=== PATIENT | male | born 1945 | race Caucasian/White ===

== ENCOUNTER 2019-10-28 10:09 | Inpatient (IN) | payer MEDICARE, BC ==
[~2019-10-28] VITALS: Ht 177.8 cm; Wt 107.5 kg
[2019-10-28 11:42] VITALS: BP 139/80
[2019-10-28] MEDS ORDERED: BISACODYL 10 MG SUPP PR PRN (13:15)
[2019-10-28] MEDS ORDERED: MOM 30ML SUSPENSION UDC PO PRN (13:15)
--- NOTE | 2019-10-28 13:39 | HPEPDOC ---
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 SOURCE OF ADMISSION INFORMATION: [facility] records and patient CHIEF COMPLAINT:intracranial hemorrhage HISTORY OF PRESENT ILLNESS: 74M pmh KATHARINE on CPAP, Aortic valve repair on warfarin and ASA, thoracic aortic aneurysm, HLD, gout who developed right sided weakness and slurred speech and presented to [facility] on 10-24-19 from an outside hospital after having been diagnosed with a large left frontal intracranial hemorrhage. His Coumadin was held for at least 2 weeks to be re-evaluated by neurosurgery in 2 weeks and repeat CTH on 10-25-19 showed, Grossly unchanged intraparenchymal hemorrhage in the left frontal lobe measuring 4.6 x 3.1 x 4.0 cm (AP x TV x CC) with surrounding edema. There is minimal effacement of the frontal horn of the left lateral ventricle due to mass effect from the hemorrhage and edema. No new acute intracranial hemorrhage identified. Chest CT showed an incidental right upper lobe granuloma which was recommended to be followed up with repeat imaging in 3 months. Malignancy work-up was pursued due to concern of location of frontal lobe hematoma which included CT abd/pelvis which was negative. He developed LUE and jaw tremors at one point, loaded with Keppra, with EEG ultimately negative and anti-seizure meds were discontinued. He was evaluated by therapy, who found him to be well below his prior level of function with difficulty with mobility and ADL management in need of IRF level of care and deemed appropriate for discharge to ARU on 10-28-19. REVIEW OF SYSTEMS: The following is a completed review of systems and has been reviewed. Review of systems otherwise unremarkable. PAIN: Patient self reports no pain EYES: No recent vision changes EARS, NOSE, & THROAT: No throat pain, or dysphagia, or rhinorrhea CARDIOVASCULAR: Denies chest pain or palpitations PULMONARY:+ cough GASTROINTESTINAL: Denies constipation/diarrhea GENITOURINARY: +urinary incontinence MUSCULOSKELETAL: right sided weakness NEUROLOGICAL:Right sided paresis HEMATOLOGICAL: denies easy bruising SKIN:intact PSYCHIATRIC: Unremarkable All other review of systems found to be negative. PAST MEDICAL HISTORY: as per HPI PAST SURGICAL HISTORY: as per HPI ALLERGIES: Please see below. MEDICATIONS: Please see below. FAMILY HISTORY:Cardiac, DM SOCIAL HISTORY:Former smoker, no ETOH DIET:mechanical soft and thins PHYSICAL EXAMINATION: VITAL SIGNS: Please see below. GENERAL: Pleasant and cooperative. No acute distress. HEENT: PERRL. Extraocular movements intact. Clear conjunctiva CARDIOVASCULAR: Regular rate and rhythm. No murmurs, rubs, or gallops LUNGS: No wheezes. +scattered rhonchi ABDOMEN: Soft, nontender, nondistended. Positive bowel sounds. Normal active bowel sounds NEUROLOGICAL: Alert and oriented times 2. Cranial nerves II through XII grossly intact. Sensation grossly intact in all 4limbs (+) clonus right EXTREMITIES: 5\\5 strength left upper extremities. 3/5 right elbow flexors, extensors, 2/5 cloth roll winder, 5-\\5 strength right lower extremity. 5/5 strength in left lower extremity. SKIN: blanchable erythema on sacrum LABORATORY DATA: Please see below. IMAGING: Imaging documentation personally reviewed by record. FUNCTIONAL STATUS: Premorbid: Independent with all activities of daily life as well as mobility On Admission: Max-total assist for functional transfers, bed mobility, dressing, toileting. GOALS: Mod-I household distances for ambulation, functional transfers, dressing, toileting, supervision for bathing, medical optimization ASSESSMENT:74-year-old M with past medical history of HTN, aortic valve repair on AC who presents status post left frontal ICH PLAN: 1. 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 Neuro: s/p left frontal spontaneous ICH, c/u secondary stroke prevention with statin and good BP management, ASa and Couamdin on hold for at least 2 weeks until cleared by neurosurgery -hemiparesis will start SSRI for motor recovery -patient with episode of jaw and LUE tremor at [facility] with EEG 10-25-19 showing, " Continuous mild focal slowing at left fronto-central and left frontotemporal regions. No epileptiform abnormalities are identified" at which pint he was not continued on antiseizure meds -Again with similar episode today lasting less than 5 minutes with preserved consciousness, however patient seen again later with persistent milder lower jaw jerking without LUE tremor lasting >5 minutes-will discuss case with neurology to help determine if he should be started on Keppra in setting of recent ICH for what may be simple partial seizures vs myoclonus 3. Cardiac: hx of htn c/u enalapril and Lasix -HLD- c/u statin -medicine consulted to assist in overall management 4. resp: encourage incentive spirometry, monitor for infection, will start Duonebs and Guaifenesin for rhonchi on exam and cough -KATHARINE c/u CPAP, if patient unable to bring in own machine start nocturnal 02 in the meantime 5. : monitor PVRs 6. DVT ppx: Lovenox, teds, will order admission Doppler 7. GI ppx: Protonix 8. Pain: Tylenol prn 9. DIspo: TBD POST ADMISSION PHYSICIAN EVALUATION: Medical and functional status: Description of medical status, medical assessment: As above. Rehabilitation diagnosis and current and prior cold morbid medical conditions as above. Risk of complications and plans to mitigate them as above. Description of functional status current status is as above. Prior status as above. Status compared to preadmission: There are no clinically significant differences between the patient's current status and the information described on the preadmission screening document. Treatment plan anticipated: Treatment plan is as described above. Required disciplines including physical therapy, occupational therapy, others as noted above. Intensity of services: 3 hours a day, 6 days a week. Special considerations: There are no specific special or safety considerations that would likely preclude immediate implementation of an intensive rehabilitation program or subsequently influence the plan of care. ATTESTATION: Considering all the information above, it is my best judgment that this patient requires intensive rehabilitation therapy as described above and an inpatient hospital environment due to the complexity of nursing, medical, and rehabilitation needs required by the patient. Furthermore, this patient can reasonably be expected to participate in an benefit from an inpatient re habilitation stay with an interdisciplinary team approach to the delivery of rehabilitation care under the direction and supervision of rehabilitation physician. PROGNOSIS: good ESTIMATED LENGTH OF STAY:24-28 days. PROJECTED DISCHARGE DESTINATION: Home with family support and any durable medical equipment required to increase functional safety and mobility. TIME SPENT COUNSELING AND COORDINATING INITIAL CARE: Greater than 70 minutes. Vital Signs Vital Sign - Last 24 Hours 10/28/19 11:42 Temp 99.6 Pulse 67 Resp 17 B/P (MAP) 139/80 (99) Pulse Ox 93 O2 Delivery Room Air Home Medications Scheduled Allopurinol (Zyloprim) 300 Mg Tablet, 300 MG PO DAILY, (Reported) Cholecalciferol (Vitamin D3) (Vitamin D3) 1,000 Unit Tablet, 1,000 UNITS PO DAILY, (Reported) Docusate Sodium (Colace) 100 Mg Capsule, 100 MG PO DAILY, (Reported) Enalapril Maleate (Enalapril Maleate) 5 Mg Tablet, 5 MG PO DAILY, (Reported) started at [facility] Enoxaparin Sodium (Lovenox) 40 Mg/0.4 Ml Syringe, 40 MG SC DAILY, (Reported) started at [facility] 10/28/19 for 10 days Furosemide (Furosemide) 20 Mg Tablet, 20 MG PO DAILY, (Reported) Potassium Chloride (Potassium Chloride) 10 Meq Capsule.er, 10 MEQ PO DAILY, (Reported) Tamsulosin HCl (Flomax) 0.4 Mg Capsule, 0.4 MG PO DAILY, (Reported) Warfarin Sodium (Warfarin Sodium) 5 Mg Tablet, 5 MG PO 3XW, (Reported) sun,tue, fri Warfarin Sodium (Warfarin Sodium) 7.5 Mg Tablet, 7.5 MG PO 4XWK, (Reported) mon,wed,th,and sat Scheduled PRN Acetaminophen (Acetaminophen) 325 Mg Tablet, 650 MG PO Q4H PRN for PAIN, (Reported) for 10 days started 10/28/19 Allergies Coded Allergies: No Known Allergies (Verified Allergy, Unknown, 10/28/19) A-FIB/CHADSVASC A-FIB History Current/History of A-Fib/PAF?: No ANTIONETTE HONG MD Oct 28, 2019 13:39
[2019-10-28] MEDS ORDERED: WARF-21 PO (13:47)
[2019-10-28] MEDS ORDERED: WARF-23 PO (13:47)
[2019-10-28] MEDS ORDERED: FLOM0.4C39 PO (13:47)
[2019-10-28] MEDS ORDERED: ENAL5TAB PO (13:47)
[2019-10-28] MEDS ORDERED: POTA10CA32 PO (13:47)
[2019-10-28] MEDS ORDERED: ZYLO300T6 PO (13:47)
[2019-10-28] MEDS ORDERED: COLA100C5 PO (13:47)
[2019-10-28] MEDS ORDERED: ACET1TAB55 PO (13:47)
[2019-10-28] MEDS ORDERED: FURO20TA2 PO (13:47)
[2019-10-28] MEDS ORDERED: LOVE1INJ SC (13:47)
[2019-10-28] MEDS ORDERED: VITAD1000T PO (13:47)
[2019-10-28 14:00] VITALS: BP 116/70
--- NOTE | 2019-10-28 15:08 | REP ---
Bilateral lower extremity Duplex Doppler venous ultrasound: Real time compression and duplex Doppler interrogation of the bilateral lower extremity deep venous system is performed. Bilaterally, the common femoral, superficial femoral and popliteal veins are fully compressible with transducer pressure and demonstrate normal spontaneous and phasic flow, without evidence of deep venous thrombosis. Impression: No evidence of deep venous thrombosis of the bilateral lower extremity femoral popliteal venous system. Right Palma's cyst measures 7.2 x 1.8 x 4.8 cm. Electronically Signed by Sung Covington MD 10/28/2019 02:58 P
--- NOTE | 2019-10-28 15:53 | HPEPDOC ---
General Date of Admission Oct 28, 2019 at 11:00 Date of Service: Oct 28, 2019 Chief Complaint The patient is a 74-year-old male admitted with a reason for visit of Left Frontal Intraparenchymal Hemorrhage. Source: Patient, Old records Exam Limitations: No limitations Associated Symptoms: Denies Symptoms History of Present Illness Mr. Acevedo is a 74-year-old male who is transferred to the ARU for rehabilitation. The patient reported that last week he had slipped and fallen outside, he noticed that he had right sided arm and leg weakness for several days, that would not resolve. He also noticed some slurred speech. He denied loss of consciousness. Patient went to the ED at [facility] after 3 days of persistent symptoms. He was later transferred to [facility] after he was imaged and found to have a large left frontal ICH. Per the medical record, CT of the head completed on October 23 showed a "stable left frontal lobe intra-parenchymal hemorrhage. There was no significant mass effect or midline shift." Non-contrast MR of the brain October 24 revealed a "left posterior frontal lobe hematoma with surrounding vasogenic edema and mild mass effect on the corpus callosum. No evidence of midline shift." His follow-up non-con MR of the brain on October 25 revealed "high left frontal hematoma at the vertex, likely a hypertensive hemorrhage with rebleed." Patient was also on chronic Coumadin therapy. He was found to be supratherapeutic at 3.38 and given vitamin K and 1 unit fresh frozen plasma. N eurology was consulted at [facility] recommended no surgical intervention, Coumadin discontinued. Patient was evaluated for rehabilitation and was transferred today. Seen sitting up in bed, he denies any headaches, double vision or blurred vision, dizziness, disorientation, chest pain or palpitations, shortness of breath or cough, reduced appetite, abnormal urinary or bowel movements. He continues to suffer from weakness/flaccidity in the right upper and right lower extremities. Home Medications Scheduled Allopurinol (Zyloprim) 300 Mg Tablet, 300 MG PO DAILY, (Reported) Cholecalciferol (Vitamin D3) (Vitamin D3) 1,000 Unit Tablet, 1,000 UNITS PO DAILY, (Reported) Docusate Sodium (Colace) 100 Mg Capsule, 100 MG PO DAILY, (Reported) Enalapril Maleate (Enalapril Maleate) 5 Mg Tablet, 5 MG PO DAILY, (Reported) started at [facility] Enoxaparin Sodium (Lovenox) 40 Mg/0.4 Ml Syringe, 40 MG SC DAILY, (Reported) started at [facility] 10/28/19 for 10 days Furosemide (Furosemide) 20 Mg Tablet, 20 MG PO DAILY, (Reported) Potassium Chloride (Potassium Chloride) 10 Meq Capsule.er, 10 MEQ PO DAILY, (Reported) Tamsulosin HCl (Flomax) 0.4 Mg Capsule, 0.4 MG PO DAILY, (Reported) Warfarin Sodium (Warfarin Sodium) 5 Mg Tablet, 5 MG PO 3XW, (Reported) sun,fri, fri Warfarin Sodium (Warfarin Sodium) 7.5 Mg Tablet, 7.5 MG PO 4XWK, (Reported) mon,wed,th,and sat Scheduled PRN Acetaminophen (Acetaminophen) 325 Mg Tablet, 650 MG PO Q4H PRN for PAIN, (Reported) for 10 days started 10/28/19 Allergies Coded Allergies: No Known Allergies (Verified Allergy, Unknown, 10/28/19) Past Medical History Medical History Hypertension, hyperlipidemia, obstructive sleep apnea (on CPAP), aortic valve repair 2004 with chronic Coumadin and ASA, thoracic aortic aneurysm repair 2017, gout, BPH. Surgical History Thoracic aortic aneurysm repair. Aortic valve replacement Family History Significant Family History: COPD (brothers), Diabetes (brother), Heart disease (fatherMI, or otherheart failure) Social History * Smoker: former Smoker (quit 30 years ago) Alcohol: Denies (quit 20 years ago) Drugs: denies A-FIB/CHADSVASC A-FIB History Current/History of A-Fib/PAF?: No Current PO Anticoag Therapy: No Age/Risk Factor Scoring CHADSVASC: CHADSVASC Response (Comments) Value Age Risk Factor Age 65-74 years old 1 Gender Risk Factor Male 0 Hx of CHF No 0 Hx of HTN Yes 1 Hx of Stroke/TIA/or VTE Yes 2 Hx of Diabetes No 0 Hx of Vascular Disease Yes 1 Total 5 Treatment Treatment ordered: Holding Warfarin Other anticoagulant ordered: Lovenox Review of Systems Constitutional: Denies: Chills, Fever, Night Sweats Eyes: Denies: Pain, Vision change ENT: Reports: Dysphagia; Denies: Head Aches, Ear Pain Skin: Denies: Rash, Lesions, Breakdown Pulmonary: Denies: Dyspnea, Cough Cardiovascular: Denies: Chest Pain, Palpitations, Orthopnea, Paroxysmal Noc. Dyspnea, Lt Headedness Gastrointestinal: Denies: Nausea, Vomiting, Abdominal Pain, Diarrhea Genitourinary: Denies: Dysuria, Frequency, Incontinence, Retention Hematologic: Denies: Bruising, Bleeding Excessively Musculoskeletal: Denies: Neck Pain, Back Pain, Joint Pain, Muscle Pain, Spasms Neurological: Reports: Weakness, Numbness, Change in speech; Denies: Confusion Psych: Reports: Mood Normal Physical Examination General Exam: Positive: Alert, Cooperative, No Acute Distress Eye Exam: Positive: PERRLA, Conjunctiva & lids normal, EOMI; Negative: Sclera icteric ENT Exam: Positive: Atraumatic, Mucous membr. moist/pink, Pharynx Normal, Other ENT (intermittent jaw tremor) Neck Exam: Positive: Supple; Negative: thyromegaly, Lymphadenopathy Chest Exam: Positive: Clear to auscultation, Normal air movement Heart Exam: Positive: Rate Normal, Regular Rhythm, Normal S1, Normal S2, Murmurs (mechanical valve murmur heard throughtout the precordium ); Negative: Gallops, Rubs Telemetry: Positive: No significant arrhythmia Abdomen Exam: Positive: Normal bowel sounds, Soft; Negative: Tenderness, Hepatospenomegaly Extremity Exam: Positive: Swelling; Negative: Clubbing, Cyanosis, Edema, Normal pulses, Tenderness Skin Exam: Positive: Nl turgor and temperature; Negative: Breakdown, Lesion Neuro Exam: Positive: Strength at 5/5 X4 ext (right sided flaccidity, 4/5 strength LUE and LLE), Cranial Nerves 3-12 NL (grossly intact); Negative: Normal Gait (right sided hemiparesis), Normal Speech Psych Exam: Positive: Mood NL, Oriented x 3 Vital Signs Vital Signs Date Time Temp Pulse Resp B/P (MAP) Pulse Ox O2 Delivery O2 Flow Rate FiO2 10/28/19 11:42 99.6 67 17 139/80 (99) 93 Room Air Assessment/Plan Mr. Acevedo is a 74-year-old male who is transferred to the ARU for rehabilitation. The patient reported that last week he had slipped and fallen outside, he noticed that he had right sided arm and leg weakness for several days, that would not resolve. He also noticed some slurred speech. He denied loss of consciousness. Patient [facility] the ED at [facility] after 3 days of persistent symptoms. He was later transferred to [facility] after he was imaged and found to have a large left frontal ICH. Per the medical record, CT of the head completed on October 23 showed a "stable left frontal lobe intra-parenchymal hemorrhage. There was no significant mass effect or midline shift." Non-contrast MR of the brain October 24 revealed a "left posterior frontal lobe hematoma with surrounding vasogenic edema and mild mass effect on the corpus callosum. No evidence of midline shift." His follow-up non-con MR of the brain on October 25 revealed "high left frontal hematoma at the vertex, likely a hypertensive hemorrhage with rebleed." Patient was also on chronic Coumadin therapy. He was found to be supratherapeutic at 3.38 and given vitamin K and 1 unit fresh frozen plasma. Neurology was consulted at [facility] recommended no surgical intervention, Coumadin discontinued. Patient was evaluated for rehabilitation and was transferred today. Patient has a past medical history which includes: hypertension, hyperlipidemia, obstructive sleep apnea (on CPAP), aortic valve repair 2004 with chronic Coumadin and ASA, thoracic aortic aneurysm repair 2017, gout, BPH. #1. Intracranial hemorrhage, with residual right-sided deficits. Coumadin and aspirin remain on hold The plan is for the patient to follow up with neuro surgery in 2 weeks. He is to have a repeat CT of the head prior to this appointment. He is also to follow-up with his PCP within one week of his discharge from rehabilitation. 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 Hypertension. Will require strict blood pressure control secondary to his MRI on 10/25, which showed rebleeding , possibly due to hypertensive hemorrhage. Continue enalapril, Lasix #3. Hyperlipidemia. Continue statin. #4. Obstructive sleep apnea. Nightly use of home CPAP machine. #5. Gout. Continue allopurinol. #6. BPH. Continue tamsulosin #7. Intermittent jaw tremor. Evaluated via EEG at [facility], findings were noncontributory Plan / VTE VTE Prophylaxis Ordered?: Yes (Lovenox. ) JAYLA GONZALEZ PA-C Oct 28, 2019 15:53
[2019-10-28 16:20] VITALS: BP 118/73
[2019-10-28] MEDS: IPRATROPIUM 0.5MG/ALBUTEROL 2.5MG INH SOL UD 3ML (DUONEB)(J7620) NEB SCH ×2 (16:43→19:53)
[2019-10-28] MEDS: ATORVASTATIN 20 MG TAB PO SCH (17:12)
[2019-10-28] MEDS: FLUoxetine 20 MG CAP PO SCH (17:12)
[2019-10-28] MEDS: PANTOPRAZOLE 40MG TAB (PROTONIX) PO SCH (17:12)
[2019-10-28] MEDS: guaiFENesin 200 MG TAB PO SCH ×2 (17:12→20:38)
[2019-10-28] MEDS: REMEDY PHYTOPLEX Z-GUARD PASTE 113GM TUBE (FROM STOREROOM PRODUCT) TOP SCH ×2 (17:12→20:38)
[2019-10-28 20:00] VITALS: BP 129/73
[2019-10-28] MEDS: DOCUSATE SODIUM 100 MG CAP PO SCH (20:37)
[2019-10-28] MEDS: SENNA 8.6 MG TAB (SENOKOT) PO SCH (20:37)
[2019-10-28] MEDS: traZODone 25MG PER 1/2 TABLET PO PRN (20:52)
[2019-10-29 06:00] VITALS: BP 148/88
[2019-10-29 06:51] LABS: BASO % 0.4 % (0.0-1.0); EOS # 0.2 10^3/uL (0.0-0.5); EOS % 4.1 % (0.0-3.0); HEMATOCRIT 39.8 % (42.0-52.0); HEMOGLOBIN 13.7 g/dl (13.5-17.5); LYMPH # 0.9 10^3/uL (1.5-5.0); LYMPH % 17.5 % (24.0-44.0); MEAN CORPUSCULAR HEMOGLOBIN 32.1 pg (27.0-33.0); MEAN CORPUSCULAR HGB CONC 34.4 g/dl (32.0-36.5); MEAN CORPUSCULAR VOLUME 93.2 fl (80.0-96.0); MONO # 0.4 10^3/uL (0.0-0.8); MONO % 6.8 % (0.0-5.0); NEUTROPHILS # 3.7 10^3/uL (1.5-8.5); PLATELET COUNT, AUTOMATED 141 10^3/uL (150-450); RED BLOOD COUNT 4.27 10^6/uL (4.30-6.10); WHITE BLOOD COUNT 5.2 10^3/uL (4.0-10.0)
[2019-10-29] MEDS: IPRATROPIUM 0.5MG/ALBUTEROL 2.5MG INH SOL UD 3ML (DUONEB)(J7620) NEB SCH ×4 (07:01→19:58)
[2019-10-29 07:16] LABS: ALBUMIN 3.1 GM/DL (3.2-5.2); ALT/SGPT 20 U/L (12-78); BILIRUBIN,TOTAL 0.7 MG/DL (0.2-1.0); BLOOD UREA NITROGEN 14 MG/DL (7-18); CALCIUM LEVEL 8.4 MG/DL (8.8-10.2); CARBON DIOXIDE LEVEL 25 MEQ/L (21-32); CHLORIDE LEVEL 110 MEQ/L (98-107); CREATININE FOR GFR 0.85 MG/DL (0.70-1.30); GLOMERULAR FILTRATION RATE > 60.0 (>42); GLUCOSE, FASTING 93 MG/DL (70-100); POTASSIUM SERUM 3.6 MEQ/L (3.5-5.1); SODIUM LEVEL 141 MEQ/L (136-145)
[2019-10-29] MEDS: DOCUSATE SODIUM 100 MG CAP PO SCH ×2 (09:00→19:50)
[2019-10-29] MEDS: TAMSULOSIN 0.4 MG CAP PO SCH (09:48)
[2019-10-29] MEDS: POTASSIUM CHLORIDE 10 MEQ SR TABLET PO SCH (09:48)
[2019-10-29] MEDS: VITAMIN D 1,000 INTERNATIONAL UNITS TABLET PO SCH (09:48)
[2019-10-29] MEDS: ATORVASTATIN 20 MG TAB PO SCH (09:48)
[2019-10-29] MEDS: PANTOPRAZOLE 40MG TAB (PROTONIX) PO SCH (09:48)
[2019-10-29] MEDS: ENALAPRIL MALEATE 5 MG TAB PO SCH (09:48)
[2019-10-29] MEDS: allopurinoL 300 MG TAB PO SCH (09:49)
[2019-10-29] MEDS: FUROSEMIDE 20 MG TAB PO SCH (09:49)
[2019-10-29] MEDS: FLUoxetine 20 MG CAP PO SCH (09:49)
[2019-10-29] MEDS: ENOXAPARIN 40 MG/0.4 ML SYRINGE (J1650) SC SCH (09:49)
[2019-10-29] MEDS: guaiFENesin 200 MG TAB PO SCH ×3 (09:49→21:52)
[2019-10-29] MEDS: REMEDY PHYTOPLEX Z-GUARD PASTE 113GM TUBE (FROM STOREROOM PRODUCT) TOP SCH ×3 (09:51→19:50)
[2019-10-29 14:00] VITALS: BP 111/77
--- NOTE | 2019-10-29 15:26 | REPVR ---
PROCEDURE INFORMATION: Exam: CT Head Without Contrast Exam date and time: 10/29/2019 3:19 PM Age: 74 years old Clinical indication: Other: Jaw and left arm shaking; Additional info: Jaw and left arm shaking, left frontal ich TECHNIQUE: Imaging protocol: Computed tomography of the head without contrast. Radiation optimization: All CT scans at this facility use at least one of these dose optimization techniques: automated exposure control; mA and/or kV adjustment per patient size (includes targeted exams where dose is matched to clinical indication); or iterative reconstruction. Other technique: STROKE PROTOCOL was implemented. COMPARISON: No relevant prior studies available. FINDINGS: Brain: Normal. No hemorrhage. Unremarkable white matter. No mass effect. Ventricles: Normal. No ventriculomegaly. Bones/joints: There is depression of the left ventricular roof and posterior displacement of the anterior frontal horn segment. There is no midline displacement. Sinuses: Visualized sinuses are unremarkable. No fluid levels. Mastoid air cells: Visualized mastoid air cells are well aerated. Soft tissues: Unremarkable. Other findings: Left frontal pole intracerebral hematoma measures 3 cm broad by 4 cm AP by 4.2 cm craniocaudal for estimated volume 24 mL. There is extensive surrounding vasogenic edema which could indicate a pre-existing mass. IMPRESSION: 1. Left frontal pole intracerebral hematoma measures 3 cm broad by 4 cm AP by 4.2 cm craniocaudal for estimated volume 24 mL. There is extensive surrounding vasogenic edema which could indicate a pre-existing mass. 2. There is depression of the left ventricular roof and posterior displacement of the anterior frontal horn segment. There is no midline displacement. ASSESSMENT: ASPECTS (Vickie Stroke Program Early CT Score) is 10. Electronically signed by: Yao Gupta On 10/29/2019 15:26:45 PM
[2019-10-29] MEDS: SENNA 8.6 MG TAB (SENOKOT) PO SCH (19:50)
[2019-10-29 20:00] VITALS: BP 127/76
--- NOTE | 2019-10-29 20:43 | CR ---
DATE OF CONSULTATION: 10/29/2019 REFERRING PHYSICIAN: Dr. Tita Baig. REASON FOR CONSULTATION: Jaw and left hand shaking. HISTORY OF PRESENT ILLNESS: Gabriel Macedo is a 74-year-old man with a history of sleep apnea, aortic valve replacement who has been on Coumadin and aspirin since 2004, thoracic aortic aneurysm, who was at his baseline state of health until October 24, 2019 when he slipped, fell and hit his head and presented to hospital in [place] with large left frontal cerebral hemorrhage. His INR was 3.3 at that time. He was transferred to [facility] where he was admitted. CT scan of his head showed 4.6 x 3.1 x 4 cm cerebral hemorrhage with surrounding edema. CT scan of chest showed incidental upper lobe of lung granuloma. CT scan of abdomen and pelvis were unremarkable. The patient states that he is not allowed to have MRI scan of brain due to his aortic valve replacement. He was noted to have jaw and left arm shaking. He was given Keppra, but his EEG only showed left frontal and temporal slowing and Keppra was stopped. The patient denies any headaches, neck or back pain. He continues to have right hemiparesis with right arm weakness much more than right leg. He does appear to have slight speech deficit and cognitive deficits. Dr. Moy saw episodes of jaw and left hand shaking today, which lasted for 2-5 minutes. I was consulted due to concern for seizure. PAST MEDICAL HISTORY: Aortic valve replacement, and it appears to me by the patient's discussion that he may have a mechanical heart valve and cannot have MRI scan of brain. Thoracic aortic aneurysm, dyslipidemia, gout, sleep apnea. SOCIAL HISTORY: He lives with his . He is a former smoker. He denies alcohol or illicit drugs. FAMILY HISTORY: Significant for diabetes and heart disease. CURRENT MEDICATIONS: - enalapril 5 mg by mouth daily - Lovenox 40 mg subcutaneous daily - Lasix - potassium chloride 10 mEq by mouth daily - Flomax 0.4 mg by mouth daily - Coumadin 5 mg alternating with 7.5 mg on a daily basis, which is on hold. - allopurinol 300 mg by mouth daily ALLERGIES: None. REVIEW OF SYSTEMS All systems were reviewed and found to be noncontributory except as mentioned in history of present illness. PHYSICAL EXAMINATION: Temperature 98.9, pulse 62, respiratory rate 18, blood pressure 111/77, 93% saturation on room air. Heart: Regular rate and rhythm. Lungs: Clear to auscultation. Abdomen: Soft, nontender, nondistended. No pedal edema. No musculoskeletal abnormalities. No rash. No signs of meningeal irritation. The patient is awake, alert, oriented to month, year. He thought that he was still in [place]. He did not know the name of the president. He did not know the day of week and exact date. He appears to have some difficulty with his speech and memory. Extraocular muscles are intact. He has right-sided upper motor neuron-type facial weakness. Tongue and uvula are midline. Forehead and eye strength is normal bilaterally. Right arm strength is 1/5 and right leg strength is 3/5 throughout. Right plantar is upgoing. Deep tendon reflexes are 1+ throughout. Gait could not be tested. Cerebellar testing could not performed on right side. Sensation is normal throughout. Intermittent jaw tremor and left hand tremor during action and postural changes was noted. DIAGNOSTIC STUDIES: CT scan of his head today showed stable left frontal cerebral hemorrhage with vasogenic edema. Size of hemorrhage is slightly lesser compared to his scan at [facility]. ASSESSMENT: 1. 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 His right arm is completely plegic and that explains absence of tremor in right arm. 2. Partial seizures are less likely as left frontal hemorrhage would not explain left arm shaking. PLAN: 1. EEG. Repeat CT scan of head next week. My index of suspicion for any underlying malignancy is extremely low. He likely had traumatic cerebral hemorrhage, and he was of Coumadin with therapeutic INR at that time. 2. No need for antiepileptic medications. Primidone will lower effectiveness of Coumadin if primidone is used for essential tremor in future. It should likely be avoided. Propranolol can be considered if needed in future for his mild tremor. 3. The patient will followup with neurosurgery for his cerebral hemorrhage. He already had unremarkable workup for malignancy at [facility]. [facility]
[2019-10-30] MEDS: traZODone 25MG PER 1/2 TABLET PO PRN (00:04)
[2019-10-30 06:00] VITALS: BP 131/85
[2019-10-30] MEDS: IPRATROPIUM 0.5MG/ALBUTEROL 2.5MG INH SOL UD 3ML (DUONEB)(J7620) NEB SCH ×4 (07:04→19:24)
[2019-10-30] MEDS: PANTOPRAZOLE 40MG TAB (PROTONIX) PO SCH (08:15)
[2019-10-30] MEDS: ATORVASTATIN 20 MG TAB PO SCH (08:16)
[2019-10-30] MEDS: allopurinoL 300 MG TAB PO SCH (08:16)
[2019-10-30] MEDS: POTASSIUM CHLORIDE 10 MEQ SR TABLET PO SCH (08:16)
[2019-10-30] MEDS: DOCUSATE SODIUM 100 MG CAP PO SCH ×2 (08:17→21:53)
[2019-10-30] MEDS: FLUoxetine 20 MG CAP PO SCH (08:17)
[2019-10-30] MEDS: VITAMIN D 1,000 INTERNATIONAL UNITS TABLET PO SCH (08:17)
[2019-10-30] MEDS: ENOXAPARIN 40 MG/0.4 ML SYRINGE (J1650) SC SCH (08:17)
[2019-10-30] MEDS: guaiFENesin 200 MG TAB PO SCH ×3 (08:17→21:53)
[2019-10-30] MEDS: TAMSULOSIN 0.4 MG CAP PO SCH (08:17)
[2019-10-30] MEDS: ENALAPRIL MALEATE 5 MG TAB PO SCH (08:17)
[2019-10-30] MEDS: FUROSEMIDE 20 MG TAB PO SCH (08:17)
[2019-10-30] MEDS: REMEDY PHYTOPLEX Z-GUARD PASTE 113GM TUBE (FROM STOREROOM PRODUCT) TOP SCH ×3 (08:18→21:53)
[2019-10-30 14:00] VITALS: BP 112/74
[2019-10-30 20:30] VITALS: BP 131/75
[2019-10-30] MEDS: SENNA 8.6 MG TAB (SENOKOT) PO SCH (21:53)
[2019-10-31 05:46] VITALS: BP 150/82
[2019-10-31] MEDS: IPRATROPIUM 0.5MG/ALBUTEROL 2.5MG INH SOL UD 3ML (DUONEB)(J7620) NEB SCH ×4 (07:12→19:42)
[2019-10-31 07:18] LABS: HEMATOCRIT 40.5 % (42.0-52.0); HEMOGLOBIN 13.6 g/dl (13.5-17.5); MEAN CORPUSCULAR HEMOGLOBIN 31.9 pg (27.0-33.0); MEAN CORPUSCULAR HGB CONC 33.6 g/dl (32.0-36.5); MEAN CORPUSCULAR VOLUME 95.1 fl (80.0-96.0); PLATELET COUNT, AUTOMATED 155 10^3/uL (150-450); RED BLOOD COUNT 4.26 10^6/uL (4.30-6.10); WHITE BLOOD COUNT 5.3 10^3/uL (4.0-10.0)
[2019-10-31] MEDS: allopurinoL 300 MG TAB PO SCH (07:48)
[2019-10-31] MEDS: ENOXAPARIN 40 MG/0.4 ML SYRINGE (J1650) SC SCH (07:48)
[2019-10-31] MEDS: ENALAPRIL MALEATE 5 MG TAB PO SCH (07:49)
[2019-10-31] MEDS: VITAMIN D 1,000 INTERNATIONAL UNITS TABLET PO SCH (07:49)
[2019-10-31] MEDS: TAMSULOSIN 0.4 MG CAP PO SCH (07:49)
[2019-10-31] MEDS: FLUoxetine 20 MG CAP PO SCH (07:49)
[2019-10-31] MEDS: POTASSIUM CHLORIDE 10 MEQ SR TABLET PO SCH (07:49)
[2019-10-31] MEDS: ATORVASTATIN 20 MG TAB PO SCH (07:49)
[2019-10-31] MEDS: guaiFENesin 200 MG TAB PO SCH ×3 (07:49→20:55)
[2019-10-31] MEDS: FUROSEMIDE 20 MG TAB PO SCH (07:50)
[2019-10-31] MEDS: PANTOPRAZOLE 40MG TAB (PROTONIX) PO SCH (07:50)
[2019-10-31] MEDS: DOCUSATE SODIUM 100 MG CAP PO SCH ×2 (07:50→20:55)
[2019-10-31] MEDS: REMEDY PHYTOPLEX Z-GUARD PASTE 113GM TUBE (FROM STOREROOM PRODUCT) TOP SCH ×3 (07:51→20:55)
[2019-10-31 13:58] VITALS: BP 122/67
[2019-10-31 20:00] VITALS: BP 130/69
[2019-10-31] MEDS: SENNA 8.6 MG TAB (SENOKOT) PO SCH (20:55)
[2019-11-01 05:29] VITALS: BP 126/67
[2019-11-01] MEDS: IPRATROPIUM 0.5MG/ALBUTEROL 2.5MG INH SOL UD 3ML (DUONEB)(J7620) NEB SCH ×3 (07:15→19:25)
[2019-11-01] MEDS: DOCUSATE SODIUM 100 MG CAP PO SCH ×2 (09:00→20:43)
[2019-11-01] MEDS: VITAMIN D 1,000 INTERNATIONAL UNITS TABLET PO SCH (09:01)
[2019-11-01] MEDS: ATORVASTATIN 20 MG TAB PO SCH (09:01)
[2019-11-01] MEDS: ENOXAPARIN 40 MG/0.4 ML SYRINGE (J1650) SC SCH (09:01)
[2019-11-01] MEDS: guaiFENesin 200 MG TAB PO SCH ×3 (09:02→20:43)
[2019-11-01] MEDS: PANTOPRAZOLE 40MG TAB (PROTONIX) PO SCH (09:02)
[2019-11-01] MEDS: allopurinoL 300 MG TAB PO SCH (09:02)
[2019-11-01] MEDS: POTASSIUM CHLORIDE 10 MEQ SR TABLET PO SCH (09:02)
[2019-11-01] MEDS: TAMSULOSIN 0.4 MG CAP PO SCH (09:02)
[2019-11-01] MEDS: FLUoxetine 20 MG CAP PO SCH (09:02)
[2019-11-01] MEDS: ENALAPRIL MALEATE 5 MG TAB PO SCH (09:03)
[2019-11-01] MEDS: FUROSEMIDE 20 MG TAB PO SCH (09:03)
[2019-11-01] MEDS: REMEDY PHYTOPLEX Z-GUARD PASTE 113GM TUBE (FROM STOREROOM PRODUCT) TOP SCH ×3 (09:04→20:44)
--- NOTE | 2019-11-01 10:12 | IPNPDOC ---
Text Note Date of Service The patient was seen on 11/01/19. NOTE History of Present Illness Mr. Acevedo is a 74-year-old male who is transferred to the ARU for rehabilitation. The patient reported that last week he had slipped and fallen outside, he noticed that he had right sided arm and leg weakness for several days, that would not resolve. He also noticed some slurred speech. He denied loss of consciousness. Patient went to the ED at [facility] after 3 days of persistent symptoms. He was later transferred to [facility] after he was imaged and found to have a large left frontal ICH. Patient is seen sitting up in his recliner this morning. He reported that he feels well, therapy has been helpful. He has denied any complaints at this time. Review of Systems Constitutional: Denies: Chills, Fever, Night Sweats Eyes: Denies: Pain, Vision change ENT: Reports: Dysphagia; Denies: Head Aches Pulmonary: Denies: Dyspnea, Cough Cardiovascular: Denies: Chest Pain, Palpitations, Orthopnea, Paroxysmal Noc. Dyspnea, Lt Headedness Gastrointestinal: Denies: Nausea, Vomiting, Abdominal Pain, Diarrhea Genitourinary: Denies: Dysuria, Frequency, Incontinence, Retention Hematologic: Denies: Bruising, Bleeding Excessively Musculoskeletal: Denies: Neck Pain, Back Pain, Joint Pain, Muscle Pain, Spasms Neurological: Reports: Weakness, Numbness, Change in speech; Denies: Confusion Psych: Reports: Mood Normal Physical Examination General Exam: Positive: Alert, Cooperative, No Acute Distress Eye Exam: Positive: PERRLA, Conjunctiva & lids normal, EOMI; Negative: Sclera icteric ENT Exam: Positive: Atraumatic, Mucous membr. moist/pink, Pharynx Normal, Other ENT (intermittent jaw tremor) Neck Exam: Positive: Supple; Negative: thyromegaly, Lymphadenopathy Chest Exam: Positive: Clear to auscultation, Normal air movement Heart Exam: Positive: Rate Normal, Regular Rhythm, Normal S1, Normal S2, Murmurs (mechanical valve murmur heard throughout the precordium ); Negative: Gallops, Rubs Telemetry: Positive: No significant arrhythmia Abdomen Exam: Positive: Normal bowel sounds, Soft; Negative: Tenderness, Hepatospenomegaly Extremity Exam: Positive: Swelling; Negative: Clubbing, Cyanosis, Edema, Normal pulses, Tenderness Skin Exam: Positive: Nl turgor and temperature; Negative: Breakdown, Lesion Neuro Exam: Positive: Strength at 5/5 X4 ext (right sided flaccidity, 4/5 strength LUE and LLE); Negative: Normal Gait (right sided hemiparesis), Normal Speech Psych Exam: Positive: Mood NL, Oriented x 3 Assessment/Plan Mr. Acevedo is a 74-year-old male who is transferred to the ARU for rehabil itation. The patient reported that last week he had slipped and fallen outside, he noticed that he had right sided arm and leg weakness for several days, that would not resolve. He also noticed some slurred speech. He denied loss of consciousness. Patient went to the ED at [facility] after 3 days of persistent symptoms. He was later transferred to [facility] after he was imaged and found to have a large left frontal ICH. Per the medical record, CT of the head completed on October 23 showed a "stable left frontal lobe intra-parenchymal hemorrhage. There was no significant mass effect or midline shift." Non-contrast MR of the brain October 24 revealed a "left posterior frontal lobe hematoma with surrounding vasogenic edema and mild mass effect on the corpus callosum. No evidence of midline shift." His follow-up non-con MR of the brain on October 25 revealed "high left frontal hematoma at the vertex, likely a hypertensive hemorrhage with rebleed." Patient was also on chronic Coumadin therapy. He was found to be supratherape utic at 3.38 and given vitamin K and 1 unit fresh frozen plasma. Neurology was consulted at [facility] recommended no surgical intervention, Coumadin discontinued. Patient was evaluated for rehabilitation and was transferred today. Patient has a past medical history which includes: hypertension, hyperlipidemia, obstructive sleep apnea (on CPAP), aortic valve repair 2004 with chronic Coumadin and ASA, thoracic aortic aneurysm repair 2017, gout, BPH. #1. Intracranial hemorrhage, with residual right-sided deficits. Coumadin and aspirin remain on hold The plan is for the patient to follow up with neuro surgery in 2 weeks. He is to have a repeat CT of the head prior to this appointment. He is also to follow-up with his PCP within one week of his discharge from rehabilitation. 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 Hypertension. Will require strict blood pressure control secondary to his MRI on 10/25, which showed rebleeding , possibly due to hypertensive hemorrhage. Continue enalapril, Lasix Blood pressures within normal limits #3. Hyperlipidemia. Continue statin. #4. Obstructive sleep apnea. Nightly use of home CPAP machine. #5. Gout. Continue allopurinol. #6. BPH. Continue tamsulosin #7. Intermittent jaw tremor. Evaluated via EEG at [facility], findings were noncontributory (ie. no evidence for seizures) Neurology consulted per Dr. Moy. Suspected benign essential tremor affecting the jaw and left upper extremity per Dr. Ortega who also stated that I frontal hemorrhage is unlikely to be responsible for partial seizures. He has a very low suspicion for underlying malignancy, advises to avoid primidone (consider propanolol if needed). Continue with neurosurgery follow-up as previously planned. Plan / VTE VTE Prophylaxis Ordered?: Yes (Lovenox. ) VS,Fishbone, I+O VS, Fishbone, I+O Vital Signs Date Time Temp Pulse Resp B/P (MAP) Pulse Ox O2 Delivery O2 Flow Rate FiO2 11/01/19 09:03 126/67 11/01/19 05:29 98.1 54 18 95 Room Air I&O- Last 24 Hours up to 6 AM 11/01/19 06:00 Intake Total 1370 ml Output Total 2550 ml Balance -1180 ml JAYLA GONZALEZ PA-C Nov 01, 2019 10:12
[2019-11-01 14:58] VITALS: BP 125/63
[2019-11-01] MEDS: traZODone 25MG PER 1/2 TABLET PO PRN (20:43)
[2019-11-01] MEDS: SENNA 8.6 MG TAB (SENOKOT) PO SCH (20:44)
[2019-11-01 22:00] VITALS: BP 131/86
[2019-11-02 06:00] VITALS: BP 158/88
[2019-11-02] MEDS: DOCUSATE SODIUM 100 MG CAP PO SCH ×2 (09:00→20:59)
[2019-11-02] MEDS: REMEDY PHYTOPLEX Z-GUARD PASTE 113GM TUBE (FROM STOREROOM PRODUCT) TOP SCH ×3 (09:00→20:59)
[2019-11-02] MEDS: IPRATROPIUM 0.5MG/ALBUTEROL 2.5MG INH SOL UD 3ML (DUONEB)(J7620) NEB SCH ×4 (09:07→20:00)
[2019-11-02] MEDS: ENOXAPARIN 40 MG/0.4 ML SYRINGE (J1650) SC SCH (09:13)
[2019-11-02] MEDS: VITAMIN D 1,000 INTERNATIONAL UNITS TABLET PO SCH (09:14)
[2019-11-02] MEDS: TAMSULOSIN 0.4 MG CAP PO SCH (09:14)
[2019-11-02] MEDS: POTASSIUM CHLORIDE 10 MEQ SR TABLET PO SCH (09:14)
[2019-11-02] MEDS: allopurinoL 300 MG TAB PO SCH (09:14)
[2019-11-02] MEDS: ENALAPRIL MALEATE 5 MG TAB PO SCH (09:14)
[2019-11-02] MEDS: FLUoxetine 20 MG CAP PO SCH (09:14)
[2019-11-02] MEDS: ATORVASTATIN 20 MG TAB PO SCH (09:14)
[2019-11-02] MEDS: FUROSEMIDE 20 MG TAB PO SCH (09:14)
[2019-11-02] MEDS: guaiFENesin 200 MG TAB PO SCH ×3 (09:15→21:50)
[2019-11-02] MEDS: PANTOPRAZOLE 40MG TAB (PROTONIX) PO SCH (09:22)
[2019-11-02 12:12] VITALS: BP 158/88
[2019-11-02 14:00] VITALS: BP 105/75
--- NOTE | 2019-11-02 18:35 | IPNPDOC ---
PM&R Progress Note DATE OF SERVICE: Nov 02, 2019 Manager Air Progress Note Subjective: Patient reporting he feels well, denies having pain, states his cough is a little better. REVIEW OF SYSTEMS: The following is a completed review of systems and has been reviewed. Review of systems otherwise unremarkable. PAIN: Patient self reports no pain EYES: No recent vision changes EARS, NOSE, & THROAT: No throat pain, or dysphagia, or rhinorrhea CARDIOVASCULAR: Denies chest pain or palpitations PULMONARY:+ cough GASTROINTESTINAL: Denies constipation/diarrhea GENITOURINARY: +urinary incontinence (slightly improving) MUSCULOSKELETAL: right sided weakness NEUROLOGICAL:Right sided paresis HEMATOLOGICAL: denies easy bruising SKIN:intact PSYCHIATRIC: Unremarkable All other review of systems found to be negative. PHYSICAL EXAMINATION: VITAL SIGNS: Please see below. GENERAL: Pleasant and cooperative. No acute distress. HEENT: PERRL. Extraocular movements intact. Clear conjunctiva CARDIOVASCULAR: Regular rate and rhythm. No murmurs, rubs, or gallops LUNGS: No wheezes. +scattered rhonchi ABDOMEN: Soft, nontender, nondistended. Positive bowel sounds. Normal active bowel sounds NEUROLOGICAL: Alert and oriented times 2. Cranial nerves II through XII grossly intact. Sensation grossly intact in all 4limbs (+) clonus right EXTREMITIES: 5\\5 strength left upper extremities. 3/5 right elbow flexors, extensors, 2/5 paper sealer, 5-\\5 strength right lower extremity. 5/5 strength in left lower extremity. SKIN: blanchable erythema on sacrum ASSESSMENT:74-year-old M with past medical history of HTN, aortic valve repair on AC who presents status post left frontal ICH PLAN: 1. 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 Neuro: s/p left frontal spontaneous ICH, c/u secondary stroke prevention with statin and good BP management, ASA and Coumadin on hold for at least 2 weeks until cleared by neurosurgery -hemiparesis will start SSRI for motor recovery -patient with episode of jaw and LUE tremor at [facility] with EEG 20 showing, " Continuous mild focal slowing at left fronto-central and left frontotemporal regions. No epileptiform abnormalities are identified" at which pint he was not continued on antiseizure meds -neuro recs appreciated, patient most likely exhibiting essential tremor, confirmed with today he used to have a bilateral hand tremor prior to the paresis 3. Cardiac: hx of htn c/u enalapril and Lasix -HLD- c/u statin -s/p Aortic valve repair, Coumadin and ASA on hold -medicine consulted to assist in overall management 4. resp: encourage incentive spirometry, monitor for infection, c/u Duonebs and Guaifenesin for cough which is improving- no fevers/leukocytosis -KATHARINE c/u CPAP -will order resp panel given persistent cough 5. : monitor PVRs- patient with incontinence and confusion will order UA/Ucx 6. DVT ppx: Lovenox, teds, admission Dopplers negative 7. GI ppx: Protonix 8. Pain: Tylenol prn 9. DIspo: TBD Allergies Coded Allergies: No Known Allergies (Verified Allergy, Unknown, 10/28/19) Vital Signs Vital Signs Date Time Temp Pulse Resp B/P (MAP) Pulse Ox O2 Delivery O2 Flow Rate FiO2 11/02/19 14:00 97.9 87 17 105/75 (85) 95 Room Air Laboratory Data Labs 24H Laboratory Tests 2 11/01/19 19:31: Bedside Glucose (Misc Panel) 104 Current Medications Current Medications Current Medications Medications (Trade) Dose Ordered Sig/Eugenio Route PRN Reason Start Time Stop Time Status Last Admin Dose Admin Acetaminophen (Tylenol Tab) 650 mg Q4HP PRN PO fever/MILD PAIN (PS 1-4) 10/28/19 13:15 Albuterol/ Ipratropium (Duoneb (Ipr 0.5mg/Alb 2.5mg)) 3 ml RQID NEB 10/28/19 16:00 10/31/19 19:42 Allopurinol (Zyloprim) 300 mg DAILY PO 10/29/19 09:00 11/02/19 09:14 Atorvastatin Calcium (Lipitor) 80 mg DAILY PO 10/28/19 09:00 11/02/19 09:14 Bisacodyl (Dulcolax Suppository) 10 mg DAILYPRN PRN NE CONSTIPATION 10/28/19 13:15 Docusate Sodium (Colace) 100 mg BID PO 10/28/19 21:00 10/31/19 20:55 Enalapril Maleate (Vasotec) 5 mg DAILY PO 10/29/19 09:00 11/02/19 09:14 Enoxaparin Sodium (Lovenox) 40 mg DAILY SC 10/29/19 09:00 11/02/19 09:13 Fluoxetine HCl (PROzac) 20 mg DAILY PO 10/28/19 09:00 11/02/19 09:14 Furosemide (Lasix) 20 mg DAILY PO 10/29/19 09:00 11/02/19 09:14 Guaifenesin (Robitussin Tab) 400 mg TID PO 10/28/19 16:00 11/02/19 17:54 Home Med (Med Rec Complete!) ASDIRECTED XX 10/28/19 14:15 10/28/19 14:28 DC Magnesium Hydroxide (Milk Of Magnesia) 30 ml DAILYPRN PRN PO CONSTIPATION 10/28/19 13:15 Pantoprazole Sodium (Protonix) 40 mg DAILY PO 10/28/19 09:00 11/02/19 09:22 Potassium Chloride (Micro-K Extencaps) 10 meq DAILY PO 10/29/19 09:00 11/02/19 09:14 Senna (Senokot) 1 tab QHS PO 10/28/19 21:00 10/31/19 20:55 Tamsulosin HCl (Flomax) 0.4 mg DAILY PO 10/29/19 09:00 11/02/19 09:14 Trazodone HCl (Desyrel) 25 mg QHSP PRN PO INSOMNIA 10/28/19 18:00 11/01/19 20:43 Vitamin D (Vitamin D) 1,000 units DAILY PO 10/29/19 09:00 11/02/19 09:14 ANTIONETTE HONG MD Nov 02, 2019 18:35
[2019-11-02 20:00] VITALS: BP 116/67
[2019-11-02] MEDS: SENNA 8.6 MG TAB (SENOKOT) PO SCH (20:59)
[2019-11-02] MEDS: traZODone 25MG PER 1/2 TABLET PO PRN (21:50)
--- NOTE | 2019-11-02 22:36 | EEG ---
DATE OF PROCEDURE: 11/01/2019 REFERRING PHYSICIAN: Dr. Tita Baig DIAGNOSIS: Left arm and jaw shaking. EEG NUMBER: [id number] HISTORY: The patient is a 74-year-old man who was admitted at rehab unit after left frontal cerebral hemorrhage. This EEG was done to rule out epileptic potential. TECHNICAL DESCRIPTION: This digital EEG was recorded by 21 scalp, ear and two EKG electrodes and was reviewed in bipolar and referential montages following reformatting in 10-20 international electrode placement system. INTERPRETATION The patient was noted to be in awake and drowsy states during this EEG. Resting awake background rhythm consisted of posterior dominant rhythm with anterior/posterior gradient comprising of 9 Hz alpha activity measuring 15-40 microvolts in amplitude, which was symmetric and reactive to eye opening. Attenuation of posterior dominant rhythm was seen during transition into drowsiness. Stage 1 and 2 sleep were reviewed and were symmetric bilaterally. Left frontal and temporal intermittent theta and delta slowing was noted. Sharply controlled theta activity was noted in left frontal and temporal head region. No relevant clinical activity was noted. EKG revealed normal sinus rhythm. Photic stimulation remained unremarkable. Hyperventilation could not be performed. CONCLUSION: This EEG in awake, drowsy states, stage 1 and 2 sleep is abnormal due to presence of left frontal and temporal sharply contoured theta waves and intermittent theta-delta slowing consistent with focal cortical structural or functional abnormality. No clear epileptiform abnormalities were seen. Clinical correlation is recommended.
[2019-11-03 06:00] VITALS: BP 126/79
[2019-11-03 07:09] LABS: HEMATOCRIT 38.4 % (42.0-52.0); HEMOGLOBIN 12.7 g/dl (13.5-17.5); MEAN CORPUSCULAR HEMOGLOBIN 31.8 pg (27.0-33.0); MEAN CORPUSCULAR HGB CONC 33.1 g/dl (32.0-36.5); PLATELET COUNT, AUTOMATED 148 10^3/uL (150-450); WHITE BLOOD COUNT 8.6 10^3/uL (4.0-10.0)
[2019-11-03 07:36] LABS: BLOOD UREA NITROGEN 24 MG/DL (7-18); CALCIUM LEVEL 8.6 MG/DL (8.8-10.2); CARBON DIOXIDE LEVEL 28 MEQ/L (21-32); CHLORIDE LEVEL 106 MEQ/L (98-107); CREATININE FOR GFR 1.14 MG/DL (0.70-1.30); GLOMERULAR FILTRATION RATE > 60.0 (>42); GLUCOSE, FASTING 106 MG/DL (70-100); POTASSIUM SERUM 3.8 MEQ/L (3.5-5.1); SODIUM LEVEL 139 MEQ/L (136-145)
[2019-11-03] MEDS: IPRATROPIUM 0.5MG/ALBUTEROL 2.5MG INH SOL UD 3ML (DUONEB)(J7620) NEB SCH ×4 (07:44→19:39)
[2019-11-03] MEDS: DOCUSATE SODIUM 100 MG CAP PO SCH ×2 (09:00→20:49)
[2019-11-03] MEDS: REMEDY PHYTOPLEX Z-GUARD PASTE 113GM TUBE (FROM STOREROOM PRODUCT) TOP SCH ×3 (09:00→20:50)
[2019-11-03] MEDS: TAMSULOSIN 0.4 MG CAP PO SCH (09:16)
[2019-11-03] MEDS: ENALAPRIL MALEATE 5 MG TAB PO SCH (09:16)
[2019-11-03] MEDS: FLUoxetine 20 MG CAP PO SCH (09:16)
[2019-11-03] MEDS: allopurinoL 300 MG TAB PO SCH (09:16)
[2019-11-03] MEDS: FUROSEMIDE 20 MG TAB PO SCH (09:17)
[2019-11-03] MEDS: PANTOPRAZOLE 40MG TAB (PROTONIX) PO SCH (09:17)
[2019-11-03] MEDS: ATORVASTATIN 20 MG TAB PO SCH (09:17)
[2019-11-03] MEDS: VITAMIN D 1,000 INTERNATIONAL UNITS TABLET PO SCH (09:17)
[2019-11-03] MEDS: POTASSIUM CHLORIDE 10 MEQ SR TABLET PO SCH (09:17)
[2019-11-03] MEDS: guaiFENesin 200 MG TAB PO SCH ×4 (09:17→20:48)
[2019-11-03] MEDS: ENOXAPARIN 40 MG/0.4 ML SYRINGE (J1650) SC SCH (09:18)
[2019-11-03] MEDS: LACTOBACILLUS ACIDOPHILUS CAP (BACID) PO SCH ×3 (12:18→20:48)
[2019-11-03] MEDS: LevoFLOXacin 750 MG TABLET PO SCH (12:19)
[2019-11-03 14:00] VITALS: BP 109/70
--- NOTE | 2019-11-03 16:49 | IPNPDOC ---
PM&R Progress Note DATE OF SERVICE: Nov 03, 2019 Lab Aide Progress Note Subjective: Patient seen in therapy working on his right hand which is swollen. He was encouraged to prop it up at night. REVIEW OF SYSTEMS: The following is a completed review of systems and has been reviewed. Review of systems otherwise unremarkable. PAIN: Patient self reports no pain EYES: No recent vision changes EARS, NOSE, & THROAT: No throat pain, or dysphagia, or rhinorrhea CARDIOVASCULAR: Denies chest pain or palpitations PULMONARY:+ cough GASTROINTESTINAL: Denies constipation/diarrhea GENITOURINARY: +urinary incontinence (slightly improving) MUSCULOSKELETAL: right sided weakness NEUROLOGICAL:Right sided paresis HEMATOLOGICAL: denies easy bruising SKIN:intact PSYCHIATRIC: Unremarkable All other review of systems found to be negative. PHYSICAL EXAMINATION: VITAL SIGNS: Please see below. GENERAL: Pleasant and cooperative. No acute distress. HEENT: PERRL. Extraocular movements intact. Clear conjunctiva CARDIOVASCULAR: Regular rate and rhythm. No murmurs, rubs, or gallops LUNGS: No wheezes. +scattered rhonchi ABDOMEN: Soft, nontender, nondistended. Positive bowel sounds. Normal active bowel sounds NEUROLOGICAL: Alert and oriented times 2. Cranial nerves II through XII grossly intact. Sensation grossly intact in all 4limbs (+) clonus right EXTREMITIES: 5\\5 strength left upper extremities. 3/5 right elbow flexors, extensors, 2/5 transmission inspector, 5-\\5 strength right lower extremity. 5/5 strength in left lower extremity. RUE edema SKIN: blanchable erythema on sacrum ASSESSMENT:74-year-old M with past medical history of HTN, aortic valve repair on AC who presents status post left frontal ICH PLAN: 1. 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 Neuro: s/p left frontal spontaneous ICH, c/u secondary stroke prevention with statin and good BP management, ASA and Coumadin on hold for at least 2 weeks until cleared by neurosurgery -hemiparesis will start SSRI for motor recovery -patient with episode of jaw and LUE tremor at [facility] with EEG 20 showing, " Continuous mild focal slowing at left fronto-central and left frontotemporal regions. No epileptiform abnormalities are identified" at which pint he was not continued on antiseizure meds -neuro recs appreciated, patient most likely exhibiting essential tremor, confirmed with today he used to have a bilateral hand tremor prior to the paresis 3. Cardiac: hx of htn c/u enalapril and Lasix -HLD- c/u statin -s/p Aortic valve repair, Coumadin and ASA on hold -medicine consulted to assist in overall management 4. resp: encourage incentive spirometry, monitor for infection, c/u Duonebs and Guaifenesin for cough which is improving- no fevers/leukocytosis -KATHARINE c/u CPAP -will order resp panel negative 5. : monitor PVRs- patient with incontinence and confusion- UA +LE will start Levaquin and Bacid while awaiting Ucx 6. DVT ppx: Lovenox, teds, admission Dopplers negative 7. GI ppx: Protonix 8. Pain: Tylenol prn 9. DIspo: TBD Allergies Coded Allergies: No Known Allergies (Verified Allergy, Unknown, 10/28/19) Vital Signs Vital Signs Date Time Temp Pulse Resp B/P (MAP) Pulse Ox O2 Delivery O2 Flow Rate FiO2 11/03/19 14:00 98.0 84 18 109/70 (83) 100 Room Air Laboratory Data CBC/BMP Laboratory Tests 11/03/19 06:40 Labs 24H Laboratory Tests 2 11/03/19 06:40: Nucleated Red Blood Cells % (auto) 0.0, Anion Gap 5L, Glomerular Filtration Rate > 60.0, Calcium Level 8.6L Microbiology Microbiology 11/03/19 Respiratory Virus Panel (PCR) (ANNE-MARIE) - Final, Complete 11/02/19 Urine Culture, Received Pending Current Medications Current Medications Current Medications Medications (Trade) Dose Ordered Sig/Eugenio Route PRN Reason Start Time Stop Time Status Last Admin Dose Admin Acetaminophen (Tylenol Tab) 650 mg Q4HP PRN PO fever/MILD PAIN (PS 1-4) 10/28/19 13:15 Albuterol/ Ipratropium (Duoneb (Ipr 0.5mg/Alb 2.5mg)) 3 ml RQID NEB 10/28/19 16:00 11/03/19 15:54 Allopurinol (Zyloprim) 300 mg DAILY PO 10/29/19 09:00 11/03/19 09:16 Atorvastatin Calcium (Lipitor) 80 mg DAILY PO 10/28/19 09:00 11/03/19 09:17 Bisacodyl (Dulcolax Suppository) 10 mg DAILYPRN PRN [place] CONSTIPATION 10/28/19 13:15 Docusate Sodium (Colace) 100 mg BID PO 10/28/19 21:00 10/31/19 20:55 Enalapril Maleate (Vasotec) 5 mg DAILY PO 10/29/19 09:00 11/03/19 09:16 Enoxaparin Sodium (Lovenox) 40 mg DAILY SC 10/29/19 09:00 11/03/19 09:18 Fluoxetine HCl (PROzac) 20 mg DAILY PO 10/28/19 09:00 11/03/19 09:16 Furosemide (Lasix) 20 mg DAILY PO 10/29/19 09:00 11/03/19 09:17 Guaifenesin (Robitussin Tab) 400 mg TID PO 10/28/19 16:00 11/03/19 16:15 Home Med (Med Rec Complete!) ASDIRECTED XX 10/28/19 14:15 10/28/19 14:28 DC Lactobacillus Acidophilus (Bacid) 1 ea [facility]HS PO 11/03/19 12:30 11/03/19 12:18 Levofloxacin (Levaquin) 750 mg DAILY@06 PO 11/03/19 06:00 11/09/19 06:01 11/03/19 12:19 Magnesium Hydroxide (Milk Of Magnesia) 30 ml DAILYPRN PRN PO CONSTIPATION 10/28/19 13:15 Pantoprazole Sodium (Protonix) 40 mg DAILY PO 10/28/19 09:00 11/03/19 09:17 Potassium Chloride (Micro-K Extencaps) 10 meq DAILY PO 10/29/19 09:00 11/03/19 09:17 Senna (Senokot) 1 tab QHS PO 10/28/19 21:00 10/31/19 20:55 Tamsulosin HCl (Flomax) 0.4 mg DAILY PO 10/29/19 09:00 11/03/19 09:16 Trazodone HCl (Desyrel) 25 mg QHSP PRN PO INSOMNIA 10/28/19 18:00 11/02/19 21:50 Vitamin D (Vitamin D) 1,000 units DAILY PO 10/29/19 09:00 11/03/19 09:17 ANTIONETTE HONG MD Nov 03, 2019 16:49
[2019-11-03 20:20] VITALS: BP 137/77
[2019-11-03] MEDS: SENNA 8.6 MG TAB (SENOKOT) PO SCH (20:49)
[2019-11-04 06:00] VITALS: BP 135/81
[2019-11-04] MEDS: LevoFLOXacin 750 MG TABLET PO SCH (06:02)
[2019-11-04] MEDS: IPRATROPIUM 0.5MG/ALBUTEROL 2.5MG INH SOL UD 3ML (DUONEB)(J7620) NEB SCH ×4 (07:38→19:26)
[2019-11-04] MEDS: DOCUSATE SODIUM 100 MG CAP PO SCH ×2 (09:00→21:54)
[2019-11-04] MEDS: REMEDY PHYTOPLEX Z-GUARD PASTE 113GM TUBE (FROM STOREROOM PRODUCT) TOP SCH ×3 (09:00→21:56)
[2019-11-04] MEDS: PANTOPRAZOLE 40MG TAB (PROTONIX) PO SCH (09:40)
[2019-11-04] MEDS: guaiFENesin 200 MG TAB PO SCH ×3 (09:40→21:54)
[2019-11-04] MEDS: TAMSULOSIN 0.4 MG CAP PO SCH (09:40)
[2019-11-04] MEDS: allopurinoL 300 MG TAB PO SCH (09:40)
[2019-11-04] MEDS: LACTOBACILLUS ACIDOPHILUS CAP (BACID) PO SCH ×4 (09:40→21:54)
[2019-11-04] MEDS: ATORVASTATIN 20 MG TAB PO SCH (09:41)
[2019-11-04] MEDS: FLUoxetine 20 MG CAP PO SCH (09:41)
[2019-11-04] MEDS: FUROSEMIDE 20 MG TAB PO SCH (09:41)
[2019-11-04] MEDS: VITAMIN D 1,000 INTERNATIONAL UNITS TABLET PO SCH (09:41)
[2019-11-04] MEDS: POTASSIUM CHLORIDE 10 MEQ SR TABLET PO SCH (09:42)
[2019-11-04] MEDS: ENOXAPARIN 40 MG/0.4 ML SYRINGE (J1650) SC SCH (09:42)
[2019-11-04] MEDS: ENALAPRIL MALEATE 5 MG TAB PO SCH (09:42)
[2019-11-04 14:00] VITALS: BP 130/65
--- NOTE | 2019-11-04 15:17 | IPNPDOC ---
PM&R Progress Note DATE OF SERVICE: Nov 04, 2019 Digital Media Specialist Progress Note Subjective: Patient seen in his room stating he feels well, reports he has better control over his bladder since starting the antibiotic. REVIEW OF SYSTEMS: The following is a completed review of systems and has been reviewed. Review of systems otherwise unremarkable. PAIN: Patient self reports no pain EYES: No recent vision changes EARS, NOSE, & THROAT: No throat pain, or dysphagia, or rhinorrhea CARDIOVASCULAR: Denies chest pain or palpitations PULMONARY:+ cough GASTROINTESTINAL: Denies constipation/diarrhea GENITOURINARY: +urinary incontinence (improving) MUSCULOSKELETAL: right sided weakness NEUROLOGICAL:Right sided paresis HEMATOLOGICAL: denies easy bruising SKIN:intact PSYCHIATRIC: Unremarkable All other review of systems found to be negative. PHYSICAL EXAMINATION: VITAL SIGNS: Please see below. GENERAL: Pleasant and cooperative. No acute distress. HEENT: PERRL. Extraocular movements intact. Clear conjunctiva CARDIOVASCULAR: Regular rate and rhythm. No murmurs, rubs, or gallops LUNGS: No wheezes. +scattered rhonchi ABDOMEN: Soft, nontender, nondistended. Positive bowel sounds. Normal active bowel sounds NEUROLOGICAL: Alert and oriented times 2. Cranial nerves II through XII grossly intact. Sensation grossly intact in all 4limbs (+) clonus right EXTREMITIES: 5\\5 strength left upper extremities. 3/5 right elbow flexors, extensors, 2/5 probation worker, 5-\\5 strength right lower extremity. 5/5 strength in left lower extremity. RUE edema (improving) SKIN: blanchable erythema on sacrum ASSESSMENT:74-year-old M with past medical history of HTN, aortic valve repair on AC who presents status post left frontal ICH PLAN: 1. 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 Neuro: s/p left frontal spontaneous ICH, c/u secondary stroke prevention with statin and good BP management, ASA and Coumadin on hold for at least 2 weeks until cleared by neurosurgery -c/u SSRI for motor recovery -patient with episode of jaw and LUE tremor at [facility] with EEG 10-25-19 showing, " Continuous mild focal slowing at left fronto-central and left frontotemporal regions. No epileptiform abnormalities are identified" at which pint he was not continued on antiseizure meds -neuro recs appreciated, patient most likely exhibiting essential tremor, confirmed with he used to have a bilateral hand tremor prior to the paresis-will start low dose propranolol 3. Cardiac: hx of htn c/u enalapril and Lasix -HLD- c/u statin -s/p Aortic valve repair, Coumadin and ASA on hold -medicine consulted to assist in overall management 4. resp: encourage incentive spirometry, monitor for infection, c/u Duonebs and Guaifenesin for cough which is improving- no fevers/leukocytosis -KATHARINE c/u CPAP -will order resp panel negative 5. : monitor PVRs- patient with incontinence and confusion (improving)- Ucx for e coli c/u Levaquin and Bacid 6. DVT ppx: Lovenox, teds, admission Dopplers negative 7. GI ppx: Protonix 8. Pain: Tylenol prn 9. DIspo: TBD Allergies Coded Allergies: No Known Allergies (Verified Allergy, Unknown, 10/28/19) Vital Signs Vital Signs Date Time Temp Pulse Resp B/P (MAP) Pulse Ox O2 Delivery O2 Flow Rate FiO2 11/04/19 14:00 98.0 77 18 130/65 (86) 93 Room Air Microbiology Microbiology 11/03/19 Respiratory Virus Panel (PCR) (ANNE-MARIE) - Final, Complete 11/02/19 Urine Culture - Final, Complete Escherichia Coli Current Medications Current Medications Current Medications Medications (Trade) Dose Ordered Sig/Eugenio Route PRN Reason Start Time Stop Time Status Last Admin Dose Admin Acetaminophen (Tylenol Tab) 650 mg Q4HP PRN PO fever/MILD PAIN (PS 1-4) 10/28/19 13:15 Albuterol/ Ipratropium (Duoneb (Ipr 0.5mg/Alb 2.5mg)) 3 ml RQID NEB 10/28/19 16:00 11/04/19 11:11 Allopurinol (Zyloprim) 300 mg DAILY PO 10/29/19 09:00 11/04/19 09:40 Atorvastatin Calcium (Lipitor) 80 mg DAILY PO 10/28/19 09:00 11/04/19 09:41 Bisacodyl (Dulcolax Suppository) 10 mg DAILYPRN PRN [place] CONSTIPATION 10/28/19 13:15 Docusate Sodium (Colace) 100 mg BID PO 10/28/19 21:00 10/31/19 20:55 Enalapril Maleate (Vasotec) 5 mg DAILY PO 10/29/19 09:00 11/04/19 09:42 Enoxaparin Sodium (Lovenox) 40 mg DAILY SC 10/29/19 09:00 11/04/19 09:42 Fluoxetine HCl (PROzac) 20 mg DAILY PO 10/28/19 09:00 11/04/19 09:41 Furosemide (Lasix) 20 mg DAILY PO 10/29/19 09:00 11/04/19 09:41 Guaifenesin (Robitussin Tab) 400 mg TID PO 10/28/19 16:00 11/04/19 09:40 Home Med (Med Rec Complete!) ASDIRECTED XX 10/28/19 14:15 10/28/19 14:28 DC Lactobacillus Acidophilus (Bacid) 1 ea WMHS PO 11/03/19 12:30 11/04/19 12:34 Levofloxacin (Levaquin) 750 mg DAILY@06 PO 11/03/19 06:00 11/09/19 06:01 11/04/19 06:02 Magnesium Hydroxide (Milk Of Magnesia) 30 ml DAILYPRN PRN PO CONSTIPATION 10/28/19 13:15 Pantoprazole Sodium (Protonix) 40 mg DAILY PO 10/28/19 09:00 11/04/19 09:40 Potassium Chloride (Micro-K Extencaps) 10 meq DAILY PO 10/29/19 09:00 11/04/19 09:42 Senna (Senokot) 1 tab QHS PO 10/28/19 21:00 10/31/19 20:55 Tamsulosin HCl (Flomax) 0.4 mg DAILY PO 10/29/19 09:00 11/04/19 09:40 Trazodone HCl (Desyrel) 25 mg QHSP PRN PO INSOMNIA 10/28/19 18:00 11/02/19 21:50 Vitamin D (Vitamin D) 1,000 units DAILY PO 10/29/19 09:00 11/04/19 09:41 ANTIONETTE HONG MD Nov 04, 2019 15:17
[2019-11-04 21:00] VITALS: BP 137/74
[2019-11-04] MEDS: SENNA 8.6 MG TAB (SENOKOT) PO SCH (21:54)
[2019-11-04] MEDS: PROPRANOLOL 10 MG TAB PO SCH (21:55)
[2019-11-04] MEDS: ACETAMINOPHEN TAB 650MG DOSE (2X325MG) PO PRN (21:56)
[2019-11-05 05:53] VITALS: BP 128/80
[2019-11-05] MEDS: LevoFLOXacin 750 MG TABLET PO SCH (06:04)
[2019-11-05] MEDS: IPRATROPIUM 0.5MG/ALBUTEROL 2.5MG INH SOL UD 3ML (DUONEB)(J7620) NEB SCH ×4 (08:00→19:56)
[2019-11-05] MEDS: DOCUSATE SODIUM 100 MG CAP PO SCH (09:00)
[2019-11-05] MEDS: allopurinoL 300 MG TAB PO SCH (09:26)
[2019-11-05] MEDS: guaiFENesin 200 MG TAB PO SCH ×3 (09:28→20:53)
[2019-11-05] MEDS: FLUoxetine 20 MG CAP PO SCH (09:28)
[2019-11-05] MEDS: ATORVASTATIN 20 MG TAB PO SCH (09:29)
[2019-11-05] MEDS: PROPRANOLOL 10 MG TAB PO SCH ×3 (09:29→20:53)
[2019-11-05] MEDS: PANTOPRAZOLE 40MG TAB (PROTONIX) PO SCH (09:29)
[2019-11-05] MEDS: FUROSEMIDE 20 MG TAB PO SCH (09:29)
[2019-11-05] MEDS: POTASSIUM CHLORIDE 10 MEQ SR TABLET PO SCH (09:29)
[2019-11-05] MEDS: LACTOBACILLUS ACIDOPHILUS CAP (BACID) PO SCH ×4 (09:29→20:53)
[2019-11-05] MEDS: VITAMIN D 1,000 INTERNATIONAL UNITS TABLET PO SCH (09:29)
[2019-11-05] MEDS: TAMSULOSIN 0.4 MG CAP PO SCH (09:30)
[2019-11-05] MEDS: ENALAPRIL MALEATE 5 MG TAB PO SCH (09:30)
[2019-11-05] MEDS: ENOXAPARIN 40 MG/0.4 ML SYRINGE (J1650) SC SCH (09:30)
[2019-11-05] MEDS: REMEDY PHYTOPLEX Z-GUARD PASTE 113GM TUBE (FROM STOREROOM PRODUCT) TOP SCH ×3 (09:31→20:54)
--- NOTE | 2019-11-05 11:11 | IPNPDOC ---
PM&R Progress Note DATE OF SERVICE: Nov 05, 2019 Infection Prevention Coordinator Progress Note Subjective: Patient seen in his room wondering when he can go home. He states he is starting to be able to use his right hand. REVIEW OF SYSTEMS: The following is a completed review of systems and has been reviewed. Review of systems otherwise unremarkable. PAIN: Patient self reports no pain EYES: No recent vision changes EARS, NOSE, & THROAT: No throat pain, or dysphagia, or rhinorrhea CARDIOVASCULAR: Denies chest pain or palpitations PULMONARY:+ cough GASTROINTESTINAL: Denies constipation/diarrhea GENITOURINARY: +urinary incontinence (improving) MUSCULOSKELETAL: right sided weakness NEUROLOGICAL:Right sided paresis HEMATOLOGICAL: denies easy bruising SKIN:intact PSYCHIATRIC: Unremarkable All other review of systems found to be negative. PHYSICAL EXAMINATION: VITAL SIGNS: Please see below. GENERAL: Pleasant and cooperative. No acute distress. HEENT: PERRL. Extraocular movements intact. Clear conjunctiva CARDIOVASCULAR: Regular rate and rhythm. No murmurs, rubs, or gallops LUNGS: No wheezes. +scattered rhonchi ABDOMEN: Soft, nontender, nondistended. Positive bowel sounds. Normal active bowel sounds NEUROLOGICAL: Alert and oriented times 2. Cranial nerves II through XII grossly intact. Sensation grossly intact in all 4limbs (+) clonus right EXTREMITIES: 5\\5 strength left upper extremities. 3/5 right elbow flexors, extensors, 2/5 anesthesiologists' assistant, 5-\\5 strength right lower extremity. 5/5 strength in left lower extremity. RUE edema (improving) SKIN: blanchable erythema on sacrum ASSESSMENT:74-year-old M with past medical history of HTN, aortic valve repair on AC who presents status post left frontal ICH PLAN: 1. 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 Neuro: s/p left frontal spontaneous ICH, c/u secondary stroke prevention with statin and good BP management, ASA and Coumadin on hold for at least 2 weeks until cleared by neurosurgery -c/u SSRI for motor recovery -patient with episode of jaw and LUE tremor at [facility] with EEG 20 showing, " Continuous mild focal slowing at left fronto-central and left frontotemporal regions. No epileptiform abnormalities are identified" at which pint he was not continued on antiseizure meds -neuro recs appreciated, patient most likely exhibiting essential tremor, confirmed with he used to have a bilateral hand tremor prior to the paresis-will start low dose propranolol 3. Cardiac: hx of htn c/u enalapril and Lasix -HLD- c/u statin -s/p Aortic valve repair, Coumadin and ASA on hold -medicine consulted to assist in overall management 4. resp: encourage incentive spirometry, monitor for infection, c/u Duonebs and Guaifenesin for cough which is improving- no fevers/leukocytosis -KATHARINE c/u CPAP -will order resp panel negative 5. : monitor PVRs- patient with incontinence and confusion (improving)- Ucx for e coli c/u Levaquin and Bacid 6. DVT ppx: Lovenox, teds, admission Dopplers negative 7. GI ppx: Protonix 8. Pain: Tylenol prn 9. DIspo: TBD Allergies Coded Allergies: No Known Allergies (Verified Allergy, Unknown, 10/28/19) Vital Signs Vital Signs Date Time Temp Pulse Resp B/P (MAP) Pulse Ox O2 Delivery O2 Flow Rate FiO2 11/05/19 09:30 128/80 11/05/19 09:29 64 11/05/19 05:53 97.4 16 96 NIPPV (BIPAP/CPAP) Microbiology Microbiology 11/03/19 Respiratory Virus Panel (PCR) (ANNE-MARIE) - Final, Complete 11/02/19 Urine Culture - Final, Complete Escherichia Coli Current Medications Current Medications Current Medications Medications (Trade) Dose Ordered Sig/Eugenio Route PRN Reason Start Time Stop Time Status Last Admin Dose Admin Acetaminophen (Tylenol Tab) 650 mg Q4HP PRN PO fever/MILD PAIN (PS 1-4) 10/28/19 13:15 11/04/19 21:56 Albuterol/ Ipratropium (Duoneb (Ipr 0.5mg/Alb 2.5mg)) 3 ml RQID NEB 10/28/19 16:00 11/04/19 19:26 Allopurinol (Zyloprim) 300 mg DAILY PO 10/29/19 09:00 11/05/19 09:26 Atorvastatin Calcium (Lipitor) 80 mg DAILY PO 10/28/19 09:00 3/13/20 09:29 Bisacodyl (Dulcolax Suppository) 10 mg DAILYPRN PRN NE CONSTIPATION 10/28/19 13:15 Docusate Sodium (Colace) 100 mg BID PO 10/28/19 21:00 11/04/19 21:54 Enalapril Maleate (Vasotec) 5 mg DAILY PO 10/29/19 09:00 11/05/19 09:30 Enoxaparin Sodium (Lovenox) 40 mg DAILY SC 10/29/19 09:00 11/05/19 09:30 Fluoxetine HCl (PROzac) 20 mg DAILY PO 10/28/19 09:00 11/05/19 09:28 Furosemide (Lasix) 20 mg DAILY PO 10/29/19 09:00 11/05/19 09:29 Guaifenesin (Robitussin Tab) 400 mg TID PO 10/28/19 16:00 11/05/19 09:28 Home Med (Med Rec Complete!) ASDIRECTED XX 10/28/19 14:15 10/28/19 14:28 DC Lactobacillus Acidophilus (Bacid) 1 ea WMHS PO 11/03/19 12:30 11/05/19 09:29 Levofloxacin (Levaquin) 750 mg DAILY@06 PO 11/03/19 06:00 11/09/19 06:01 11/05/19 06:04 Magnesium Hydroxide (Milk Of Magnesia) 30 ml DAILYPRN PRN PO CONSTIPATION 10/28/19 13:15 Pantoprazole Sodium (Protonix) 40 mg DAILY PO 10/28/19 09:00 11/05/19 09:29 Potassium Chloride (Micro-K Extencaps) 10 meq DAILY PO 10/29/19 09:00 11/05/19 09:29 Propranolol HCl (Inderal) 10 mg TID PO 11/04/19 21:00 11/05/19 09:29 Senna (Senokot) 1 tab QHS PO 10/28/19 21:00 11/04/19 21:54 Tamsulosin HCl (Flomax) 0.4 mg DAILY PO 10/29/19 09:00 11/05/19 09:30 Trazodone HCl (Desyrel) 25 mg QHSP PRN PO INSOMNIA 10/28/19 18:00 11/02/19 21:50 Vitamin D (Vitamin D) 1,000 units DAILY PO 10/29/19 09:00 11/05/19 09:29 ANTIONETTE HONG MD Nov 05, 2019 11:11
[2019-11-05 14:00] VITALS: BP 123/75
--- NOTE | 2019-11-05 15:57 | REP ---
Chest x-ray: Two views. History: Rule out infiltrate. No comparison study. Findings: The patient is status post aortic valve replacement. Median sternotomy wires are seen. The heart is not enlarged. The thoracic aorta is tortuous and calcific. No infiltrate is seen in the lung navarro. Pleural angles are sharp. Pulmonary vasculature is not increased. No other bony abnormality. Impression: Status post median sternotomy and aortic valve replacement. No infiltrate seen. Electronically Signed by Danilo Stock MD 11/05/2019 03:46 P
[2019-11-05 20:44] VITALS: BP 119/59
[2019-11-05] MEDS: ACETAMINOPHEN TAB 650MG DOSE (2X325MG) PO PRN (20:53)
[2019-11-05] MEDS ORDERED: DOCUSATE SODIUM 100 MG CAP PO PRN (21:00)
[2019-11-05] MEDS ORDERED: SENNA 8.6 MG TAB (SENOKOT) PO PRN (21:00)
[2019-11-06 05:20] VITALS: BP 140/96
[2019-11-06] MEDS: LevoFLOXacin 750 MG TABLET PO SCH (06:05)
[2019-11-06 07:34] LABS: HEMATOCRIT 40.2 % (42.0-52.0); HEMOGLOBIN 13.7 g/dl (13.5-17.5); MEAN CORPUSCULAR HEMOGLOBIN 32.4 pg (27.0-33.0); MEAN CORPUSCULAR HGB CONC 34.1 g/dl (32.0-36.5); PLATELET COUNT, AUTOMATED 184 10^3/uL (150-450); RED BLOOD COUNT 4.23 10^6/uL (4.30-6.10)
[2019-11-06 08:05] LABS: BLOOD UREA NITROGEN 19 MG/DL (7-18); CARBON DIOXIDE LEVEL 29 MEQ/L (21-32); CHLORIDE LEVEL 106 MEQ/L (98-107); CREATININE FOR GFR 1.01 MG/DL (0.70-1.30); GLOMERULAR FILTRATION RATE > 60.0 (>42); GLUCOSE, FASTING 100 MG/DL (70-100); POTASSIUM SERUM 3.9 MEQ/L (3.5-5.1); SODIUM LEVEL 138 MEQ/L (136-145)
[2019-11-06] MEDS: IPRATROPIUM 0.5MG/ALBUTEROL 2.5MG INH SOL UD 3ML (DUONEB)(J7620) NEB SCH ×4 (08:09→19:27)
[2019-11-06] MEDS: VITAMIN D 1,000 INTERNATIONAL UNITS TABLET PO SCH (08:33)
[2019-11-06] MEDS: ENALAPRIL MALEATE 5 MG TAB PO SCH (08:33)
[2019-11-06] MEDS: POTASSIUM CHLORIDE 10 MEQ SR TABLET PO SCH (08:33)
[2019-11-06] MEDS: ENOXAPARIN 40 MG/0.4 ML SYRINGE (J1650) SC SCH (08:34)
[2019-11-06] MEDS: FLUoxetine 20 MG CAP PO SCH (08:34)
[2019-11-06] MEDS: LACTOBACILLUS ACIDOPHILUS CAP (BACID) PO SCH ×4 (08:34→20:28)
[2019-11-06] MEDS: ATORVASTATIN 20 MG TAB PO SCH (08:34)
[2019-11-06] MEDS: allopurinoL 300 MG TAB PO SCH (08:34)
[2019-11-06] MEDS: TAMSULOSIN 0.4 MG CAP PO SCH (08:34)
[2019-11-06] MEDS: PANTOPRAZOLE 40MG TAB (PROTONIX) PO SCH (08:35)
[2019-11-06] MEDS: FUROSEMIDE 20 MG TAB PO SCH (08:35)
[2019-11-06] MEDS: guaiFENesin 200 MG TAB PO SCH ×3 (08:35→20:28)
[2019-11-06] MEDS: PROPRANOLOL 10 MG TAB PO SCH ×3 (08:35→20:29)
[2019-11-06] MEDS: REMEDY PHYTOPLEX Z-GUARD PASTE 113GM TUBE (FROM STOREROOM PRODUCT) TOP SCH ×3 (08:35→20:30)
--- NOTE | 2019-11-06 10:06 | IPNPDOC ---
Text Note Date of Service The patient was seen on 11/06/19. NOTE Subjective: Patient is a 74-year-old male with PMHx HTN, DLP, KATHARINE on CPAP, AVR (2014) on Coumadin, Thoracic AAA (s/p Repair 2017), Gout and BPH who presented to [facility]U as a transfer from [facility] for L frontal intraparenchymal hemorrhage stroke on 10/28/2019. Patient had reported that that he had fallen and soon experienced right arm / leg weakness, associated with slurred speech for several days. He denied LOC. Patient went to the ED after 3 days of persistent symptoms and was transferred to [facility]. CT head on 10/24/2019: stable left frontal lobe intra-parenchymal hemorrhage. There was no significant mass effect or midline shift. MRI Brain on 10/25/2019: left posterior frontal lobe hematoma with surrounding vasogenic edema and mild mass effect on the corpus callosum. No evidence of midline shift. MRI Brain on 10/26/2019: high left frontal hematoma at the vertex, likely a hypertensive hemorrhage with rebleed. Patient was seen and examined at the bedside. Patient denies any nausea, vomiting, chest pain, shortness of breath, palpitations, abdominal pain, diarrhea, or urinary discomfort. Objective: Vitals (See below) General: Lying in bed, no acute distress, comfortable, AAOx3 HEENT: NC, AT CVS: RRR, +S1S2 Lungs: Fair air entry b/l, -w/r/r Abdomen: Soft, ND, NT Extremities: - Edema, - Calf tenderness Assessment and plan: Intracranial hemorrhage, with residual right-sided deficits. - Coumadin and ASA remain on hold - Will have follow up with Neurology within 2 weeks - The plan is for the patient to follow up with neuro surgery in 2 weeks; he is to have a repeat CT of the head prior to this appointment. - Neurology on consultation - PT / OT as per ARU HTN - BP well controlled - Will require strict blood pressure control given possibility of hypertensive hemorrhage - c/w Enalapril and Furosemide DLP - c/w Statin KATHARINE - May continue with CPAP use while inpatient Gout - c/w Allopurinol BPH - c/w tamsulosin Intermittent jaw tremor. Evaluated via EEG at [facility], findings were noncontributory (ie. no evidence for seizures) - Neurology on consultation - Neurology on consult; suspected benign essential tremor affecting the jaw and left upper extremity, advises to avoid primidone (consider propanolol if needed) - c/w Neurosurgery follow-up as previously planned DVT prophylaxis - c/w TEDs/Sequentials VS,Fishbone, I+O VS, Fishbone, I+O Laboratory Tests 11/06/19 07:03 Vital Signs Date Time Temp Pulse Resp B/P (MAP) Pulse Ox O2 Delivery O2 Flow Rate FiO2 11/06/19 08:35 66 140/96 11/06/19 05:20 97.7 16 96 Room Air I&O- Last 24 Hours up to 6 AM 11/06/19 06:00 Intake Total 1440 ml Output Total 775 ml Balance 665 ml CHINMAY ARCHIBALD MD Nov 06, 2019 10:06
[2019-11-06 14:00] VITALS: BP 114/68
[2019-11-06 16:34] VITALS: BP 109/65
[2019-11-06 20:00] VITALS: BP 108/66
[2019-11-06] MEDS: traZODone 25MG PER 1/2 TABLET PO PRN (23:46)
[2019-11-07 06:00] VITALS: BP 111/78
[2019-11-07] MEDS: LevoFLOXacin 750 MG TABLET PO SCH (06:12)
[2019-11-07] MEDS: IPRATROPIUM 0.5MG/ALBUTEROL 2.5MG INH SOL UD 3ML (DUONEB)(J7620) NEB SCH ×4 (08:00→19:40)
[2019-11-07] MEDS: POTASSIUM CHLORIDE 10 MEQ SR TABLET PO SCH (09:00)
[2019-11-07] MEDS: VITAMIN D 1,000 INTERNATIONAL UNITS TABLET PO SCH (09:00)
[2019-11-07] MEDS: PROPRANOLOL 10 MG TAB PO SCH ×4 (09:00→21:48)
[2019-11-07] MEDS: guaiFENesin 200 MG TAB PO SCH ×3 (09:00→21:31)
[2019-11-07] MEDS: ENOXAPARIN 40 MG/0.4 ML SYRINGE (J1650) SC SCH (09:00)
[2019-11-07] MEDS: FLUoxetine 20 MG CAP PO SCH (09:00)
[2019-11-07] MEDS: FUROSEMIDE 20 MG TAB PO SCH (09:00)
[2019-11-07] MEDS: ENALAPRIL MALEATE 5 MG TAB PO SCH (09:01)
[2019-11-07] MEDS: TAMSULOSIN 0.4 MG CAP PO SCH (09:01)
[2019-11-07] MEDS: PANTOPRAZOLE 40MG TAB (PROTONIX) PO SCH (09:01)
[2019-11-07] MEDS: allopurinoL 300 MG TAB PO SCH (09:01)
[2019-11-07] MEDS: ATORVASTATIN 20 MG TAB PO SCH (09:01)
[2019-11-07] MEDS: LACTOBACILLUS ACIDOPHILUS CAP (BACID) PO SCH ×4 (09:01→21:32)
[2019-11-07] MEDS: REMEDY PHYTOPLEX Z-GUARD PASTE 113GM TUBE (FROM STOREROOM PRODUCT) TOP SCH ×3 (09:02→21:36)
[2019-11-07 14:00] VITALS: BP 127/64
--- NOTE | 2019-11-07 15:27 | REP ---
REASON: Followup known large left frontal lobe intraparenchymal hemorrhage, which measured 3 x 4 x 4.2 cm on the prior exam of 10/29/2019, which was reviewed. Today's examination again shows extensive vasogenic edema surrounding the intraparenchymal hemorrhage, which has decreased in size and density compared to the prior exam. There is compression upon the ipsilateral frontal pole of the lateral ventricle due to the edema. This is essentially unchanged, possibly slightly increased, as the amount of surrounding edema may have slightly increased. There are no additional areas of intraparenchymal or extraparenchymal hemorrhage. Otherwise no change from the prior exam. IMPRESSION: No significant change from the prior exam with findings as described above. Electronically Signed by Florian Osorio DO 11/07/2019 03:31 P
[2019-11-07 20:00] VITALS: BP 112/66
[2019-11-07] MEDS: ACETAMINOPHEN TAB 650MG DOSE (2X325MG) PO PRN (21:31)
[2019-11-08 04:50] VITALS: BP 140/92
[2019-11-08] MEDS: IPRATROPIUM 0.5MG/ALBUTEROL 2.5MG INH SOL UD 3ML (DUONEB)(J7620) NEB SCH ×4 (07:48→19:37)
[2019-11-08] MEDS: LACTOBACILLUS ACIDOPHILUS CAP (BACID) PO SCH ×4 (08:00→20:15)
[2019-11-08] MEDS: VITAMIN D 1,000 INTERNATIONAL UNITS TABLET PO SCH (08:46)
[2019-11-08] MEDS: ATORVASTATIN 20 MG TAB PO SCH (08:47)
[2019-11-08] MEDS: FUROSEMIDE 20 MG TAB PO SCH (08:47)
[2019-11-08] MEDS: PANTOPRAZOLE 40MG TAB (PROTONIX) PO SCH (08:47)
[2019-11-08] MEDS: guaiFENesin 200 MG TAB PO SCH ×3 (08:47→20:15)
[2019-11-08] MEDS: ENALAPRIL MALEATE 5 MG TAB PO SCH (08:48)
[2019-11-08] MEDS: FLUoxetine 20 MG CAP PO SCH (08:48)
[2019-11-08] MEDS: allopurinoL 300 MG TAB PO SCH (08:48)
[2019-11-08] MEDS: TAMSULOSIN 0.4 MG CAP PO SCH (08:48)
[2019-11-08] MEDS: ENOXAPARIN 40 MG/0.4 ML SYRINGE (J1650) SC SCH (08:48)
[2019-11-08] MEDS: REMEDY PHYTOPLEX Z-GUARD PASTE 113GM TUBE (FROM STOREROOM PRODUCT) TOP SCH ×3 (08:49→20:15)
[2019-11-08] MEDS: POTASSIUM CHLORIDE 10 MEQ SR TABLET PO SCH (08:51)
[2019-11-08] MEDS: PROPRANOLOL 10 MG TAB PO SCH ×3 (08:55→20:14)
[2019-11-08 14:00] VITALS: BP 126/73
[2019-11-08 20:00] VITALS: BP 122/65
[2019-11-09 06:00] VITALS: BP 133/85
[2019-11-09 06:46] LABS: HEMATOCRIT 40.9 % (42.0-52.0); HEMOGLOBIN 13.8 g/dl (13.5-17.5); MEAN CORPUSCULAR HEMOGLOBIN 31.6 pg (27.0-33.0); MEAN CORPUSCULAR HGB CONC 33.7 g/dl (32.0-36.5); MEAN CORPUSCULAR VOLUME 93.6 fl (80.0-96.0); PLATELET COUNT, AUTOMATED 190 10^3/uL (150-450); RED BLOOD COUNT 4.37 10^6/uL (4.30-6.10); WHITE BLOOD COUNT 6.1 10^3/uL (4.0-10.0)
[2019-11-09 07:05] LABS: BLOOD UREA NITROGEN 15 MG/DL (7-18); CALCIUM LEVEL 8.9 MG/DL (8.8-10.2); CARBON DIOXIDE LEVEL 30 MEQ/L (21-32); CHLORIDE LEVEL 104 MEQ/L (98-107); CREATININE FOR GFR 1.05 MG/DL (0.70-1.30); GLOMERULAR FILTRATION RATE > 60.0 (>42); GLUCOSE, FASTING 102 MG/DL (70-100); SODIUM LEVEL 138 MEQ/L (136-145)
[2019-11-09] MEDS: IPRATROPIUM 0.5MG/ALBUTEROL 2.5MG INH SOL UD 3ML (DUONEB)(J7620) NEB SCH ×4 (07:13→20:00)
[2019-11-09] MEDS: PANTOPRAZOLE 40MG TAB (PROTONIX) PO SCH (08:43)
[2019-11-09] MEDS: VITAMIN D 1,000 INTERNATIONAL UNITS TABLET PO SCH (08:43)
[2019-11-09] MEDS: ATORVASTATIN 20 MG TAB PO SCH (08:43)
[2019-11-09] MEDS: TAMSULOSIN 0.4 MG CAP PO SCH (08:43)
[2019-11-09] MEDS: FUROSEMIDE 20 MG TAB PO SCH (08:43)
[2019-11-09] MEDS: allopurinoL 300 MG TAB PO SCH (08:43)
[2019-11-09] MEDS: FLUoxetine 20 MG CAP PO SCH (08:43)
[2019-11-09] MEDS: LACTOBACILLUS ACIDOPHILUS CAP (BACID) PO SCH ×4 (08:44→19:59)
[2019-11-09] MEDS: POTASSIUM CHLORIDE 10 MEQ SR TABLET PO SCH (08:44)
[2019-11-09] MEDS: ENALAPRIL MALEATE 5 MG TAB PO SCH (08:44)
[2019-11-09] MEDS: guaiFENesin 200 MG TAB PO SCH ×3 (08:44→19:59)
[2019-11-09] MEDS: PROPRANOLOL 10 MG TAB PO SCH ×3 (08:44→22:03)
[2019-11-09] MEDS: ENOXAPARIN 40 MG/0.4 ML SYRINGE (J1650) SC SCH (08:45)
[2019-11-09] MEDS: REMEDY PHYTOPLEX Z-GUARD PASTE 113GM TUBE (FROM STOREROOM PRODUCT) TOP SCH ×3 (08:45→20:00)
[2019-11-09 14:00] VITALS: BP 118/71
--- NOTE | 2019-11-09 14:52 | IPNPDOC ---
PM&R Progress Note DATE OF SERVICE: Nov 08, 2019 Babcock Tester Progress Note Subjective: Patient seen in his room stating he can bring his right hand to his mouth and believes he is getting stronger. REVIEW OF SYSTEMS: The following is a completed review of systems and has been reviewed. Review of systems otherwise unremarkable. PAIN: Patient self reports no pain EYES: No recent vision changes EARS, NOSE, & THROAT: No throat pain, or dysphagia, or rhinorrhea CARDIOVASCULAR: Denies chest pain or palpitations PULMONARY:+ cough GASTROINTESTINAL: Denies constipation/diarrhea GENITOURINARY: +urinary incontinence (improving) MUSCULOSKELETAL: right sided weakness NEUROLOGICAL:Right sided paresis HEMATOLOGICAL: denies easy bruising SKIN:intact PSYCHIATRIC: Unremarkable All other review of systems found to be negative. PHYSICAL EXAMINATION: VITAL SIGNS: Please see below. GENERAL: Pleasant and cooperative. No acute distress. HEENT: PERRL. Extraocular movements intact. Clear conjunctiva CARDIOVASCULAR: Regular rate and rhythm. No murmurs, rubs, or gallops LUNGS: No wheezes. +scattered rhonchi ABDOMEN: Soft, nontender, nondistended. Positive bowel sounds. Normal active bowel sounds NEUROLOGICAL: Alert and oriented times 2. Cranial nerves II through XII grossly intact. Sensation grossly intact in all 4limbs (+) clonus right EXTREMITIES: 5\\5 strength left upper extremities. 3/5 right elbow flexors, extensors, 3/5 fire sprinkler designer, 5-\\5 strength right lower extremity. 5/5 strength in left lower extremity. RUE edema (improving) SKIN: blanchable erythema on sacrum ASSESSMENT:74-year-old M with past medical history of HTN, aortic valve repair on AC who presents status post left frontal ICH PLAN: 1. 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 Neuro: s/p left frontal spontaneous ICH, c/u secondary stroke prevention with statin and good BP management, ASA and Coumadin on hold for at least 2 weeks until cleared by neurosurgery- repeat CT ordered 11-07-19, sent imaging and spoke with Dr. Sotelo PA who recommends holding off on blood thinners for another 2-3 weeks -c/u SSRI for motor recovery -patient with episode of jaw and LUE tremor at [facility] with EEG 10-25-19 showing, " Continuous mild focal slowing at left fronto-central and left frontotemporal regions. No epileptiform abnormalities are identified" at which pint he was not continued on antiseizure meds -neuro recs appreciated, patient most likely exhibiting essential tremor, confirmed with he used to have a bilateral hand tremor prior to the paresis-will start low dose propranolol 3. Cardiac: hx of htn c/u enalapril and Lasix -HLD- c/u statin -s/p Aortic valve repair, Coumadin and ASA on hold -medicine consulted to assist in overall management 4. resp: encourage incentive spirometry, monitor for infection, c/u Duonebs and Guaifenesin for cough which is improving- no fevers/leukocytosis -KATHARINE c/u CPAP -will order resp panel negative 5. : monitor PVRs- patient with incontinence and confusion (improving)- Ucx positive for e coli UTI c/u Levaquin and Bacid 6. DVT ppx: Lovenox, teds, admission Dopplers negative 7. GI ppx: Protonix 8. Pain: Tylenol prn 9. DIspo: TBD Allergies Coded Allergies: No Known Allergies (Verified Allergy, Unknown, 10/28/19) Vital Signs Vital Signs Date Time Temp Pulse Resp B/P (MAP) Pulse Ox O2 Delivery O2 Flow Rate FiO2 11/09/19 08:44 61 141/83 11/09/19 06:00 97.7 18 97 Room Air Laboratory Data CBC/BMP Laboratory Tests 11/09/19 06:33 Labs 24H Laboratory Tests 2 11/09/19 06:33: Nucleated Red Blood Cells % (auto) 0.0, Anion Gap 4L, Glomerular Filtration Rate > 60.0, Calcium Level 8.9 Microbiology Microbiology 11/03/19 Respiratory Virus Panel (PCR) (ANNE-MARIE) - Final, Complete 11/02/19 Urine Culture - Final, Complete Escherichia Coli Current Medications Current Medications Current Medications Medications (Trade) Dose Ordered Sig/Eugenio Route PRN Reason Start Time Stop Time Status Last Admin Dose Admin Acetaminophen (Tylenol Tab) 650 mg Q4HP PRN PO fever/MILD PAIN (PS 1-4) 10/28/19 13:15 11/07/19 21:31 Albuterol/ Ipratropium (Duoneb (Ipr 0.5mg/Alb 2.5mg)) 3 ml RQID NEB 10/28/19 16:00 11/08/19 11:22 Allopurinol (Zyloprim) 300 mg DAILY PO 10/29/19 09:00 11/09/19 08:43 Atorvastatin Calcium (Lipitor) 80 mg DAILY PO 10/28/19 09:00 11/09/19 08:43 Bisacodyl (Dulcolax Suppository) 10 mg DAILYPRN PRN [place] CONSTIPATION 10/28/19 13:15 Docusate Sodium (Colace) 100 mg BID PO 10/28/19 21:00 11/05/19 15:07 DC 11/04/19 21:54 Docusate Sodium (Colace) 100 mg BID PRN PO constipation 11/05/19 21:00 Enalapril Maleate (Vasotec) 5 mg DAILY PO 10/29/19 09:00 11/09/19 08:44 Enoxaparin Sodium (Lovenox) 40 mg DAILY SC 10/29/19 09:00 11/09/19 08:45 Fluoxetine HCl (PROzac) 20 mg DAILY PO 10/28/19 09:00 11/09/19 08:43 Furosemide (Lasix) 20 mg DAILY PO 10/29/19 09:00 11/09/19 08:43 Guaifenesin (Robitussin Tab) 400 mg TID PO 10/28/19 16:00 11/09/19 08:44 Home Med (Med Rec Complete!) ASDIRECTED XX 10/28/19 14:15 10/28/19 14:28 DC Lactobacillus Acidophilus (Bacid) 1 ea WMHS PO 11/03/19 12:30 11/09/19 12:30 Levofloxacin (Levaquin) 750 mg DAILY@06 PO 11/03/19 06:00 11/08/19 05:59 DC 11/07/19 06:12 Magnesium Hydroxide (Milk Of Magnesia) 30 ml DAILYPRN PRN PO CONSTIPATION 10/28/19 13:15 Miscellaneous (Unresolved Clarification Entry) SEE LABEL COMMENTS DAILY XX 11/09/19 09:00 Pantoprazole Sodium (Protonix) 40 mg DAILY PO 10/28/19 09:00 11/09/19 08:43 Potassium Chloride (Micro-K Extencaps) 10 meq DAILY PO 10/29/19 09:00 11/09/19 08:44 Propranolol HCl (Inderal) 10 mg TID PO 11/04/19 21:00 11/09/19 08:44 Senna (Senokot) 1 tab QHS PO 10/28/19 21:00 11/05/19 11:10 DC 11/04/19 21:54 Senna (Senokot) 1 tab QHS PRN PO constipation 11/05/19 21:00 Tamsulosin HCl (Flomax) 0.4 mg DAILY PO 10/29/19 09:00 11/09/19 08:43 Trazodone HCl (Desyrel) 25 mg QHSP PRN PO INSOMNIA 10/28/19 18:00 11/06/19 23:46 Vitamin D (Vitamin D) 1,000 units DAILY PO 10/29/19 09:00 11/09/19 08:43 ANTIONETTE HONG MD Nov 09, 2019 14:52
--- NOTE | 2019-11-09 14:53 | IPNPDOC ---
PM&R Progress Note DATE OF SERVICE: Nov 09, 2019 Php Magento Developer Progress Note Subjective: Patient seen the gym working on strengthening his right side, stating he wants to go home as soon as he can, but will stay if his needs him to in order to get stronger. REVIEW OF SYSTEMS: The following is a completed review of systems and has been reviewed. Review of systems otherwise unremarkable. PAIN: Patient self reports no pain EYES: No recent vision changes EARS, NOSE, & THROAT: No throat pain, or dysphagia, or rhinorrhea CARDIOVASCULAR: Denies chest pain or palpitations PULMONARY:+ cough GASTROINTESTINAL: Denies constipation/diarrhea GENITOURINARY: +urinary incontinence (improving) MUSCULOSKELETAL: right sided weakness NEUROLOGICAL:Right sided paresis HEMATOLOGICAL: denies easy bruising SKIN:intact PSYCHIATRIC: Unremarkable All other review of systems found to be negative. PHYSICAL EXAMINATION: VITAL SIGNS: Please see below. GENERAL: Pleasant and cooperative. No acute distress. HEENT: PERRL. Extraocular movements intact. Clear conjunctiva CARDIOVASCULAR: Regular rate and rhythm. No murmurs, rubs, or gallops LUNGS: No wheezes. +scattered rhonchi ABDOMEN: Soft, nontender, nondistended. Positive bowel sounds. Normal active bowel sounds NEUROLOGICAL: Alert and oriented times 2. Cranial nerves II through XII grossly intact. Sensation grossly intact in all 4limbs (+) clonus right EXTREMITIES: 5\\5 strength left upper extremities. 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 5/5 strength in left lower extremity. RUE edema (improving) SKIN: blanchable erythema on sacrum ASSESSMENT:74-year-old M with past medical history of HTN, aortic valve repair on AC who presents status post left frontal ICH PLAN: 1. 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 Neuro: s/p left frontal spontaneous ICH, c/u secondary stroke prevention with statin and good BP management, ASA and Coumadin on hold for at least 2 weeks until cleared by neurosurgery- repeat CT ordered 11-07-19, sent imaging and spoke with Dr. Sotelo PA who recommends holding off on blood thinners for another 2-3 weeks -c/u SSRI for motor recovery -patient with episode of jaw and LUE tremor at [facility] with EEG 10-25-19 showing, " Continuous mild focal slowing at left fronto-central and left frontotemporal regions. No epileptiform abnormalities are identified" at which pint he was not continued on antiseizure meds -neuro recs appreciated, patient most likely exhibiting essential tremor, confirmed with he used to have a bilateral hand tremor prior to the paresis-will start low dose propranolol 3. Cardiac: hx of htn c/u enalapril and Lasix -HLD- c/u statin -s/p Aortic valve repair, Coumadin and ASA on hold -medicine consulted to assist in overall management 4. resp: encourage incentive spirometry, monitor for infection, c/u Duonebs and Guaifenesin for cough which is improving- no fevers/leukocytosis -KATHARINE c/u CPAP -will order resp panel negative 5. : monitor PVRs- patient with incontinence and confusion (improving)- Ucx positive for e coli UTI c/u Levaquin and Bacid 6. DVT ppx: Lovenox, teds, admission Dopplers negative 7. GI ppx: Protonix 8. Pain: Tylenol prn 9. DIspo: TBD Allergies Coded Allergies: No Known Allergies (Verified Allergy, Unknown, 10/28/19) Vital Signs Vital Signs Date Time Temp Pulse Resp B/P (MAP) Pulse Ox O2 Delivery O2 Flow Rate FiO2 11/09/19 08:44 61 141/83 11/09/19 06:00 97.7 18 97 Room Air Laboratory Data CBC/BMP Laboratory Tests 11/09/19 06:33 Labs 24H Laboratory Tests 2 11/09/19 06:33: Nucleated Red Blood Cells % (auto) 0.0, Anion Gap 4L, Glomerular Filtration Rate > 60.0, Calcium Level 8.9 Microbiology Microbiology 11/03/19 Respiratory Virus Panel (PCR) (ANNE-MARIE) - Final, Complete 11/02/19 Urine Culture - Final, Complete Escherichia Coli Current Medications Current Medications Current Medications Medications (Trade) Dose Ordered Sig/Eugenio Route PRN Reason Start Time Stop Time Status Last Admin Dose Admin Acetaminophen (Tylenol Tab) 650 mg Q4HP PRN PO fever/MILD PAIN (PS 1-4) 10/28/19 13:15 11/07/19 21:31 Albuterol/ Ipratropium (Duoneb (Ipr 0.5mg/Alb 2.5mg)) 3 ml RQID NEB 10/28/19 16:00 11/08/19 11:22 Allopurinol (Zyloprim) 300 mg DAILY PO 10/29/19 09:00 11/09/19 08:43 Atorvastatin Calcium (Lipitor) 80 mg DAILY PO 10/28/19 09:00 11/09/19 08:43 Bisacodyl (Dulcolax Suppository) 10 mg DAILYPRN PRN [place] CONSTIPATION 10/28/19 13:15 Docusate Sodium (Colace) 100 mg BID PO 10/28/19 21:00 11/05/19 15:07 DC 11/04/19 21:54 Docusate Sodium (Colace) 100 mg BID PRN PO constipation 11/05/19 21:00 Enalapril Maleate (Vasotec) 5 mg DAILY PO 10/29/19 09:00 11/09/19 08:44 Enoxaparin Sodium (Lovenox) 40 mg DAILY SC 10/29/19 09:00 11/09/19 08:45 Fluoxetine HCl (PROzac) 20 mg DAILY PO 10/28/19 09:00 11/09/19 08:43 Furosemide (Lasix) 20 mg DAILY PO 10/29/19 09:00 11/09/19 08:43 Guaifenesin (Robitussin Tab) 400 mg TID PO 10/28/19 16:00 11/09/19 08:44 Home Med (Med Rec Complete!) ASDIRECTED XX 10/28/19 14:15 10/28/19 14:28 DC Lactobacillus Acidophilus (Bacid) 1 ea WMHS PO 11/03/19 12:30 11/09/19 12:30 Levofloxacin (Levaquin) 750 mg DAILY@06 PO 11/03/19 06:00 11/08/19 05:59 DC 11/07/19 06:12 Magnesium Hydroxide (Milk Of Magnesia) 30 ml DAILYPRN PRN PO CONSTIPATION 10/28/19 13:15 Miscellaneous (Unresolved Clarification Entry) SEE LABEL COMMENTS DAILY XX 11/09/19 09:00 Pantoprazole Sodium (Protonix) 40 mg DAILY PO 10/28/19 09:00 11/09/19 08:43 Potassium Chloride (Micro-K Extencaps) 10 meq DAILY PO 10/29/19 09:00 11/09/19 08:44 Propranolol HCl (Inderal) 10 mg TID PO 11/04/19 21:00 11/09/19 08:44 Senna (Senokot) 1 tab QHS PO 10/28/19 21:00 11/05/19 11:10 DC 11/04/19 21:54 Senna (Senokot) 1 tab QHS PRN PO constipation 11/05/19 21:00 Tamsulosin HCl (Flomax) 0.4 mg DAILY PO 10/29/19 09:00 11/09/19 08:43 Trazodone HCl (Desyrel) 25 mg QHSP PRN PO INSOMNIA 10/28/19 18:00 11/06/19 23:46 Vitamin D (Vitamin D) 1,000 units DAILY PO 10/29/19 09:00 11/09/19 08:43 ANTIONETTE HONG MD Nov 09, 2019 14:53
[2019-11-09 20:00] VITALS: BP 114/65
[2019-11-10] MEDS: traZODone 25MG PER 1/2 TABLET PO PRN (00:23)
[2019-11-10 06:00] VITALS: BP 132/82
[2019-11-10] MEDS: PROPRANOLOL 10 MG TAB PO SCH ×3 (08:14→21:00)
[2019-11-10] MEDS: IPRATROPIUM 0.5MG/ALBUTEROL 2.5MG INH SOL UD 3ML (DUONEB)(J7620) NEB SCH ×4 (08:18→19:30)
[2019-11-10] MEDS: ATORVASTATIN 20 MG TAB PO SCH (10:20)
[2019-11-10] MEDS: ENOXAPARIN 40 MG/0.4 ML SYRINGE (J1650) SC SCH (10:20)
[2019-11-10] MEDS: guaiFENesin 200 MG TAB PO SCH ×3 (10:21→20:31)
[2019-11-10] MEDS: POTASSIUM CHLORIDE 10 MEQ SR TABLET PO SCH (10:21)
[2019-11-10] MEDS: allopurinoL 300 MG TAB PO SCH (10:21)
[2019-11-10] MEDS: VITAMIN D 1,000 INTERNATIONAL UNITS TABLET PO SCH (10:21)
[2019-11-10] MEDS: PANTOPRAZOLE 40MG TAB (PROTONIX) PO SCH (10:21)
[2019-11-10] MEDS: LACTOBACILLUS ACIDOPHILUS CAP (BACID) PO SCH ×4 (10:21→20:31)
[2019-11-10] MEDS: FUROSEMIDE 20 MG TAB PO SCH (10:22)
[2019-11-10] MEDS: TAMSULOSIN 0.4 MG CAP PO SCH (10:22)
[2019-11-10] MEDS: FLUoxetine 20 MG CAP PO SCH (10:23)
[2019-11-10] MEDS: REMEDY PHYTOPLEX Z-GUARD PASTE 113GM TUBE (FROM STOREROOM PRODUCT) TOP SCH ×3 (10:24→21:00)
[2019-11-10] MEDS: ENALAPRIL MALEATE 5 MG TAB PO SCH (12:48)
[2019-11-10 14:00] VITALS: BP 118/68
--- NOTE | 2019-11-10 16:05 | IPNPDOC ---
PM&R Progress Note DATE OF SERVICE: Nov 10, 2019 Tripe Washer Progress Note Subjective: Patient seen in his room stating he wants to go home next Friday and thinks his will be comfortable helping him. REVIEW OF SYSTEMS: The following is a completed review of systems and has been reviewed. Review of systems otherwise unremarkable. PAIN: Patient self reports no pain EYES: No recent vision changes EARS, NOSE, & THROAT: No throat pain, or dysphagia, or rhinorrhea CARDIOVASCULAR: Denies chest pain or palpitations PULMONARY:+ cough GASTROINTESTINAL: Denies constipation/diarrhea GENITOURINARY: +urinary incontinence (improving) MUSCULOSKELETAL: right sided weakness NEUROLOGICAL:Right sided paresis HEMATOLOGICAL: denies easy bruising SKIN:intact PSYCHIATRIC: Unremarkable All other review of systems found to be negative. PHYSICAL EXAMINATION: VITAL SIGNS: Please see below. GENERAL: Pleasant and cooperative. No acute distress. HEENT: PERRL. Extraocular movements intact. Clear conjunctiva CARDIOVASCULAR: Regular rate and rhythm. No murmurs, rubs, or gallops LUNGS: No wheezes. +scattered rhonchi ABDOMEN: Soft, nontender, nondistended. Positive bowel sounds. Normal active bowel sounds NEUROLOGICAL: Alert and oriented times 2. Cranial nerves II through XII grossly intact. Sensation grossly intact in all 4limbs (+) clonus right EXTREMITIES: 5\\5 strength left upper extremities. 3+/5 right elbow flexors, extensors, 3+/5 loom operator apprentice, 5-\\5 strength right lower extremity. 5/5 strength in left lower extremity. RUE edema (improving) SKIN: blanchable erythema on sacrum ASSESSMENT:74-year-old M with past medical history of HTN, aortic valve repair on AC who presents status post left frontal ICH PLAN: 1. Rehab- PT/OT advance gait and ADL training, assess need for AFO, strengthen/stretch/maintain ROM bilar UE and LE- ambulating with RW ADMINISTRATIVE REPRESENTATIVE- evaluated for dysphagia and cognition 2. Neuro: s/p left frontal spontaneous ICH, c/u secondary stroke prevention with statin and good BP management, ASA and Coumadin on hold for at least 2 weeks until cleared by neurosurgery- repeat CT ordered 11-07-19, sent imaging and spoke with Dr. Sotelo PA who recommends holding off on blood thinners for another 2-3 weeks -c/u SSRI for motor recovery -patient with episode of jaw and LUE tremor at [facility] with EEG 10-25-19 showing, " Continuous mild focal slowing at left fronto-central and left frontotemporal regions. No epileptiform abnormalities are identified" at which pint he was not continued on antiseizure meds -neuro recs appreciated, patient most likely exhibiting essential tremor, c onfirmed with he used to have a bilateral hand tremor prior to the paresis- will start low dose propranolol 3. Cardiac: hx of htn c/u enalapril and Lasix -HLD- c/u statin -s/p Aortic valve repair, Coumadin and ASA on hold -medicine consulted to assist in overall management 4. resp: encourage incentive spirometry, monitor for infection, c/u Duonebs and Guaifenesin for cough which is improving- no fevers/leukocytosis -KATHARINE c/u CPAP - resp panel negative 5. : monitor PVRs- patient with incontinence and confusion (improving)- Ucx positive for e coli UTI s/p course of Levaquin, c/u Bacid 6. DVT ppx: Lovenox, teds, admission Dopplers negative 7. GI ppx: Protonix 8. Pain: Tylenol prn 9. DIspo: TBD Allergies Coded Allergies: No Known Allergies (Verified Allergy, Unknown, 10/28/19) Vital Signs Vital Signs Date Time Temp Pulse Resp B/P (MAP) Pulse Ox O2 Delivery O2 Flow Rate FiO2 11/10/19 15:41 70 114/67 11/10/19 14:00 97.4 17 97 Room Air Microbiology Microbiology 11/03/19 Respiratory Virus Panel (PCR) (ANNE-MARIE) - Final, Complete 11/02/19 Urine Culture - Final, Complete Escherichia Coli Current Medications Current Medications Current Medications Medications (Trade) Dose Ordered Sig/Eugenio Route PRN Reason Start Time Stop Time Status Last Admin Dose Admin Acetaminophen (Tylenol Tab) 650 mg Q4HP PRN PO fever/MILD PAIN (PS 1-4) 10/28/19 13:15 11/07/19 21:31 Albuterol/ Ipratropium (Duoneb (Ipr 0.5mg/Alb 2.5mg)) 3 ml RQID NEB 10/28/19 16:00 11/10/19 12:00 Allopurinol (Zyloprim) 300 mg DAILY PO 10/29/19 09:00 11/10/19 10:21 Atorvastatin Calcium (Lipitor) 80 mg DAILY PO 10/28/19 09:00 11/10/19 10:20 Bisacodyl (Dulcolax Suppository) 10 mg DAILYPRN PRN [place] CONSTIPATION 10/28/19 13:15 Docusate Sodium (Colace) 100 mg BID PO 10/28/19 21:00 11/05/19 15:07 DC 11/04/19 21:54 Docusate Sodium (Colace) 100 mg BID PRN PO constipation 11/05/19 21:00 Enalapril Maleate (Vasotec) 5 mg DAILY PO 10/29/19 09:00 11/10/19 12:48 Enoxaparin Sodium (Lovenox) 40 mg DAILY SC 10/29/19 09:00 11/10/19 10:20 Fluoxetine HCl (PROzac) 20 mg DAILY PO 10/28/19 09:00 11/10/19 10:23 Furosemide (Lasix) 20 mg DAILY PO 10/29/19 09:00 11/10/19 10:22 Guaifenesin (Robitussin Tab) 400 mg TID PO 10/28/19 16:00 11/10/19 15:40 Home Med (Med Rec Complete!) ASDIRECTED XX 10/28/19 14:15 10/28/19 14:28 DC Lactobacillus Acidophilus (Bacid) 1 ea WMHS PO 11/03/19 12:30 11/10/19 12:47 Levofloxacin (Levaquin) 750 mg DAILY@06 PO 11/03/19 06:00 11/08/19 05:59 DC 11/07/19 06:12 Magnesium Hydroxide (Milk Of Magnesia) 30 ml DAILYPRN PRN PO CONSTIPATION 10/28/19 13:15 Miscellaneous (Unresolved Clarification Entry) SEE LABEL COMMENTS DAILY XX 11/09/19 09:00 Pantoprazole Sodium (Protonix) 40 mg DAILY PO 10/28/19 09:00 11/10/19 10:21 Potassium Chloride (Micro-K Extencaps) 10 meq DAILY PO 10/29/19 09:00 11/10/19 10:21 Propranolol HCl (Inderal) 10 mg TID PO 11/04/19 21:00 11/10/19 15:41 Senna (Senokot) 1 tab QHS PO 10/28/19 21:00 11/05/19 11:10 DC 11/04/19 21:54 Senna (Senokot) 1 tab QHS PRN PO constipation 11/05/19 21:00 Tamsulosin HCl (Flomax) 0.4 mg DAILY PO 10/29/19 09:00 11/10/19 10:22 Trazodone HCl (Desyrel) 25 mg QHSP PRN PO INSOMNIA 10/28/19 18:00 11/10/19 00:23 Vitamin D (Vitamin D) 1,000 units DAILY PO 10/29/19 09:00 11/10/19 10:21 ANTIONETTE HONG MD Nov 10, 2019 16:05
[2019-11-10 20:00] VITALS: BP 119/74
[2019-11-11 05:56] VITALS: BP 128/79
[2019-11-11 06:54] LABS: BASO % 0.5 % (0.0-1.0); EOS # 0.2 10^3/uL (0.0-0.5); EOS % 3.4 % (0.0-3.0); HEMATOCRIT 40.4 % (42.0-52.0); HEMOGLOBIN 13.8 g/dl (13.5-17.5); LYMPH # 1.3 10^3/uL (1.5-5.0); LYMPH % 21.3 % (24.0-44.0); MEAN CORPUSCULAR HEMOGLOBIN 32.4 pg (27.0-33.0); MEAN CORPUSCULAR HGB CONC 34.2 g/dl (32.0-36.5); MEAN CORPUSCULAR VOLUME 94.8 fl (80.0-96.0); MONO # 0.5 10^3/uL (0.0-0.8); MONO % 8.6 % (0.0-5.0); NEUTROPHILS # 3.9 10^3/uL (1.5-8.5); NEUTROPHILS % 65.5 % (36.0-66.0); PLATELET COUNT, AUTOMATED 180 10^3/uL (150-450); RED BLOOD COUNT 4.26 10^6/uL (4.30-6.10); WHITE BLOOD COUNT 5.9 10^3/uL (4.0-10.0)
[2019-11-11 07:21] LABS: BLOOD UREA NITROGEN 19 MG/DL (7-18); CALCIUM LEVEL 8.9 MG/DL (8.8-10.2); CARBON DIOXIDE LEVEL 31 MEQ/L (21-32); CHLORIDE LEVEL 104 MEQ/L (98-107); CREATININE FOR GFR 1.12 MG/DL (0.70-1.30); GLOMERULAR FILTRATION RATE > 60.0 (>42); GLUCOSE, FASTING 103 MG/DL (70-100); POTASSIUM SERUM 4.3 MEQ/L (3.5-5.1); SODIUM LEVEL 138 MEQ/L (136-145)
[2019-11-11] MEDS: IPRATROPIUM 0.5MG/ALBUTEROL 2.5MG INH SOL UD 3ML (DUONEB)(J7620) NEB SCH ×4 (07:28→19:20)
[2019-11-11] MEDS: REMEDY PHYTOPLEX Z-GUARD PASTE 113GM TUBE (FROM STOREROOM PRODUCT) TOP SCH ×3 (09:00→21:00)
[2019-11-11] MEDS: PROPRANOLOL 10 MG TAB PO SCH ×3 (09:00→21:41)
[2019-11-11] MEDS: guaiFENesin 200 MG TAB PO SCH ×3 (09:13→21:41)
[2019-11-11] MEDS: POTASSIUM CHLORIDE 10 MEQ SR TABLET PO SCH (09:13)
[2019-11-11] MEDS: TAMSULOSIN 0.4 MG CAP PO SCH (09:13)
[2019-11-11] MEDS: FLUoxetine 20 MG CAP PO SCH (09:13)
[2019-11-11] MEDS: VITAMIN D 1,000 INTERNATIONAL UNITS TABLET PO SCH (09:13)
[2019-11-11] MEDS: ATORVASTATIN 20 MG TAB PO SCH (09:13)
[2019-11-11] MEDS: allopurinoL 300 MG TAB PO SCH (09:14)
[2019-11-11] MEDS: PANTOPRAZOLE 40MG TAB (PROTONIX) PO SCH (09:14)
[2019-11-11] MEDS: FUROSEMIDE 20 MG TAB PO SCH (09:15)
[2019-11-11] MEDS: ENOXAPARIN 40 MG/0.4 ML SYRINGE (J1650) SC SCH (09:15)
[2019-11-11] MEDS: LACTOBACILLUS ACIDOPHILUS CAP (BACID) PO SCH ×4 (09:15→21:41)
[2019-11-11] MEDS: ENALAPRIL MALEATE 5 MG TAB PO SCH (09:16)
[2019-11-11 14:00] VITALS: BP 119/75
[2019-11-11 21:42] VITALS: BP 124/73
[2019-11-12] MEDS: traZODone 25MG PER 1/2 TABLET PO PRN (00:11)
[2019-11-12 06:33] VITALS: BP 122/75
[2019-11-12] MEDS: IPRATROPIUM 0.5MG/ALBUTEROL 2.5MG INH SOL UD 3ML (DUONEB)(J7620) NEB SCH ×4 (07:41→20:00)
[2019-11-12] MEDS: ENALAPRIL MALEATE 5 MG TAB PO SCH (09:00)
[2019-11-12] MEDS: PROPRANOLOL 10 MG TAB PO SCH ×3 (09:00→20:44)
[2019-11-12] MEDS: TAMSULOSIN 0.4 MG CAP PO SCH (09:18)
[2019-11-12] MEDS: PANTOPRAZOLE 40MG TAB (PROTONIX) PO SCH (09:18)
[2019-11-12] MEDS: VITAMIN D 1,000 INTERNATIONAL UNITS TABLET PO SCH (09:18)
[2019-11-12] MEDS: LACTOBACILLUS ACIDOPHILUS CAP (BACID) PO SCH ×4 (09:18→20:44)
[2019-11-12] MEDS: ENOXAPARIN 40 MG/0.4 ML SYRINGE (J1650) SC SCH (09:18)
[2019-11-12] MEDS: FLUoxetine 20 MG CAP PO SCH (09:18)
[2019-11-12] MEDS: allopurinoL 300 MG TAB PO SCH (09:19)
[2019-11-12] MEDS: POTASSIUM CHLORIDE 10 MEQ SR TABLET PO SCH (09:19)
[2019-11-12] MEDS: ATORVASTATIN 20 MG TAB PO SCH (09:19)
[2019-11-12] MEDS: REMEDY PHYTOPLEX Z-GUARD PASTE 113GM TUBE (FROM STOREROOM PRODUCT) TOP SCH ×3 (09:20→20:45)
[2019-11-12] MEDS: guaiFENesin 200 MG TAB PO SCH ×3 (09:20→20:44)
[2019-11-12] MEDS: FUROSEMIDE 20 MG TAB PO SCH (09:20)
--- NOTE | 2019-11-12 13:51 | IPNPDOC ---
Text Note Date of Service The patient was seen on 11/12/19. NOTE HPI: Patient is seen sitting up in his recliner eating lunch. He has made very good progress during therapy and can now raise his right hand independently and make a pretty good fist. No evidence of intermittent jaw or hand tremor when seen today. He feels great and is ready for d/c next Friday. Physical Examination General Exam: Positive: Alert, Cooperative, No Acute Distress Eye Exam: Positive: PERRLA, Conjunctiva & lids normal, EOMI; Negative: Sclera icteric ENT Exam: Positive: Atraumatic, Mucous membr. moist/pink, Pharynx Normal, no evidence of jaw/hand tremor Neck Exam: Positive: Supple; Negative: thyromegaly, Lymphadenopathy Chest Exam: Positive: Clear to auscultation, Normal air movement Heart Exam: Positive: Rate Normal, Regular Rhythm, Normal S1, Normal S2, Murmurs (mechanical valve murmur heard throughout the precordium ); Negative: Gallops, Rubs Telemetry: Positive: No significant arrhythmia Abdomen Exam: Positive: Normal bowel sounds, Soft; Negative: Tenderness, Hepatospenomegaly Extremity Exam: Positive: Swelling; Negative: Clubbing, Cyanosis, Edema, Normal pulses, Tenderness Skin Exam: Positive: Nl turgor and temperature; Negative: Breakdown, Lesion Neuro Exam: Positive: Strength at 5/5 X4 ext (right sided flaccidity, 4/5 strength LUE and LLE); Negative: Normal Gait (right sided hemiparesis), Normal Speech Psych Exam: Positive: Mood NL, Oriented x 3 Assessment/Plan Mr. Acevedo is a 74-year-old male who is transferred to the ARU for rehabilitation. The patient reported that last week he had slipped and fallen outside, he noticed that he had right sided arm and leg weakness for several days, that would not resolve. He also noticed some slurred speech. He denied loss of consciousness. Patient went to the ED at [facility] after 3 days of persistent symptoms. He was later transferred to [facility] after he was imaged and found to have a large left frontal ICH. Per the medical record, CT of the head completed on October 23 showed a "stable left frontal lobe intra-parenchymal hemorrhage. There was no significant mass effect or midline shift." Non-contrast MR of the brain October 24 revealed a "left posterior frontal lobe hematoma with surrounding vasogenic edema and mild mass effect on the corpus callosum. No evidence of midline shift." His follow-up non-con MR of the brain on October 25 revealed "high left frontal hematoma at the vertex, likely a hypertensive hemorrhage with rebleed." Patient was also on chronic Coumadin therapy. He was found to be supratherapeutic at 3.38 and given vitamin K and 1 unit fresh frozen plasma. Neurology was consulted at [facility] recommended no surgical intervention, Coumadin discontinued. Patient was evaluated for rehabilitation and was transferred today. Patient has a past medical history which includes: hypertension, hyperlipidemia, obstructive sleep apnea (on CPAP), aortic valve repair 2004 with chronic Coumadin and ASA, thoracic aortic aneurysm repair 2017, gout, BPH. #1. Intracranial hemorrhage, with residual right-sided deficits. Coumadin and aspirin remain on hold The plan is for the patient to follow up with neuro surgery in 2 weeks. He is to have a repeat CT of the head prior to this appointment. He is also to follow-up with his PCP within one week of his discharge from rehabilitation. Rehabilitation per the record searcher #2. Hypertension. Will require strict blood pressure control secondary to his MRI on 10/25, which showed rebleeding , possibly due to hypertensive hemorrhage. Continue enalapril, Lasix Blood pressures within normal limits #3. Hyperlipidemia. Continue statin. #4. Obstructive sleep apnea. Nightly use of home CPAP machine. #5. Gout. Continue allopurinol. #6. BPH. Continue tamsulosin #7. Intermittent jaw tremor. Evaluated via EEG at [facility], findings were noncontributory (ie. no evidence for seizures) - Repeat non-con head CT (10/28) revealed an unchanged ICH with surrounding vasogenic edema. Neurology consulted per Dr. Moy. Suspected benign essential tremor affecting the jaw and left upper extremity per Dr. Ortega who also stated that I frontal hemorrhage is unlikely to be responsible for partial seizures. He has a very low suspicion for underlying malignancy, advises to avoid primidone (consider propanolol if needed). Continue with neurosurgery follow-up as previously planned. Plan / VTE VTE Prophylaxis Ordered?: Yes (Lovenox. ) VS,Fishbone, I+O VS, Fishbone, I+O Vital Signs Date Time Temp Pulse Resp B/P (MAP) Pulse Ox O2 Delivery O2 Flow Rate FiO2 11/12/19 09:00 50 122/75 11/12/19 06:33 96.9 16 95 Room Air I&O- Last 24 Hours up to 6 AM 11/12/19 06:00 Intake Total 1200 ml Balance 1200 ml JAYLA GONZALEZ PA-C Nov 12, 2019 13:51
[2019-11-12 14:00] VITALS: BP 136/90
[2019-11-12 20:42] VITALS: BP 122/74
[2019-11-13] MEDS: traZODone 25MG PER 1/2 TABLET PO PRN (00:58)
[2019-11-13 05:09] VITALS: BP 147/81
[2019-11-13] MEDS: IPRATROPIUM 0.5MG/ALBUTEROL 2.5MG INH SOL UD 3ML (DUONEB)(J7620) NEB SCH ×4 (08:00→19:41)
[2019-11-13] MEDS: REMEDY PHYTOPLEX Z-GUARD PASTE 113GM TUBE (FROM STOREROOM PRODUCT) TOP SCH ×3 (09:00→20:52)
[2019-11-13] MEDS: TAMSULOSIN 0.4 MG CAP PO SCH (09:57)
[2019-11-13] MEDS: VITAMIN D 1,000 INTERNATIONAL UNITS TABLET PO SCH (09:58)
[2019-11-13] MEDS: POTASSIUM CHLORIDE 10 MEQ SR TABLET PO SCH (09:58)
[2019-11-13] MEDS: ATORVASTATIN 20 MG TAB PO SCH (09:58)
[2019-11-13] MEDS: allopurinoL 300 MG TAB PO SCH (09:58)
[2019-11-13] MEDS: ENALAPRIL MALEATE 5 MG TAB PO SCH (09:58)
[2019-11-13] MEDS: guaiFENesin 200 MG TAB PO SCH ×3 (09:58→20:51)
[2019-11-13] MEDS: FUROSEMIDE 20 MG TAB PO SCH (09:58)
[2019-11-13] MEDS: FLUoxetine 20 MG CAP PO SCH (09:58)
[2019-11-13] MEDS: PANTOPRAZOLE 40MG TAB (PROTONIX) PO SCH (09:58)
[2019-11-13] MEDS: ENOXAPARIN 40 MG/0.4 ML SYRINGE (J1650) SC SCH (09:59)
[2019-11-13] MEDS: PROPRANOLOL 10 MG TAB PO SCH ×3 (09:59→20:51)
[2019-11-13] MEDS: LACTOBACILLUS ACIDOPHILUS CAP (BACID) PO SCH ×4 (09:59→20:51)
[2019-11-13 14:00] VITALS: BP 114/63
[2019-11-13 20:49] VITALS: BP 112/68
[2019-11-14 06:45] VITALS: BP 137/79
[2019-11-14] MEDS: IPRATROPIUM 0.5MG/ALBUTEROL 2.5MG INH SOL UD 3ML (DUONEB)(J7620) NEB SCH ×4 (07:31→19:47)
[2019-11-14] MEDS: guaiFENesin 200 MG TAB PO SCH ×3 (08:39→20:13)
[2019-11-14] MEDS: ATORVASTATIN 20 MG TAB PO SCH (08:39)
[2019-11-14] MEDS: ENOXAPARIN 40 MG/0.4 ML SYRINGE (J1650) SC SCH (08:39)
[2019-11-14] MEDS: VITAMIN D 1,000 INTERNATIONAL UNITS TABLET PO SCH (08:39)
[2019-11-14] MEDS: PANTOPRAZOLE 40MG TAB (PROTONIX) PO SCH (08:40)
[2019-11-14] MEDS: LACTOBACILLUS ACIDOPHILUS CAP (BACID) PO SCH ×4 (08:40→20:13)
[2019-11-14] MEDS: FUROSEMIDE 20 MG TAB PO SCH (08:40)
[2019-11-14] MEDS: TAMSULOSIN 0.4 MG CAP PO SCH (08:40)
[2019-11-14] MEDS: allopurinoL 300 MG TAB PO SCH (08:40)
[2019-11-14] MEDS: PROPRANOLOL 10 MG TAB PO SCH ×3 (08:40→20:13)
[2019-11-14] MEDS: ENALAPRIL MALEATE 5 MG TAB PO SCH (08:40)
[2019-11-14] MEDS: POTASSIUM CHLORIDE 10 MEQ SR TABLET PO SCH (08:41)
[2019-11-14] MEDS: REMEDY PHYTOPLEX Z-GUARD PASTE 113GM TUBE (FROM STOREROOM PRODUCT) TOP SCH ×3 (08:41→20:14)
[2019-11-14] MEDS: FLUoxetine 20 MG CAP PO SCH (08:41)
[2019-11-14 14:00] VITALS: BP 112/72
[2019-11-14 20:00] VITALS: BP 123/70
[2019-11-15 06:25] VITALS: BP 139/88
[2019-11-15] MEDS: PROPRANOLOL 10 MG TAB PO SCH ×3 (07:18→20:04)
[2019-11-15] MEDS: IPRATROPIUM 0.5MG/ALBUTEROL 2.5MG INH SOL UD 3ML (DUONEB)(J7620) NEB SCH ×4 (07:27→20:00)
[2019-11-15] MEDS: VITAMIN D 1,000 INTERNATIONAL UNITS TABLET PO SCH (07:36)
[2019-11-15] MEDS: PANTOPRAZOLE 40MG TAB (PROTONIX) PO SCH (07:36)
[2019-11-15] MEDS: TAMSULOSIN 0.4 MG CAP PO SCH (07:36)
[2019-11-15] MEDS: ATORVASTATIN 20 MG TAB PO SCH (07:36)
[2019-11-15] MEDS: FUROSEMIDE 20 MG TAB PO SCH (07:36)
[2019-11-15] MEDS: guaiFENesin 200 MG TAB PO SCH ×3 (07:36→20:04)
[2019-11-15] MEDS: ENALAPRIL MALEATE 5 MG TAB PO SCH (07:36)
[2019-11-15] MEDS: LACTOBACILLUS ACIDOPHILUS CAP (BACID) PO SCH ×4 (07:36→20:05)
[2019-11-15] MEDS: ENOXAPARIN 40 MG/0.4 ML SYRINGE (J1650) SC SCH (07:37)
[2019-11-15] MEDS: REMEDY PHYTOPLEX Z-GUARD PASTE 113GM TUBE (FROM STOREROOM PRODUCT) TOP SCH ×3 (07:37→20:05)
[2019-11-15] MEDS: POTASSIUM CHLORIDE 10 MEQ SR TABLET PO SCH (07:37)
[2019-11-15] MEDS: FLUoxetine 20 MG CAP PO SCH (07:38)
[2019-11-15] MEDS: allopurinoL 300 MG TAB PO SCH (07:38)
--- NOTE | 2019-11-15 10:41 | IPNPDOC ---
PM&R Progress Note DATE OF SERVICE: Nov 12, 2019 Material Control Supervisor Progress Note Subjective: Patient seen walking in therapy with a rolling walker working on gripping his right hand. He states he feels well and has no complaints. He would like to go home as soon as he can. REVIEW OF SYSTEMS: The following is a completed review of systems and has been reviewed. Review of systems otherwise unremarkable. PAIN: Patient self reports no pain EYES: No recent vision changes EARS, NOSE, & THROAT: No throat pain, or dysphagia, or rhinorrhea CARDIOVASCULAR: Denies chest pain or palpitations PULMONARY:+ cough GASTROINTESTINAL: Denies constipation/diarrhea GENITOURINARY: +urinary incontinence (improving) MUSCULOSKELETAL: right sided weakness NEUROLOGICAL:Right sided paresis HEMATOLOGICAL: denies easy bruising SKIN:intact PSYCHIATRIC: Unremarkable All other review of systems found to be negative. PHYSICAL EXAMINATION: VITAL SIGNS: Please see below. GENERAL: Pleasant and cooperative. No acute distress. HEENT: PERRL. Extraocular movements intact. Clear conjunctiva CARDIOVASCULAR: Regular rate and rhythm. No murmurs, rubs, or gallops LUNGS: No wheezes. +scattered rhonchi ABDOMEN: Soft, nontender, nondistended. Positive bowel sounds. Normal active bowel sounds NEUROLOGICAL: Alert and oriented times 2. Cranial nerves II through XII grossly intact. Sensation grossly intact in all 4limbs (+) clonus right EXTREMITIES: 5\\5 strength left upper extremities. 3+/5 right elbow flexors, extensors, 3+/5 manufacturing production manager, 5-\\5 strength right lower extremity. 5/5 strength in left lower extremity. RUE edema (improving) SKIN: blanchable erythema on sacrum ASSESSMENT:74-year-old M with past medical history of HTN, aortic valve repair on AC who presents status post left frontal ICH PLAN: 1. Rehab- PT/OT advance gait and ADL training, assess need for AFO, s trengthen/stretch/maintain ROM bilat UE and LE- ambulating with RW MARINE ENGINEER- evaluated for dysphagia and cognition 2. Neuro: s/p left frontal spontaneous ICH, c/u secondary stroke prevention with statin and good BP management, ASA and Coumadin on hold for at least 2 weeks until cleared by neurosurgery- repeat CT ordered 11-07-19, sent imaging and spoke with Dr. Sotelo PA who recommends holding off on blood thinners for another 2-3 weeks -c/u SSRI for motor recovery -patient with episode of jaw and LUE tremor at [facility] with EEG 10-25-19 showing, " Continuous mild focal slowing at left fronto-central and left frontotemporal regions. No epileptiform abnormalities are identified" at which pint he was not continued on antiseizure meds -neuro recs appreciated, patient most likely exhibiting essential tremor, confirmed with he used to have a bilateral hand tremor prior to the paresis-c/u low dose propranolol 3. Cardiac: hx of htn c/u enalapril and Lasix -HLD- c/u statin -s/p Aortic valve repair, Coumadin and ASA on hold -medicine consulted to assist in overall management 4. resp: encourage incentive spirometry, monitor for infection, c/u Duonebs and Guaifenesin for cough which is improving- no fevers/leukocytosis -KATHARINE c/u CPAP - resp panel negative 5. : monitor PVRs- voiding well- Ucx positive for e coli UTI s/p course of Levaquin, c/u Bacid 6. DVT ppx: Lovenox, teds, admission Dopplers negative 7. GI ppx: Protonix 8. Pain: Tylenol prn 9. DIspo: TBD Allergies Coded Allergies: No Known Allergies (Verified Allergy, Unknown, 10/28/19) Vital Signs Vital Signs Date Time Temp Pulse Resp B/P (MAP) Pulse Ox O2 Delivery O2 Flow Rate FiO2 11/15/19 07:36 139/88 11/15/19 07:18 55 11/15/19 06:25 96.9 18 97 Room Air Current Medications Current Medications Current Medications Medications (Trade) Dose Ordered Sig/Eugenio Route PRN Reason Start Time Stop Time Status Last Admin Dose Admin Acetaminophen (Tylenol Tab) 650 mg Q4HP PRN PO fever/MILD PAIN (PS 1-4) 10/28/19 13:15 11/07/19 21:31 Albuterol/ Ipratropium (Duoneb (Ipr 0.5mg/Alb 2.5mg)) 3 ml RQID NEB 10/28/19 16:00 11/13/19 11:38 Allopurinol (Zyloprim) 300 mg DAILY PO 10/29/19 09:00 11/15/19 07:38 Atorvastatin Calcium (Lipitor) 80 mg DAILY PO 10/28/19 09:00 11/15/19 07:36 Bisacodyl (Dulcolax Suppository) 10 mg DAILYPRN PRN [place] CONSTIPATION 10/28/19 13:15 Docusate Sodium (Colace) 100 mg BID PO 10/28/19 21:00 11/05/19 15:07 DC 11/04/19 21:54 Docusate Sodium (Colace) 100 mg BID PRN PO constipation 11/05/19 21:00 Enalapril Maleate (Vasotec) 5 mg DAILY PO 10/29/19 09:00 11/15/19 07:36 Enoxaparin Sodium (Lovenox) 40 mg DAILY SC 10/29/19 09:00 11/15/19 07:37 Fluoxetine HCl (PROzac) 20 mg DAILY PO 10/28/19 09:00 11/15/19 07:38 Furosemide (Lasix) 20 mg DAILY PO 10/29/19 09:00 11/15/19 07:36 Guaifenesin (Robitussin Tab) 400 mg TID PO 10/28/19 16:00 11/15/19 07:36 Home Med (Med Rec Complete!) ASDIRECTED XX 10/28/19 14:15 10/28/19 14:28 DC Lactobacillus Acidophilus (Bacid) 1 ea WMHS PO 11/03/19 12:30 11/15/19 07:36 Levofloxacin (Levaquin) 750 mg DAILY@06 PO 11/03/19 06:00 11/08/19 05:59 DC 11/07/19 06:12 Magnesium Hydroxide (Milk Of Magnesia) 30 ml DAILYPRN PRN PO CONSTIPATION 10/28/19 13:15 Miscellaneous (Unresolved Clarification Entry) SEE LABEL COMMENTS DAILY XX 11/09/19 09:00 11/13/19 14:51 DC Pantoprazole Sodium (Protonix) 40 mg DAILY PO 10/28/19 09:00 11/15/19 07:36 Potassium Chloride (Micro-K Extencaps) 10 meq DAILY PO 10/29/19 09:00 11/15/19 07:37 Propranolol HCl (Inderal) 10 mg TID PO 11/04/19 21:00 11/14/19 17:40 Senna (Senokot) 1 tab QHS PO 10/28/19 21:00 11/05/19 11:10 DC 11/04/19 21:54 Senna (Senokot) 1 tab QHS PRN PO constipation 11/05/19 21:00 Tamsulosin HCl (Flomax) 0.4 mg DAILY PO 10/29/19 09:00 11/15/19 07:36 Trazodone HCl (Desyrel) 25 mg QHSP PRN PO INSOMNIA 10/28/19 18:00 11/13/19 00:58 Vitamin D (Vitamin D) 1,000 units DAILY PO 10/29/19 09:00 11/15/19 07:36 ANTIONETTE HONG MD Nov 15, 2019 10:40
--- NOTE | 2019-11-15 10:56 | IPNPDOC ---
PM&R Progress Note DATE OF SERVICE: Nov 15, 2019 Ethnic Studies Professor Progress Note Subjective: Patient seen in his room reporting stating he feels stronger, has no complaints and wants to be home by Friday. REVIEW OF SYSTEMS: The following is a completed review of systems and has been reviewed. Review of systems otherwise unremarkable. PAIN: Patient self reports no pain EYES: No recent vision changes EARS, NOSE, & THROAT: No throat pain, or dysphagia, or rhinorrhea CARDIOVASCULAR: Denies chest pain or palpitations PULMONARY:+ cough GASTROINTESTINAL: Denies constipation/diarrhea GENITOURINARY: +urinary incontinence (improving) MUSCULOSKELETAL: right sided weakness NEUROLOGICAL:Right sided paresis HEMATOLOGICAL: denies easy bruising SKIN:intact PSYCHIATRIC: Unremarkable All other review of systems found to be negative. PHYSICAL EXAMINATION: VITAL SIGNS: Please see below. GENERAL: Pleasant and cooperative. No acute distress. HEENT: PERRL. Extraocular movements intact. Clear conjunctiva CARDIOVASCULAR: Regular rate and rhythm. No murmurs, rubs, or gallops LUNGS: No wheezes. +scattered rhonchi ABDOMEN: Soft, nontender, nondistended. Positive bowel sounds. Normal active bowel sounds NEUROLOGICAL: Alert and oriented times 2. Cranial nerves II through XII grossly intact. Sensation grossly intact in all 4limbs (+) clonus right EXTREMITIES: 5\\5 strength left upper extremities. 3+/5 right elbow flexors, extensors, 3+/5 migratory worker, 5-\\5 strength right lower extremity. 5/5 strength in left lower extremity. RUE edema (improving) SKIN: blanchable erythema on sacrum ASSESSMENT:74-year-old M with past medical history of HTN, aortic valve repair on AC who presents status post left frontal ICH PLAN: 1. Rehab- PT/OT advance gait and ADL training, assess need for AFO, strengthen/stretch/maintain ROM bilat UE and LE- ambulating with RW UPSCALE SECURITY OFFICER- evaluated for dysphagia and cognition 2. Neuro: s/p left frontal spontaneous ICH, c/u secondary stroke prevention with statin and good BP management, ASA and Coumadin on hold for at least 2 weeks until cleared by neurosurgery- repeat CT ordered 11-07-19, sent imaging and spoke with Dr. Sotelo PA who recommends holding off on blood thinners for another 2-3 weeks -repeat CTH scheduled by [facility] 11-26-19 and f/u appointment with neurosurgeon scheduled 12-08-19 -c/u SSRI for motor recovery -patient with episode of jaw and LUE tremor at [facility] with EEG 10-25-19 showing, " Continuous mild focal slowing at left fronto-central and left frontotemporal regions. No epileptiform abnormalities are identified" at which pint he was not continued on antiseizure meds -neuro recs appreciated, patient most likely exhibiting essential tremor, confirmed with he used to have a bilateral hand tremor prior to the paresis-c/u low dose propranolol 3. Cardiac: hx of htn c/u enalapril and Lasix -HLD- c/u statin -s/p Aortic valve repair, Coumadin and ASA on hold -medicine consulted to assist in overall management 4. resp: encourage incentive spirometry, monitor for infection, c/u Duonebs and Guaifenesin for cough which is improving- no fevers/leukocytosis -KATHARINE c/u CPAP - resp panel negative 5. : monitor PVRs- voiding well- Ucx positive for e coli UTI s/p course of Levaquin, c/u Bacid 6. DVT ppx: Lovenox, teds, admission Dopplers negative 7. GI ppx: Protonix 8. Pain: Tylenol prn 9. DIspo: goal 11-16 or 11-18-19 to home pending getting trained Allergies Coded Allergies: No Known Allergies (Verified Allergy, Unknown, 10/28/19) Vital Signs Vital Signs Date Time Temp Pulse Resp B/P (MAP) Pulse Ox O2 Delivery O2 Flow Rate FiO2 11/15/19 07:36 139/88 11/15/19 07:18 55 11/15/19 06:25 96.9 18 97 Room Air Current Medications Current Medications Current Medications Medications (Trade) Dose Ordered Sig/Eugenio Route PRN Reason Start Time Stop Time Status Last Admin Dose Admin Acetaminophen (Tylenol Tab) 650 mg Q4HP PRN PO fever/MILD PAIN (PS 1-4) 10/28/19 13:15 11/07/19 21:31 Albuterol/ Ipratropium (Duoneb (Ipr 0.5mg/Alb 2.5mg)) 3 ml RQID NEB 10/28/19 16:00 11/13/19 11:38 Allopurinol (Zyloprim) 300 mg DAILY PO 10/29/19 09:00 11/15/19 07:38 Atorvastatin Calcium (Lipitor) 80 mg DAILY PO 10/28/19 09:00 11/15/19 07:36 Bisacodyl (Dulcolax Suppository) 10 mg DAILYPRN PRN [place] CONSTIPATION 10/28/19 13:15 Docusate Sodium (Colace) 100 mg BID PO 10/28/19 21:00 11/05/19 15:07 DC 11/04/19 21:54 Docusate Sodium (Colace) 100 mg BID PRN PO constipation 11/05/19 21:00 Enalapril Maleate (Vasotec) 5 mg DAILY PO 10/29/19 09:00 11/15/19 07:36 Enoxaparin Sodium (Lovenox) 40 mg DAILY SC 10/29/19 09:00 11/15/19 07:37 Fluoxetine HCl (PROzac) 20 mg DAILY PO 10/28/19 09:00 11/15/19 07:38 Furosemide (Lasix) 20 mg DAILY PO 10/29/19 09:00 11/15/19 07:36 Guaifenesin (Robitussin Tab) 400 mg TID PO 10/28/19 16:00 11/15/19 07:36 Home Med (Med Rec Complete!) ASDIRECTED XX 10/28/19 14:15 10/28/19 14:28 DC Lactobacillus Acidophilus (Bacid) 1 ea WMHS PO 11/03/19 12:30 11/15/19 07:36 Levofloxacin (Levaquin) 750 mg DAILY@06 PO 11/03/19 06:00 11/08/19 05:59 DC 11/07/19 06:12 Magnesium Hydroxide (Milk Of Magnesia) 30 ml DAILYPRN PRN PO CONSTIPATION 10/28/19 13:15 Miscellaneous (Unresolved Clarification Entry) SEE LABEL COMMENTS DAILY XX 11/09/19 09:00 11/13/19 14:51 DC Pantoprazole Sodium (Protonix) 40 mg DAILY PO 10/28/19 09:00 11/15/19 07:36 Potassium Chloride (Micro-K Extencaps) 10 meq DAILY PO 10/29/19 09:00 11/15/19 07:37 Propranolol HCl (Inderal) 10 mg TID PO 11/04/19 21:00 11/14/19 17:40 Senna (Senokot) 1 tab QHS PO 10/28/19 21:00 11/05/19 11:10 DC 11/04/19 21:54 Senna (Senokot) 1 tab QHS PRN PO constipation 11/05/19 21:00 Tamsulosin HCl (Flomax) 0.4 mg DAILY PO 10/29/19 09:00 11/15/19 07:36 Trazodone HCl (Desyrel) 25 mg QHSP PRN PO INSOMNIA 10/28/19 18:00 11/13/19 00:58 Vitamin D (Vitamin D) 1,000 units DAILY PO 10/29/19 09:00 11/15/19 07:36 ANTIONETTE HONG MD Nov 15, 2019 10:56
[2019-11-15 14:00] VITALS: BP 114/69
[2019-11-15 14:41] LABS: BASO % 0.3 % (0.0-1.0); EOS # 0.1 10^3/uL (0.0-0.5); EOS % 1.4 % (0.0-3.0); HEMATOCRIT 42.3 % (42.0-52.0); HEMOGLOBIN 14.5 g/dl (13.5-17.5); LYMPH # 1.4 10^3/uL (1.5-5.0); LYMPH % 16.8 % (24.0-44.0); MEAN CORPUSCULAR HEMOGLOBIN 31.9 pg (27.0-33.0); MEAN CORPUSCULAR HGB CONC 34.3 g/dl (32.0-36.5); MEAN CORPUSCULAR VOLUME 93.2 fl (80.0-96.0); MONO # 0.5 10^3/uL (0.0-0.8); MONO % 5.7 % (0.0-5.0); NEUTROPHILS # 6.5 10^3/uL (1.5-8.5); NEUTROPHILS % 75.5 % (36.0-66.0); PLATELET COUNT, AUTOMATED 177 10^3/uL (150-450); RED BLOOD COUNT 4.54 10^6/uL (4.30-6.10); WHITE BLOOD COUNT 8.6 10^3/uL (4.0-10.0)
[2019-11-15 15:03] LABS: BLOOD UREA NITROGEN 19 MG/DL (7-18); CALCIUM LEVEL 8.9 MG/DL (8.8-10.2); CARBON DIOXIDE LEVEL 30 MEQ/L (21-32); CHLORIDE LEVEL 106 MEQ/L (98-107); CREATININE FOR GFR 1.06 MG/DL (0.70-1.30); GLOMERULAR FILTRATION RATE > 60.0 (>42); GLUCOSE, FASTING 110 MG/DL (70-100); POTASSIUM SERUM 4.3 MEQ/L (3.5-5.1); SODIUM LEVEL 140 MEQ/L (136-145)
[2019-11-15 20:00] VITALS: BP 127/73
[2019-11-16 06:00] VITALS: BP 136/80
[2019-11-16] MEDS: IPRATROPIUM 0.5MG/ALBUTEROL 2.5MG INH SOL UD 3ML (DUONEB)(J7620) NEB SCH ×4 (08:00→20:00)
[2019-11-16] MEDS: REMEDY PHYTOPLEX Z-GUARD PASTE 113GM TUBE (FROM STOREROOM PRODUCT) TOP SCH ×4 (09:00→20:02)
[2019-11-16] MEDS: ENOXAPARIN 40 MG/0.4 ML SYRINGE (J1650) SC SCH (09:10)
[2019-11-16] MEDS: TAMSULOSIN 0.4 MG CAP PO SCH (09:11)
[2019-11-16] MEDS: FLUoxetine 20 MG CAP PO SCH (09:11)
[2019-11-16] MEDS: guaiFENesin 200 MG TAB PO SCH ×3 (09:11→20:02)
[2019-11-16] MEDS: LACTOBACILLUS ACIDOPHILUS CAP (BACID) PO SCH ×4 (09:11→20:02)
[2019-11-16] MEDS: PROPRANOLOL 10 MG TAB PO SCH ×3 (09:11→20:02)
[2019-11-16] MEDS: VITAMIN D 1,000 INTERNATIONAL UNITS TABLET PO SCH (09:12)
[2019-11-16] MEDS: FUROSEMIDE 20 MG TAB PO SCH (09:12)
[2019-11-16] MEDS: POTASSIUM CHLORIDE 10 MEQ SR TABLET PO SCH (09:12)
[2019-11-16] MEDS: PANTOPRAZOLE 40MG TAB (PROTONIX) PO SCH (09:12)
[2019-11-16] MEDS: allopurinoL 300 MG TAB PO SCH (09:12)
[2019-11-16] MEDS: ENALAPRIL MALEATE 5 MG TAB PO SCH (09:13)
[2019-11-16] MEDS: ATORVASTATIN 20 MG TAB PO SCH (09:13)
[2019-11-16] MEDS ORDERED: FLUO20CA22 PO (12:11)
[2019-11-16] MEDS ORDERED: COLA100C5 PO (12:11)
[2019-11-16] MEDS ORDERED: PROP10TA56 PO (12:11)
[2019-11-16] MEDS ORDERED: ATOR80TA59 PO (12:11)
[2019-11-16] MEDS ORDERED: VITAD1000T PO (12:11)
[2019-11-16] MEDS ORDERED: POTA10CA32 PO (12:11)
[2019-11-16] MEDS ORDERED: ENAL5TAB PO (12:11)
[2019-11-16] MEDS ORDERED: FLOM0.4C39 PO (12:11)
[2019-11-16] MEDS ORDERED: ZYLO300T6 PO (12:11)
[2019-11-16] MEDS ORDERED: FURO20TA2 PO (12:11)
--- NOTE | 2019-11-16 12:13 | IPNPDOC ---
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 REVIEW OF SYSTEMS: The following is a completed review of systems and has been reviewed. Review of systems otherwise unremarkable. PAIN: Patient self reports no pain EYES: No recent vision changes EARS, NOSE, & THROAT: No throat pain, or dysphagia, or rhinorrhea CARDIOVASCULAR: Denies chest pain or palpitations PULMONARY:+ cough GASTROINTESTINAL: Denies constipation/diarrhea GENITOURINARY: +urinary incontinence (improving) MUSCULOSKELETAL: right sided weakness NEUROLOGICAL:Right sided paresis HEMATOLOGICAL: denies easy bruising SKIN:intact PSYCHIATRIC: Unremarkable All other review of systems found to be negative. PHYSICAL EXAMINATION: VITAL SIGNS: Please see below. GENERAL: Pleasant and cooperative. No acute distress. HEENT: PERRL. Extraocular movements intact. Clear conjunctiva CARDIOVASCULAR: Regular rate and rhythm. No murmurs, rubs, or gallops LUNGS: No wheezes. +scattered rhonchi ABDOMEN: Soft, nontender, nondistended. Positive bowel sounds. Normal active bowel sounds NEUROLOGICAL: Alert and oriented times 2. Cranial nerves II through XII grossly intact. Sensation grossly intact in all 4limbs (+) clonus right EXTREMITIES: 5\\5 strength left upper extremities. 3+/5 right elbow flexors, extensors, 3+/5 rib puller, 5-\\5 strength right lower extremity. 5/5 strength in left lower extremity. RUE edema (improving) SKIN: blanchable erythema on sacrum ASSESSMENT:74-year-old M with past medical history of HTN, aortic valve repair on AC who presents status post left frontal ICH PLAN: 1. Rehab- PT/OT advance gait and ADL training, assess need for AFO, strengthen/stretch/maintain ROM bilat UE and LE- ambulating with RW TRANSPORTATION AIDE- evaluated for dysphagia and cognition 2. Neuro: s/p left frontal spontaneous ICH, c/u secondary stroke prevention with statin and good BP management, ASA and Coumadin on hold for at least 2 weeks until cleared by neurosurgery- repeat CT ordered 11-07-19, sent imaging and spoke with Dr. Sotelo PA who recommends holding off on blood thinners for another 2-3 weeks -repeat CTH scheduled by [facility] 11-26-19 and f/u appointment with neurosurgeon scheduled 12-08-19 -c/u SSRI for motor recovery -patient with episode of jaw and LUE tremor at [facility] with EEG 10-25-19 showing, " Continuous mild focal slowing at left fronto-central and left frontotemporal regions. No epileptiform abnormalities are identified" at which pint he was not continued on antiseizure meds -neuro recs appreciated, patient most likely exhibiting essential tremor, confirmed with he used to have a bilateral hand tremor prior to the paresis-c/u low dose propranolol 3. Cardiac: hx of htn c/u enalapril and Lasix -HLD- c/u statin -s/p Aortic valve repair, Coumadin and ASA on hold -medicine consulted to assist in overall management 4. resp: encourage incentive spirometry, monitor for infection, c/u Duonebs and Guaifenesin for cough which is improving- no fevers/leukocytosis -KATHARINE c/u CPAP - resp panel negative 5. : monitor PVRs- voiding well- Ucx positive for e coli UTI s/p course of Levaquin, c/u Bacid 6. DVT ppx: Lovenox, teds, admission Dopplers negative 7. GI ppx: Protonix 8. Pain: Tylenol prn 9. DIspo: goal 11-17-19 to home, progressing towards goals Allergies Coded Allergies: No Known Allergies (Verified Allergy, Unknown, 10/28/19) Vital Signs Vital Signs Date Time Temp Pulse Resp B/P (MAP) Pulse Ox O2 Delivery O2 Flow Rate FiO2 11/16/19 09:11 60 130/80 11/16/19 06:00 97.7 18 98 Room Air Laboratory Data CBC/BMP Laboratory Tests 11/15/19 14:29 Labs 24H Laboratory Tests 2 11/15/19 14:29: Immature Granulocyte % (Auto) 0.3, Neutrophils (%) (Auto) 75.5H, Lymphocytes (%) (Auto) 16.8L, Monocytes (%) (Auto) 5.7H, Eosinophils (%) (Auto) 1.4, Basophils (%) (Auto) 0.3, Neutrophils # (Auto) 6.5, Lymphocytes # (Auto) 1.4L, Monocytes # (Auto) 0.5, Eosinophils # (Auto) 0.1, Basophils # (Auto) 0.0, Nucleated Red Blood Cells % (auto) 0.0, Anion Gap 4L, Glomerular Filtration Rate > 60.0, Calcium Level 8.9 Current Medications Current Medications Current Medications Medications (Trade) Dose Ordered Sig/Eugenio Route PRN Reason Start Time Stop Time Status Last Admin Dose Admin Acetaminophen (Tylenol Tab) 650 mg Q4HP PRN PO fever/MILD PAIN (PS 1-4) 10/28/19 13:15 11/07/19 21:31 Albuterol/ Ipratropium (Duoneb (Ipr 0.5mg/Alb 2.5mg)) 3 ml RQID NEB 10/28/19 16:00 11/13/19 11:38 Allopurinol (Zyloprim) 300 mg DAILY PO 10/29/19 09:00 11/16/19 09:12 Atorvastatin Calcium (Lipitor) 80 mg DAILY PO 10/28/19 09:00 11/16/19 09:13 Bisacodyl (Dulcolax Suppository) 10 mg DAILYPRN PRN [place] CONSTIPATION 10/28/19 13:15 Docusate Sodium (Colace) 100 mg BID PO 10/28/19 21:00 11/05/19 15:07 DC 11/04/19 21:54 Docusate Sodium (Colace) 100 mg BID PRN PO constipation 11/05/19 21:00 Enalapril Maleate (Vasotec) 5 mg DAILY PO 10/29/19 09:00 11/16/19 09:13 Enoxaparin Sodium (Lovenox) 40 mg DAILY SC 10/29/19 09:00 11/16/19 09:10 Fluoxetine HCl (PROzac) 20 mg DAILY PO 10/28/19 09:00 11/16/19 09:11 Furosemide (Lasix) 20 mg DAILY PO 10/29/19 09:00 11/16/19 09:12 Guaifenesin (Robitussin Tab) 400 mg TID PO 10/28/19 16:00 11/16/19 09:11 Home Med (Med Rec Complete!) ASDIRECTED XX 10/28/19 14:15 10/28/19 14:28 DC Lactobacillus Acidophilus (Bacid) 1 ea WMHS PO 11/03/19 12:30 11/16/19 11:57 Levofloxacin (Levaquin) 750 mg DAILY@06 PO 11/03/19 06:00 11/08/19 05:59 DC 11/07/19 06:12 Magnesium Hydroxide (Milk Of Magnesia) 30 ml DAILYPRN PRN PO CONSTIPATION 10/28/19 13:15 Miscellaneous (Unresolved Clarification Entry) SEE LABEL COMMENTS DAILY XX 11/09/19 09:00 11/13/19 14:51 DC Pantoprazole Sodium (Protonix) 40 mg DAILY PO 10/28/19 09:00 11/16/19 09:12 Potassium Chloride (Micro-K Extencaps) 10 meq DAILY PO 10/29/19 09:00 11/16/19 09:12 Propranolol HCl (Inderal) 10 mg TID PO 11/04/19 21:00 11/16/19 09:11 Senna (Senokot) 1 tab QHS PO 10/28/19 21:00 11/05/19 11:10 DC 11/04/19 21:54 Senna (Senokot) 1 tab QHS PRN PO constipation 11/05/19 21:00 Tamsulosin HCl (Flomax) 0.4 mg DAILY PO 10/29/19 09:00 11/16/19 09:11 Trazodone HCl (Desyrel) 25 mg QHSP PRN PO INSOMNIA 10/28/19 18:00 11/13/19 00:58 Vitamin D (Vitamin D) 1,000 units DAILY PO 10/29/19 09:00 11/16/19 09:12 ANTIONETTE HONG MD Nov 16, 2019 12:13
[2019-11-16 14:00] VITALS: BP 131/72
--- NOTE | 2019-11-16 15:10 | REP ---
Clinical: Immobility . Technique: [place] scale and color Doppler evaluation of the bilateral lower extremities using linear high frequency transducer. Findings: Ultrasound examination of the right and left lower extremity deep venous structures from the common femoral vein to the popliteal vein demonstrates normal compressibility flow and wave patterns in response to respiration and augmentation. There is no evidence for deep venous thrombosis. Impression: No evidence for deep venous thrombosis of the bilateral lower extremities. Electronically Signed by Varghese Francis MD 11/16/2019 03:01 P
[2019-11-16 20:00] VITALS: BP 113/72
[2019-11-16 20:02] VITALS: BP 113/72
[2019-11-17] MEDS: ACETAMINOPHEN TAB 650MG DOSE (2X325MG) PO PRN (03:50)
[2019-11-17 06:00] VITALS: BP 139/81
[2019-11-17] MEDS: IPRATROPIUM 0.5MG/ALBUTEROL 2.5MG INH SOL UD 3ML (DUONEB)(J7620) NEB SCH ×2 (07:34→12:00)
[2019-11-17] MEDS: REMEDY PHYTOPLEX Z-GUARD PASTE 113GM TUBE (FROM STOREROOM PRODUCT) TOP SCH (09:00)
[2019-11-17] MEDS: PROPRANOLOL 10 MG TAB PO SCH (09:00)
[2019-11-17] MEDS: VITAMIN D 1,000 INTERNATIONAL UNITS TABLET PO SCH (09:27)
[2019-11-17] MEDS: PANTOPRAZOLE 40MG TAB (PROTONIX) PO SCH (09:28)
[2019-11-17] MEDS: FUROSEMIDE 20 MG TAB PO SCH (09:28)
[2019-11-17] MEDS: TAMSULOSIN 0.4 MG CAP PO SCH (09:28)
[2019-11-17] MEDS: guaiFENesin 200 MG TAB PO SCH (09:28)
[2019-11-17] MEDS: ATORVASTATIN 20 MG TAB PO SCH (09:28)
[2019-11-17] MEDS: allopurinoL 300 MG TAB PO SCH (09:28)
[2019-11-17] MEDS: LACTOBACILLUS ACIDOPHILUS CAP (BACID) PO SCH (09:28)
[2019-11-17] MEDS: POTASSIUM CHLORIDE 10 MEQ SR TABLET PO SCH (09:29)
[2019-11-17] MEDS: ENALAPRIL MALEATE 5 MG TAB PO SCH (09:29)
[2019-11-17] MEDS: FLUoxetine 20 MG CAP PO SCH (09:29)
[2019-11-17] MEDS: ENOXAPARIN 40 MG/0.4 ML SYRINGE (J1650) SC SCH (09:30)
--- NOTE | 2019-11-17 09:45 | IPNPDOC ---
Text Note Date of Service The patient was seen on 11/17/19. NOTE Time of service 8:45 AM S This morning the patient denies any acute complaints or pain. He denies having cough, shortness of breath, runny nose, chest pain or fever. He didn't anticipates being discharged home at around noon. O Vital Signs Date Time Temp Pulse Resp B/P (MAP) Pulse Ox O2 Delivery O2 Flow Rate FiO2 11/17/19 06:00 97.1 59 18 139/81 (100) 97 11/16/19 20:02 54 113/72 11/16/19 20:00 97.6 54 18 113/72 (86) 95 Room Air 11/16/19 16:33 55 120/72 11/16/19 14:00 98.6 56 18 131/72 (91) 97 Room Air GEN: well-nourished / well developed/ seated in chair/smiling HEENT: NCAT / lips acyanotic /mucus membranes moist and pink CVS: RRR/NMRG LUNGS: no coughing / lungs are clear to auscultation bilaterally on room air NEURO: CN 2-12 are grossly intact / speech is not dysarthric PSYCH: alert and oriented / able to understand and follow all commands Laboratory Tests 11/15/19 14:29 A&P Mr. Macedo is a 74-year-old male with a history of tonic hypertension, dyslipidemia, KATHARINE, AVR on Coumadin, AAA, gout, BPH, who was transferred from [facility] to [facility] for rehabilitation after having a left frontal ICH. 1. Left frontal intraparenchymal ICH -per primary team and neuro ASA is on hold pending Neurosurgery clearance / agree with statin & fluoxetine to reduce the odds of developing post stroke depression and improve cognitive and functional recovery 2. hx of AVR - per primary team coumadin is on hold pending Neurosurgery clearance 2. Chronic HTN. His BP has been labile during the last week - c/w tamsulosin, enalapril and furosemide / he may benefit from ambulatory BP monitor to titrate BP meds and ensure that he has a nocturnal dip in his BP; his PCP can make arrangments to have this done on an out patient basis 3. Dyslipidemia - c/w atorvastatin 4. KATHARINE - own CPAP 5. Gout - c/w allopurinol 6. BPH - c/w tamsulosin 7. Essential Tremor - c/w propranolol 8. Mild Bradycardia , likely due to propranolol - f/u with PCP to monitor for symptoms on an out patient basis 9. Obesity with BMI of 34 and co-existing sleep apnea complicates care - f/u with PCP for A1C if not done in the last 3 yrs & press tender smoke signal consult DVT Px w Lovenox Thank you for consulting us. We will sign off. ELY BOWLING MD Nov 17, 2019 09:45
--- NOTE | 2019-11-17 10:46 | PMRDS ---
DATE OF ADMISSION: 10/28/2019 DATE OF DISCHARGE: 11/17/2019 CHIEF COMPLAINT/DISCHARGE DIAGNOSIS: Intracranial hemorrhage. HISTORY OF PRESENT ILLNESS: 74M pmh KATHARINE on CPAP, Aortic valve repair on warfarin and ASA, thoracic aortic aneurysm, HLD, gout who developed right sided weakness and slurred speech and presented to [facility] on 10-24-19 from an outside hospital after having been diagnosed with a large left frontal intracranial hemorrhage. His Coumadin was held for at least 2 weeks to be re-evaluated by neurosurgery in 2 weeks and repeat CTH on 10-25-19 showed, Grossly unchanged intraparenchymal hemorrhage in the left frontal lobe measuring 4.6 x 3.1 x 4.0 cm (AP x TV x CC) with surrounding edema. There is minimal effacement of the frontal horn of the left lateral ventricle due to mass effect from the hemorrhage and edema. No new acute intracranial hemorrhage identified. Chest CT showed an incidental right upper lobe granuloma which was recommended to be followed up with repeat imaging in 3 months. Malignancy work-up was pursued due to concern of location of frontal lobe hematoma which included CT abd/pelvis which was negative. He developed LUE and jaw tremors at one point, loaded with Keppra, with EEG ultimately negative and anti-seizure meds were discontinued. He was evaluated by therapy, who found him to be well below his prior level of function with difficulty with mobility and ADL management in need of IRF level of care and deemed appropriate for discharge to ARU on 10-28-19. HOSPITAL COURSE: The patient was admitted and enrolled in a comprehensive physical therapy (PT), occupational therapy (OT), and speech language pathology program. He received 24-hour nursing supervision and weekly team meetings were held to discuss his progress. On initial evaluation, the patient presented with jaw tremor and left upper extremity tremor, was evaluated by neurology who deemed it to be due to essential tremor, and was started on low dose propranolol with modest improvements. The patient initially had urinary incontinence, was found to have an Escherichia (E) coli urinary tract infection, received a course of Levaquin and Bacid and his incontinence improved. Admission Dopplers were negative and followup Dopplers were also negative. Repeat CT head was ordered on 11/07/2019 showing residual hemorrhage, report was sent to Dr. Arango's office in [place], whose staff recommended holding off on the initiation of blood thinners with repeat CTH ordered by [facility] for 11/26/2019 and followup with the neurosurgeon on 12/08/2019. The patient made gains in therapy, remained medically stable throughout his hospital course and was deemed medically and functionally stable to return home. DISCHARGE MEDICATIONS: As per instructions. FUNCTIONAL HISTORY ON DISCHARGE: The patient was standby assist to modified independent for functional transfers, standby assist for ambulation 160 feet with a rolling walker, and occupational therapy he was standby assist for functional transfers, independent with feeding. Thank you for this referral. edited: 11/18/2019 0720 tkf MAXI
== END 2019-11-17 11:43 | disposition home health service (06) | DRG 57 ==
LOC: M PM&R 11:00
PROVIDERS: ADMIT Physical Medicine & Rehabilitation; ATTEND Physical Medicine & Rehabilitation
DX: I69.251 Hemiplegia and hemiparesis following other nontraumatic intracranial hemorrhage affecting right dominant side (principal); N39.0 Urinary tract infection, site not specified; M10.9 Gout, unspecified; Z87.891 Personal history of nicotine dependence; I10 Essential (primary) hypertension; G47.33 Obstructive sleep apnea (adult) (pediatric); E78.5 Hyperlipidemia, unspecified; N40.0 Benign prostatic hyperplasia without lower urinary tract symptoms; I71.2 Thoracic aortic aneurysm, without rupture; B96.29 Other Escherichia coli [E. coli] as the cause of diseases classified elsewhere; J84.10 Pulmonary fibrosis, unspecified; Z79.899 Other long term (current) drug therapy; E66.9 Obesity, unspecified; Z68.34 Body mass index [BMI] 34.0-34.9, adult; R25.1 Tremor, unspecified; R00.1 Bradycardia, unspecified

== ENCOUNTER → 2019-11-26 | Outpatient (CLI) | payer MEDICARE, BC ==
[~2019-11-26] MED LIST: ACET1TAB55 PO; ATOR80TA59 PO; COLA100C5 PO; ENAL5TAB PO; FLOM0.4C39 PO; FLUO20CA22 PO; FURO20TA2 PO; LOVE1INJ SC; POTA10CA32 PO; PROP10TA56 PO; VITAD1000T PO; WARF-21 PO; WARF-23 PO; ZYLO300T6 PO
--- NOTE | 2019-11-26 14:23 | REP ---
CT STUDY OF THE BRAIN WITHOUT CONTRAST: HISTORY: Traumatic hemorrhage without loss of consciousness. Comparison CT study November 07, 2019 and October 29, 2019. CT FINDINGS: CT study from October 29, 2019 showed a left frontal lobe intra-axial hematoma 4.2 cm in diameter. Today's CT images shows continued evolutional changes with decrease in density of the hematoma. The surrounding edema pattern is only slightly improved. No new area of hemorrhage is seen. The overlying bales matter retains normal radiographic density and appearance apart from the edematous mass effect. There is no evidence of cortical infarction. No extra-axial fluid collection is seen. No new intracranial lesion is appreciated. There is some vascular calcification. Bony calvarium is intact. IMPRESSION: Gradually resolving or involuting left frontal lobe parenchymal hemorrhage. Only slightly improved surrounding area of vasogenic edema. Electronically Signed by Danilo Stock MD 11/26/2019 02:32 P
== END ==
LOC: M RAD 13:06
PROVIDERS: ATTEND Registered Nurse
DX: S06.340A Traumatic hemorrhage of right cerebrum without loss of consciousness, initial encounter (principal); X58.XXXA Exposure to other specified factors, initial encounter; Y92.89 Other specified places as the place of occurrence of the external cause

== ENCOUNTER 2021-02-14 12:48 | Inpatient (IN) | payer MEDICARE, BC ==
[~2021-02-14] VITALS: Ht 177.8 cm; Wt 101.3 kg
[2021-02-14] VITALS (7 sets, daily range): BP systolic 77–123; BP diastolic 45–80
[~2021-02-14 12:48] MED LIST changes: +D31000TA2 PO; +ENAL5TA PO; -ENAL5TAB PO; -VITAD1000T PO
[2021-02-14] MEDS ORDERED: QUEtiapine FUMARATE 25 MG TAB PO PRN (13:55)
[2021-02-14] MEDS ORDERED: BISACODYL 10 MG SUPP PR PRN (13:55)
[2021-02-14] MEDS ORDERED: MIRALAX *UNIT DOSE* 17GM PACKET PO PRN (13:55)
--- NOTE | 2021-02-14 13:55 | HPEPDOC ---
Control Engineer Note DATE OF ADMISSION: 02-14-21 DATE OF SERVICE: 02-14-21 TIME OF ADMISSION: Please refer to physician's admission order. SOURCE OF ADMISSION INFORMATION: [facility] record and patient CHIEF COMPLAINT: left intracranial hemorrhage HISTORY OF PRESENT ILLNESS: 76M pmh HTN, HLD, KATHARINE on CPAP, left frontal IPH (2019), parkinsons, aortic valve repair (2004) on Aspirin and Warfarin who was transferred to [facility] 01-26-21 with a large left frontal IPH and right sided weakness. He was admitted to the neuro ICU, received vitamin K and FFP for his supra-therapeutic INR, and had serial CTs to rule out new worsening/new bleed and was ultimately safely transitioned back onto Coumadin. He had seizure activity with right head deviation and right sided extremity tremors with EEG positive for seizure activity. He was started on multiple AEDs and discharged just on Vimpat. An incidental left clivus hypodensity was found on MRI which he was instructed to follow-up with neurosurgery. He developed aspiration pneumonia and a pseudomonas UTI for which he was treated with antibiotics. Most recent CT 02-10-21 showed, Resolving small parenchymal hemorrhage in the left superior frontal gyrus. He had mobility and ADL impairments, was placed on a dysphagia diet, and deemed medically appropriate for discharge to ARU on 02-14-21. REVIEW OF SYSTEMS: The following is a completed review of systems and has been reviewed. Review of systems otherwise unremarkable. PAIN: Patient self reports no pain EYES: No recent vision changes EARS, NOSE, & THROAT: dysphagia? CARDIOVASCULAR: Denies chest pain or palpitations PULMONARY: Denies shortness of breath GASTROINTESTINAL: Denies constipation/diarrhea GENITOURINARY: denies dysuria MUSCULOSKELETAL: right sided weakness NEUROLOGICAL: + tremor right side HEMATOLOGICAL: denies easy bruising SKIN: denies rash PSYCHIATRIC: Unremarkable All other review of systems found to be negative. PAST MEDICAL HISTORY: as per HPI PAST SURGICAL HISTORY: As per HPI, thoracic aneurysm repair 2018, ALLERGIES: Please see below. MEDICATIONS: Please see below. SOCIAL HISTORY: no smoking, etoh, illicit drugs DIET: low salt PHYSICAL EXAMINATION: VITAL SIGNS: Please see below. GENERAL: Pleasant and cooperative. No acute distress. HEENT: PERRL. Extraocular movements intact. Clear conjunctiva CARDIOVASCULAR: Regular rate and rhythm. No murmurs, rubs, or gallops LUNGS: Clear to auscultation bilaterally. No wheezes. No rhonchi ABDOMEN: Soft, nontender, nondistended. Positive bowel sounds. Normal active bowel sounds NEUROLOGICAL: Alert and oriented times three. Cranial nerves II through XII grossly intact. Sensation grossly intact all 4 limbs + RUE tremor EXTREMITIES: 5\5 strength left UE 4+/5 RUE. 4+\5 strength right lower extremity. 5/5 strength in left lower extremity. + bilat LE edema LABORATORY DATA: Please see below. IMAGING:Imaging documentation personally reviewed by record FUNCTIONAL STATUS: Premorbid: Mod-Independent with all activities of daily life as well as mobility On Admission: Min assist for bed mobility, functional transfers, ambulation, dressing, toileting GOALS: Mod-I for bed mobility, functional transfers, ambulation, dressing, toileting, bathing ASSESSMENT:76-year-old M with past medical history of left frontal IPH who presents status post new left frontal IPH with seizures PLAN: 1. rehab- pt/ot advance mobility and ADls, strengthen/stretch/maintain ROM all 4 limbs -TREATER- will downgrade diet to level 3 until inhouse TREATER evaluates patient- cog eval 2. neuro- hx of left frontal IPH with new left frontal IPH in setting of supra- therapeutic INR with right sided melvin-paresis and seizure disorder, c/u vimpat -f/u neurosurgery to monitor IPH and to monitor incidental finding of left clivus lesion - prozac will assist with motor recovery -Parkinsons disease c/u sinemet 3. cardiac- HTN c/u BP meds -hx aortic valve replacement on Coumadin goal 2-3 in setting of recent Intraparenchymal bleed - HLD c/u statin - possible CHF? noted to have bilat LE edema, will c/u lasix and monitor for clinical signs, daily weights 4. Resp- KATHARINE on CPAP, monitor for infection, s/p recent treatment for aspiration PNA 5-COPD c/u symbicort, will order comivent as well 6.DVT ppx on couamdin 7. GI ppx- prilosec 8. psych- Rozerem for insomnia, Seroquel prn agitation 9. Pain- Tylenol prn 10. Dispo- TBD POST ADMISSION PHYSICIAN EVALUATION: Medical and functional status: Description of medical status, medical assessment: As above. Rehabilitation diagnosis and current and prior cold morbid medical conditions as above. Risk of complications and plans to mitigate them as above. Description of functional status current status is as above. Prior status as above. Status compared to preadmission: There are no clinically significant differences between the patient's current status and the information described on the preadmission screening document. Treatment plan anticipated: Treatment plan is as described above. Required disciplines including physical therapy, occupational therapy, others as noted above Intensity of services: 3 hours a day, 6 days a week. Special considerations: There are no specific special or safety considerations that would likely preclude immediate implementation of an intensive rehabilitation program or subsequently influence the plan of care. ATTESTATION: Considering all the information above, it is my best judgment that this patient requires intensive rehabilitation therapy as described above and an inpatient hospital environment due to the complexity of nursing, medical, and rehabilitation needs required by the patient. Furthermore, this patient can reasonably be expected to participate in an benefit from an inpatient rehabilitation stay with an interdisciplinary team approach to the delivery of rehabilitation care under the direction and supervision of rehabilitation physician. PROGNOSIS: good. ESTIMATED LENGTH OF STAY:14-18 days. PROJECTED DISCHARGE DESTINATION: Home with family support and any durable medical equipment required to increase functional safety and mobility. TIME SPENT COUNSELING AND COORDINATING INITIAL CARE: Greater than 70 minutes. Vital Signs Vital Signs Date Time Temp Pulse Resp B/P (MAP) Pulse Ox O2 Delivery O2 Flow Rate FiO2 02/14/21 13:47 98.7 75 16 123/80 (94) 96 Room Air 02/14/21 19:00 1.0 Home Medications Scheduled Allopurinol (Zyloprim) 300 Mg Tablet, 300 MG PO DAILY, (Reported) Atorvastatin Calcium (Atorvastatin Calcium) 80 Mg Tablet, 80 MG PO DAILY, (Reported) Budesonide/Formoterol (Symbicort 160-4.5 Mcg Inhaler) 6 Gm Hfa.aer.ad, 2 PUFF INH BID, (Reported) Carbidopa/Levodopa (Carbidopa-Levodopa 25-100 Tab) 1 Each Tablet, 1 TAB PO TID, (Reported) Cholecalciferol (Vitamin D3) (Vitamin D3) 1,000 Unit Tablet, 1,000 UNITS PO DAILY, (Reported) Docusate Sodium (Stool Softener) 100 Mg Capsule, 100 MG PO BID, (Reported) Enalapril Maleate (Enalapril Maleate) 10 Mg Tablet, 10 MG PO DAILY, (Reported) Fluoxetine Hcl (Fluoxetine HCl) 20 Mg Capsule, 20 MG PO DAILY, (Reported) Furosemide (Furosemide) 20 Mg Tablet, 20 MG PO DAILY, (Reported) Lacosamide (Vimpat) 200 Mg Tablet, 200 MG PO BID, (Reported) Lidocaine (Lidocaine) 5% Adh..patch, 1 PATCH TOP DAILY, (Reported) Melatonin (Melatonin) 10 Mg Tablet, 10 MG PO QHS, (Reported) Polyethylene Glycol 3350 (Miralax) 119 Gm Powder, 17 GM PO DAILY, (Reported) dilute in 8 ounces of water or juice Potassium Chloride (Potassium Chloride) 20 Meq Tablet.er, 40 MEQ PO DAILY, (Reported) Sennosides (Senna Lax) 8.6 Mg Tablet, 2 TAB PO QHS, (Reported) Tamsulosin HCl (Flomax) 0.4 Mg Capsule, 0.4 MG PO DAILY, (Reported) Trazodone HCl (Trazodone HCl) 50 Mg Tablet, 50 MG PO QHS, (Reported) Warfarin Sodium (Warfarin Sodium) 2.5 Mg Tablet, 5 MG PO QPM, (Reported) Scheduled PRN Quetiapine Fumarate (Quetiapine Fumarate) 25 Mg Tablet, 25 MG PO QHS PRN for AGITATION, (Reported) Allergies Coded Allergies: No Known Allergies (Verified Allergy, Unknown, 10/28/19) A-FIB/CHADSVASC A-FIB History Current/History of A-Fib/PAF?: No Current PO Anticoag Therapy: Yes ANTIONETTE HONG MD Feb 14, 2021 13:55
[2021-02-14] MEDS ORDERED: QUET25TA3 PO (14:29)
[2021-02-14] MEDS ORDERED: FLOM0.4C39 PO (14:29)
[2021-02-14] MEDS ORDERED: TRAZ-186 PO (14:29)
[2021-02-14] MEDS ORDERED: GNP8.6TA7 PO (14:29)
[2021-02-14] MEDS ORDERED: FLUO20CA22 PO (14:29)
[2021-02-14] MEDS ORDERED: SYMB16INH INH (14:29)
[2021-02-14] MEDS ORDERED: CARB25TA9 PO (14:29)
[2021-02-14] MEDS ORDERED: LIDO5TD TOP (14:29)
[2021-02-14] MEDS ORDERED: WARF-18 PO (14:29)
[2021-02-14] MEDS ORDERED: MM S100C PO (14:29)
[2021-02-14] MEDS ORDERED: VIMP200T PO (14:29)
[2021-02-14] MEDS ORDERED: RA M10TA PO (14:29)
[2021-02-14] MEDS ORDERED: POTA1TAB14 PO (14:29)
[2021-02-14] MEDS ORDERED: MIRA3350 PO (14:29)
[2021-02-14] MEDS ORDERED: ZYLO300T6 PO (14:29)
[2021-02-14] MEDS ORDERED: D31000TA2 PO (14:29)
[2021-02-14] MEDS ORDERED: ENAL-36 PO (14:29)
[2021-02-14] MEDS ORDERED: FURO20TA2 PO (14:30)
[2021-02-14] MEDS ORDERED: ATOR80TA59 PO (14:34)
[2021-02-14] MEDS: REMEDY PHYTOPLEX Z-GUARD PASTE 113GM TUBE (FROM STOREROOM PRODUCT) TOP SCH ×2 (15:23→20:30)
[2021-02-14] MEDS: COMBIVENT RESPIMAT 100-20MCG INHALER 4GM INH SCH (16:00)
[2021-02-14] MEDS ORDERED: SINEMET 25-100 MG TAB PO SCH (16:00)
[2021-02-14] MEDS: guaiFENesin 200 MG TAB PO SCH ×2 (16:03→20:30)
[2021-02-14] MEDS ORDERED: WARFARIN SOD 5MG TAB PO SCH (17:00)
[2021-02-14] MEDS ORDERED: NS 500 ML IV ONE (19:30)
[2021-02-14] MEDS: SYMBICORT 160/4.5MCG INHALER 6GM INH SCH (20:24)
[2021-02-14] MEDS: SENNA 8.6 MG TAB (SENOKOT) PO SCH (20:29)
[2021-02-14] MEDS: RAMELTEON 8 MG TAB (ROZEREM) PO SCH (20:30)
[2021-02-14] MEDS: LACOSAMIDE 50 MG TAB (VIMPAT) PO SCH (20:30)
[2021-02-14] MEDS: DOCUSATE SODIUM 100MG CAPSULE PO SCH (20:30)
[2021-02-14] MEDS ORDERED: PILL CUTTER 1 EACH XX PRN (23:10)
[2021-02-15] VITALS (7 sets, daily range): BP systolic 102–132; BP diastolic 60–69
[2021-02-15 07:51] LABS: BASO # 0.1 10^3/uL (0.0-0.2); BASO % 0.5 % (0.0-1.0); EOS # 0.2 10^3/uL (0.0-0.5); EOS % 2.3 % (0.0-3.0); HEMATOCRIT 37.9 % (42.0-52.0); HEMOGLOBIN 12.3 g/dl (13.5-17.5); LYMPH # 1.1 10^3/uL (1.5-5.0); LYMPH % 12.3 % (24.0-44.0); MEAN CORPUSCULAR HEMOGLOBIN 31.6 pg (27.0-33.0); MEAN CORPUSCULAR HGB CONC 32.5 g/dl (32.0-36.5); MEAN CORPUSCULAR VOLUME 97.4 fl (80.0-96.0); MONO # 0.8 10^3/uL (0.0-0.8); MONO % 8.3 % (2.0-8.0); NEUTROPHILS # 6.9 10^3/uL (1.5-8.5); NEUTROPHILS % 74.1 % (36.0-66.0); PLATELET COUNT, AUTOMATED 292 10^3/uL (150-450); RED BLOOD COUNT 3.89 10^6/uL (4.30-6.10); WHITE BLOOD COUNT 9.3 10^3/uL (4.0-10.0)
[2021-02-15] MEDS: SYMBICORT 160/4.5MCG INHALER 6GM INH SCH ×2 (08:00→20:18)
[2021-02-15] MEDS: FUROSEMIDE 20 MG TAB PO SCH (08:07)
[2021-02-15] MEDS: ENALAPRIL MALEATE 10 MG TAB PO SCH (08:07)
[2021-02-15 08:08] LABS: INR 1.57; PROTHROMBIN TIME 19.1 SECONDS (12.5-14.3)
[2021-02-15] MEDS: VITAMIN D 1,000 INTERNATIONAL UNITS TABLET PO SCH (08:12)
[2021-02-15] MEDS: LACOSAMIDE 50 MG TAB (VIMPAT) PO SCH ×2 (08:12→21:06)
[2021-02-15] MEDS: TAMSULOSIN 0.4 MG CAP PO SCH (08:12)
[2021-02-15] MEDS: OMEPRAZOLE 20 MG CAP PO SCH (08:12)
[2021-02-15] MEDS: SINEMET 25-100 MG TAB PO SCH ×3 (08:12→16:27)
[2021-02-15] MEDS: DOCUSATE SODIUM 100MG CAPSULE PO SCH ×2 (08:12→21:06)
[2021-02-15] MEDS: FLUoxetine 20 MG CAP PO SCH (08:12)
[2021-02-15] MEDS: allopurinoL 300 MG TAB PO SCH (08:12)
[2021-02-15] MEDS: REMEDY PHYTOPLEX Z-GUARD PASTE 113GM TUBE (FROM STOREROOM PRODUCT) TOP SCH ×3 (08:13→21:00)
[2021-02-15 08:18] LABS: ALT/SGPT 22 U/L (12-78); BILIRUBIN,TOTAL 0.4 MG/DL (0.2-1.0); BLOOD UREA NITROGEN 24 MG/DL (7-18); CALCIUM LEVEL 8.7 MG/DL (8.8-10.2); CARBON DIOXIDE LEVEL 27 MEQ/L (21-32); CHLORIDE LEVEL 108 MEQ/L (98-107); CREATININE FOR GFR 1.15 MG/DL (0.70-1.30); GLOMERULAR FILTRATION RATE > 60.0 (>42); GLUCOSE, FASTING 105 MG/DL (70-100); POTASSIUM SERUM 4.8 MEQ/L (3.5-5.1); SODIUM LEVEL 140 MEQ/L (136-145); TOTAL PROTEIN 5.9 GM/DL (6.4-8.2)
[2021-02-15] MEDS ORDERED: POTASSIUM CHLORIDE 10 MEQ SR TABLET PO SCH (09:00)
--- NOTE | 2021-02-15 11:05 | IPNPDOC ---
PM&R Progress Note DATE OF SERVICE: Feb 15, 2021 Division Merchandise Manager Progress Note Subjective PAtient seen in therapy putting on his shoes todya stating he feels much better than he did last niht and is no longer dizzy or clammy. He denies chest pain. REVIEW OF SYSTEMS: The following is a completed review of systems and has been reviewed. Review of systems otherwise unremarkable. PAIN: Patient self reports no pain EYES: No recent vision changes EARS, NOSE, & THROAT: dysphagia? CARDIOVASCULAR: Denies chest pain or palpitations PULMONARY: Denies shortness of breath GASTROINTESTINAL: Denies constipation/diarrhea GENITOURINARY: denies dysuria MUSCULOSKELETAL: right sided weakness NEUROLOGICAL: + tremor right side HEMATOLOGICAL: denies easy bruising SKIN: denies rash PSYCHIATRIC: Unremarkable All other review of systems found to be negative. PHYSICAL EXAMINATION: VITAL SIGNS: Please see below. GENERAL: Pleasant and cooperative. No acute distress. HEENT: PERRL. Extraocular movements intact. Clear conjunctiva CARDIOVASCULAR: Regular rate and rhythm. No murmurs, rubs, or gallops LUNGS: Clear to auscultation bilaterally. No wheezes. No rhonchi ABDOMEN: Soft, nontender, nondistended. Positive bowel sounds. Normal active bowel sounds NEUROLOGICAL: Alert and oriented times three. Cranial nerves II through XII grossly intact. Sensation grossly intact all 4 limbs + RUE tremor EXTREMITIES: 5\5 strength left UE 4+/5 RUE. 4+\5 strength right lower extremity. 5/5 strength in left lower extremity. + bilat LE edema ASSESSMENT:76-year-old M with past medical history of left frontal IPH who presents status post new left frontal IPH with seizures PLAN: 1. rehab- pt/ot advance mobility and ADls, strengthen/stretch/maintain ROM all 4 limbs -RAISIN WASHER- will downgrade diet to level 3 until inhouse RAISIN WASHER evaluates patient- cog eval 2. 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 cardiac- HTN with hypotensive episode 6-23-21 which resolved following bolus of 500cc, holding parameters in place for current BP meds -hx aortic valve replacement on Coumadin goal 2-3 in setting of recent Intraparenchymal bleed - HLD c/u statin - possible CHF? noted to have bilat LE edema, c/u lasix (held today for low BPs), will start fluid restriction, and c/u monitor for clinical signs, daily weights -medicine consulted to assist in overall management 4. Resp- KATHARINE on CPAP, monitor for infection, s/p recent treatment for aspiration PNA -COPD c/u Symbicort, c/u Combivent as well 6.DVT ppx on Coumadin 7. GI ppx- Prilosec 8. psych- Rozerem for insomnia, Seroquel prn agitation 9. Pain- Tylenol prn 10. Dispo- TBD Allergies Coded Allergies: No Known Allergies (Verified Allergy, Unknown, 10/28/19) Vital Signs Vital Signs Date Time Temp Pulse Resp B/P (MAP) Pulse Ox O2 Delivery O2 Flow Rate FiO2 02/15/21 10:00 97.6 74 16 132/68 (89) 96 Room Air 02/15/21 06:00 2.0 Laboratory Data CBC/BMP Laboratory Tests 02/15/21 07:37 Labs 24H Laboratory Tests 2 02/14/21 18:57: Bedside Glucose (Misc Panel) 127H 02/15/21 07:37: Immature Granulocyte % (Auto) 2.5, Neutrophils (%) (Auto) 74.1H, Lymphocytes (%) (Auto) 12.3L, Monocytes (%) (Auto) 8.3H, Eosinophils (%) (Auto) 2.3, Basophils (%) (Auto) 0.5, Neutrophils # (Auto) 6.9, Lymphocytes # (Auto) 1.1L, Monocytes # (Auto) 0.8, Eosinophils # (Auto) 0.2, Basophils # (Auto) 0.1, Nucleated Red Blood Cells % (auto) 0.0, Prothrombin Time 19.1H, Prothromb Time International Ratio 1.57, Anion Gap 5L, Glomerular Filtration Rate > 60.0, Calcium Level 8.7L, Total Bilirubin 0.4, Aspartate Amino Transf (AST/SGOT) 17, Alanine Aminotransferase (ALT/SGPT) 22, Alkaline Phosphatase 103, Total Protein 5.9L, Albumin 3.0L, Albumin/Globulin Ratio 1.0 Current Medications Current Medications Current Medications Medications (Trade) Dose Ordered Sig/Eugenio Route PRN Reason Start Time Stop Time Status Last Admin Dose Admin Acetaminophen (Tylenol Tab) 650 mg Q4HP PRN PO fever/MILD PAIN (PS 1-4) 02/14/21 13:55 Albuterol/ Ipratropium (Combivent Respimat 100-20mcg) 1 puff BID@1200,1600 INH 02/14/21 16:00 Allopurinol (Zyloprim) 300 mg DAILY PO 02/15/21 09:00 02/15/21 08:12 Atorvastatin Calcium (Lipitor) 80 mg QHS PO 02/15/21 21:00 Bisacodyl (Dulcolax Suppository) 10 mg DAILYPRN PRN [place] CONSTIPATION 02/14/21 13:55 Budesonide/ Formoterol Fumarate (Symbicort 160/ 4.5mcg) 2 puff RBID INH 02/14/21 20:00 02/15/21 08:00 Carbidopa/Levodopa (Sinemet 25/100) 0.5 tab TID@0800,1200,1600 PO 02/15/21 08:00 02/15/21 08:12 Carbidopa/Levodopa (Sinemet 25/100) 1 tab TID@0800,1200,1600 PO 02/14/21 16:00 02/14/21 22:58 DC 02/14/21 16:03 Docusate Sodium (Colace) 100 mg BID PO 02/14/21 21:00 02/15/21 08:12 Enalapril Maleate (Vasotec) 10 mg DAILY PO 02/15/21 09:00 Fluoxetine HCl (PROzac) 20 mg DAILY PO 02/15/21 09:00 02/15/21 08:12 Furosemide (Lasix) 20 mg DAILY PO 02/15/21 09:00 Guaifenesin (Robitussin Tab) 400 mg TID PO 02/14/21 16:00 02/14/21 22:58 DC 02/14/21 20:30 Home Med (Med Rec Complete!) ASDIRECTED XX 02/14/21 14:35 02/14/21 14:37 DC Lacosamide (Vimpat) 200 mg BID PO 02/14/21 21:00 02/15/21 08:12 Omeprazole (PriLOSEC) 40 mg DAILY PO 02/15/21 09:00 02/15/21 08:12 Polyethylene Glycol (Miralax) 1 pkt DAILY PRN PO CONSTIPATION 02/14/21 13:55 Potassium Chloride (Micro-K Extencaps) 10 meq DAILY PO 02/15/21 09:00 02/15/21 08:13 Quetiapine Fumarate (SEROquel) 25 mg QHS PRN PO agitation 02/14/21 13:55 Ramelteon (Rozerem) 8 mg QHS PO 02/14/21 21:00 02/14/21 20:30 Senna (Senokot) 1 tab QHS PO 02/14/21 21:00 02/14/21 20:29 Tamsulosin HCl (Flomax) 0.4 mg DAILY PO 02/15/21 09:00 02/15/21 08:12 Vitamin D (Vitamin D) 1,000 units DAILY PO 02/15/21 09:00 02/15/21 08:12 Warfarin Sodium (Coumadin) 5 mg DAILY@17 PO 02/14/21 17:00 02/14/21 16:03 ANTIONETTE HONG MD Feb 15, 2021 11:05
[2021-02-15] MEDS: LIDOCAINE 5% (LIDODERM) PATCH TD SCH (11:43)
[2021-02-15] MEDS: COMBIVENT RESPIMAT 100-20MCG INHALER 4GM INH SCH ×2 (12:00→15:16)
[2021-02-15] MEDS: WARFARIN SOD 5MG TAB PO SCH (16:28)
--- NOTE | 2021-02-15 19:43 | IPNPDOC ---
Text Note Date of Service The patient was seen on 02/15/21. NOTE Subjective: No any acute events overnight. Patient denied fever, chills, nausea, denied dysuria Objective: GENERAL APPEARANCE: NAD HEENT: no scleral icterus, no JVD, EOMI CARDIOVASCULAR: S1S2 LUNGS: CTA ABDOMEN: soft & not tender w palpitation MUSCULOSKELETAL: no cyanosis, +1 nonpitting swelling INTEGUMENT: no generalized pallor NEUROLOGICAL: cranial nerve function from 2-12 intact intact, follows commands, speech not dysarthric, Assessment and plan Patient is 76 years old male with past history of HTN, HLD, KATHARINE on CPAP, left frontal IPH (2019), parkinsons, aortic valve repair (2004) on Aspirin and Warfarin [facility] large left frontal IPH and right sided weakness History of intracranial bleed [facility] a large left frontal IPH and right sided weakness Follow-up with neurologist in the outpatient settings Continue PT/OT Parkinson diseases Continue home meds Hypertension Blood pressure under control Continue home meds hx aortic valve replacement on Coumadin Continue Coumadin Will monitor INR Hyperlipidemia Continue statin CHF Patient has leg swelling We'll check BNP COPD/obstructive sleep apnea Not in acute exacerbation Continue home inhalers Continue CPAP VS,Fishbone, I+O VS, Fishbone, I+O Laboratory Tests 02/15/21 07:37 Vital Signs Date Time Temp Pulse Resp B/P (MAP) Pulse Ox O2 Delivery O2 Flow Rate FiO2 02/15/21 18:00 98.3 72 18 125/64 (84) 95 Room Air 02/15/21 06:00 2.0 I&O- Last 24 Hours up to 6 AM 02/15/21 06:00 Intake Total 740 ml Balance 740 ml MAITE RUIZ DO Feb 15, 2021 19:43
[2021-02-15 20:20] LABS: NT-PRO BNP 305 PG/ML (<450)
[2021-02-15] MEDS: RAMELTEON 8 MG TAB (ROZEREM) PO SCH (21:06)
[2021-02-15] MEDS: ATORVASTATIN 20 MG TAB PO SCH (21:06)
[2021-02-15] MEDS: SENNA 8.6 MG TAB (SENOKOT) PO SCH (21:06)
[2021-02-15] MEDS: **NOTE PATIENT COMMENT** MISC XX SCH (21:07)
[2021-02-16] VITALS (7 sets, daily range): BP systolic 93–144; BP diastolic 56–78
[2021-02-16 07:15] LABS: BASO # 0.1 10^3/uL (0.0-0.2); BASO % 0.5 % (0.0-1.0); EOS # 0.2 10^3/uL (0.0-0.5); EOS % 2.4 % (0.0-3.0); HEMATOCRIT 35.8 % (42.0-52.0); HEMOGLOBIN 11.7 g/dl (13.5-17.5); LYMPH # 1.6 10^3/uL (1.5-5.0); LYMPH % 16.4 % (24.0-44.0); MEAN CORPUSCULAR HEMOGLOBIN 31.9 pg (27.0-33.0); MEAN CORPUSCULAR HGB CONC 32.7 g/dl (32.0-36.5); MEAN CORPUSCULAR VOLUME 97.5 fl (80.0-96.0); MONO # 0.6 10^3/uL (0.0-0.8); NEUTROPHILS # 6.8 10^3/uL (1.5-8.5); NEUTROPHILS % 72.1 % (36.0-66.0); PLATELET COUNT, AUTOMATED 300 10^3/uL (150-450); RED BLOOD COUNT 3.67 10^6/uL (4.30-6.10); WHITE BLOOD COUNT 9.5 10^3/uL (4.0-10.0)
[2021-02-16] MEDS: SYMBICORT 160/4.5MCG INHALER 6GM INH SCH ×2 (07:31→20:17)
[2021-02-16 07:39] LABS: INR 1.65; PROTHROMBIN TIME 19.9 SECONDS (12.5-14.3)
[2021-02-16 07:47] LABS: BLOOD UREA NITROGEN 27 MG/DL (7-18); CALCIUM LEVEL 8.3 MG/DL (8.8-10.2); CARBON DIOXIDE LEVEL 26 MEQ/L (21-32); CHLORIDE LEVEL 110 MEQ/L (98-107); CREATININE FOR GFR 1.01 MG/DL (0.70-1.30); GLOMERULAR FILTRATION RATE > 60.0 (>42); GLUCOSE, FASTING 94 MG/DL (70-100); POTASSIUM SERUM 5.2 MEQ/L (3.5-5.1); SODIUM LEVEL 141 MEQ/L (136-145)
[2021-02-16] MEDS: DOCUSATE SODIUM 100MG CAPSULE PO SCH ×2 (09:00→21:00)
[2021-02-16] MEDS: REMEDY PHYTOPLEX Z-GUARD PASTE 113GM TUBE (FROM STOREROOM PRODUCT) TOP SCH ×3 (09:00→21:35)
[2021-02-16] MEDS: LIDOCAINE 5% (LIDODERM) PATCH TD SCH (09:17)
[2021-02-16] MEDS: SINEMET 25-100 MG TAB PO SCH ×3 (09:18→16:45)
[2021-02-16] MEDS: FLUoxetine 20 MG CAP PO SCH (09:18)
[2021-02-16] MEDS: VITAMIN D 1,000 INTERNATIONAL UNITS TABLET PO SCH (09:19)
[2021-02-16] MEDS: allopurinoL 300 MG TAB PO SCH (09:19)
[2021-02-16] MEDS: LACOSAMIDE 50 MG TAB (VIMPAT) PO SCH ×2 (09:19→21:33)
[2021-02-16] MEDS: ENALAPRIL MALEATE 10 MG TAB PO SCH (09:19)
[2021-02-16] MEDS: OMEPRAZOLE 20 MG CAP PO SCH (09:20)
[2021-02-16] MEDS: TAMSULOSIN 0.4 MG CAP PO SCH (09:20)
[2021-02-16] MEDS: FUROSEMIDE 20 MG TAB PO SCH (09:20)
--- NOTE | 2021-02-16 09:30 | IPNPDOC ---
PM&R Progress Note DATE OF SERVICE: Feb 16, 2021 University Intern Progress Note Subjective PAtient seen in his room working with OT stating he likes to shuffle when he walks because he is fearful of falling. REVIEW OF SYSTEMS: The following is a completed review of systems and has been reviewed. Review of systems otherwise unremarkable. PAIN: Patient self reports no pain EYES: No recent vision changes EARS, NOSE, & THROAT: dysphagia? CARDIOVASCULAR: Denies chest pain or palpitations PULMONARY: Denies shortness of breath GASTROINTESTINAL: Denies constipation/diarrhea GENITOURINARY: denies dysuria MUSCULOSKELETAL: right sided weakness NEUROLOGICAL: + tremor right side HEMATOLOGICAL: denies easy bruising SKIN: denies rash PSYCHIATRIC: Unremarkable All other review of systems found to be negative. PHYSICAL EXAMINATION: VITAL SIGNS: Please see below. GENERAL: Pleasant and cooperative. No acute distress. HEENT: PERRL. Extraocular movements intact. Clear conjunctiva CARDIOVASCULAR: Regular rate and rhythm. No murmurs, rubs, or gallops LUNGS: Clear to auscultation bilaterally. No wheezes. No rhonchi ABDOMEN: Soft, nontender, nondistended. Positive bowel sounds. Normal active bowel sounds NEUROLOGICAL: Alert and oriented times three. Cranial nerves II through XII grossly intact. Sensation grossly intact all 4 limbs + RUE tremor EXTREMITIES: 5\5 strength left UE 4+/5 RUE. 4+\5 strength right lower extremity. 5/5 strength in left lower extremity. + bilat LE edema ASSESSMENT:76-year-old M with past medical history of left frontal IPH who presents status post new left frontal IPH with seizures PLAN: 1. rehab- pt/ot advance mobility and ADls, strengthen/stretch/maintain ROM all 4 limbs -MOLD PULLER- will downgrade diet to level 3 until inhouse MOLD PULLER evaluates patient- cog eval 2. neuro- hx of left frontal IPH with new left frontal IPH in setting of supra- therapeutic INR with right sided melvin-paresis and seizure disorder, c/u vimpat -f/u neurosurgery to monitor IPH and to monitor incidental finding of left clivus lesion - prozac will assist with motor recovery -Parkinsons disease c/u sinemet (halved dose due to significant drop in BPs following administration, will increase am dose back up to 1 tab to facilitate less shuffling in therapy) 3. cardiac- HTN with hypotensive episode 6--21 which resolved following bolus of 500cc, holding parameters in place for current BP meds -hx aortic valve replacement on Coumadin goal 2-3 in setting of recent Intraparenchymal bleed - HLD c/u statin - possible CHF? noted to have bilat LE edema, c/u lasix and fluid restriction, and c/u monitor for clinical signs, daily weights -medicine consulted to assist in overall management 4. Resp- KATHARINE on CPAP, monitor for infection, s/p recent treatment for aspiration PNA -COPD c/u Symbicort, c/u Combivent as well 6.DVT ppx on Coumadin 7. GI ppx- Prilosec 8. psych- Rozerem for insomnia, Seroquel prn agitation 9. Pain- Tylenol prn 10. Dispo- TBD Allergies Coded Allergies: No Known Allergies (Verified Allergy, Unknown, 10/28/19) Vital Signs Vital Signs Date Time Temp Pulse Resp B/P (MAP) Pulse Ox O2 Delivery O2 Flow Rate FiO2 02/16/21 09:19 144/73 02/16/21 09:16 84 02/16/21 06:30 98.2 18 97 Room Air 02/15/21 06:00 2.0 Laboratory Data CBC/BMP Laboratory Tests 02/16/21 06:52 Labs 24H Laboratory Tests 2 02/16/21 06:52: Immature Granulocyte % (Auto) 2.6, Neutrophils (%) (Auto) 72.1H, Lymphocytes (%) (Auto) 16.4L, Monocytes (%) (Auto) 6.0, Eosinophils (%) (Auto) 2.4, Basophils (%) (Auto) 0.5, Neutrophils # (Auto) 6.8, Lymphocytes # (Auto) 1.6, Monocytes # (Auto) 0.6, Eosinophils # (Auto) 0.2, Basophils # (Auto) 0.1, Nucleated Red Blood Cells % (auto) 0.0, Prothrombin Time 19.9H, Prothromb Time International Ratio 1.65, Anion Gap 5L, Glomerular Filtration Rate > 60.0, Calcium Level 8.3L Current Medications Current Medications Current Medications Medications (Trade) Dose Ordered Sig/Eugenio Route PRN Reason Start Time Stop Time Status Last Admin Dose Admin Acetaminophen (Tylenol Tab) 650 mg Q4HP PRN PO fever/MILD PAIN (PS 1-4) 02/14/21 13:55 Albuterol/ Ipratropium (Combivent Respimat 100-20mcg) 1 puff BID@1200,1600 INH 02/14/21 16:00 02/15/21 15:16 Allopurinol (Zyloprim) 300 mg DAILY PO 02/15/21 09:00 02/16/21 09:19 Atorvastatin Calcium (Lipitor) 80 mg QHS PO 02/15/21 21:00 02/15/21 21:06 Bisacodyl (Dulcolax Suppository) 10 mg DAILYPRN PRN [place] CONSTIPATION 02/14/21 13:55 Budesonide/ Formoterol Fumarate (Symbicort 160/ 4.5mcg) 2 puff RBID INH 02/14/21 20:00 02/16/21 07:31 Carbidopa/Levodopa (Sinemet 25/100) 0.5 tab TID@0800,1200,1600 PO 02/15/21 08:00 02/16/21 09:18 Carbidopa/Levodopa (Sinemet 25/100) 1 tab TID@0800,1200,1600 PO 02/14/21 16:00 02/14/21 22:58 DC 02/14/21 16:03 Docusate Sodium (Colace) 100 mg BID PO 02/14/21 21:00 02/15/21 21:06 Enalapril Maleate (Vasotec) 10 mg DAILY PO 02/15/21 09:00 02/16/21 09:19 Fluoxetine HCl (PROzac) 20 mg DAILY PO 02/15/21 09:00 02/16/21 09:18 Furosemide (Lasix) 20 mg DAILY PO 02/15/21 09:00 02/16/21 09:20 Guaifenesin (Robitussin Tab) 400 mg TID PO 02/14/21 16:00 02/14/21 22:58 DC 02/14/21 20:30 Home Med (Med Rec Complete!) ASDIRECTED XX 02/14/21 14:35 02/14/21 14:37 DC Lacosamide (Vimpat) 200 mg BID PO 02/14/21 21:00 02/16/21 09:19 Lidocaine (Lidoderm Patch) 1 patch DAILY TD 02/15/21 09:00 02/16/21 09:17 Non-Formulary Medication ( See Comment Field Below ) REMOVE LIDODERM PATCH DAILY@21 XX 02/15/21 21:00 02/15/21 21:07 Omeprazole (PriLOSEC) 40 mg DAILY PO 02/15/21 09:00 02/16/21 09:20 Polyethylene Glycol (Miralax) 1 pkt DAILY PRN PO CONSTIPATION 02/14/21 13:55 Potassium Chloride (Micro-K Extencaps) 10 meq DAILY PO 02/15/21 09:00 02/16/21 08:00 DC 02/15/21 08:13 Quetiapine Fumarate (SEROquel) 25 mg QHS PRN PO agitation 02/14/21 13:55 Ramelteon (Rozerem) 8 mg QHS PO 02/14/21 21:00 02/15/21 21:06 Senna (Senokot) 1 tab QHS PO 02/14/21 21:00 02/15/21 21:06 Tamsulosin HCl (Flomax) 0.4 mg DAILY PO 02/15/21 09:00 02/16/21 09:20 Vitamin D (Vitamin D) 1,000 units DAILY PO 02/15/21 09:00 02/16/21 09:19 Warfarin Sodium (Coumadin) 5 mg DAILY@17 PO 02/14/21 17:00 02/15/21 10:43 DC 02/14/21 16:03 Warfarin Sodium (Coumadin) 7.5 mg DAILY@17 PO 02/15/21 17:00 02/15/21 16:28 ANTIONETTE HONG MD Feb 16, 2021 09:30
[2021-02-16] MEDS ORDERED: PATIROMER SORBITEX CALCIUM 8.4 GM POWDER PACKET (VELTASSA) PO ONE (11:00)
[2021-02-16] MEDS: COMBIVENT RESPIMAT 100-20MCG INHALER 4GM INH SCH ×2 (11:13→15:10)
[2021-02-16] MEDS: WARFARIN SOD 5MG TAB PO SCH (16:45)
[2021-02-16] MEDS: SENNA 8.6 MG TAB (SENOKOT) PO SCH (21:00)
[2021-02-16] MEDS: ATORVASTATIN 20 MG TAB PO SCH (21:33)
[2021-02-16] MEDS: RAMELTEON 8 MG TAB (ROZEREM) PO SCH (21:33)
[2021-02-16] MEDS: **NOTE PATIENT COMMENT** MISC XX SCH (21:36)
[2021-02-17 02:08] VITALS: BP 115/67
[2021-02-17 05:57] VITALS: BP 126/78
[2021-02-17] MEDS: SYMBICORT 160/4.5MCG INHALER 6GM INH SCH ×2 (07:18→20:13)
[2021-02-17 07:22] LABS: INR 2.02; PROTHROMBIN TIME 23.3 SECONDS (12.5-14.3)
[2021-02-17 07:26] LABS: BLOOD UREA NITROGEN 24 MG/DL (7-18); CALCIUM LEVEL 8.5 MG/DL (8.8-10.2); CARBON DIOXIDE LEVEL 25 MEQ/L (21-32); CHLORIDE LEVEL 107 MEQ/L (98-107); GLOMERULAR FILTRATION RATE > 60.0 (>42); GLUCOSE, FASTING 92 MG/DL (70-100); POTASSIUM SERUM 4.9 MEQ/L (3.5-5.1); SODIUM LEVEL 140 MEQ/L (136-145)
[2021-02-17] MEDS: VITAMIN D 1,000 INTERNATIONAL UNITS TABLET PO SCH (08:17)
[2021-02-17] MEDS: FLUoxetine 20 MG CAP PO SCH (08:17)
[2021-02-17] MEDS: OMEPRAZOLE 20 MG CAP PO SCH (08:17)
[2021-02-17] MEDS: TAMSULOSIN 0.4 MG CAP PO SCH (08:17)
[2021-02-17] MEDS: FUROSEMIDE 20 MG TAB PO SCH (08:17)
[2021-02-17] MEDS: SINEMET 25-100 MG TAB PO SCH ×3 (08:17→17:29)
[2021-02-17] MEDS: allopurinoL 300 MG TAB PO SCH (08:17)
[2021-02-17] MEDS: DOCUSATE SODIUM 100MG CAPSULE PO SCH ×2 (08:18→21:40)
[2021-02-17] MEDS: LACOSAMIDE 50 MG TAB (VIMPAT) PO SCH ×2 (08:18→21:40)
[2021-02-17] MEDS: ENALAPRIL MALEATE 10 MG TAB PO SCH (08:18)
[2021-02-17] MEDS: REMEDY PHYTOPLEX Z-GUARD PASTE 113GM TUBE (FROM STOREROOM PRODUCT) TOP SCH ×3 (08:19→21:41)
[2021-02-17] MEDS: LIDOCAINE 5% (LIDODERM) PATCH TD SCH (08:19)
[2021-02-17 10:00] VITALS: BP 114/70
[2021-02-17] MEDS: COMBIVENT RESPIMAT 100-20MCG INHALER 4GM INH SCH ×2 (11:10→15:08)
[2021-02-17 14:00] VITALS: BP 88/53
[2021-02-17] MEDS: WARFARIN SOD 5MG TAB PO SCH (17:29)
[2021-02-17 18:00] VITALS: BP 103/60
[2021-02-17] MEDS: SENNA 8.6 MG TAB (SENOKOT) PO SCH (21:40)
[2021-02-17] MEDS: RAMELTEON 8 MG TAB (ROZEREM) PO SCH (21:40)
[2021-02-17] MEDS: ATORVASTATIN 20 MG TAB PO SCH (21:40)
[2021-02-17] MEDS: **NOTE PATIENT COMMENT** MISC XX SCH (21:41)
[2021-02-17 22:00] VITALS: BP 124/69
[2021-02-18 02:00] VITALS: BP 113/67
[2021-02-18 02:24] VITALS: BP 113/67
[2021-02-18 06:27] VITALS: BP 115/67
[2021-02-18 06:30] VITALS: BP 115/67
[2021-02-18] MEDS: SYMBICORT 160/4.5MCG INHALER 6GM INH SCH ×2 (07:15→19:23)
[2021-02-18 07:31] LABS: INR 2.04; PROTHROMBIN TIME 23.5 SECONDS (12.5-14.3)
[2021-02-18] MEDS: FLUoxetine 20 MG CAP PO SCH (08:32)
[2021-02-18] MEDS: allopurinoL 300 MG TAB PO SCH (08:32)
[2021-02-18] MEDS: VITAMIN D 1,000 INTERNATIONAL UNITS TABLET PO SCH (08:32)
[2021-02-18] MEDS: DOCUSATE SODIUM 100MG CAPSULE PO SCH ×2 (08:32→21:12)
[2021-02-18] MEDS: TAMSULOSIN 0.4 MG CAP PO SCH (08:32)
[2021-02-18] MEDS: OMEPRAZOLE 20 MG CAP PO SCH (08:33)
[2021-02-18] MEDS: SINEMET 25-100 MG TAB PO SCH ×3 (08:33→16:57)
[2021-02-18] MEDS: FUROSEMIDE 20 MG TAB PO SCH (08:33)
[2021-02-18] MEDS: ENALAPRIL MALEATE 10 MG TAB PO SCH (08:34)
[2021-02-18] MEDS: LIDOCAINE 5% (LIDODERM) PATCH TD SCH (08:34)
[2021-02-18] MEDS: LACOSAMIDE 50 MG TAB (VIMPAT) PO SCH ×2 (08:34→21:12)
[2021-02-18] MEDS: REMEDY PHYTOPLEX Z-GUARD PASTE 113GM TUBE (FROM STOREROOM PRODUCT) TOP SCH ×3 (08:35→21:13)
[2021-02-18] MEDS: COMBIVENT RESPIMAT 100-20MCG INHALER 4GM INH SCH ×2 (11:13→15:12)
[2021-02-18 14:00] VITALS: BP 101/60
[2021-02-18] MEDS: WARFARIN SOD 5MG TAB PO SCH (16:57)
[2021-02-18 19:55] VITALS: BP 108/63
[2021-02-18] MEDS: SENNA 8.6 MG TAB (SENOKOT) PO SCH (21:12)
[2021-02-18] MEDS: ATORVASTATIN 20 MG TAB PO SCH (21:12)
[2021-02-18] MEDS: RAMELTEON 8 MG TAB (ROZEREM) PO SCH (21:12)
[2021-02-18] MEDS: **NOTE PATIENT COMMENT** MISC XX SCH (21:13)
[2021-02-19 05:00] VITALS: BP 100/59
[2021-02-19 06:54] LABS: BASO % 0.5 % (0.0-1.0); EOS # 0.2 10^3/uL (0.0-0.5); EOS % 2.8 % (0.0-3.0); HEMATOCRIT 33.1 % (42.0-52.0); HEMOGLOBIN 10.9 g/dl (13.5-17.5); LYMPH # 1.3 10^3/uL (1.5-5.0); LYMPH % 20.2 % (24.0-44.0); MEAN CORPUSCULAR HEMOGLOBIN 31.8 pg (27.0-33.0); MEAN CORPUSCULAR HGB CONC 32.9 g/dl (32.0-36.5); MEAN CORPUSCULAR VOLUME 96.5 fl (80.0-96.0); MONO # 0.5 10^3/uL (0.0-0.8); MONO % 6.9 % (2.0-8.0); NEUTROPHILS # 4.5 10^3/uL (1.5-8.5); NEUTROPHILS % 68.7 % (36.0-66.0); PLATELET COUNT, AUTOMATED 229 10^3/uL (150-450); RED BLOOD COUNT 3.43 10^6/uL (4.30-6.10); WHITE BLOOD COUNT 6.5 10^3/uL (4.0-10.0)
[2021-02-19 07:05] LABS: INR 2.53; PROTHROMBIN TIME 27.8 SECONDS (12.5-14.3)
[2021-02-19] MEDS: FUROSEMIDE 20 MG TAB PO SCH (07:11)
[2021-02-19] MEDS: ENALAPRIL MALEATE 10 MG TAB PO SCH (07:11)
[2021-02-19] MEDS: SYMBICORT 160/4.5MCG INHALER 6GM INH SCH ×2 (07:21→20:00)
[2021-02-19 07:24] LABS: BLOOD UREA NITROGEN 21 MG/DL (7-18); CALCIUM LEVEL 8.3 MG/DL (8.8-10.2); CARBON DIOXIDE LEVEL 27 MEQ/L (21-32); CHLORIDE LEVEL 109 MEQ/L (98-107); CREATININE FOR GFR 0.92 MG/DL (0.70-1.30); GLOMERULAR FILTRATION RATE > 60.0 (>42); GLUCOSE, FASTING 92 MG/DL (70-100); POTASSIUM SERUM 4.7 MEQ/L (3.5-5.1); SODIUM LEVEL 139 MEQ/L (136-145)
[2021-02-19] MEDS: allopurinoL 300 MG TAB PO SCH (07:27)
[2021-02-19] MEDS: FLUoxetine 20 MG CAP PO SCH (07:27)
[2021-02-19] MEDS: LACOSAMIDE 50 MG TAB (VIMPAT) PO SCH ×2 (07:27→20:53)
[2021-02-19] MEDS: ACETAMINOPHEN TAB 650MG DOSE (2X325MG) PO PRN (07:27)
[2021-02-19] MEDS: VITAMIN D 1,000 INTERNATIONAL UNITS TABLET PO SCH (07:27)
[2021-02-19] MEDS: OMEPRAZOLE 20 MG CAP PO SCH (07:27)
[2021-02-19] MEDS: TAMSULOSIN 0.4 MG CAP PO SCH (07:27)
[2021-02-19] MEDS: SINEMET 25-100 MG TAB PO SCH ×3 (07:27→16:19)
[2021-02-19] MEDS: LIDOCAINE 5% (LIDODERM) PATCH TD SCH (07:28)
[2021-02-19] MEDS: REMEDY PHYTOPLEX Z-GUARD PASTE 113GM TUBE (FROM STOREROOM PRODUCT) TOP SCH ×3 (07:28→20:53)
[2021-02-19] MEDS: DOCUSATE SODIUM 100MG CAPSULE PO SCH ×2 (07:28→20:52)
[2021-02-19] MEDS: COMBIVENT RESPIMAT 100-20MCG INHALER 4GM INH SCH ×2 (13:05→15:44)
[2021-02-19 14:00] VITALS: BP 107/63
[2021-02-19] MEDS: WARFARIN SOD 5MG TAB PO SCH (16:19)
--- NOTE | 2021-02-19 16:41 | IPNPDOC ---
PM&R Progress Note DATE OF SERVICE: Feb 19, 2021 Fit Model Progress Note DATE OF ADMISSION: Feb 14, 2021 at 13:17 DATE OF ADMISSION: 02-14-21 DATE OF SERVICE: 02-19-21 CHIEF COMPLAINT: left intracranial hemorrhage , right sided weakness HISTORY OF PRESENT ILLNESS: This is a 76 year old right handed male with pmh HTN, HLD, KATHARINE on CPAP, left frontal IPH (2019), Parkinsons, aortic valve repair (2004) previously stable on Aspirin and Warfarin who was transferred to [facility] 01-26-21 with a large left frontal IPH and right sided weakness. He notes that he had been in the kitchen and fell, was found by his daughter who summoned paramedics, he has had a few prior falls related to balance instability from his Parkinsons and tremors. He hit his head and had a knot right occipitoparietal region. He was admitted to the neuro ICU, received vitamin K and FFP for his supra- therapeutic INR, and had serial CTs to rule out new worsening/new bleed and was ultimately safely transitioned back onto Coumadin. He had seizure activity with right head deviation and right sided extremity tremors with EEG positive for seizure activity. He was started on multiple AEDs and discharged stabilized solely on Vimpat. An incidental left clivus hypodensity was found on MRI which he was instructed to follow-up with neurosurgery. He developed aspiration pneumonia and a pseudomonas UTI for which he was treated with antibiotics. Most recent CT 02-10-21 showed, Resolving small parenchymal hemorrhage in the left superior frontal gyrus. He had mobility and ADL impairments, was placed on a dysphagia diet, and deemed medically appropriate for admission to ARU on 02-14-21. He is encouraged by his progress thus far , particularly having regained significant strength and coordination in the right upper and lower extremity. He notes his used doing very heavy work most of his life, also had 3 hernia repairs, and is applying that diligence to his rehabilitative program to regain as much function as possible. He had a bowel movement yesterday and no new problems. REVIEW OF SYSTEMS: The following is a completed review of systems and has been reviewed. Review of systems otherwise unremarkable. PAIN: Patient self reports no pain EYES: No recent vision changes EARS, NOSE, & THROAT: no new problems CARDIOVASCULAR: Denies chest pain or palpitations PULMONARY: Denies shortness of breath GASTROINTESTINAL: Denies constipation/diarrhea GENITOURINARY: denies dysuria MUSCULOSKELETAL: right sided weakness NEUROLOGICAL: + tremor right side HEMATOLOGICAL: denies easy bruising SKIN: denies rash PSYCHIATRIC: Unremarkable All other review of systems found to be negative. MEDICATIONS: Please see below. PHYSICAL EXAMINATION: VITAL SIGNS: Please see below. GENERAL: Pleasant and cooperative. No acute distress. HEENT: PERRL. Extraocular movements intact. Clear conjunctiva. Small nontender swelling right occipitoparietal region. No cervical tenderness, full range of motion. CARDIOVASCULAR: Regular rate and rhythm. No murmurs, rubs, or gallops LUNGS: Clear to auscultation bilaterally. No wheezes. No rhonchi ABDOMEN: Soft, nontender, mildly distended. Positive bowel sounds. NEUROLOGICAL: Alert and oriented times three. Cranial nerves II through XII intact, slight deviation tongue to right. Sensation grossly intact all 4 limbs EXTREMITIES: 5\5 strength left UE 4+/5 RUE. 4+\5 strength right lower extremity. 5/5 strength in left lower extremity. Right hand hypertrophied as compared to left. + trace bilat LE edema, negative homans or calf tenderness LABORATORY DATA: Please see below. H/H low 10.9/33.1 down from 12.3/37.9 IMAGING:Imaging documentation personally reviewed by record FUNCTIONAL STATUS: PT notes that patient is demonstrating improved mobility; requires CGA to ambulate over 200ft; noting tendency for forward lean with RW use that improves with cues to maintain safe distance from RW and raising height of RW. Worked extensively on dynamic gait activities with jorge a negotiation, sidestepping, backwards ambulation and tight turns; noting increased shuffling gait pattern with jorge a negotiation and tight turns that improves with repetition; also noting steppage gait when ambulating backwards with difficulty correcting. Will benefit from continued work on challenging gait and balance activities to maximize safety and reduce caregiver burden. ASSESSMENT: 76-year-old M with past medical history of left frontal IPH who presents status post new left frontal IPH with seizures now stabilizing and regaining overall function. PLAN: 1. rehab- pt/ot advance mobility and ADls, strengthen/stretch/maintain ROM all 4 limbs -WAIST PLEATER- WAIST PLEATER continuing with swallowing and cog rx 2. neuro- hx of left frontal IPH with new left frontal IPH in setting of supra- therapeutic INR with right sided melvin-paresis and seizure disorder, c/u vimpat -f/u neurosurgery to monitor IPH and to monitor incidental finding of left clivus lesion - prozac will assist with motor recovery -Parkinsons disease c/u sinemet 3. cardiac- HTN c/u BP meds -hx aortic valve replacement on Coumadin goal 2-3 in setting of recent In traparenchymal bleed - HLD c/u statin - possible CHF? noted to have bilat LE edema, will c/u lasix and monitor for clinical signs, daily weights 4. Resp- KATHARINE on CPAP, monitor for infection, s/p recent treatment for aspiration PNA 5-COPD c/u symbicort, will order comivent as well 6.DVT ppx on couamdin-possible med adjustments impacting INR bumped to 2.53, Hb slipped to 10.9 hospitalist adjusting levels 7. GI ppx- prilosec 8. psych- Rozerem for insomnia, Seroquel prn agitation 9. Pain- Tylenol prn 10. Anemia-encourage dietary supplementation 11. Hypocalcemia- 8.3 hospitalist coordinating Allergies Coded Allergies: No Known Allergies (Verified Allergy, Unknown, 10/28/19) Vital Signs Vital Signs Date Time Temp Pulse Resp B/P (MAP) Pulse Ox O2 Delivery O2 Flow Rate FiO2 02/19/21 14:00 97.3 58 16 107/63 (78) 97 Room Air 02/15/21 06:00 2.0 Laboratory Data CBC/BMP Laboratory Tests 02/19/21 06:39 Labs 24H Laboratory Tests 2 02/19/21 06:39: Immature Granulocyte % (Auto) 0.9, Neutrophils (%) (Auto) 68.7H, Lymphocytes (%) (Auto) 20.2L, Monocytes (%) (Auto) 6.9, Eosinophils (%) (Auto) 2.8, Basophils (%) (Auto) 0.5, Neutrophils # (Auto) 4.5, Lymphocytes # (Auto) 1.3L, Monocytes # (Auto) 0.5, Eosinophils # (Auto) 0.2, Basophils # (Auto) 0.0, Nucleated Red Blood Cells % (auto) 0.0, Prothrombin Time 27.8H, Prothromb Time International Ratio 2.53, Anion Gap 3L, Glomerular Filtration Rate > 60.0, Calcium Level 8.3L Current Medications Current Medications Current Medications Medications (Trade) Dose Ordered Sig/Eugenio Route PRN Reason Start Time Stop Time Status Last Admin Dose Admin Acetaminophen (Tylenol Tab) 650 mg Q4HP PRN PO fever/MILD PAIN (PS 1-4) 02/14/21 13:55 02/19/21 07:27 Albuterol/ Ipratropium (Combivent Respimat 100-20mcg) 1 puff BID@1200,1600 INH 02/14/21 16:00 02/19/21 15:44 Allopurinol (Zyloprim) 300 mg DAILY PO 02/15/21 09:00 02/19/21 07:27 Atorvastatin Calcium (Lipitor) 80 mg QHS PO 02/15/21 21:00 02/18/21 21:12 Bisacodyl (Dulcolax Suppository) 10 mg DAILYPRN PRN ME CONSTIPATION 02/14/21 13:55 Budesonide/ Formoterol Fumarate (Symbicort 160/ 4.5mcg) 2 puff RBID INH 02/14/21 20:00 02/19/21 07:21 Carbidopa/Levodopa (Sinemet 25/100) 0.5 tab BID@1200,1600 PO 02/16/21 12:00 02/19/21 16:19 Carbidopa/Levodopa (Sinemet 25/100) 0.5 tab TID@0800,1200,1600 PO 02/15/21 08:00 02/16/21 09:30 DC 02/16/21 09:18 Carbidopa/Levodopa (Sinemet 25/100) 1 tab DAILY@0800 PO 02/17/21 08:00 02/19/21 07:27 Carbidopa/Levodopa (Sinemet 25/100) 1 tab TID@0800,1200,1600 PO 02/14/21 16:00 02/14/21 22:58 DC 02/14/21 16:03 Docusate Sodium (Colace) 100 mg BID PO 02/14/21 21:00 02/18/21 21:12 Enalapril Maleate (Vasotec) 10 mg DAILY PO 02/15/21 09:00 02/18/21 08:34 Fluoxetine HCl (PROzac) 20 mg DAILY PO 02/15/21 09:00 02/19/21 07:27 Furosemide (Lasix) 20 mg DAILY PO 02/15/21 09:00 02/18/21 08:33 Guaifenesin (Robitussin Tab) 400 mg TID PO 02/14/21 16:00 02/14/21 22:58 DC 02/14/21 20:30 Home Med (Med Rec Complete!) ASDIRECTED XX 02/14/21 14:35 02/14/21 14:37 DC Lacosamide (Vimpat) 200 mg BID PO 02/14/21 21:00 02/19/21 07:27 Lidocaine (Lidoderm Patch) 1 patch DAILY TD 02/15/21 09:00 02/19/21 07:28 Non-Formulary Medication ( See Comment Field Below ) REMOVE LIDODERM PATCH DAILY@21 XX 02/15/21 21:00 02/18/21 21:13 Omeprazole (PriLOSEC) 40 mg DAILY PO 02/15/21 09:00 02/19/21 07:27 Polyethylene Glycol (Miralax) 1 pkt DAILY PRN PO CONSTIPATION 02/14/21 13:55 Potassium Chloride (Micro-K Extencaps) 10 meq DAILY PO 02/15/21 09:00 02/16/21 08:00 DC 02/15/21 08:13 Quetiapine Fumarate (SEROquel) 25 mg QHS PRN PO agitation 02/14/21 13:55 Ramelteon (Rozerem) 8 mg QHS PO 02/14/21 21:00 02/18/21 21:12 Senna (Senokot) 1 tab QHS PO 02/14/21 21:00 02/18/21 21:12 Tamsulosin HCl (Flomax) 0.4 mg DAILY PO 02/15/21 09:00 02/19/21 07:27 Vitamin D (Vitamin D) 1,000 units DAILY PO 02/15/21 09:00 02/19/21 07:27 Warfarin Sodium (Coumadin) 5 mg DAILY@17 PO 02/14/21 17:00 02/15/21 10:43 DC 02/14/21 16:03 Warfarin Sodium (Coumadin) 7.5 mg DAILY@17 PO 02/15/21 17:00 02/19/21 16:19 PHYLLIS PHILIPPE MD Feb 19, 2021 16:41
[2021-02-19 20:00] VITALS: BP 108/66
[2021-02-19] MEDS: RAMELTEON 8 MG TAB (ROZEREM) PO SCH (20:52)
[2021-02-19] MEDS: SENNA 8.6 MG TAB (SENOKOT) PO SCH (20:52)
[2021-02-19] MEDS: ATORVASTATIN 20 MG TAB PO SCH (20:52)
[2021-02-19] MEDS: **NOTE PATIENT COMMENT** MISC XX SCH (20:53)
[2021-02-20 06:00] VITALS: BP 115/64
[2021-02-20 07:03] LABS: INR 2.6; PROTHROMBIN TIME 28.4 SECONDS (12.5-14.3)
[2021-02-20] MEDS: SYMBICORT 160/4.5MCG INHALER 6GM INH SCH ×2 (07:56→20:41)
[2021-02-20] MEDS: REMEDY PHYTOPLEX Z-GUARD PASTE 113GM TUBE (FROM STOREROOM PRODUCT) TOP SCH ×3 (09:00→20:37)
[2021-02-20] MEDS: VITAMIN D 1,000 INTERNATIONAL UNITS TABLET PO SCH (09:06)
[2021-02-20] MEDS: ENALAPRIL MALEATE 10 MG TAB PO SCH (09:06)
[2021-02-20] MEDS: LIDOCAINE 5% (LIDODERM) PATCH TD SCH (09:06)
[2021-02-20] MEDS: FLUoxetine 20 MG CAP PO SCH (09:06)
[2021-02-20] MEDS: SINEMET 25-100 MG TAB PO SCH ×3 (09:06→17:01)
[2021-02-20] MEDS: OMEPRAZOLE 20 MG CAP PO SCH (09:06)
[2021-02-20] MEDS: allopurinoL 300 MG TAB PO SCH (09:07)
[2021-02-20] MEDS: FUROSEMIDE 20 MG TAB PO SCH (09:07)
[2021-02-20] MEDS: DOCUSATE SODIUM 100MG CAPSULE PO SCH ×2 (09:07→20:37)
[2021-02-20] MEDS: TAMSULOSIN 0.4 MG CAP PO SCH (09:07)
[2021-02-20] MEDS: LACOSAMIDE 50 MG TAB (VIMPAT) PO SCH ×2 (09:07→20:37)
[2021-02-20] MEDS: COMBIVENT RESPIMAT 100-20MCG INHALER 4GM INH SCH ×2 (12:00→16:00)
--- NOTE | 2021-02-20 12:55 | IPNPDOC ---
PM&R Progress Note DATE OF SERVICE: Feb 20, 2021 Data Systems Analyst Progress Note DATE OF ADMISSION: Feb 14, 2021 at 13:17 HISTORY OF PRESENT ILLNESS: This is a 76 year old right handed male with pmh HTN, HLD, KATHARINE on CPAP, left frontal IPH (2019), Parkinsons, aortic valve repair (2004) previously stable on Aspirin and Warfarin who was transferred to [facility] 01-26-21 with a large left frontal IPH and right sided weakness. He notes that he had been in the kitchen and fell, was found by his daughter who summoned paramedics, he has had a few prior falls related to balance instability from his Parkinsons and tremors. He hit his head and had a knot right occipitoparietal region. He was admitted to the neuro ICU, received vitamin K and FFP for his supra- therapeutic INR, and had serial CTs to rule out new worsening/new bleed and was ultimately safely transitioned back onto Coumadin. He had seizure activity with right head deviation and right sided extremity tremors with EEG positive for seizure activity. He was started on multiple AEDs and discharged stabilized solely on Vimpat. An incidental left clivus hypodensity was found on MRI which he was instructed to follow-up with neurosurgery. He developed aspiration pneumonia and a pseudomonas UTI for which he was treated with antibiotics. Most recent CT 02-10-21 showed, Resolving small parenchymal hemorrhage in the left superior frontal gyrus. He had mobility and ADL impairments, was placed on a dy sphagia diet, and deemed medically appropriate for admission to ARU on 02-14-21. 02.19.2021 He is encouraged by his progress thus far , particularly having regained significant strength and coordination in the right upper and lower extremity. He notes his used doing very heavy work most of his life, also had 3 hernia repairs, and is applying that diligence to his rehabilitative program to regain as much function as possible. He had a bowel movement yesterday and no new problems. 02.20.2021 patient observed in therapy room noted to demonstrate good safety awareness needed time to self-correct ventilatory with the walker, absent forward and backwards gait, noted increased in facial tremors. However steady on his feet. He was somewhat out of breath upon completion of the task. However feeling encouraged, as he regains mobility skills. REVIEW OF SYSTEMS: The following is a completed review of systems and has been reviewed. Review of systems otherwise unremarkable. PAIN: Patient self reports no pain EYES: No recent vision changes EARS, NOSE, & THROAT: no new problems CARDIOVASCULAR: Denies chest pain or palpitations PULMONARY: Denies shortness of breath GASTROINTESTINAL: Denies constipation/diarrhea GENITOURINARY: denies dysuria MUSCULOSKELETAL: right sided weakness NEUROLOGICAL: + tremor right side HEMATOLOGICAL: denies easy bruising SKIN: denies rash PSYCHIATRIC: Unremarkable All other review of systems found to be negative. MEDICATIONS: Please see below. PHYSICAL EXAMINATION: VITAL SIGNS: Please see below. GENERAL: Pleasant and cooperative. No acute distress. HEENT: PERRL. Extraocular movements intact. Clear conjunctiva. Small nontender swelling right occipitoparietal region. No cervical tenderness. CARDIOVASCULAR: Regular rate and rhythm, click. LUNGS: Clear to auscultation bilaterally. No wheezes. No rhonchi ABDOMEN: Soft, nontender, mildly distended. Positive bowel sounds. NEUROLOGICAL: Alert and oriented times three. Cranial nerves II through XII grossly intact, kate oral tremors noted during exertion, abated while at rest. EXTREMITIES: no tremors on bilateral extension, approx. 4+/5 bilateral interossei. Right hand hypertrophied as compared to left. + trace bilat LE edema, negative Homans or calf tenderness LABORATORY DATA: Please see below. H/H low 10.9/33.1 down from 12.3/37.9 IMAGING:Imaging documentation reviewed by record FUNCTIONAL STATUS: Patient discussed in Team conference by all departments. Observed ambulatory with FWW, needs cues for motor planning, side stepping, no LOB on turns. PT notes that patient is demonstrating improved mobility; requires CGA to ambulate over 200ft; noting tendency for forward lean with RW use that improves with cues to maintain safe distance from RW and raising height of RW. Worked extensively on dynamic gait activities with jorge a negotiation, sidestepping, backwards ambulation and tight turns; noting increased shuffling gait pattern with jorge a negotiation and tight turns that improves with repetition; also noting steppage gait when ambulating backwards with difficulty correcting. Will benefit from continued work on challenging gait and balance activities to maximize safety and reduce caregiver burden. ASSESSMENT: 76-year-old M with past medical history of left frontal IPH who presents status post new left frontal IPH with seizures now stabilizing and regaining overall function. PLAN: Case discussed at length with hospitalist team. Aware and monitoring upward trend of INR, needs adequate coverage due to valve replacement. 1. 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 neuro- hx of left frontal IPH with new left frontal IPH in setting of supra- therapeutic INR with right sided melvin-paresis and seizure disorder, c/u vimpat -f/u neurosurgery to monitor IPH and to monitor incidental finding of left clivus lesion - prozac will assist with motor recovery -Parkinsons disease c/u sinemet 3. cardiac- HTN c/u BP meds -hx aortic valve replacement on Coumadin goal 2-3 in setting of recent Intraparenchymal bleed - HLD c/u statin - possible CHF? noted to have bilat LE edema, will c/u lasix and monitor for c linical signs, daily weights 4. Resp- KATHARINE on CPAP, monitor for infection, s/p recent treatment for aspiration PNA 5-COPD c/u symbicort, will order comivent as well 6.DVT ppx on couamdin-INR bumped to 2.53, Hb slipped to 10.9 hospitalist adjusting levels 7. GI ppx- prilosec 8. psych- Rozerem for insomnia, Seroquel prn agitation 9. Pain- Tylenol prn 10. Anemia-encourage dietary supplementation 11. Hypocalcemia- 8.3 hospitalist coordinating TIME SPENT: Chart Review, examination and documentation [30] minutes. Allergies Coded Allergies: No Known Allergies (Verified Allergy, Unknown, 10/28/19) Vital Signs Vital Signs Date Time Temp Pulse Resp B/P (MAP) Pulse Ox O2 Delivery O2 Flow Rate FiO2 02/20/21 09:06 131/77 02/20/21 06:00 97.5 53 18 96 Room Air 02/15/21 06:00 2.0 Laboratory Data Labs 24H Laboratory Tests 2 02/20/21 06:36: Prothrombin Time 28.4H, Prothromb Time International Ratio 2.60 Current Medications Current Medications Current Medications Medications (Trade) Dose Ordered Sig/Eugenio Route PRN Reason Start Time Stop Time Status Last Admin Dose Admin Acetaminophen (Tylenol Tab) 650 mg Q4HP PRN PO fever/MILD PAIN (PS 1-4) 02/14/21 13:55 02/19/21 07:27 Albuterol/ Ipratropium (Combivent Respimat 100-20mcg) 1 puff BID@1200,1600 INH 02/14/21 16:00 02/19/21 15:44 Allopurinol (Zyloprim) 300 mg DAILY PO 02/15/21 09:00 02/20/21 09:07 Atorvastatin Calcium (Lipitor) 80 mg QHS PO 02/15/21 21:00 02/19/21 20:52 Bisacodyl (Dulcolax Suppository) 10 mg DAILYPRN PRN NE CONSTIPATION 02/14/21 13:55 Budesonide/ Formoterol Fumarate (Symbicort 160/ 4.5mcg) 2 puff RBID INH 02/14/21 20:00 02/19/21 07:21 Carbidopa/Levodopa (Sinemet 25/100) 0.5 tab BID@1200,1600 PO 02/16/21 12:00 02/20/21 12:18 Carbidopa/Levodopa (Sinemet 25/100) 0.5 tab TID@0800,1200,1600 PO 02/15/21 08:00 02/16/21 09:30 DC 02/16/21 09:18 Carbidopa/Levodopa (Sinemet 25/100) 1 tab DAILY@0800 PO 02/17/21 08:00 02/20/21 09:06 Carbidopa/Levodopa (Sinemet 25/100) 1 tab TID@0800,1200,1600 PO 02/14/21 16:00 02/14/21 22:58 DC 02/14/21 16:03 Docusate Sodium (Colace) 100 mg BID PO 02/14/21 21:00 02/20/21 09:07 Enalapril Maleate (Vasotec) 10 mg DAILY PO 02/15/21 09:00 02/20/21 09:06 Fluoxetine HCl (PROzac) 20 mg DAILY PO 02/15/21 09:00 02/20/21 09:06 Furosemide (Lasix) 20 mg DAILY PO 02/15/21 09:00 02/20/21 09:07 Guaifenesin (Robitussin Tab) 400 mg TID PO 02/14/21 16:00 02/14/21 22:58 DC 02/14/21 20:30 Home Med (Med Rec Complete!) ASDIRECTED XX 02/14/21 14:35 02/14/21 14:37 DC Lacosamide (Vimpat) 200 mg BID PO 02/14/21 21:00 02/20/21 09:07 Lidocaine (Lidoderm Patch) 1 patch DAILY TD 02/15/21 09:00 02/20/21 09:06 Non-Formulary Medication ( See Comment Field Below ) REMOVE LIDODERM PATCH DAILY@21 XX 02/15/21 21:00 02/19/21 20:53 Omeprazole (PriLOSEC) 40 mg DAILY PO 02/15/21 09:00 02/20/21 09:06 Polyethylene Glycol (Miralax) 1 pkt DAILY PRN PO CONSTIPATION 02/14/21 13:55 Potassium Chloride (Micro-K Extencaps) 10 meq DAILY PO 02/15/21 09:00 02/16/21 08:00 DC 02/15/21 08:13 Quetiapine Fumarate (SEROquel) 25 mg QHS PRN PO agitation 02/14/21 13:55 Ramelteon (Rozerem) 8 mg QHS PO 02/14/21 21:00 02/19/21 20:52 Senna (Senokot) 1 tab QHS PO 02/14/21 21:00 02/19/21 20:52 Tamsulosin HCl (Flomax) 0.4 mg DAILY PO 02/15/21 09:00 02/20/21 09:07 Vitamin D (Vitamin D) 1,000 units DAILY PO 02/15/21 09:00 02/20/21 09:06 Warfarin Sodium (Coumadin) 5 mg DAILY@17 PO 02/14/21 17:00 02/15/21 10:43 DC 02/14/21 16:03 Warfarin Sodium (Coumadin) 7.5 mg DAILY@17 PO 02/15/21 17:00 02/19/21 16:19 PHYLLIS PHILIPPE MD Feb 20, 2021 12:55
[2021-02-20 14:00] VITALS: BP 101/65
[2021-02-20] MEDS: WARFARIN SOD 5MG TAB PO SCH (17:01)
[2021-02-20 20:00] VITALS: BP 97/57
[2021-02-20] MEDS: ATORVASTATIN 20 MG TAB PO SCH (20:37)
[2021-02-20] MEDS: SENNA 8.6 MG TAB (SENOKOT) PO SCH (20:37)
[2021-02-20] MEDS: RAMELTEON 8 MG TAB (ROZEREM) PO SCH (20:37)
[2021-02-20] MEDS: **NOTE PATIENT COMMENT** MISC XX SCH (20:38)
[2021-02-21 06:00] VITALS: BP 128/64
[2021-02-21 07:05] LABS: INR 2.85; PROTHROMBIN TIME 30.6 SECONDS (12.5-14.3)
[2021-02-21] MEDS: OMEPRAZOLE 20 MG CAP PO SCH (07:39)
[2021-02-21] MEDS: LIDOCAINE 5% (LIDODERM) PATCH TD SCH (07:39)
[2021-02-21] MEDS: LACOSAMIDE 50 MG TAB (VIMPAT) PO SCH ×2 (07:40→21:36)
[2021-02-21] MEDS: TAMSULOSIN 0.4 MG CAP PO SCH (07:40)
[2021-02-21] MEDS: VITAMIN D 1,000 INTERNATIONAL UNITS TABLET PO SCH (07:40)
[2021-02-21] MEDS: FLUoxetine 20 MG CAP PO SCH (07:40)
[2021-02-21] MEDS: SINEMET 25-100 MG TAB PO SCH ×3 (07:40→16:48)
[2021-02-21] MEDS: FUROSEMIDE 20 MG TAB PO SCH (07:40)
[2021-02-21] MEDS: ENALAPRIL MALEATE 10 MG TAB PO SCH (07:41)
[2021-02-21] MEDS: allopurinoL 300 MG TAB PO SCH (07:41)
[2021-02-21] MEDS: DOCUSATE SODIUM 100MG CAPSULE PO SCH ×2 (07:42→21:37)
[2021-02-21] MEDS: REMEDY PHYTOPLEX Z-GUARD PASTE 113GM TUBE (FROM STOREROOM PRODUCT) TOP SCH ×3 (07:42→21:37)
[2021-02-21] MEDS: SYMBICORT 160/4.5MCG INHALER 6GM INH SCH ×2 (11:30→20:00)
[2021-02-21] MEDS: COMBIVENT RESPIMAT 100-20MCG INHALER 4GM INH SCH ×2 (11:30→15:34)
[2021-02-21 14:00] VITALS: BP 131/66
[2021-02-21] MEDS: WARFARIN SOD 5MG TAB PO SCH (16:48)
[2021-02-21 21:00] VITALS: BP 100/58
[2021-02-21] MEDS: RAMELTEON 8 MG TAB (ROZEREM) PO SCH (21:36)
[2021-02-21] MEDS: ATORVASTATIN 20 MG TAB PO SCH (21:36)
[2021-02-21] MEDS: SENNA 8.6 MG TAB (SENOKOT) PO SCH (21:36)
[2021-02-21] MEDS: **NOTE PATIENT COMMENT** MISC XX SCH (21:37)
[2021-02-22 06:23] VITALS: BP 114/75
[2021-02-22 06:53] LABS: INR 3.2; PROTHROMBIN TIME 33.5 SECONDS (12.5-14.3)
[2021-02-22] MEDS: TAMSULOSIN 0.4 MG CAP PO SCH (07:20)
[2021-02-22] MEDS: DOCUSATE SODIUM 100MG CAPSULE PO SCH ×2 (07:20→20:15)
[2021-02-22] MEDS: FLUoxetine 20 MG CAP PO SCH (07:20)
[2021-02-22] MEDS: SINEMET 25-100 MG TAB PO SCH ×3 (07:20→16:32)
[2021-02-22] MEDS: VITAMIN D 1,000 INTERNATIONAL UNITS TABLET PO SCH (07:20)
[2021-02-22] MEDS: allopurinoL 300 MG TAB PO SCH (07:20)
[2021-02-22] MEDS: OMEPRAZOLE 20 MG CAP PO SCH (07:20)
[2021-02-22] MEDS: FUROSEMIDE 20 MG TAB PO SCH (07:20)
[2021-02-22] MEDS: LACOSAMIDE 50 MG TAB (VIMPAT) PO SCH ×2 (07:21→20:16)
[2021-02-22] MEDS: LIDOCAINE 5% (LIDODERM) PATCH TD SCH (07:21)
[2021-02-22] MEDS: REMEDY PHYTOPLEX Z-GUARD PASTE 113GM TUBE (FROM STOREROOM PRODUCT) TOP SCH ×3 (07:21→20:16)
[2021-02-22] MEDS: ENALAPRIL MALEATE 10 MG TAB PO SCH (07:21)
[2021-02-22] MEDS: WARFARIN SOD 5MG TAB PO SCH (08:48)
--- NOTE | 2021-02-22 10:04 | IPNPDOC ---
PM&R Progress Note DATE OF SERVICE: Feb 22, 2021 Home Paraprofessional Progress Note DATE OF ADMISSION: Feb 14, 2021 at 13:17 DATE OF SERVICE: 02/22/2021 CHIEF COMPLAINT: left intracranial hemorrhage , right sided weakness HISTORY OF PRESENT ILLNESS: This is a 76 year old right handed male with pmh HTN, HLD, KATHARINE on CPAP, left frontal IPH (2019), Parkinsons, aortic valve repair (2004) previously stable on Aspirin and Warfarin who was transferred to [facility] 01-26-21 with a large left frontal IPH and right sided weakness. He notes that he had been in the kitchen and fell, was found by his daughter who summoned paramedics, he has had a few prior falls related to balance instability from his Parkinsons and tremors. He hit his head and had a knot right occipitoparietal region. He was admitted to the neuro ICU, received vitamin K and FFP for his supra- therapeutic INR, and had serial CTs to rule out new worsening/new bleed and was ultimately safely transitioned back onto Coumadin. He had seizure activity with right head deviation and right sided extremity tremors with EEG positive for seizure activity. He was started on multiple AEDs and discharged stabilized solely on Vimpat. An incidental left clivus hypodensity was found on MRI which he was instructed to follow-up with neurosurgery. He developed aspiration pneumonia and a pseudomonas UTI for which he was treated with antibiotics. Most recent CT 02-10-21 showed, Resolving small parenchymal hemorrhage in the left superior frontal gyrus. He had mobility and ADL impairments, was placed on a dysphagia diet, and deemed medically appropriate for admission to ARU on 02-14-21. 02.19.2021 He is encouraged by his progress thus far , particularly having re gained significant strength and coordination in the right upper and lower extremity. He notes his used doing very heavy work most of his life, also had 3 hernia repairs, and is applying that diligence to his rehabilitative program to regain as much function as possible. He had a bowel movement yesterday and no new problems. 02.20.2021 patient observed in therapy room noted to demonstrate good safety awareness needed time to self-correct ventilatory with the walker, absent forward and backwards gait, noted increased in facial tremors. However steady on his feet. He was somewhat out of breath upon completion of the task. However feeling encouraged, as he regains mobility skills. 02.21. making progress, better balance, foot placement in therapy. Tachy cardia noted after minimal exertion. 02.22.2021 Continues progress, improved endurance in therapies, good safety awareness, continues interest in possible use of crash helmet to protect head if falls again in future. Agrees need to focus, take his time during mobility activities. REVIEW OF SYSTEMS: The following is a completed review of systems and has been reviewed. Review of systems otherwise unremarkable. PAIN: Patient self reports no pain EYES: No recent vision changes EARS, NOSE, & THROAT: no new problems CARDIOVASCULAR: Denies chest pain or palpitations PULMONARY: Denies shortness of breath GASTROINTESTINAL: Denies constipation/diarrhea GENITOURINARY: denies dysuria MUSCULOSKELETAL: right sided weakness NEUROLOGICAL: + tremor right side HEMATOLOGICAL: denies easy bruising SKIN: denies rash PSYCHIATRIC: Unremarkable All other review of systems found to be negative. MEDICATIONS: Please see below. PHYSICAL EXAMINATION: VITAL SIGNS: Please see below. GENERAL: Pleasant and cooperative. No acute distress. HEENT: PERRL. Extraocular movements intact. Clear conjunctiva. Small nontender swelling right occipitoparietal region. No cervical tenderness. CARDIOVASCULAR: Regular rate and rhythm, click. LUNGS: Clear to auscultation bilaterally. No wheezes. No rhonchi ABDOMEN: Soft, nontender, mildly distended. Positive bowel sounds. NEUROLOGICAL: Alert and oriented times three. Cranial nerves II through XII grossly intact, kate oral tremors noted during exertion, abated while at rest. EXTREMITIES: no tremors on bilateral extension, approx. 4+/5 bilateral interossei. Right hand hypertrophied as compared to left. + trace bilat LE edema, negative Homans or calf tenderness LABORATORY DATA: Please see below. H/H low 10.9/33.1 down from 12.3/37.9 INR 3.2 IMAGING:Imaging documentation reviewed by record FUNCTIONAL STATUS: 02.22.2021 Pt. continues to demonstrate progress with mobility; demonstrates Samantha ambulation over even surfaces this session. Continued to focus on dynamic gait activities and uneven surfaces; progressing difficulty of these tasks and will benefit from continued work to maximize safety and reduce risk of falls in various environments. Also continued to work on static and dynamic balance activities on uneven surface of foam; noting improved ability to initiate balance strategies with reduced need for therapist intervention to maintain balance with ball toss activities; will benefit from further emphasis on slowing down activities and focusing on maintenance of balance vs. the activity itself to improve safety awareness 02.20.2021 Patient discussed in Team conference by all departments. Observed ambulatory with FWW, needs cues for motor planning, side stepping, no LOB on turns. PT notes that patient is demonstrating improved mobility; requires CGA to ambulate over 200ft; noting tendency for forward lean with RW use that improves with cues to maintain safe distance from RW and raising height of RW. Worked extensively on dynamic gait activities with jorge a negotiation, sidestepping, backwards ambulation and tight turns; noting increased shuffling gait pattern with jorge a negotiation and tight turns that improves with repetition; also noting steppage gait when ambulating backwards with difficulty correcting. Will benefit from continued work on challenging gait and balance activities to maximize safety and reduce caregiver burden. ASSESSMENT: 76-year-old M with past medical history of left frontal IPH who presents status post new left frontal IPH with seizures now stabilizing and regaining overall function. PLAN: Case discussed at length with hospitalist team. Aware and monitoring upward trend of INR, needs adequate coverage due to valve replacement now slightly supratherapeutic. 1. 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 neuro- hx of left frontal IPH with new left frontal IPH in setting of supra- therapeutic INR with right sided melvin-paresis and seizure disorder, c/u vimpat will need neuro followup. Case management to explore concept of protective helmet. -f/u neurosurgery to monitor IPH and to monitor incidental finding of left clivus lesion - prozac will assist with motor recovery -Parkinsons disease c/u sinemet 3. cardiac- HTN c/u BP meds -hx aortic valve replacement on Coumadin goal 2-3 in setting of recent Intraparenchymal bleed may need downward adjustments, possible polypharm interaction - HLD c/u statin - possible CHF? noted to have bilat LE edema, will c/u lasix and monitor for cl inical signs, daily weights 4. Resp- KATHARINE on CPAP, monitor for infection, s/p recent treatment for aspiration PNA 5-COPD c/u symbicort, will order comivent as well 6.DVT ppx on couamdin-INR bumped to 2.53, Hb slipped to 10.9 hospitalist adjusting levels 7. GI ppx- prilosec 8. psych- Rozerem for insomnia, Seroquel prn agitation 9. Pain- Tylenol prn 10. Anemia-encourage dietary supplementation 11. Hypocalcemia- 8.3 hospitalist coordinating TIME SPENT: Chart Review, examination and documentation [25] minutes. Allergies Coded Allergies: No Known Allergies (Verified Allergy, Unknown, 10/28/19) Vital Signs Vital Signs Date Time Temp Pulse Resp B/P (MAP) Pulse Ox O2 Delivery O2 Flow Rate FiO2 02/22/21 07:21 114/75 02/22/21 06:23 97.5 55 18 95 Room Air Laboratory Data Labs 24H Laboratory Tests 2 02/22/21 06:15: Prothrombin Time 33.5H, Prothromb Time International Ratio 3.20 Current Medications Current Medications Current Medications Medications (Trade) Dose Ordered Sig/Eugenio Route PRN Reason Start Time Stop Time Status Last Admin Dose Admin Acetaminophen (Tylenol Tab) 650 mg Q4HP PRN PO fever/MILD PAIN (PS 1-4) 02/14/21 13:55 02/19/21 07:27 Albuterol/ Ipratropium (Combivent Respimat 100-20mcg) 1 puff BID@1200,1600 INH 02/14/21 16:00 02/21/21 15:34 Allopurinol (Zyloprim) 300 mg DAILY PO 02/15/21 09:00 02/22/21 07:20 Atorvastatin Calcium (Lipitor) 80 mg QHS PO 02/15/21 21:00 02/21/21 21:36 Bisacodyl (Dulcolax Suppository) 10 mg DAILYPRN PRN NM CONSTIPATION 02/14/21 13:55 Budesonide/ Formoterol Fumarate (Symbicort 160/ 4.5mcg) 2 puff RBID INH 02/14/21 20:00 02/21/21 20:00 Carbidopa/Levodopa (Sinemet 25/100) 0.5 tab BID@1200,1600 PO 02/16/21 12:00 02/21/21 16:48 Carbidopa/Levodopa (Sinemet 25/100) 0.5 tab TID@0800,1200,1600 PO 02/15/21 08:00 02/16/21 09:30 DC 02/16/21 09:18 Carbidopa/Levodopa (Sinemet 25/100) 1 tab DAILY@0800 PO 02/17/21 08:00 02/22/21 07:20 Carbidopa/Levodopa (Sinemet 25/100) 1 tab TID@0800,1200,1600 PO 02/14/21 16:00 02/14/21 22:58 DC 02/14/21 16:03 Docusate Sodium (Colace) 100 mg BID PO 02/14/21 21:00 02/22/21 07:20 Enalapril Maleate (Vasotec) 10 mg DAILY PO 02/15/21 09:00 02/22/21 07:21 Fluoxetine HCl (PROzac) 20 mg DAILY PO 02/15/21 09:00 02/22/21 07:20 Furosemide (Lasix) 20 mg DAILY PO 02/15/21 09:00 02/22/21 07:20 Guaifenesin (Robitussin Tab) 400 mg TID PO 02/14/21 16:00 02/14/21 22:58 DC 02/14/21 20:30 Home Med (Med Rec Complete!) ASDIRECTED XX 02/14/21 14:35 02/14/21 14:37 DC Lacosamide (Vimpat) 200 mg BID PO 02/14/21 21:00 02/22/21 07:21 Lidocaine (Lidoderm Patch) 1 patch DAILY TD 02/15/21 09:00 02/22/21 07:21 Non-Formulary Medication ( See Comment Field Below ) REMOVE LIDODERM PATCH DAILY@ XX 02/15/21 21:00 02/21/21 21:37 Omeprazole (PriLOSEC) 40 mg DAILY PO 02/15/21 09:00 02/22/21 07:20 Polyethylene Glycol (Miralax) 1 pkt DAILY PRN PO CONSTIPATION 02/14/21 13:55 Potassium Chloride (Micro-K Extencaps) 10 meq DAILY PO 02/15/21 09:00 02/16/21 08:00 DC 02/15/21 08:13 Quetiapine Fumarate (SEROquel) 25 mg QHS PRN PO agitation 02/14/21 13:55 Ramelteon (Rozerem) 8 mg QHS PO 02/14/21 21:00 02/21/21 21:36 Senna (Senokot) 1 tab QHS PO 02/14/21 21:00 02/21/21 21:36 Tamsulosin HCl (Flomax) 0.4 mg DAILY PO 02/15/21 09:00 02/22/21 07:20 Vitamin D (Vitamin D) 1,000 units DAILY PO 02/15/21 09:00 02/22/21 07:20 Warfarin Sodium (Coumadin) 5 mg DAILY@17 PO 02/14/21 17:00 02/15/21 10:43 DC 02/14/21 16:03 Warfarin Sodium (Coumadin) 7.5 mg DAILY@17 PO 02/15/21 17:00 02/21/21 16:48 PHYLLIS PHILIPPE MD Feb 22, 2021 10:04
[2021-02-22] MEDS: COMBIVENT RESPIMAT 100-20MCG INHALER 4GM INH SCH ×2 (11:34→15:28)
[2021-02-22] MEDS: SYMBICORT 160/4.5MCG INHALER 6GM INH SCH ×2 (11:35→19:39)
[2021-02-22 14:00] VITALS: BP 92/57
[2021-02-22 15:17] VITALS: BP 125/76
[2021-02-22] MEDS: CALCIUM CARBONATE 500 MG CHEW U/D PO SCH (16:32)
[2021-02-22 20:00] VITALS: BP 101/59
[2021-02-22] MEDS: RAMELTEON 8 MG TAB (ROZEREM) PO SCH (20:15)
[2021-02-22] MEDS: SENNA 8.6 MG TAB (SENOKOT) PO SCH (20:15)
[2021-02-22] MEDS: **NOTE PATIENT COMMENT** MISC XX SCH (20:16)
[2021-02-22] MEDS: ATORVASTATIN 20 MG TAB PO SCH (20:16)
[2021-02-23 05:30] VITALS: BP 112/69
[2021-02-23 07:27] VITALS: BP 127/68
[2021-02-23] MEDS: LIDOCAINE 5% (LIDODERM) PATCH TD SCH (07:28)
[2021-02-23] MEDS: allopurinoL 300 MG TAB PO SCH (07:29)
[2021-02-23] MEDS: VITAMIN D 1,000 INTERNATIONAL UNITS TABLET PO SCH (07:29)
[2021-02-23] MEDS: SINEMET 25-100 MG TAB PO SCH ×3 (07:29→16:09)
[2021-02-23] MEDS: LACOSAMIDE 50 MG TAB (VIMPAT) PO SCH ×2 (07:29→20:24)
[2021-02-23] MEDS: FLUoxetine 20 MG CAP PO SCH (07:29)
[2021-02-23] MEDS: DOCUSATE SODIUM 100MG CAPSULE PO SCH ×2 (07:29→20:23)
[2021-02-23] MEDS: OMEPRAZOLE 20 MG CAP PO SCH (07:29)
[2021-02-23] MEDS: TAMSULOSIN 0.4 MG CAP PO SCH (07:29)
[2021-02-23] MEDS: ENALAPRIL MALEATE 10 MG TAB PO SCH (07:30)
[2021-02-23] MEDS: FUROSEMIDE 20 MG TAB PO SCH (07:30)
[2021-02-23] MEDS: REMEDY PHYTOPLEX Z-GUARD PASTE 113GM TUBE (FROM STOREROOM PRODUCT) TOP SCH ×3 (07:30→20:24)
[2021-02-23 08:01] LABS: INR 2.79; PROTHROMBIN TIME 30.1 SECONDS (12.5-14.3)
[2021-02-23 08:11] LABS: BLOOD UREA NITROGEN 19 MG/DL (7-18); CALCIUM LEVEL 8.4 MG/DL (8.8-10.2); CARBON DIOXIDE LEVEL 31 MEQ/L (21-32); CHLORIDE LEVEL 107 MEQ/L (98-107); CREATININE FOR GFR 0.98 MG/DL (0.70-1.30); GLOMERULAR FILTRATION RATE > 60.0 (>42); GLUCOSE, FASTING 92 MG/DL (70-100); POTASSIUM SERUM 4.5 MEQ/L (3.5-5.1); SODIUM LEVEL 140 MEQ/L (136-145)
[2021-02-23] MEDS: COMBIVENT RESPIMAT 100-20MCG INHALER 4GM INH SCH ×2 (11:20→14:50)
[2021-02-23] MEDS: SYMBICORT 160/4.5MCG INHALER 6GM INH SCH ×2 (11:20→20:36)
[2021-02-23 14:00] VITALS: BP 90/55
[2021-02-23] MEDS: WARFARIN SOD 3MG TAB PO SCH (16:09)
[2021-02-23] MEDS: CALCIUM CARBONATE 500 MG CHEW U/D PO SCH (17:38)
--- NOTE | 2021-02-23 18:35 | IPNPDOC ---
PM&R Progress Note DATE OF SERVICE: Feb 23, 2021 Teacher Physically Impaired Progress Note DATE OF ADMISSION: Feb 14, 2021 at 13:17 DATE OF SERVICE: 02/23/2021 CHIEF COMPLAINT: left intracranial hemorrhage , right sided weakness HISTORY OF PRESENT ILLNESS: This is a 76 year old right handed male with pmh HTN, HLD, KATHARINE on CPAP, left frontal IPH (2019), Parkinsons, aortic valve repair (2004) previously stable on Aspirin and Warfarin who was transferred to [facility] 01-26-21 with a large left frontal IPH and right sided weakness. He notes that he had been in the kitchen and fell, was found by his daughter who summoned paramedics, he has had a few prior falls related to balance instability from his Parkinsons and tremors. He hit his head and had a knot right occipitoparietal region. He was admitted to the neuro ICU, received vitamin K and FFP for his supra- therapeutic INR, and had serial CTs to rule out new worsening/new bleed and was ultimately safely transitioned back onto Coumadin. He had seizure activity with right head deviation and right sided extremity tremors with EEG positive for seizure activity. He was started on multiple AEDs and discharged stabilized solely on Vimpat. An incidental left clivus hypodensity was found on MRI which he was instructed to follow-up with neurosurgery. He developed aspiration pneu monia and a pseudomonas UTI for which he was treated with antibiotics. Most recent CT 02-10-21 showed, Resolving small parenchymal hemorrhage in the left superior frontal gyrus. He had mobility and ADL impairments, was placed on a dysphagia diet, and deemed medically appropriate for admission to ARU on 02-14-21. 02.19.2021 He is encouraged by his progress thus far , particularly having regained significant strength and coordination in the right upper and lower extremity. He notes his used doing very heavy work most of his life, also had 3 hernia repairs, and is applying that diligence to his rehabilitative program to regain as much function as possible. He had a bowel movement yesterday and no new problems. 02.20.2021 patient observed in therapy room noted to demonstrate good safety awareness needed time to self-correct ventilatory with the walker, absent forward and backwards gait, noted increased in facial tremors. However steady on his feet. He was somewhat out of breath upon completion of the task. However feeling encouraged, as he regains mobility skills. 30. making progress, better balance, foot placement in therapy. Tachy cardia noted after minimal exertion. 02.22.2021 Continues progress, improved endurance in therapies, good safety awareness, continues interest in possible use of crash helmet to protect head if falls again in future. Agrees need to focus, take his time during mobility activities. 02.23.2021 . Encouraged her every day. He is getting better and better, tremor seems more controlled, ambulation, and length and consistency of mobility activities is increasing REVIEW OF SYSTEMS: The following is a completed review of systems and has been reviewed. Review of systems otherwise unremarkable. PAIN: Patient self reports no pain EYES: No recent vision changes EARS, NOSE, & THROAT: no new problems CARDIOVASCULAR: Denies chest pain or palpitations PULMONARY: Denies shortness of breath GASTROINTESTINAL: Denies constipation/diarrhea GENITOURINARY: denies dysuria MUSCULOSKELETAL: right sided weakness NEUROLOGICAL: + tremor right side HEMATOLOGICAL: denies easy bruising SKIN: denies rash PSYCHIATRIC: Unremarkable All other review of systems found to be negative. MEDICATIONS: Please see below. PHYSICAL EXAMINATION: VITAL SIGNS: Please see below. GENERAL: Pleasant and cooperative. No acute distress. HEENT: PERRL. Extraocular movements intact. Clear conjunctiva. CARDIOVASCULAR: Regular rate and rhythm, click. LUNGS: Clear to auscultation bilaterally. No wheezes. No rhonchi ABDOMEN: Soft, nontender, mildly distended. Positive bowel sounds. NEUROLOGICAL: Alert and oriented times three. Cranial nerves II through XII grossly intact, kate oral tremors noted during exertion, abated while at rest. EXTREMITIES: no tremors on bilateral extension, approx. 4+/5 bilateral interossei. Right hand hypertrophied as compared to left. + trace bilat LE edema, negative Homans or calf tenderness LABORATORY DATA: Please see below. H/H low 10.9/33.1 down from 12.3/37.9 INR 3.2 on 02/22, 2.79 on 02.23 after dose held. IMAGING: Imaging documentation reviewed by record FUNCTIONAL STATUS: 02.23.2021 Pt. demonstrates improved strength and endurance this session; tolerates 20min on nu step without need for rest interval; at end of session noting LE fatigue and reduced safety with ambulation as a result; will benefit from continued work on safety awareness with onset of fatigue to maximize safety 7. Pt. continues to demonstrate progress with mobility; demonstrates Samantha ambulation over even surfaces this session. Continued to focus on dynamic gait activities and uneven surfaces; progressing difficulty of these tasks and will benefit from continued work to maximize safety and reduce risk of falls in various environments. Also continued to work on static and dynamic balance activities on uneven surface of foam; noting improved ability to initiate balance strategies with reduced need for therapist intervention to maintain balance with ball toss activities; will benefit from further emphasis on slowing down activities and focusing on maintenance of balance vs. the activity itself to improve safety awareness 02.20.2021 Patient discussed in Team conference by all departments. Observed ambulatory with FWW, needs cues for motor planning, side stepping, no LOB on turns. PT notes that patient is demonstrating improved mobility; requires CGA to ambulate over 200ft; noting tendency for forward lean with RW use that improves with cues to maintain safe distance from RW and raising height of RW. Worked extensively on dynamic gait activities with jorge a negotiation, sidestepping, backwards ambulation and tight turns; noting increased shuffling gait pattern with jorge a negotiation and tight turns that improves with repetition; also noting steppage gait when ambulating backwards with difficulty correcting. Will benefit from continued work on challenging gait and balance activities to maximize safety and reduce caregiver burden. ASSESSMENT: 76-year-old M with past medical history of left frontal IPH who presents status post new left frontal IPH with seizures now stabilizing and regaining overall function. PLAN: Case discussed at length with hospitalist team. Aware and monitoring upward trend of INR, needs adequate coverage due to valve replacement now slightly supratherapeutic. 1. 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 neuro- hx of left frontal IPH with new left frontal IPH in setting of supra- therapeutic INR with right sided melvin-paresis and seizure disorder, c/u vimpat will need neuro followup. Case management to explore concept of protective helmet. -f/u neurosurgery to monitor IPH and to monitor incidental finding of left clivus lesion - prozac will assist with motor recovery -Parkinsons disease c/u sinemet 3. cardiac- HTN c/u BP meds -hx aortic valve replacement on Coumadin goal 2-3 in setting of recent Intraparenchymal bleed may need downward adjustments, possible polypharm interaction - HLD c/u statin - possible CHF? noted to have bilat LE edema, will c/u lasix and monitor for clinical signs, daily weights 4. Resp- KATHARINE on CPAP, monitor for infection, s/p recent treatment for aspiration PNA 5-COPD c/u symbicort, will order comivent as well 6.DVT ppx on couamdin-INR bumped supratherapeutic, improving, hospitalist adjusting levels 7. GI ppx- prilosec 8. psych- Rozerem for insomnia, Seroquel prn agitation 9. Pain- Tylenol prn 10. Anemia-encourage dietary supplementation 11. Hypocalcemia- 8.3 hospitalist coordinating Allergies Coded Allergies: No Known Allergies (Verified Allergy, Unknown, 10/28/19) Vital Signs Vital Signs Date Time Temp Pulse Resp B/P (MAP) Pulse Ox O2 Delivery O2 Flow Rate FiO2 02/23/21 14:00 98.7 79 18 90/55 (67) 99 Room Air Laboratory Data CBC/BMP Laboratory Tests 02/23/21 07:16 Labs 24H Laboratory Tests 2 02/23/21 07:16: Prothrombin Time 30.1H, Prothromb Time International Ratio 2.79, Anion Gap 2L, Glomerular Filtration Rate > 60.0, Calcium Level 8.4L Current Medications Current Medications Current Medications Medications (Trade) Dose Ordered Sig/Eugenio Route PRN Reason Start Time Stop Time Status Last Admin Dose Admin Acetaminophen (Tylenol Tab) 650 mg Q4HP PRN PO fever/MILD PAIN (PS 1-4) 02/14/21 13:55 02/19/21 07:27 Albuterol/ Ipratropium (Combivent Respimat 100-20mcg) 1 puff BID@1200,1600 INH 02/14/21 16:00 02/23/21 14:50 Allopurinol (Zyloprim) 300 mg DAILY PO 02/15/21 09:00 02/23/21 07:29 Atorvastatin Calcium (Lipitor) 80 mg QHS PO 02/15/21 21:00 02/22/21 20:16 Bisacodyl (Dulcolax Suppository) 10 mg DAILYPRN PRN ME CONSTIPATION 02/14/21 13:55 Budesonide/ Formoterol Fumarate (Symbicort 160/ 4.5mcg) 2 puff RBID INH 02/14/21 20:00 02/23/21 11:20 Calcium Carbonate (Tums) 500 mg ACS PO 02/22/21 17:30 02/23/21 17:38 Carbidopa/Levodopa (Sinemet 25/100) 0.5 tab BID@1200,1600 PO 02/16/21 12:00 02/23/21 16:09 Carbidopa/Levodopa (Sinemet 25/100) 0.5 tab TID@0800,1200,1600 PO 02/15/21 08:00 02/16/21 09:30 DC 02/16/21 09:18 Carbidopa/Levodopa (Sinemet 25/100) 1 tab DAILY@0800 PO 02/17/21 08:00 02/23/21 07:29 Carbidopa/Levodopa (Sinemet 25/100) 1 tab TID@0800,1200,1600 PO 02/14/21 16:00 02/14/21 22:58 DC 02/14/21 16:03 Docusate Sodium (Colace) 100 mg BID PO 02/14/21 21:00 02/23/21 07:29 Enalapril Maleate (Vasotec) 10 mg DAILY PO 02/15/21 09:00 02/23/21 07:30 Fluoxetine HCl (PROzac) 20 mg DAILY PO 02/15/21 09:00 02/23/21 07:29 Furosemide (Lasix) 20 mg DAILY PO 02/15/21 09:00 02/23/21 07:30 Guaifenesin (Robitussin Tab) 400 mg TID PO 02/14/21 16:00 02/14/21 22:58 DC 02/14/21 20:30 Home Med (Med Rec Complete!) ASDIRECTED XX 02/14/21 14:35 02/14/21 14:37 DC Lacosamide (Vimpat) 200 mg BID PO 02/14/21 21:00 02/23/21 07:29 Lidocaine (Lidoderm Patch) 1 patch DAILY TD 02/15/21 09:00 02/23/21 07:28 Non-Formulary Medication ( See Comment Field Below ) REMOVE LIDODERM PATCH DAILY@21 XX 02/15/21 21:00 02/22/21 20:16 Omeprazole (PriLOSEC) 40 mg DAILY PO 02/15/21 09:00 02/23/21 07:29 Polyethylene Glycol (Miralax) 1 pkt DAILY PRN PO CONSTIPATION 02/14/21 13:55 Potassium Chloride (Micro-K Extencaps) 10 meq DAILY PO 02/15/21 09:00 02/16/21 08:00 DC 02/15/21 08:13 Quetiapine Fumarate (SEROquel) 25 mg QHS PRN PO agitation 02/14/21 13:55 Ramelteon (Rozerem) 8 mg QHS PO 02/14/21 21:00 02/22/21 20:15 Senna (Senokot) 1 tab QHS PO 02/14/21 21:00 02/22/21 20:15 Tamsulosin HCl (Flomax) 0.4 mg DAILY PO 02/15/21 09:00 02/23/21 07:29 Vitamin D (Vitamin D) 1,000 units DAILY PO 02/15/21 09:00 02/23/21 07:29 Warfarin Sodium (Coumadin) 5 mg DAILY@17 PO 02/14/21 17:00 02/15/21 10:43 DC 02/14/21 16:03 Warfarin Sodium (Coumadin) 6 mg DAILY@17 PO 02/23/21 17:00 02/23/21 16:09 Warfarin Sodium (Coumadin) 7.5 mg DAILY@17 PO 02/15/21 17:00 02/22/21 15:14 DC 02/21/21 16:48 PHYLLIS PHILIPPE MD Feb 23, 2021 18:35
[2021-02-23] MEDS: SENNA 8.6 MG TAB (SENOKOT) PO SCH (20:23)
[2021-02-23] MEDS: ATORVASTATIN 20 MG TAB PO SCH (20:24)
[2021-02-23] MEDS: RAMELTEON 8 MG TAB (ROZEREM) PO SCH (20:24)
[2021-02-23] MEDS: **NOTE PATIENT COMMENT** MISC XX SCH (20:25)
[2021-02-23 22:00] VITALS: BP 93/51
[2021-02-24 06:00] VITALS: BP 106/75
[2021-02-24 06:43] LABS: INR 2.7; PROTHROMBIN TIME 29.3 SECONDS (12.5-14.3)
[2021-02-24] MEDS: SYMBICORT 160/4.5MCG INHALER 6GM INH SCH ×2 (07:21→20:45)
[2021-02-24] MEDS: REMEDY PHYTOPLEX Z-GUARD PASTE 113GM TUBE (FROM STOREROOM PRODUCT) TOP SCH ×3 (09:00→20:15)
[2021-02-24 09:02] VITALS: BP 106/75
[2021-02-24] MEDS: FUROSEMIDE 20 MG TAB PO SCH (09:02)
[2021-02-24] MEDS: TAMSULOSIN 0.4 MG CAP PO SCH (09:02)
[2021-02-24] MEDS: allopurinoL 300 MG TAB PO SCH (09:02)
[2021-02-24] MEDS: LACOSAMIDE 50 MG TAB (VIMPAT) PO SCH ×2 (09:02→20:15)
[2021-02-24] MEDS: ENALAPRIL MALEATE 10 MG TAB PO SCH (09:02)
[2021-02-24] MEDS: DOCUSATE SODIUM 100MG CAPSULE PO SCH ×2 (09:03→20:14)
[2021-02-24] MEDS: VITAMIN D 1,000 INTERNATIONAL UNITS TABLET PO SCH (09:03)
[2021-02-24] MEDS: SINEMET 25-100 MG TAB PO SCH ×3 (09:03→17:13)
[2021-02-24] MEDS: OMEPRAZOLE 20 MG CAP PO SCH (09:03)
[2021-02-24] MEDS: FLUoxetine 20 MG CAP PO SCH (09:03)
[2021-02-24] MEDS: LIDOCAINE 5% (LIDODERM) PATCH TD SCH (09:04)
[2021-02-24] MEDS: COMBIVENT RESPIMAT 100-20MCG INHALER 4GM INH SCH ×2 (11:56→15:27)
[2021-02-24 14:00] VITALS: BP 112/64
[2021-02-24] MEDS: WARFARIN SOD 3MG TAB PO SCH (17:13)
[2021-02-24] MEDS: CALCIUM CARBONATE 500 MG CHEW U/D PO SCH (17:13)
[2021-02-24] MEDS ORDERED: TORSEMIDE 10 MG TABLET PO ONE (18:30)
[2021-02-24 20:00] VITALS: BP 92/62
[2021-02-24] MEDS: RAMELTEON 8 MG TAB (ROZEREM) PO SCH (20:14)
[2021-02-24] MEDS: SENNA 8.6 MG TAB (SENOKOT) PO SCH (20:14)
[2021-02-24] MEDS: ATORVASTATIN 20 MG TAB PO SCH (20:15)
[2021-02-24] MEDS: **NOTE PATIENT COMMENT** MISC XX SCH (20:15)
[2021-02-25 05:07] VITALS: BP 116/58
[2021-02-25] MEDS: SYMBICORT 160/4.5MCG INHALER 6GM INH SCH ×2 (07:31→20:14)
[2021-02-25 07:38] LABS: INR 2.48; PROTHROMBIN TIME 27.4 SECONDS (12.5-14.3)
[2021-02-25] MEDS: VITAMIN D 1,000 INTERNATIONAL UNITS TABLET PO SCH (08:42)
[2021-02-25] MEDS: DOCUSATE SODIUM 100MG CAPSULE PO SCH ×2 (08:42→20:44)
[2021-02-25] MEDS: FLUoxetine 20 MG CAP PO SCH (08:42)
[2021-02-25] MEDS: allopurinoL 300 MG TAB PO SCH (08:42)
[2021-02-25] MEDS: LACOSAMIDE 50 MG TAB (VIMPAT) PO SCH ×2 (08:42→20:44)
[2021-02-25] MEDS: TAMSULOSIN 0.4 MG CAP PO SCH (08:42)
[2021-02-25] MEDS: SINEMET 25-100 MG TAB PO SCH ×3 (08:42→16:55)
[2021-02-25] MEDS: OMEPRAZOLE 20 MG CAP PO SCH (08:42)
[2021-02-25] MEDS: LIDOCAINE 5% (LIDODERM) PATCH TD SCH (08:43)
[2021-02-25] MEDS: REMEDY PHYTOPLEX Z-GUARD PASTE 113GM TUBE (FROM STOREROOM PRODUCT) TOP SCH ×3 (08:44→20:44)
[2021-02-25] MEDS ORDERED: TORSEMIDE 20 MG TAB PO SCH (09:00)
[2021-02-25] MEDS: COMBIVENT RESPIMAT 100-20MCG INHALER 4GM INH SCH ×2 (12:33→15:28)
[2021-02-25 14:00] VITALS: BP 110/55
[2021-02-25] MEDS: WARFARIN SOD 3MG TAB PO SCH (16:55)
[2021-02-25] MEDS: CALCIUM CARBONATE 500 MG CHEW U/D PO SCH (16:55)
[2021-02-25 20:00] VITALS: BP 113/72
[2021-02-25] MEDS: RAMELTEON 8 MG TAB (ROZEREM) PO SCH (20:43)
[2021-02-25] MEDS: ATORVASTATIN 20 MG TAB PO SCH (20:43)
[2021-02-25] MEDS: SENNA 8.6 MG TAB (SENOKOT) PO SCH (20:43)
[2021-02-25] MEDS: **NOTE PATIENT COMMENT** MISC XX SCH (20:44)
[2021-02-26 06:00] VITALS: BP 125/69
[2021-02-26 07:28] LABS: BASO % 0.5 % (0.0-1.0); EOS # 0.2 10^3/uL (0.0-0.5); EOS % 2.5 % (0.0-3.0); HEMATOCRIT 34.9 % (42.0-52.0); HEMOGLOBIN 11.5 g/dl (13.5-17.5); LYMPH % 16.3 % (24.0-44.0); MEAN CORPUSCULAR VOLUME 97.2 fl (80.0-96.0); MONO # 0.5 10^3/uL (0.0-0.8); MONO % 7.8 % (2.0-8.0); NEUTROPHILS # 4.7 10^3/uL (1.5-8.5); NEUTROPHILS % 72.6 % (36.0-66.0); PLATELET COUNT, AUTOMATED 170 10^3/uL (150-450); RED BLOOD COUNT 3.59 10^6/uL (4.30-6.10); WHITE BLOOD COUNT 6.4 10^3/uL (4.0-10.0)
[2021-02-26 07:37] LABS: BLOOD UREA NITROGEN 23 MG/DL (7-18); CALCIUM LEVEL 8.8 MG/DL (8.8-10.2); CARBON DIOXIDE LEVEL 31 MEQ/L (21-32); CHLORIDE LEVEL 105 MEQ/L (98-107); CREATININE FOR GFR 1.09 MG/DL (0.70-1.30); GLOMERULAR FILTRATION RATE > 60.0 (>42); GLUCOSE, FASTING 95 MG/DL (70-100); POTASSIUM SERUM 4.6 MEQ/L (3.5-5.1); SODIUM LEVEL 140 MEQ/L (136-145)
[2021-02-26 07:54] LABS: INR 2.56; PROTHROMBIN TIME 28.1 SECONDS (12.5-14.3)
[2021-02-26] MEDS: SYMBICORT 160/4.5MCG INHALER 6GM INH SCH ×2 (08:00→19:59)
[2021-02-26] MEDS: REMEDY PHYTOPLEX Z-GUARD PASTE 113GM TUBE (FROM STOREROOM PRODUCT) TOP SCH ×3 (09:00→20:15)
[2021-02-26] MEDS: DOCUSATE SODIUM 100MG CAPSULE PO SCH ×2 (09:53→20:15)
[2021-02-26] MEDS: TAMSULOSIN 0.4 MG CAP PO SCH (09:53)
[2021-02-26] MEDS: allopurinoL 300 MG TAB PO SCH (09:53)
[2021-02-26] MEDS: OMEPRAZOLE 20 MG CAP PO SCH (09:53)
[2021-02-26] MEDS: LIDOCAINE 5% (LIDODERM) PATCH TD SCH (09:53)
[2021-02-26] MEDS: TORSEMIDE 20 MG TAB PO SCH (09:53)
[2021-02-26] MEDS: VITAMIN D 1,000 INTERNATIONAL UNITS TABLET PO SCH (09:54)
[2021-02-26] MEDS: LACOSAMIDE 50 MG TAB (VIMPAT) PO SCH ×2 (09:54→20:14)
[2021-02-26] MEDS: FLUoxetine 20 MG CAP PO SCH (09:54)
[2021-02-26] MEDS: SINEMET 25-100 MG TAB PO SCH ×3 (09:56→17:32)
[2021-02-26] MEDS: COMBIVENT RESPIMAT 100-20MCG INHALER 4GM INH SCH ×2 (12:00→15:30)
--- NOTE | 2021-02-26 12:25 | IPNPDOC ---
Text Note Date of Service The patient was seen on 02/26/21. NOTE No any acute events overnight. Participating in therapy Physical Exam: GENERAL APPEARANCE: NAD HEENT: no scleral icterus, no JVD, EOMI CARDIOVASCULAR: S1S2 LUNGS: CTA ABDOMEN: soft & not tender w palpitation MUSCULOSKELETAL: no cyanosis, +1 nonpitting swelling INTEGUMENT: no generalized pallor NEUROLOGICAL: cranial nerve function from 2-12 intact intact, follows commands, speech not dysarthric, Assessment and plan Patient is 76 years old male with past history of HTN, HLD, KATHARINE on CPAP, left frontal IPH (2019), parkinsons, aortic valve repair (2004) on Aspirin and [facility] large left frontal IPH and right sided weakness 1) History of [facility] bleed: [facility] a large left frontal IPH and right sided weakness, Follow-up with neurologist in the outpatient settings. Continue PT/OT. He has a hx of aortic valve replacemnt , so needs to be on AC but with his recent ICH , the INR gaol has been 2-3 as per neurosx. 2) Parkinson diseases: Continue home meds 3) Hypertension. Blood pressure under control. Continue home meds 4) hx aortic valve replacement on Coumadin , Continue Coumadin decreased to 6mg as INR was above 3 . Continue monitoring. 5) Hyperlipidemia: Continue statin 6) COPD/obstructive sleep apnea: Not in acute exacerbation, Continue home inhalers, Continue CPAP Disposition as per primary. VS,Fishbone, I+O VS, Fishbone, I+O Laboratory Tests 02/26/21 06:43 Vital Signs Date Time Temp Pulse Resp B/P (MAP) Pulse Ox O2 Delivery O2 Flow Rate FiO2 02/26/21 06:00 98.3 53 20 125/69 (87) 96 Room Air I&O- Last 24 Hours up to 6 AM 02/26/21 05:59 Intake Total 1500 ml Output Total 800 ml Balance 700 ml CHAYO BRITO MD Feb 26, 2021 12:25
[2021-02-26 14:00] VITALS: BP 124/61
[2021-02-26] MEDS: CALCIUM CARBONATE 500 MG CHEW U/D PO SCH (17:34)
[2021-02-26] MEDS: WARFARIN SOD 3MG TAB PO SCH (17:34)
[2021-02-26] MEDS: RAMELTEON 8 MG TAB (ROZEREM) PO SCH (20:14)
[2021-02-26] MEDS: ATORVASTATIN 20 MG TAB PO SCH (20:14)
[2021-02-26] MEDS: SENNA 8.6 MG TAB (SENOKOT) PO SCH (20:15)
[2021-02-26] MEDS: **NOTE PATIENT COMMENT** MISC XX SCH (20:16)
[2021-02-26 22:10] VITALS: BP 121/69
[2021-02-27 06:12] VITALS: BP 115/74
[2021-02-27] MEDS: SYMBICORT 160/4.5MCG INHALER 6GM INH SCH (08:01)
[2021-02-27] MEDS: TORSEMIDE 20 MG TAB PO SCH (09:00)
[2021-02-27] MEDS: REMEDY PHYTOPLEX Z-GUARD PASTE 113GM TUBE (FROM STOREROOM PRODUCT) TOP SCH (09:00)
[2021-02-27] MEDS: TAMSULOSIN 0.4 MG CAP PO SCH (09:00)
[2021-02-27] MEDS: DOCUSATE SODIUM 100MG CAPSULE PO SCH (09:48)
[2021-02-27] MEDS: VITAMIN D 1,000 INTERNATIONAL UNITS TABLET PO SCH (09:49)
[2021-02-27] MEDS: OMEPRAZOLE 20 MG CAP PO SCH (09:49)
[2021-02-27] MEDS: FLUoxetine 20 MG CAP PO SCH (09:49)
[2021-02-27] MEDS: allopurinoL 300 MG TAB PO SCH (09:49)
[2021-02-27] MEDS: SINEMET 25-100 MG TAB PO SCH ×2 (09:49→12:25)
[2021-02-27] MEDS: LACOSAMIDE 50 MG TAB (VIMPAT) PO SCH (09:49)
[2021-02-27] MEDS: ACETAMINOPHEN TAB 650MG DOSE (2X325MG) PO PRN (09:50)
[2021-02-27] MEDS: LIDOCAINE 5% (LIDODERM) PATCH TD SCH (09:50)
[2021-02-27] MEDS ORDERED: COMBAER6 INH (09:55)
[2021-02-27] MEDS ORDERED: RAME8TAB2 PO (09:55)
[2021-02-27] MEDS ORDERED: CALC200T15 PO (09:55)
[2021-02-27] MEDS ORDERED: JANT3TAB PO (09:55)
[2021-02-27] MEDS ORDERED: TORS20TA2 PO (09:55)
[2021-02-27] MEDS: COMBIVENT RESPIMAT 100-20MCG INHALER 4GM INH SCH (11:26)
--- NOTE | 2021-02-28 16:31 | DS.PDOC ---
PM&R Discharge Summary Special Education Instructor Discharge Note DATE OF ADMISSION: Feb 14, 2021 at 13:17 DATE OF DISCHARGE: Feb 27, 2021 at 13:15 ADMISSION DIAGNOSES Hypertension. Left frontal IPH 2019, repeat 01/26/2021 Right hemiparesis. Incidental left clivus hypodensity noted on MRI. Aspiration pneumonia. Pseudomonas UTI HLD. KATHARINE. Parkinsons Seizure disorder. Status post aortic valve repair. Hypocalcemia. Anemia DISCHARGE DIAGNOSES Hypertension. Left frontal IPH 2019, repeat 01/26/2021 Right hemiparesis. Incidental left clivus hypodensity noted on MRI. Aspiration pneumonia. Pseudomonas UTI HLD. KATHARINE. Parkinsons Seizure disorder. Status post aortic valve repair. Hypocalcemia. Anemia CHIEF COMPLAINT: left intracranial hemorrhage , right sided weakness HOSPITAL COURSE This is a 76 year old right handed male with pmh HTN, HLD, KATHARINE on CPAP, left frontal IPH (2019), Parkinsons, aortic valve repair (2004) previously stable on Aspirin and Warfarin who was transferred to [facility] 01-26-21 with a large left frontal IPH and right sided weakness. He notes that he had been in the kitchen and fell, was found by his daughter who summoned paramedics, he has had a few prior falls related to balance instability from his Parkinsons and tremors. He hit his head and had a knot right occipitoparietal region. He was admitted to the neuro ICU, received vitamin K and FFP for his supra- therapeutic INR, and had serial CTs to rule out new worsening/new bleed and was ultimately safely transitioned back onto Coumadin. He had seizure activity with right head deviation and right sided extremity tremors with EEG positive for seizure activity. He was started on multiple AEDs and discharged stabilized solely on Vimpat. An incidental left clivus hypodensity was found on MRI which he was instructed to follow-up with neurosurgery. He developed aspiration pneumonia and a pseudomonas UTI for which he was treated with antibiotics. Most recent CT 02-10-21 showed, Resolving small parenchymal hemorrhage in the left superior frontal gyrus. He had mobility and ADL impairments, was placed on a dysphagia diet, and deemed medically appropriate for admission to ARU on 02-14-21. 02.19.2021 He is encouraged by his progress thus far , particularly having regained significant strength and coordination in the right upper and lower extremity. He notes his used doing very heavy work most of his life, also had 3 hernia repairs, and is applying that diligence to his rehabilitative program to regain as much function as possible. He had a bowel movement yesterday and no new problems. 02.20.2021 patient observed in therapy room noted to demonstrate good safety awareness needed time to self-correct ventilatory with the walker, absent forward and backwards gait, noted increased in facial tremors. However steady on his feet. He was somewhat out of breath upon completion of the task. However feeling encouraged, as he regains mobility skills. 02.21.21 making progress, better balance, foot placement in therapy. Tachy cardia noted after minimal exertion. 02.22.2021 Continues progress, improved endurance in therapies, good safety awareness, continues interest in possible use of crash helmet to protect head if falls again in future. Agrees need to focus, take his time during mobility activities. 02.27.2021 Patient did well in all therapies medically stable tremors under better control has learned compensatory strategies and is ready for discharge home. He looks forward to obtaining a crash helmet protect him for unanticipated falls. REVIEW OF SYSTEMS: The following is a completed review of systems and has been reviewed. Review of systems otherwise unremarkable. PAIN: Patient self reports no pain EYES: No recent vision changes EARS, NOSE, & THROAT: no new problems CARDIOVASCULAR: Denies chest pain or palpitations PULMONARY: Denies shortness of breath GASTROINTESTINAL: Denies constipation/diarrhea GENITOURINARY: denies dysuria MUSCULOSKELETAL: right sided weakness NEUROLOGICAL: + tremor right side HEMATOLOGICAL: denies easy bruising SKIN: denies rash PSYCHIATRIC: Unremarkable All other review of systems found to be negative. MEDICATIONS: Please see below. Calcium carbonate 200 mg by mouth daily Combivent. Ramelteon 8 mg at bedtime when necessary Torsemide 20 mg by mouth daily Coumadin 6 mg by mouth daily Allopurinol 300 mg by mouth daily Atorvastatin 80 mg by mouth daily Symbicort 2 puffs twice a day when necessary Carbidopalevodopa 35085 one by mouth 3 times a day Vitamin D3 1000 units by mouth daily Colace 100 mg twice a day when necessary Fluoxetine 20 mg by mouth daily Vimpat to which milligrams by mouth twice a day Lidocaine 5% patch applied daily to low back. Tamsulosin 0.4 mg by mouth daily Trazodone 50 mg by mouth daily at bedtime Patient is to be evaluated by primary for decision on resumption of Lasix 20 mg by mouth daily, versus continuation of torsemide 20 mg by mouth daily PHYSICAL EXAMINATION: VITAL SIGNS: Please see below. GENERAL: Pleasant and cooperative. No acute distress. HEENT: PERRL. Extraocular movements intact. Clear conjunctiva. Small nontender swelling right occipitoparietal region. No cervical tenderness. CARDIOVASCULAR: Regular rate and rhythm, click. LUNGS: Clear to auscultation bilaterally. No wheezes. No rhonchi ABDOMEN: Soft, nontender, nondistended. Positive bowel sounds. NEUROLOGICAL: Alert and oriented times three. Cranial nerves II through XII grossly intact, kate oral tremors noted during exertion, nita while at rest. EXTREMITIES: no tremors on bilateral extension, approx. 4+/5 bilateral interossei. Right hand hypertrophied as compared to left. +trace bilat LE edema, negative Homans or calf tenderness LABORATORY DATA: Please see below. H/H 11.5 and 34.9 INR 2.56 improved on 6 mg Coumadin daily IMAGING:Imaging documentation reviewed by record FUNCTIONAL STATUS: 02.27.2021 Pt. continues to demonstrate Samantha mobility with RW; continued work with uneven surface training and continuing to note improvement in safety. Provided Pt. with HEP and practice; educated on completing with RW for all exercises and with present to improve safety;Pt. verbalizes agreement. Patient mod I for self-care and demonstrating improved safety awareness overall. 02.22.2021 Pt. continues to demonstrate progress with mobility; demonstrates Samantha ambulation over even surfaces this session. Continued to focus on dynamic gait activities and uneven surfaces; progressing difficulty of these tasks and will benefit from continued work to maximize safety and reduce risk of falls in various environments. Also continued to work on static and dynamic balance activities on uneven surface of foam; noting improved ability to initiate balance strategies with reduced need for therapist intervention to maintain balance with ball toss activities; will benefit from further emphasis on slowing down activities and focusing on maintenance of balance vs. the activity itself to improve safety awareness 02.20.2021 Patient discussed in Team conference by all departments. Observed ambulatory with FWW, needs cues for motor planning, side stepping, no LOB on turns. PT notes that patient is demonstrating improved mobility; requires CGA to ambulate over 200ft; noting tendency for forward lean with RW use that improves with cues to maintain safe distance from RW and raising height of RW. Worked extensively on dynamic gait activities with jorge a negotiation, sidestepping, backwards ambulation and tight turns; noting increased shuffling gait pattern with jorge a negotiation and tight turns that improves with repetition; also noting steppage gait when ambulating backwards with difficulty correcting. Will benefit from continued work on challenging gait and balance activities to maximize safety and reduce caregiver burden. DISCHARGE DISPOSITION: Home with follow-up with primary care provider, neurosurgery, neurology TIME SPENT: Chart Review, examination and documentation 60 minutes. This document is generated using speech recognition software which may result in grammatical, typographical and individual word errors. Addendum Spoke with Kathrin the home health nurse after discharge, , regarding medication reconciliation challenges and spoke with the pharmacist at [facility] [phone]. Apparently patient previously had been prescribed Keppra. However, had not been taking it. We continued the Vimpat as he was on stable dosing and is encouraged follow-up with the neurologist for further refills and decision regarding continuing that or returning to the Keppra. We also continued the carbidopa levodopa 25/100 lidocaine patch and trazodone. Vital Signs/I&O I&O- Last 24 Hours up to 6 AM 02/28/21 06:00 Intake Total 540 ml Balance 540 ml Medications Medications Current Medications Medications (Trade) Dose Ordered Sig/Eugenio Route PRN Reason Start Time Stop Time Status Last Admin Dose Admin Acetaminophen (Tylenol Tab) 650 mg Q4HP PRN PO fever/MILD PAIN (PS 1-4) 02/14/21 13:55 02/27/21 15:06 DC 02/27/21 09:50 Albuterol/ Ipratropium (Combivent Respimat 100-20mcg) 1 puff BID@1200,1600 INH 02/14/21 16:00 02/27/21 15:06 DC 02/26/21 15:30 Allopurinol (Zyloprim) 300 mg DAILY PO 02/15/21 09:00 02/27/21 15:06 DC 02/27/21 09:49 Atorvastatin Calcium (Lipitor) 80 mg QHS PO 02/15/21 21:00 02/27/21 15:06 DC 02/26/21 20:14 Bisacodyl (Dulcolax Suppository) 10 mg DAILYPRN PRN [place] CONSTIPATION 02/14/21 13:55 02/27/21 15:06 DC Budesonide/ Formoterol Fumarate (Symbicort 160/ 4.5mcg) 2 puff RBID INH 02/14/21 20:00 02/27/21 15:06 DC 02/27/21 08:01 Calcium Carbonate (Tums) 500 mg ACS PO 02/22/21 17:30 02/27/21 15:06 DC 02/26/21 17:34 Carbidopa/Levodopa (Sinemet 25/100) 0.5 tab BID@1200,1600 PO 02/16/21 12:00 02/27/21 15:06 DC 02/27/21 12:25 Carbidopa/Levodopa (Sinemet 25/100) 0.5 tab TID@0800,1200,1600 PO 02/15/21 08:00 02/16/21 09:30 DC 02/16/21 09:18 Carbidopa/Levodopa (Sinemet 25/100) 1 tab DAILY@0800 PO 02/17/21 08:00 02/27/21 15:06 DC 02/27/21 09:49 Carbidopa/Levodopa (Sinemet 25/100) 1 tab TID@0800,1200,1600 PO 02/14/21 16:00 02/14/21 22:58 DC 02/14/21 16:03 Docusate Sodium (Colace) 100 mg BID PO 02/14/21 21:00 02/27/21 15:06 DC 02/27/21 09:48 Enalapril Maleate (Vasotec) 10 mg DAILY PO 02/15/21 09:00 02/24/21 18:19 DC 02/24/21 09:02 Fluoxetine HCl (PROzac) 20 mg DAILY PO 02/15/21 09:00 02/27/21 15:06 DC 02/27/21 09:49 Furosemide (Lasix) 20 mg DAILY PO 02/15/21 09:00 02/24/21 18:21 DC 02/24/21 09:02 Guaifenesin (Robitussin Tab) 400 mg TID PO 02/14/21 16:00 02/14/21 22:58 DC 02/14/21 20:30 Home Med (Med Rec Complete!) ASDIRECTED XX 02/14/21 14:35 02/14/21 14:37 DC Lacosamide (Vimpat) 200 mg BID PO 02/14/21 21:00 02/27/21 15:06 DC 02/27/21 09:49 Lidocaine (Lidoderm Patch) 1 patch DAILY TD 02/15/21 09:00 02/27/21 15:06 DC 02/27/21 09:50 Non-Formulary Medication ( See Comment Field Below ) REMOVE LIDODERM PATCH DAILY@ XX 02/15/21 21:00 02/27/21 15:06 DC 02/26/21 20:16 Omeprazole (PriLOSEC) 40 mg DAILY PO 02/15/21 09:00 02/27/21 15:06 DC 02/27/21 09:49 Polyethylene Glycol (Miralax) 1 pkt DAILY PRN PO CONSTIPATION 02/14/21 13:55 02/27/21 15:06 DC 02/27/21 09:48 Potassium Chloride (Micro-K Extencaps) 10 meq DAILY PO 02/15/21 09:00 02/16/21 08:00 DC 02/15/21 08:13 Quetiapine Fumarate (SEROquel) 25 mg QHS PRN PO agitation 02/14/21 13:55 02/27/21 15:06 DC Ramelteon (Rozerem) 8 mg QHS PO 02/14/21 21:00 02/27/21 15:06 DC 02/26/21 20:14 Senna (Senokot) 1 tab QHS PO 02/14/21 21:00 02/27/21 15:06 DC 02/26/21 20:15 Tamsulosin HCl (Flomax) 0.4 mg DAILY PO 02/15/21 09:00 02/27/21 15:06 DC 02/26/21 09:53 Torsemide (Demadex) 20 mg BID@ PO 02/25/21 09:00 02/25/21 13:40 DC 02/25/21 08:42 Torsemide (Demadex) 20 mg DAILY PO 02/26/21 09:00 02/27/21 15:06 DC 02/26/21 09:53 Vitamin D (Vitamin D) 1,000 units DAILY PO 02/15/21 09:00 02/27/21 15:06 DC 02/27/21 09:49 Warfarin Sodium (Coumadin) 5 mg DAILY@17 PO 02/14/21 17:00 02/15/21 10:43 DC 02/14/21 16:03 Warfarin Sodium (Coumadin) 6 mg DAILY@17 PO 02/23/21 17:00 02/27/21 15:06 DC 02/26/21 17:34 Warfarin Sodium (Coumadin) 7.5 mg DAILY@17 PO 02/15/21 17:00 02/22/21 15:14 DC 02/21/21 16:48 Scheduled Allopurinol (Zyloprim) 300 Mg Tablet, 300 MG PO DAILY, (Reported) Atorvastatin Calcium (Atorvastatin Calcium) 80 Mg Tablet, 80 MG PO DAILY, (Reported) Budesonide/Formoterol (Symbicort 160-4.5 Mcg Inhaler) 6 Gm Hfa.aer.ad, 2 PUFF INH BID, (Reported) Calcium Carbonate (Calcium Carbonate) 200 Mg Tab.chew, 500 MG PO ACS Carbidopa/Levodopa (Carbidopa-Levodopa 25-100 Tab) 1 Each Tablet, 1 TAB PO TID, (Reported) Cholecalciferol (Vitamin D3) (Vitamin D3) 1,000 Unit Tablet, 1,000 UNITS PO DAILY, (Reported) Docusate Sodium (Stool Softener) 100 Mg Capsule, 100 MG PO BID, (Reported) Fluoxetine Hcl (Fluoxetine HCl) 20 Mg Capsule, 20 MG PO DAILY, (Reported) Ipratropium/Albuterol Sulfate (Combivent Respimat 20-100 Mcg) 4 Gm Mist.inhal, 1 PUFF INH BID@1200,1600 Lacosamide (Vimpat) 200 Mg Tablet, 200 MG PO BID, (Reported) Lidocaine (Lidocaine) 5% Adh..patch, 1 PATCH TOP DAILY, (Reported) Melatonin (Melatonin) 10 Mg Tablet, 10 MG PO QHS, (Reported) Polyethylene Glycol 3350 (Miralax) 119 Gm Powder, 17 GM PO DAILY, (Reported) dilute in 8 ounces of water or juice Ramelteon (Ramelteon) 8 Mg Tablet, 8 MG PO QHS Sennosides (Senna Lax) 8.6 Mg Tablet, 2 TAB PO QHS, (Reported) Tamsulosin HCl (Flomax) 0.4 Mg Capsule, 0.4 MG PO DAILY, (Reported) Torsemide (Torsemide) 20 Mg Tablet, 20 MG PO DAILY Trazodone HCl (Trazodone HCl) 50 Mg Tablet, 50 MG PO QHS, (Reported) Warfarin Sodium (Jantoven) 3 Mg Tablet, 6 MG PO DAILY@17 Allergies Coded Allergies: No Known Allergies (Verified Allergy, Unknown, 10/28/19) PHYLLIS PHILIPPE MD Feb 28, 2021 16:31
== END 2021-02-27 13:15 | disposition home health service (06) | DRG 57 ==
LOC: M PM&R 13:17
PROVIDERS: ADMIT Physical Medicine & Rehabilitation; ATTEND Physical Medicine & Rehabilitation
DX: I69.151 Hemiplegia and hemiparesis following nontraumatic intracerebral hemorrhage affecting right dominant side (principal); I69.191 Dysphagia following nontraumatic intracerebral hemorrhage; R13.10 Dysphagia, unspecified; I69.198 Other sequelae of nontraumatic intracerebral hemorrhage; G40.909 Epilepsy, unspecified, not intractable, without status epilepticus; I10 Essential (primary) hypertension; G47.33 Obstructive sleep apnea (adult) (pediatric); E78.5 Hyperlipidemia, unspecified; J44.9 Chronic obstructive pulmonary disease, unspecified; G47.00 Insomnia, unspecified; G20 Parkinson's disease; R25.1 Tremor, unspecified; Z74.09 Other reduced mobility; Z74.1 Need for assistance with personal care; Z95.2 Presence of prosthetic heart valve; Z79.01 Long term (current) use of anticoagulants; Z79.899 Other long term (current) drug therapy

== ENCOUNTER 2021-05-07 13:10 | Inpatient (IN) | payer MEDICARE, BC ==
[~2021-05-07] VITALS: Ht 175.3 cm; Wt 98.7 kg
[~2021-05-07 13:10] MED LIST changes: +CALC200T15 PO; +CARB25TA9 PO; +COMBAER6 INH; +ENAL-36 PO; +JANT3TAB PO; +LIDO5TD TOP; +MIRA3350 PO; +MM S100C PO; +POTA1TAB14 PO; +QUET1TAB17 PO; +RA M10TA PO; +RAME8TAB2 PO; +SENN-111 PO; +SYMB16INH INH; +TORS20TA2 PO; +TRAZ-186 PO; +VIMP200T PO; +WARF-18 PO
[2021-05-07] MEDS ORDERED: MIRALAX *UNIT DOSE* 17GM PACKET PO PRN (15:40)
--- NOTE | 2021-05-07 16:09 | HPEPDOC ---
Buckle Coverer Note DATE OF ADMISSION: 05-07-21 DATE OF SERVICE: 05-08-21 TIME OF ADMISSION: Please refer to physician's admission order. SOURCE OF ADMISSION INFORMATION: patient and [facility] records CHIEF COMPLAINT: seizures with encephalopathy HISTORY OF PRESENT ILLNESS: 76M pmh ICH January 2021 and 2019, HTN, HLD, mechanical aortic valve on warfarin, parkinsons, KATHARINE on CPAP, CKD who presented to [facility] 04-20-21 from an outside hospital where CTH showed a new small left frontoparietal bleed bleed in the region of a prior ICH for which he received [facility] with worsening tremors and dysarthria. CTA showed, Interval evolution of left frontal intraparenchymal parenchymal hematoma, No further acute infarct or hemorrhage and ultimately he was diagnosed with status epilepticus secondary to left frontoparietal hypodensity. He had ongoing encephalopathy due to ongoing seizures for which he was ultimately placed on Keppra and Vimpat. For his low arousal he was started on Provigil. He was intubated for respiratory failure and extubated 05/02/21 with notable oropharyngeal dysphagia. He had mobility and ADL impairments well below his prior level of function and deemed medically appropriate for discharge to ARU on 05-08-12. REVIEW OF SYSTEMS: The following is a completed review of systems and has been reviewed. Review of systems otherwise unremarkable. PAIN: Patient self reports no pain EYES: No recent vision changes EARS, NOSE, & THROAT: +dysphagia CARDIOVASCULAR: Denies chest pain or palpitations PULMONARY: +cough GASTROINTESTINAL: Denies constipation/diarrhea GENITOURINARY: +amato MUSCULOSKELETAL: generalized weakness NEUROLOGICAL:+ encephalopathic PSYCHIATRIC: lethargic, but able to rouse All other review of systems found to be negative. PAST MEDICAL HISTORY: As per HPI PAST SURGICAL HISTORY: As per HPI ALLERGIES: Please see below. MEDICATIONS: Please see below. FAMILY HISTORY: Cardiac, DM, COPD SOCIAL HISTORY: Former smoker, former EOTH, no illicit drugs DIET: puree and nectar PHYSICAL EXAMINATION: VITAL SIGNS: Please see below. GENERAL: Pleasant and cooperative. No acute distress. lethargic, but able to rouse HEENT: PERRL. Extraocular movements intact. Clear conjunctiva CARDIOVASCULAR: Regular rate and rhythm. No murmurs, rubs, or gallops LUNGS: Clear to auscultation bilaterally. No wheezes. No rhonchi, +cough ABDOMEN: Soft, nontender, nondistended. Positive bowel sounds. Normal active bowel sounds NEUROLOGICAL: Alert and oriented to self Cranial nerves II through XII grossly intact. Sensation grossly intact able to follow commands EXTREMITIES: 4\5 RUE, 5/5 LUE 4\5 strength right lower extremity. 5/5 strength in left lower extremity. +bilat LE edema LABORATORY DATA: Please see below. IMAGING:Imaging documentation personally reviewed by record FUNCTIONAL STATUS: Premorbid: Mod-Independent with all activities of daily life as well as mobility On Admission: Total assistance for bed mobility, functional transfers, dressing, toileting GOALS: Contact guard from wheelchair level for mobility and ADLs ASSESSMENT: 76-year-old M with past medical history of left frontoparietal ICH (January 2021), parkinsons who presents status post status epilepticus due to recent left frontoparietal ICH with encephalopathy PLAN: 1. Rehab- PT/OT advance mobility and ADLs, strengthen/stretch/maintain ROM all 4 limbs -MECHANICAL ENGINEER for cog and dysphagia 2. neuro- s/p recent left frontoparietal ICH With CTH showing small acute bleed in area of old ICH with break through seizures and encephalopathy with significant mobility and ADL impairments -cont seizure meds, Keppra and Vimpat will f/u on levels -provigil for arousal -patient with fever and leukocytosis with probable new PNA contributing to ongoing encephalopathy -parkinson's cont Sinemet -CTH to r/o new bleed while on coumadin also as possible contributing to low level of arousal -f/u neurosurgery and neurology on d/c 3. Cardiac-hx of mechanical aortic valve, discharged on Lovenox-Coumadin bridge, will d/c todya and just cont COumadin as INR 2.6 (goal 2.5-3.5) -HTN cont BP meds -HLD cont statin -degree of CHF given edematous legs cont lasix, daily weights, will fluid restrict once he is able to tolerate more po 4. ID- wbc of 22 with fever and soft BPs, started Zosyn and Vanco for empiric therapy, although CX negative patient with cough probable aspiration PNA cont to keep HOB >30, oral care, will repeat chest imaging later today, f/u blood cx and Ucx -lactic acid WNL 5. GI ppx- prilosec 6. DVT ppx- on coumadin 7. Pain- tylenol 9. Psych- on prozac 10. Dispo- TBD POST ADMISSION PHYSICIAN EVALUATION: Medical and functional status: Description of medical status, medical assessment: As above. Rehabilitation diagnosis and current and prior cold morbid medical conditions as above. Risk of complications and plans to mitigate them as above. Description of functional status current status is as above. Prior status as above. Status compared to preadmission: There are no clinically significant differences between the patient's current status and the information described on the preadmission screening document. Treatment plan anticipated: Treatment plan is as described above. Required disciplines including physical therapy, occupational therapy, others as noted above. Intensity of services: 3 hours a day, 6 days a week. Special considerations: There are no specific special or safety considerations that would likely preclude immediate implementation of an intensive rehabilitation program or subsequently influence the plan of care. ATTESTATION: Considering all the information above, it is my best judgment that this patient requires intensive rehabilitation therapy as described above and an inpatient hospital environment due to the complexity of nursing, medical, and rehabilitation needs required by the patient. Furthermore, this patient can reasonably be expected to participate in an benefit from an inpatient rehabil itation stay with an interdisciplinary team approach to the delivery of rehabilitation care under the direction and supervision of rehabilitation physician. PROGNOSIS: fair. ESTIMATED LENGTH OF STAY:24-28 days. PROJECTED DISCHARGE DESTINATION: Home with family support and any durable medical equipment required to increase functional safety and mobility. TIME SPENT COUNSELING AND COORDINATING INITIAL CARE: Greater than 70 minutes. Vital Signs Vital Signs Date Time Temp Pulse Resp B/P (MAP) Pulse Ox O2 Delivery O2 Flow Rate FiO2 05/07/21 18:30 101.0 104 20 120/80 (93) 98 Room Air Home Medications Scheduled Atorvastatin Calcium (Atorvastatin Calcium) 80 Mg Tablet, 80 MG PO DAILY, (Reported) Budesonide/Formoterol (Symbicort 160-4.5 Mcg Inhaler) 6 Gm Hfa.aer.ad, 2 PUFF INH BID, (Reported) Carbidopa/Levodopa (Carbidopa-Levodopa 25-100 Tab) 1 Each Tablet, 1 TAB PO TID, (Reported) Cholecalciferol (Vitamin D3) (Vitamin D3) 1,000 Unit Tablet, 1,000 UNITS PO DAILY, (Reported) Enalapril Maleate (Enalapril Maleate) 10 Mg Tablet, 10 MG PO DAILY, (Reported) Enoxaparin Sodium (Enoxaparin Sodium) 100 Mg/1 Ml Syringe, 100 MG SC Q12H, (Reported) Fluoxetine Hcl (Fluoxetine HCl) 20 Mg Capsule, 20 MG PO DAILY, (Reported) Furosemide (Furosemide) 20 Mg Tablet, 20 MG PO DAILY, (Reported) Lacosamide (Vimpat) 10 Mg/1 Ml Solution, 200 MG PO BID, (Reported) Levetiracetam (Keppra) 1,000 Mg Tablet, 1,000 MG PO BID, (Reported) GIVEN AN IV AT [facility] Melatonin (Melatonin) 10 Mg Tablet, 10 MG PO QHS, (Reported) Potassium Chloride (Potassium Chloride) 10 Meq Tab.er.prt, 10 MEQ PO DAILY, (Reported) Sennosides (Senna Lax) 8.6 Mg Tablet, 2 TAB PO QHS, (Reported) Tamsulosin HCl (Flomax) 0.4 Mg Capsule, 0.4 MG PO DAILY, (Reported) Warfarin Sodium (Warfarin Sodium) 6 Mg Tablet, 6 MG PO QPM, (Reported) allopurinoL (allopurinoL) 300 Mg Tablet, 300 MG PO DAILY, (Reported) Allergies Coded Allergies: No Known Allergies (Verified Allergy, Unknown, 10/28/19) A-FIB/CHADSVASC A-FIB History Current/History of A-Fib/PAF?: No Current PO Anticoag Therapy: Yes ANTIONETTE HONG MD May 07, 2021 16:09
[2021-05-07] MEDS ORDERED: SODIUM CHLORIDE 0.9% INJ 10 ML SYR IV PRN (16:20)
[2021-05-07 18:30] VITALS: BP 120/80
[2021-05-07] MEDS ORDERED: WARF-60 PO (19:53)
[2021-05-07] MEDS ORDERED: POTA10TA17 PO (19:53)
[2021-05-07] MEDS ORDERED: ENAL-36 PO (19:53)
[2021-05-07] MEDS ORDERED: KEPP10002 PO (19:53)
[2021-05-07] MEDS ORDERED: ENOX100I3 SC (19:53)
[2021-05-07] MEDS ORDERED: FURO20TA2 PO (19:53)
[2021-05-07] MEDS ORDERED: LACO10SO PO (19:53)
[2021-05-07] MEDS ORDERED: ALLO300T2 PO (19:53)
[2021-05-07] MEDS ORDERED: HOME MED LIST COMPLETE! XX SCH (19:55)
[2021-05-07 20:00] VITALS: BP 115/71
[2021-05-07] MEDS ORDERED: PILL CUTTER 1 EACH XX PRN (20:20)
[2021-05-07] MEDS: COMBIVENT RESPIMAT 100-20MCG INHALER 4GM INH SCH (20:58)
[2021-05-07] MEDS: SYMBICORT 160/4.5MCG INHALER 6GM INH SCH (20:58)
[2021-05-07] MEDS: ENOXAPARIN 100MG/1ML SYRINGE (J1650 PER 10MG) SC SCH (22:28)
[2021-05-07] MEDS: SODIUM CHLORIDE 0.9% INJ 10 ML SYR IV SCH (22:28)
[2021-05-07] MEDS: SENNA 8.6 MG TAB (SENOKOT) PO SCH (22:29)
[2021-05-07] MEDS: DOCUSATE SODIUM 100MG CAPSULE PO SCH (22:30)
[2021-05-07] MEDS: guaiFENesin 200 MG TAB PO SCH (22:30)
[2021-05-07] MEDS: levETIRAcetam 250MG TABLET (KEPPRA) PO SCH (22:31)
[2021-05-07] MEDS: OMEPRAZOLE 20 MG CAP PO SCH (22:31)
[2021-05-07] MEDS: ACETAMINOPHEN TAB 650MG DOSE (2X325MG) PO PRN (22:31)
[2021-05-07] MEDS: SINEMET 25-100 MG TAB PO SCH (22:32)
[2021-05-07] MEDS: LACOSAMIDE 50 MG TAB (VIMPAT) PO SCH (22:33)
[2021-05-07] MEDS: WARFARIN SOD 3MG TAB PO SCH (22:34)
[2021-05-08] MEDS ORDERED: ACETAMINOPHEN TAB 650MG DOSE (2X325MG) PO ONE (02:45)
[2021-05-08 03:58] LABS: BASO % 0.2 % (0.0-1.0); HEMATOCRIT 35.2 % (42.0-52.0); LYMPH # 0.7 10^3/uL (1.5-5.0); MEAN CORPUSCULAR HEMOGLOBIN 32.6 pg (27.0-33.0); MEAN CORPUSCULAR HGB CONC 34.1 g/dl (32.0-36.5); MEAN CORPUSCULAR VOLUME 95.7 fl (80.0-96.0); MONO # 0.8 10^3/uL (0.0-0.8); MONO % 3.6 % (2.0-8.0); NEUTROPHILS # 20.6 10^3/uL (1.5-8.5); NEUTROPHILS % 92.3 % (36.0-66.0); PLATELET COUNT, AUTOMATED 340 10^3/uL (150-450); RED BLOOD COUNT 3.68 10^6/uL (4.30-6.10); WHITE BLOOD COUNT 22.3 10^3/uL (4.0-10.0)
[2021-05-08 04:16] LABS: INR 2.61; PROTHROMBIN TIME 28.3 SECONDS (12.7-14.5)
[2021-05-08 04:26] LABS: ALBUMIN 2.6 GM/DL (3.2-5.2); ALT/SGPT 14 U/L (12-78); BILIRUBIN,TOTAL 0.6 MG/DL (0.2-1.0); BLOOD UREA NITROGEN 14 MG/DL (7-18); CALCIUM LEVEL 8.5 MG/DL (8.8-10.2); CARBON DIOXIDE LEVEL 26 MEQ/L (21-32); CHLORIDE LEVEL 106 MEQ/L (98-107); CREATININE FOR GFR 0.84 MG/DL (0.70-1.30); GLOMERULAR FILTRATION RATE > 60.0 (>42); GLUCOSE, FASTING 122 MG/DL (70-100); SODIUM LEVEL 140 MEQ/L (136-145); TOTAL PROTEIN 5.4 GM/DL (6.4-8.2)
[2021-05-08] MEDS: SODIUM CHLORIDE 0.9% INJ 10 ML SYR IV SCH ×2 (05:56→17:30)
[2021-05-08] MEDS: REMEDY PHYTOPLEX Z-GUARD PASTE 113GM TUBE (FROM STOREROOM PRODUCT) TOP SCH ×4 (05:56→17:30)
[2021-05-08 06:27] VITALS: BP 104/68
[2021-05-08] MEDS: COMBIVENT RESPIMAT 100-20MCG INHALER 4GM INH SCH ×3 (07:09→21:42)
[2021-05-08] MEDS: SYMBICORT 160/4.5MCG INHALER 6GM INH SCH ×2 (07:09→21:42)
[2021-05-08] MEDS: POTASSIUM CHLORIDE 10MEQ SR TABLET PO SCH (07:49)
[2021-05-08] MEDS: FLUoxetine 20 MG CAP PO SCH (07:49)
[2021-05-08] MEDS: DOCUSATE SODIUM 100MG CAPSULE PO SCH ×2 (07:49→22:31)
[2021-05-08] MEDS: MAGIC MOUTHWASH SUSPENSION BTL SS SCH ×3 (07:49→17:30)
[2021-05-08] MEDS: TAMSULOSIN 0.4 MG CAP PO SCH (07:50)
[2021-05-08] MEDS: VITAMIN D 1,000 INTERNATIONAL UNITS TABLET PO SCH (07:50)
[2021-05-08] MEDS: guaiFENesin 200 MG TAB PO SCH ×3 (07:50→22:30)
[2021-05-08] MEDS: ATORVASTATIN 20 MG TAB PO SCH (07:50)
[2021-05-08] MEDS: SINEMET 25-100 MG TAB PO SCH ×3 (07:50→22:31)
[2021-05-08] MEDS: allopurinoL 300 MG TAB PO SCH (07:50)
[2021-05-08] MEDS: levETIRAcetam 250MG TABLET (KEPPRA) PO SCH ×2 (07:51→22:30)
[2021-05-08] MEDS: FUROSEMIDE 20 MG TAB PO SCH (07:51)
[2021-05-08] MEDS: MODAFINIL 100 MG TABLET PO SCH (07:53)
[2021-05-08] MEDS: ENALAPRIL MALEATE 10 MG TAB PO SCH (07:54)
[2021-05-08] MEDS: LACOSAMIDE 50 MG TAB (VIMPAT) PO SCH ×2 (07:54→22:31)
[2021-05-08] MEDS: ENOXAPARIN 100MG/1ML SYRINGE (J1650 PER 10MG) SC SCH (07:55)
[2021-05-08] MEDS: OMEPRAZOLE 20 MG CAP PO SCH ×2 (07:59→22:30)
--- NOTE | 2021-05-08 08:55 | REP ---
INDICATION: fever. COMPARISON: 11/05/2019. TECHNIQUE: Single portable AP view of the chest was performed. FINDINGS: No evidence of acute infiltrate. There is mild bibasilar fibro atelectatic change. The heart is not significantly enlarged. The mediastinal silhouette is unchanged. Multiple sternal wires are present. IMPRESSION: No acute pulmonary disease. <Electronically signed by Sung Covington > 05/08/21 0817
[2021-05-08] MEDS ORDERED: VANCOMYCIN HCL 2,000 MG, VIAL MATE ADAPTER 1 EACH in NS 250 ML IV SCH (09:20)
[2021-05-08] MEDS ORDERED: NS 1,000 ML IV SCH (09:25)
[2021-05-08] MEDS: PIPERACILLIN/TAZOBACTAM SOD 4.5 GM in D5W MINI-BAG PLUS 50 ML IV SCH ×3 (11:26→22:32)
[2021-05-08] MEDS ORDERED: VANCOMYCIN HCL 1,000 MG, VIAL MATE ADAPTER 1 EACH in NS 250 ML IV ONE (12:00)
[2021-05-08] MEDS ORDERED: VANCOMYCIN HCL 750 MG, VIAL MATE ADAPTER 1 EACH in NS 250 ML IV ONE (13:00)
[2021-05-08 14:00] VITALS: BP 148/73
--- NOTE | 2021-05-08 16:16 | REPVR ---
PROCEDURE INFORMATION: Exam: CT Head Without Contrast Exam date and time: 05/08/2021 3:51 PM Age: 76 years old Clinical indication: Other: R/O new bleed (hx of left frontoparietal ich on coumadin); Additional info: R/O new bleed (hx of left frontoparietal ich on coumadin) TECHNIQUE: Imaging protocol: Computed tomography of the head without contrast. Radiation optimization: All CT scans at this facility use at least one of these dose optimization techniques: automated exposure control; mA and/or kV adjustment per patient size (includes targeted exams where dose is matched to clinical indication); or iterative reconstruction. COMPARISON: CT Head without contrast 10/29/2019 3:20 PM FINDINGS: Brain: Symmetric prominence of the cortical sulci. Small-vessel ischemic change and left frontal lobe encephalomalacia. Artifactual hypodensity in the posterior fossa. No acute intracranial hemorrhage. Cerebral ventricles: Age-appropriate caliber of the ventricles. Paranasal sinuses: No sinus fluid. Mastoid air cells: No mastoid effusion. Bones/joints: No acute calvarial pathology. Old left lamina papyracea fracture. Soft tissues: Unremarkable soft tissues. IMPRESSION: 1. No acute intracranial hemorrhage. 2. Additional findings as described above. Electronically signed by: Reyes Aguilar On 05/08/2021 16:16:27 PM
--- NOTE | 2021-05-08 16:22 | REP ---
INDICATION: r/o infiltrate, new cough, leukocytosis COMPARISON: None. TECHNIQUE: Standard helical technique without intravenous contrast. FINDINGS: Limited evaluation of the mediastinum and pulmonary franco shows at least 1 enlarged node in the aortic pulmonary window having a short axis dimension of 1 cm. Other borderline mediastinal lymph nodes are present. Hilar adenopathy cannot be ruled out since no intravenous contrast was administered. The left hilar and infrahilar region appears full. There are no pleural or pericardial effusions. The imaged osseous structures shows a grade 3/4 T4 compression fracture and a grade 1 superior endplate compression fracture of T11. The ages of these cannot be determined. The imaged upper abdomen shows adenopathy in the retroperitoneum to the right of the upper abdominal aorta. The largest node measures approximately 2.7 cm in its short axis dimension. There is also a partially imaged cystic structure posterior to the posterior hepatic edge. Evaluation of the lung navarro shows a 3.4 by 1.6 by 1.7 cm sized irregular density which appears to be extending from a large right lower lobe pleural based area of consolidation. There is also evidence of a regular pleural based areas of consolidation in the left lower lobe. There are scattered incidental calcified granulomas. An asymmetric density is seen in the inferior lingula. IMPRESSION: 1. Mediastinal, retroperitoneal, and suspected right hilar adenopathy as described above. Contrast-enhanced CT examination of the chest abdomen and pelvis is suggested. 2. Bilateral posterior lower lung field asymmetric densities likely subsegmental atelectasis with an area of round atelectasis in the right lower lobe, however, close follow-up is recommended as nodularity cannot be ruled out. There are no priors for comparison. 3. Thoracic vertebral body compression fractures as described above. These need to be correlated clinically with appropriate follow-up if necessary. Consider spine MRI. 4. Other findings as described above. <Electronically signed by Florian Osorio > 05/08/21 [id number]
[2021-05-08] MEDS: WARFARIN SOD 3MG TAB PO SCH (17:29)
--- NOTE | 2021-05-08 18:34 | HPEPDOC ---
[facility] Medical History & Physical Date of Admission May 08, 2021 Date of Service: May 08, 2021 History and Physical CHIEF COMPLAINT: Fever HISTORY OF PRESENT ILLNESS: 76-year-old male with a past medical history of intracranial hemorrhage and 2019 and 2020, hypertension, hyperlipidemia, mechanical aortic valve (on warfarin with goal INR of 3), obstructive sleep apnea on CPAP, aortic valve repair (2004), and Parkinson's disease who was seen in ARU. He was transferred from [facility] where he presented as transfer from OSH for a left frontal parietal intracranial hemorrhage and concerns for seizures. As per discharge summary, patient required to be intubated for status epilepticus. He was successfully liberated from the vent and discharged on Vimpat and Keppra. On 05/07 patient was reportedly febrile with elevated leukocytosis. Thus, medicine team was consulted. PAST MEDICAL HISTORY: As mentioned above PAST SURGICAL HISTORY: As mentioned above 1. Tonsillectomy 2. Aortic valve repair 3. Thoracic aneurysm repair (2017) SOCIAL HISTORY: Denies smoking, drinking and use of recreational drug FAMILY HISTORY: Noncontributory ALLERGIES: Please see below. REVIEW OF SYSTEMS: 10 point review of system was negative except for what is noted in the HPI HOME MEDICATIONS: Please see below. PHYSICAL EXAMINATION: VITAL SIGNS: Please see below General: Lying in bed, no acute distress Head/Neck/Throat: Trachea midline, mucous membranes moist Eyes: Sclera anicteric, no erythema or discharge appreciated bilaterally Thorax: Normal respiratory effort on room air, lungs clear to auscultation bilaterally, no wheezes/rales/rhonchi Cardiovascular: Normal rate, regular rhythm, normal S1, S2; no S3, S4, rubs/gallops/murmurs Abdomen: Bowel sounds present, soft/nontender/nondistended Genitourinary: No CVA tenderness, no Huynh in place Musculoskeletal: Moving all extremities, no edema Skin: Warm, dry Neurologic: He is awake, alert, and was able to provide his name, the year, endorse that the president is Cesar, and follow commands. LABORATORY DATA: See below. IMAGING: Please refer to imaging MICROBIOLOGY: Please see below. ASSESSMENT/PLAN: #Sepsis -Patient had fever as well as leukocytosis. -Does not require 30 cc KG bolus at this time as he is hemodynamically stable lactic acid is within normal limits -Patient has had his PICC line in place since 04/21/2021 -it is possible this may be a line infection. We will draw blood cultures from the line as well as peripheral blood cultures. Follow-up on urine cultures. In the discharge summary physical examination notes patient was lethargic, possibility of aspiration as well. -Continue with vancomycin and Zosyn until cultures have resulted -Follow-up on CT scan of the chest. #Intracranial hemorrhage -Repeat CT scan of the head showed no acute pathology -Continue with PT/OT -Obtain speech evaluation #Mechanical aortic valve -Daily PT/INR. Goal INR of 3. -Continue warfarin #Epilepsy -Continue with Vimpat and Keppra #Pressure ulcer -Appreciated on the back, continue surgical wound care #HTN -continue enalapril. #COPD/KATHARINE -continue with cpap -Continue ambulatory inhalers #Parkinson's disease -Continue with carbidopa/levodopa #DVT ppx -Warfarin Vital Signs Vital Signs Date Time Temp Pulse Resp B/P (MAP) Pulse Ox O2 Delivery O2 Flow Rate FiO2 05/08/21 14:00 97.6 71 18 148/73 (98) 100 05/08/21 06:00 Room Air Laboratory Data Labs 24H Laboratory Tests 2 05/08/21 03:27: Immature Granulocyte % (Auto) 0.9, Neutrophils (%) (Auto) 92.3H, Lymphocytes (%) (Auto) 3.0L, Monocytes (%) (Auto) 3.6, Eosinophils (%) (Auto) 0.0, Basophils (%) (Auto) 0.2, Neutrophils # (Auto) 20.6H, Lymphocytes # (Auto) 0.7L, Monocytes # (Auto) 0.8, Eosinophils # (Auto) 0.0, Basophils # (Auto) 0.0, Nucleated Red Blood Cells % (auto) 0.0, Prothrombin Time 28.3H, Prothromb Time International Ratio 2.61, Anion Gap 8, Glomerular Filtration Rate > 60.0, Calcium Level 8.5L, Total Bilirubin 0.6, Aspartate Amino Transf (AST/SGOT) 26, Alanine A minotransferase (ALT/SGPT) 14, Alkaline Phosphatase 108, Total Protein 5.4L, Albumin 2.6L, Albumin/Globulin Ratio 0.9 05/08/21 03:28: Urine Color YELLOW, Urine Appearance HAZY, Urine pH 8.0, Urine Specific [place] 1.020, Urine Protein 1+H, Urine Glucose (UA) NEGATIVE, Urine Ketones NEGATIVE, Urine Blood 1+H, Urine Nitrite NEGATIVE, Urine Bilirubin NEGATIVE, Urine Urobilinogen 4.0H, Urine Leukocyte Esterase 2+H, Urine WBC (Auto) 94H, Urine RBC (Auto) 41H, Urine Hyaline Casts (Auto) 0, Urine Bacteria (Auto) NEGATIVE, Urine Squamous Epithelial Cells 0, Urine Sperm (Auto) 05/08/21 10:05: Methicillin-Resist S.aureus DNA PCR NOT DETECTED 05/08/21 10:14: Lactic Acid Level 1.2 CBC/BMP Laboratory Tests 05/08/21 03:27 Microbiology Microbiology 05/08/21 Respiratory Virus Panel (PCR) ([facility]) - Final, Complete 05/08/21 Blood Culture, Received Pending 05/08/21 Blood Culture, Received Pending 05/08/21 Urine Culture, Received Pending Home Medications Scheduled Atorvastatin Calcium (Atorvastatin Calcium) 80 Mg Tablet, 80 MG PO DAILY Budesonide/Formoterol (Symbicort 160-4.5 Mcg Inhaler) 6 Gm Hfa.aer.ad, 2 PUFF INH BID Carbidopa/Levodopa (Carbidopa-Levodopa 25-100 Tab) 1 Each Tablet, 1 TAB PO TID Cholecalciferol (Vitamin D3) (Vitamin D3) 1,000 Unit Tablet, 1,000 UNITS PO DAILY Enalapril Maleate (Enalapril Maleate) 10 Mg Tablet, 10 MG PO DAILY Enoxaparin Sodium (Enoxaparin Sodium) 100 Mg/1 Ml Syringe, 100 MG SC Q12H Fluoxetine Hcl (Fluoxetine HCl) 20 Mg Capsule, 20 MG PO DAILY Furosemide (Furosemide) 20 Mg Tablet, 20 MG PO DAILY Lacosamide (Vimpat) 10 Mg/1 Ml Solution, 200 MG PO BID Levetiracetam (Keppra) 1,000 Mg Tablet, 1,000 MG PO BID GIVEN AN IV AT [facility] Melatonin (Melatonin) 10 Mg Tablet, 10 MG PO QHS Potassium Chloride (Potassium Chloride) 10 Meq Tab.er.prt, 10 MEQ PO DAILY Sennosides (Senna Lax) 8.6 Mg Tablet, 2 TAB PO QHS Tamsulosin HCl (Flomax) 0.4 Mg Capsule, 0.4 MG PO DAILY Warfarin Sodium (Warfarin Sodium) 6 Mg Tablet, 6 MG PO QPM allopurinoL (allopurinoL) 300 Mg Tablet, 300 MG PO DAILY Allergies Coded Allergies: No Known Allergies (Verified Allergy, Unknown, 10/28/19) A-FIB/CHADSVASC A-FIB History Current/History of A-Fib/PAF?: No LIBERTAD BRISCOE M.D. May 08, 2021 15:28
[2021-05-08 22:00] VITALS: BP 117/63
[2021-05-08] MEDS: SENNA 8.6 MG TAB (SENOKOT) PO SCH (22:31)
[2021-05-09] MEDS: VANCOMYCIN HCL 750 MG, VIAL MATE ADAPTER 1 EACH in NS 250 ML IV SCH ×3 (00:11→23:57)
[2021-05-09] MEDS: REMEDY PHYTOPLEX Z-GUARD PASTE 113GM TUBE (FROM STOREROOM PRODUCT) TOP SCH ×5 (00:19→23:58)
[2021-05-09] MEDS: VANCOMYCIN HCL 500 MG in D5W MINI-BAG PLUS 100 ML IV SCH ×2 (01:24→14:09)
[2021-05-09] MEDS: PIPERACILLIN/TAZOBACTAM SOD 4.5 GM in D5W MINI-BAG PLUS 50 ML IV SCH ×4 (05:37→23:00)
[2021-05-09] MEDS: SODIUM CHLORIDE 0.9% INJ 10 ML SYR IV SCH (05:38)
[2021-05-09 06:00] VITALS: BP 102/60
[2021-05-09] MEDS: COMBIVENT RESPIMAT 100-20MCG INHALER 4GM INH SCH ×3 (06:59→19:30)
[2021-05-09] MEDS: SYMBICORT 160/4.5MCG INHALER 6GM INH SCH ×2 (06:59→19:31)
[2021-05-09 07:55] LABS: BASO % 0.2 % (0.0-1.0); EOS # 0.1 10^3/uL (0.0-0.5); HEMATOCRIT 31.2 % (42.0-52.0); HEMOGLOBIN 10.3 g/dl (13.5-17.5); LYMPH % 7.9 % (24.0-44.0); MEAN CORPUSCULAR HEMOGLOBIN 31.8 pg (27.0-33.0); MEAN CORPUSCULAR VOLUME 96.3 fl (80.0-96.0); MONO # 0.5 10^3/uL (0.0-0.8); MONO % 4.3 % (2.0-8.0); NEUTROPHILS # 10.8 10^3/uL (1.5-8.5); NEUTROPHILS % 86.1 % (36.0-66.0); PLATELET COUNT, AUTOMATED 259 10^3/uL (150-450); RED BLOOD COUNT 3.24 10^6/uL (4.30-6.10); WHITE BLOOD COUNT 12.5 10^3/uL (4.0-10.0)
[2021-05-09 08:07] LABS: INR 3.32
[2021-05-09 08:08] LABS: BLOOD UREA NITROGEN 15 MG/DL (7-18); CALCIUM LEVEL 7.7 MG/DL (8.8-10.2); CARBON DIOXIDE LEVEL 26 MEQ/L (21-32); CHLORIDE LEVEL 106 MEQ/L (98-107); CREATININE FOR GFR 0.83 MG/DL (0.70-1.30); GLOMERULAR FILTRATION RATE > 60.0 (>42); GLUCOSE, FASTING 105 MG/DL (70-100); MAGNESIUM LEVEL 2.1 MG/DL (1.8-2.4); POTASSIUM SERUM 3.9 MEQ/L (3.5-5.1); SODIUM LEVEL 139 MEQ/L (136-145)
[2021-05-09 08:59] VITALS: BP 105/55
[2021-05-09] MEDS: ENALAPRIL MALEATE 10 MG TAB PO SCH (09:00)
[2021-05-09] MEDS: FUROSEMIDE 20 MG TAB PO SCH (09:00)
[2021-05-09] MEDS: LACOSAMIDE 50 MG TAB (VIMPAT) PO SCH ×2 (09:02→21:21)
[2021-05-09] MEDS: VITAMIN D 1,000 INTERNATIONAL UNITS TABLET PO SCH (09:02)
[2021-05-09] MEDS: OMEPRAZOLE 20 MG CAP PO SCH ×2 (09:03→21:21)
[2021-05-09] MEDS: POTASSIUM CHLORIDE 10MEQ SR TABLET PO SCH (09:03)
[2021-05-09] MEDS: FLUoxetine 20 MG CAP PO SCH (09:03)
[2021-05-09] MEDS: allopurinoL 300 MG TAB PO SCH (09:03)
[2021-05-09] MEDS: TAMSULOSIN 0.4 MG CAP PO SCH (09:03)
[2021-05-09] MEDS: ATORVASTATIN 20 MG TAB PO SCH (09:03)
[2021-05-09] MEDS: MODAFINIL 100 MG TABLET PO SCH (09:03)
[2021-05-09] MEDS: DOCUSATE SODIUM 100MG CAPSULE PO SCH ×2 (09:03→21:21)
[2021-05-09] MEDS: MAGIC MOUTHWASH SUSPENSION BTL SS SCH ×3 (09:04→17:10)
[2021-05-09] MEDS: SINEMET 25-100 MG TAB PO SCH ×3 (09:04→21:21)
[2021-05-09] MEDS: levETIRAcetam 250MG TABLET (KEPPRA) PO SCH ×2 (09:04→21:22)
[2021-05-09] MEDS: guaiFENesin 200 MG TAB PO SCH ×3 (09:05→21:21)
--- NOTE | 2021-05-09 09:24 | IPNPDOC ---
PM&R Progress Note DATE OF SERVICE: May 09, 2021 Sales Support Assistant Progress Note Subjective: Patient seen in OT able to rouse and able to move his legs to edge of bed and required minimal assistance to sit on edge of bed. He denied pain and was sm iling. REVIEW OF SYSTEMS: The following is a completed review of systems and has been reviewed. Review of systems otherwise unremarkable. PAIN: Patient self reports no pain EYES: No recent vision changes EARS, NOSE, & THROAT: +dysphagia CARDIOVASCULAR: Denies chest pain or palpitations PULMONARY: +cough (improved) GASTROINTESTINAL: Denies constipation/diarrhea GENITOURINARY: +amato MUSCULOSKELETAL: generalized weakness NEUROLOGICAL:+ encephalopathic PSYCHIATRIC: lethargic, but able to rouse PHYSICAL EXAMINATION: VITAL SIGNS: Please see below. GENERAL: Pleasant and cooperative. No acute distress. lethargic, but able to rouse HEENT: PERRL. Extraocular movements intact. Clear conjunctiva CARDIOVASCULAR: Regular rate and rhythm. No murmurs, rubs, or gallops LUNGS: Clear to auscultation bilaterally. No wheezes. No rhonchi, +cough (improving) ABDOMEN: Soft, nontender, nondistended. Positive bowel sounds. Normal active bowel sounds NEUROLOGICAL: Alert and oriented to self Cranial nerves II through XII grossly intact. Sensation grossly intact able to follow commands EXTREMITIES: 4\5 RUE, 5/5 LUE 4\5 strength right lower extremity. 5/5 strength in left lower extremity. +bilat LE edema ASSESSMENT: 76-year-old M with past medical history of left frontoparietal ICH (January 2021), parkinsons who presents status post status epilepticus due to recent left frontoparietal ICH with encephalopathy PLAN: 1. 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 neuro- s/p recent left frontoparietal ICH With CTH showing small acute bleed in area of old ICH with break through seizures and encephalopathy with significant mobility and ADL impairments -cont seizure meds, Keppra and Vimpat will f/u on levels -provigil for arousal -patient with fever and leukocytosis with probable new PNA and UTI contributing to ongoing encephalopathy- cont antibiotics, patient less encephalopathic today -parkinson's cont Sinemet -repeat CTH negative for -f/u neurosurgery and neurology on d/c 3. Cardiac-hx of mechanical aortic valve, discharged on Lovenox-Coumadin bridge, will d/c today and just cont Coumadin as INR 2.6 (goal 2.5-3.5) -HTN cont BP meds -HLD cont statin -degree of CHF given edematous legs cont lasix, daily weights, will fluid restrict once he is able to tolerate more po 4. ID- wbc of 22 with fever and soft BPs on 05-08 wbc, started Zosyn and Vanco for empiric therapy and repeat wbc 12, although CX negative patient with cough probable aspiration PNA, CT chest showing bilateral lung opacities/consolidations, cont to keep HOB >30, oral care, f/u blood cx and Ucx -lactic acid WNL 5. GI ppx- prilosec 6. DVT ppx- on coumadin 7. Pain- tylenol 9. Psych- on prozac 10. Dispo- TBD Allergies Coded Allergies: No Known Allergies (Verified Allergy, Unknown, 10/28/19) Vital Signs Vital Signs Date Time Temp Pulse Resp B/P (MAP) Pulse Ox O2 Delivery O2 Flow Rate FiO2 05/09/21 09:00 105/55 05/09/21 08:59 85 05/09/21 06:00 98.1 18 90 05/08/21 06:00 Room Air Laboratory Data CBC/BMP Laboratory Tests 05/09/21 06:54 Labs 24H Laboratory Tests 2 05/08/21 10:05: Methicillin-Resist S.aureus DNA PCR NOT DETECTED 05/08/21 10:14: Lactic Acid Level 1.2 05/09/21 06:54: Immature Granulocyte % (Auto) 0.5, Neutrophils (%) (Auto) 86.1H, Lymphocytes (%) (Auto) 7.9L, Monocytes (%) (Auto) 4.3, Eosinophils (%) (Auto) 1.0, Basophils (%) (Auto) 0.2, Neutrophils # (Auto) 10.8H, Lymphocytes # (Auto) 1.0L, Monocytes # (Auto) 0.5, Eosinophils # (Auto) 0.1, Basophils # (Auto) 0.0, Nucleated Red Blood Cells % (auto) 0.0, Prothrombin Time 34.0H, Prothromb Time International Ratio 3.32, Anion Gap 7L, Glomerular Filtration Rate > 60.0, Calcium Level 7.7L, Phosphorus Level 3.0, Magnesium Level 2.1 Microbiology Microbiology 05/09/21 Blood Culture, Received Pending 05/09/21 Gram Stain - Final, Complete 05/09/21 Sputum Culture - Final, Complete 05/08/21 Blood Culture, Received Pending 05/08/21 Respiratory Virus Panel (PCR) ([facility]) - Final, Complete 05/08/21 Blood Culture - Preliminary, Resulted No growth after 24 hours . All specim... 05/08/21 Blood Culture - Preliminary, Resulted No growth after 24 hours . All specim... 05/08/21 Urine Culture, Received Pending Current Medications Current Medications Current Medications Medications (Trade) Dose Ordered Sig/Eugenio Route PRN Reason Start Time Stop Time Status Last Admin Dose Admin Acetaminophen (Tylenol Tab) 650 mg Q6HP PRN PO MILD PAIN or TEMP > 101 05/07/21 20:30 05/07/21 22:31 Albuterol/ Ipratropium (Combivent Respimat 100-20mcg) 1 puff RTID INH 05/07/21 20:00 05/08/21 13:01 Allopurinol (Zyloprim) 300 mg DAILY PO 05/08/21 09:00 05/09/21 09:03 Atorvastatin Calcium (Lipitor) 80 mg DAILY PO 05/08/21 09:00 05/09/21 09:03 Budesonide/ Formoterol Fumarate (Symbicort 160/ 4.5mcg) 2 puff RBID INH 05/07/21 20:00 05/09/21 06:59 Carbidopa/Levodopa (Sinemet 25/100) 1 tab TID PO 05/07/21 21:00 05/09/21 09:04 Docusate Sodium (Colace) 100 mg BID PO 05/07/21 21:00 05/09/21 09:03 Enalapril Maleate (Vasotec) 10 mg DAILY PO 05/08/21 09:00 Enoxaparin Sodium (Lovenox) 100 mg BID SC 05/07/21 21:00 05/08/21 14:07 DC 05/08/21 07:55 Fluoxetine HCl (PROzac) 20 mg DAILY PO 05/08/21 09:00 05/09/21 09:03 Furosemide (Lasix) 20 mg DAILY PO 05/08/21 09:00 Guaifenesin (Robitussin Tab) 400 mg TID PO 05/07/21 21:00 05/09/21 09:05 Heparin Sodium (Heparin (Flush)) 200 units ASDIRECTED PRN IV SEE LABEL COMMENTS 05/07/21 16:20 Heparin Sodium (Heparin (Flush)) 200 units PICC IV 05/07/21 18:00 05/09/21 05:39 Home Med (Home Med List Complete!) ASDIRECTED XX 05/07/21 19:55 05/07/21 20:07 DC Lacosamide (Vimpat) 200 mg BID PO 05/07/21 21:00 05/09/21 09:02 Levetiracetam (Keppra) 1,000 mg BID PO 05/07/21 21:00 05/09/21 09:04 Lidocaine/ Diphenhydr/Alum/ Mg/Simeth (Magic Mouthwash) 5ML if patient unable... AC SS 05/08/21 07:30 05/09/21 09:04 Modafinil (Provigil) 50 mg QAM PO 05/08/21 09:00 05/09/21 09:03 Omeprazole (PriLOSEC) 20 mg BID PO 05/07/21 21:00 05/09/21 09:03 Piperacillin Sod/ Tazobactam Sod 4.5 gm/Dextrose 50 ml @ 50 mls/hr Q6H IV 05/08/21 11:00 05/09/21 05:37 Polyethylene Glycol (Miralax) 1 pkt DAILY PRN PO CONSTIPATION 05/07/21 15:40 Potassium Chloride (Micro-K Extencaps) 10 meq DAILY PO 05/08/21 09:00 05/09/21 09:03 Ramelteon (Rozerem) 8 mg QHS PRN PO INSOMNIA 05/07/21 15:40 Senna (Senokot) 1 tab QHS PO 05/07/21 21:00 05/08/21 22:31 Sodium Chloride 1,000 ml @ 75 mls/hr [id number] IV 05/08/21 09:25 05/08/21 22:44 DC 05/08/21 10:15 Sodium Chloride (Saline Lock Flush) 10 ml ASDIRECTED PRN IV SEE LABEL COMMENTS 05/07/21 16:20 Sodium Chloride (Saline Lock Flush) 10 ml PICC IV 05/07/21 18:00 05/09/21 05:38 Tamsulosin HCl (Flomax) 0.4 mg DAILY PO 05/08/21 09:00 05/09/21 09:03 Vancomycin HCl 500 mg/Dextrose 110 ml @ 110 mls/hr Q12H IV 05/09/21 01:00 05/09/21 01:24 Vancomycin HCl 750 mg/IV Miscellaneous Supplies 1 each/ Sodium Chloride 275 ml @ 275 mls/hr Q12H IV 05/09/21 00:00 05/09/21 00:11 Vancomycin HCl 2000 mg/IV Miscellaneous Supplies 1 each/ Sodium Chloride 290 ml @ 270 mls/hr Q12H IV 05/08/21 09:20 05/08/21 09:59 DC Vitamin D (Vitamin D) 2,000 units DAILY PO 05/08/21 09:00 05/09/21 09:02 Warfarin Sodium (Coumadin) 6 mg DAILY@17 PO 05/07/21 17:00 05/08/21 17:29 ANTIONETTE HONG MD May 09, 2021 09:24
[2021-05-09 14:00] VITALS: BP 110/72
[2021-05-09] MEDS ORDERED: WARFARIN SOD 3MG TAB PO SCH (17:00)
[2021-05-09 20:00] VITALS: BP 120/71
[2021-05-09] MEDS: SENNA 8.6 MG TAB (SENOKOT) PO SCH (21:21)
[2021-05-10] MEDS: VANCOMYCIN HCL 500 MG in D5W MINI-BAG PLUS 100 ML IV SCH (01:16)
[2021-05-10] MEDS: PIPERACILLIN/TAZOBACTAM SOD 4.5 GM in D5W MINI-BAG PLUS 50 ML IV SCH ×2 (05:11→10:31)
[2021-05-10] MEDS: REMEDY PHYTOPLEX Z-GUARD PASTE 113GM TUBE (FROM STOREROOM PRODUCT) TOP SCH ×4 (05:12→23:58)
[2021-05-10 06:00] VITALS: BP 114/66
[2021-05-10 07:13] LABS: BASO % 0.3 % (0.0-1.0); EOS # 0.1 10^3/uL (0.0-0.5); EOS % 1.7 % (0.0-3.0); HEMATOCRIT 31.1 % (42.0-52.0); HEMOGLOBIN 10.1 g/dl (13.5-17.5); LYMPH # 0.9 10^3/uL (1.5-5.0); LYMPH % 14.5 % (24.0-44.0); MEAN CORPUSCULAR HEMOGLOBIN 31.2 pg (27.0-33.0); MEAN CORPUSCULAR HGB CONC 32.5 g/dl (32.0-36.5); MONO # 0.4 10^3/uL (0.0-0.8); MONO % 6.4 % (2.0-8.0); NEUTROPHILS # 4.9 10^3/uL (1.5-8.5); NEUTROPHILS % 76.6 % (36.0-66.0); PLATELET COUNT, AUTOMATED 254 10^3/uL (150-450); RED BLOOD COUNT 3.24 10^6/uL (4.30-6.10); WHITE BLOOD COUNT 6.4 10^3/uL (4.0-10.0)
[2021-05-10 07:29] LABS: INR 2.83; PROTHROMBIN TIME 30.1 SECONDS (12.7-14.5)
[2021-05-10] MEDS: COMBIVENT RESPIMAT 100-20MCG INHALER 4GM INH SCH ×3 (08:00→19:56)
[2021-05-10] MEDS: SYMBICORT 160/4.5MCG INHALER 6GM INH SCH ×2 (08:03→19:55)
[2021-05-10] MEDS: POTASSIUM CHLORIDE 10MEQ SR TABLET PO SCH (08:39)
[2021-05-10] MEDS: TAMSULOSIN 0.4 MG CAP PO SCH (08:39)
[2021-05-10] MEDS: ENALAPRIL MALEATE 10 MG TAB PO SCH (08:39)
[2021-05-10] MEDS: DOCUSATE SODIUM 100MG CAPSULE PO SCH ×2 (08:39→20:14)
[2021-05-10] MEDS: guaiFENesin 200 MG TAB PO SCH ×3 (08:39→20:14)
[2021-05-10] MEDS: VITAMIN D 1,000 INTERNATIONAL UNITS TABLET PO SCH (08:39)
[2021-05-10] MEDS: levETIRAcetam 250MG TABLET (KEPPRA) PO SCH ×2 (08:39→20:15)
[2021-05-10] MEDS: FLUoxetine 20 MG CAP PO SCH (08:39)
[2021-05-10] MEDS: OMEPRAZOLE 20 MG CAP PO SCH ×2 (08:40→20:14)
[2021-05-10] MEDS: SINEMET 25-100 MG TAB PO SCH ×3 (08:40→20:14)
[2021-05-10] MEDS: LACOSAMIDE 50 MG TAB (VIMPAT) PO SCH ×2 (08:40→20:15)
[2021-05-10] MEDS: MAGIC MOUTHWASH SUSPENSION BTL SS SCH ×3 (08:40→16:22)
[2021-05-10] MEDS: allopurinoL 300 MG TAB PO SCH (08:40)
[2021-05-10] MEDS: ATORVASTATIN 20 MG TAB PO SCH (08:40)
[2021-05-10] MEDS: MODAFINIL 100 MG TABLET PO SCH (08:40)
[2021-05-10] MEDS: FUROSEMIDE 20 MG TAB PO SCH (08:40)
[2021-05-10] MEDS: cefTRIAXone SOD 1 GM in D5W MINI-BAG PLUS 50 ML IV SCH (13:34)
[2021-05-10] MEDS: ACETAMINOPHEN TAB 650MG DOSE (2X325MG) PO PRN (13:39)
[2021-05-10 14:00] VITALS: BP 103/62
[2021-05-10] MEDS ORDERED: WARFARIN SOD 4MG TAB PO SCH (17:00)
[2021-05-10 20:00] VITALS: BP 110/64
[2021-05-10] MEDS: SENNA 8.6 MG TAB (SENOKOT) PO SCH (20:14)
[2021-05-10] MEDS: RAMELTEON 8 MG TAB (ROZEREM) PO PRN (20:17)
[2021-05-11] MEDS: REMEDY PHYTOPLEX Z-GUARD PASTE 113GM TUBE (FROM STOREROOM PRODUCT) TOP SCH ×4 (05:19→21:48)
[2021-05-11 06:00] VITALS: BP 105/65
[2021-05-11 06:41] LABS: BASO % 0.6 % (0.0-1.0); EOS # 0.2 10^3/uL (0.0-0.5); EOS % 3.1 % (0.0-3.0); HEMATOCRIT 30.1 % (42.0-52.0); HEMOGLOBIN 9.9 g/dl (13.5-17.5); LYMPH # 1.2 10^3/uL (1.5-5.0); LYMPH % 24.3 % (24.0-44.0); MEAN CORPUSCULAR HEMOGLOBIN 31.8 pg (27.0-33.0); MEAN CORPUSCULAR HGB CONC 32.9 g/dl (32.0-36.5); MEAN CORPUSCULAR VOLUME 96.8 fl (80.0-96.0); MONO # 0.4 10^3/uL (0.0-0.8); MONO % 8.5 % (2.0-8.0); NEUTROPHILS % 62.7 % (36.0-66.0); PLATELET COUNT, AUTOMATED 256 10^3/uL (150-450); RED BLOOD COUNT 3.11 10^6/uL (4.30-6.10); WHITE BLOOD COUNT 4.8 10^3/uL (4.0-10.0)
[2021-05-11 06:56] LABS: INR 3.65; PROTHROMBIN TIME 36.5 SECONDS (12.7-14.5)
[2021-05-11 07:12] LABS: BLOOD UREA NITROGEN 7 MG/DL (7-18); CALCIUM LEVEL 7.8 MG/DL (8.8-10.2); CARBON DIOXIDE LEVEL 26 MEQ/L (21-32); CHLORIDE LEVEL 108 MEQ/L (98-107); CREATININE FOR GFR 0.68 MG/DL (0.70-1.30); GLOMERULAR FILTRATION RATE > 60.0 (>42); GLUCOSE, FASTING 96 MG/DL (70-100); POTASSIUM SERUM 4.1 MEQ/L (3.5-5.1); SODIUM LEVEL 141 MEQ/L (136-145)
[2021-05-11] MEDS: SYMBICORT 160/4.5MCG INHALER 6GM INH SCH ×2 (07:15→20:15)
[2021-05-11] MEDS: COMBIVENT RESPIMAT 100-20MCG INHALER 4GM INH SCH ×3 (07:16→20:00)
[2021-05-11] MEDS: MAGIC MOUTHWASH SUSPENSION BTL SS SCH ×2 (09:53→16:36)
[2021-05-11] MEDS: allopurinoL 300 MG TAB PO SCH (09:55)
[2021-05-11] MEDS: DOCUSATE SODIUM 100MG CAPSULE PO SCH ×2 (09:55→21:48)
[2021-05-11] MEDS: levETIRAcetam 250MG TABLET (KEPPRA) PO SCH ×2 (09:55→21:47)
[2021-05-11] MEDS: OMEPRAZOLE 20 MG CAP PO SCH ×2 (09:55→21:48)
[2021-05-11] MEDS: MODAFINIL 100 MG TABLET PO SCH (09:55)
[2021-05-11] MEDS: guaiFENesin 200 MG TAB PO SCH ×3 (09:55→21:48)
[2021-05-11] MEDS: SINEMET 25-100 MG TAB PO SCH ×3 (09:55→21:48)
[2021-05-11] MEDS: ENALAPRIL MALEATE 10 MG TAB PO SCH (09:56)
[2021-05-11] MEDS: ATORVASTATIN 20 MG TAB PO SCH (09:56)
[2021-05-11] MEDS: LACOSAMIDE 50 MG TAB (VIMPAT) PO SCH ×2 (09:56→21:48)
[2021-05-11] MEDS: POTASSIUM CHLORIDE 10MEQ SR TABLET PO SCH (09:57)
[2021-05-11] MEDS: FLUoxetine 20 MG CAP PO SCH (09:57)
[2021-05-11] MEDS: FUROSEMIDE 20 MG TAB PO SCH (09:57)
[2021-05-11] MEDS: TAMSULOSIN 0.4 MG CAP PO SCH (09:57)
[2021-05-11] MEDS: VITAMIN D 1,000 INTERNATIONAL UNITS TABLET PO SCH (09:57)
--- NOTE | 2021-05-11 12:47 | IPNPDOC ---
PM&R Progress Note DATE OF SERVICE: May 11, 2021 Sound Effects Manager Progress Note Subjective: Patient seen in his bed, alert and oriented x3, stating he was feeling pretty good, but did think his was with him earlier that day. REVIEW OF SYSTEMS: The following is a completed review of systems and has been reviewed. Review of systems otherwise unremarkable. PAIN: Patient self reports no pain EYES: No recent vision changes EARS, NOSE, & THROAT: +dysphagia CARDIOVASCULAR: Denies chest pain or palpitations PULMONARY: +cough (improved) GASTROINTESTINAL: Denies constipation/diarrhea GENITOURINARY: +amato MUSCULOSKELETAL: generalized weakness NEUROLOGICAL:+ encephalopathic (improving) PSYCHIATRIC: lethargic, but able to rouse PHYSICAL EXAMINATION: VITAL SIGNS: Please see below. GENERAL: Pleasant and cooperative. No acute distress. lethargic, but able to rouse HEENT: PERRL. Extraocular movements intact. Clear conjunctiva CARDIOVASCULAR: Regular rate and rhythm. No murmurs, rubs, or gallops LUNGS: Clear to auscultation bilaterally. No wheezes. No rhonchi ABDOMEN: Soft, nontender, nondistended. Positive bowel sounds. Normal active bowel sounds NEUROLOGICAL: Alert and oriented to self Cranial nerves II through XII grossly intact. Sensation grossly intact able to follow commands EXTREMITIES: 4\5 RUE, 5/5 LUE 4\5 strength right lower extremity. 5/5 strength in left lower extremity. 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 neuro- s/p recent left frontoparietal ICH With CTH showing small acute bleed in area of old ICH with break through seizures and encephalopathy with significant mobility and ADL impairments -cont seizure meds, Keppra and Vimpat- levels WNL -provigil for arousal -patient with fever and leukocytosis on admission with probable new PNA and UTI contributing to ongoing encephalopathy- cont antibiotics, patient less encephalopathic today -parkinson's cont Sinemet -repeat CTH negative for -f/u neurosurgery and neurology on d/c 3. Cardiac-hx of mechanical aortic valve, discharged on Lovenox-Coumadin bridge, cont Coumadin goal 2.5-3.5 -HTN cont BP meds -HLD cont statin -degree of CHF given edematous legs cont lasix, daily weights, will fluid restrict once he is able to tolerate more po 4. ID- wbc of 22 with fever and soft BPs on 05-08 started on Vanco/Zosyn for empiric coverage, Vanco d/c'd as MRSA PCR negative, Ucx + for klebsiella and enterococcae, Zosyn switched to Ceftriaxone today per hospitalist, patient being treated for UTI and aspiration PNA with recent CT chest showing bilateral lung opacities/consolidations, cont to keep HOB >30, oral care, f/u blood cx, patient afebrile and leukocytosis resolved, likely will switch to po antibiotics soon -lactic acid WNL 5. GI ppx- prilosec 6. DVT ppx- on coumadin 7. Pain- tylenol 9. Psych- on prozac 10. Dispo- TBD Allergies Coded Allergies: No Known Allergies (Verified Allergy, Unknown, 10/28/19) Vital Signs Vital Signs Date Time Temp Pulse Resp B/P (MAP) Pulse Ox O2 Delivery O2 Flow Rate FiO2 05/11/21 09:56 110/66 05/11/21 06:00 97.5 50 16 93 Room Air Laboratory Data CBC/BMP Laboratory Tests 05/11/21 05:43 Labs 24H Laboratory Tests 2 05/11/21 05:43: Immature Granulocyte % (Auto) 0.8, Neutrophils (%) (Auto) 62.7, Lymphocytes (%) (Auto) 24.3, Monocytes (%) (Auto) 8.5H, Eosinophils (%) (Auto) 3.1H, Basophils (%) (Auto) 0.6, Neutrophils # (Auto) 3.0, Lymphocytes # (Auto) 1.2L, Monocytes # (Auto) 0.4, Eosinophils # (Auto) 0.2, Basophils # (Auto) 0.0, Nucleated Red Blo od Cells % (auto) 0.0, Prothrombin Time 36.5H, Prothromb Time International Ratio 3.65, Anion Gap 7L, Glomerular Filtration Rate > 60.0, Calcium Level 7.8L Microbiology Microbiology 05/09/21 Blood Culture - Preliminary, Resulted No Growth after 48 hours. All Specime... 05/09/21 Gram Stain - Final, Complete 05/09/21 Sputum Culture - Final, Complete 05/08/21 Blood Culture - Preliminary, Resulted No Growth after 48 hours. All Specime... 05/08/21 Respiratory Virus Panel (PCR) (ANNE-MARIE) - Final, Complete 05/08/21 Blood Culture - Preliminary, Resulted No Growth after 72 hours. All specime... 05/08/21 Blood Culture - Preliminary, Resulted No Growth after 72 hours. All specime... 05/08/21 Urine Culture - Final, Complete Enterobacter Cloacae Complex Klebsiella Pneumoniae Current Medications Current Medications Current Medications Medications (Trade) Dose Ordered Sig/Eugenio Route PRN Reason Start Time Stop Time Status Last Admin Dose Admin Acetaminophen (Tylenol Tab) 650 mg Q6HP PRN PO MILD PAIN or TEMP > 101 05/07/21 20:30 05/10/21 13:39 Albuterol/ Ipratropium (Combivent Respimat 100-20mcg) 1 puff RTID INH 05/07/21 20:00 05/10/21 14:15 Allopurinol (Zyloprim) 300 mg DAILY PO 05/08/21 09:00 05/11/21 09:55 Atorvastatin Calcium (Lipitor) 80 mg DAILY PO 05/08/21 09:00 05/11/21 09:56 Budesonide/ Formoterol Fumarate (Symbicort 160/ 4.5mcg) 2 puff RBID INH 05/07/21 20:00 05/11/21 07:15 Carbidopa/Levodopa (Sinemet 25/100) 1 tab TID PO 05/07/21 21:00 05/11/21 09:55 Ceftriaxone Sodium 1 gm/ Dextrose 50 ml @ 100 mls/hr Q24H IV 05/10/21 14:00 05/15/21 13:59 05/10/21 13:34 Docusate Sodium (Colace) 100 mg BID PO 05/07/21 21:00 05/11/21 09:55 Enalapril Maleate (Vasotec) 10 mg DAILY PO 05/08/21 09:00 05/11/21 09:56 Enoxaparin Sodium (Lovenox) 100 mg BID SC 05/07/21 21:00 05/08/21 14:07 DC 05/08/21 07:55 Fluoxetine HCl (PROzac) 20 mg DAILY PO 05/08/21 09:00 05/11/21 09:57 Furosemide (Lasix) 20 mg DAILY PO 05/08/21 09:00 05/11/21 09:57 Guaifenesin (Robitussin Tab) 400 mg TID PO 05/07/21 21:00 05/11/21 09:55 Heparin Sodium (Heparin (Flush)) 200 units ASDIRECTED PRN IV SEE LABEL COMMENTS 05/07/21 16:20 Cancel Heparin Sodium (Heparin (Flush)) 200 units PICC IV 05/07/21 18:00 05/09/21 17:41 DC 05/09/21 05:39 Home Med (Home Med List Complete!) ASDIRECTED XX 05/07/21 19:55 05/07/21 20:07 DC Lacosamide (Vimpat) 200 mg BID PO 05/07/21 21:00 05/11/21 09:56 Levetiracetam (Keppra) 1,000 mg BID PO 05/07/21 21:00 05/11/21 09:55 Lidocaine/ Diphenhydr/Alum/ Mg/Simeth (Magic Mouthwash) 5ML if patient unable... AC SS 05/08/21 07:30 05/11/21 09:53 Modafinil (Provigil) 50 mg QAM PO 05/08/21 09:00 05/11/21 09:55 Omeprazole (PriLOSEC) 20 mg BID PO 05/07/21 21:00 05/11/21 09:55 Piperacillin Sod/ Tazobactam Sod 4.5 gm/Dextrose 50 ml @ 50 mls/hr Q6H IV 05/08/21 11:00 05/10/21 13:18 DC 05/10/21 10:31 Polyethylene Glycol (Miralax) 1 pkt DAILY PRN PO CONSTIPATION 05/07/21 15:40 05/10/21 13:46 Potassium Chloride (Micro-K Extencaps) 10 meq DAILY PO 05/08/21 09:00 05/11/21 09:57 Ramelteon (Rozerem) 8 mg QHS PRN PO INSOMNIA 05/07/21 15:40 05/10/21 20:17 Senna (Senokot) 1 tab QHS PO 05/07/21 21:00 05/09/21 21:21 Sodium Chloride 1,000 ml @ 75 mls/hr [id number] IV 05/08/21 09:25 05/08/21 22:44 DC 05/08/21 10:15 Sodium Chloride (Saline Lock Flush) 10 ml ASDIRECTED PRN IV SEE LABEL COMMENTS 05/07/21 16:20 Cancel Sodium Chloride (Saline Lock Flush) 10 ml PICC IV 05/07/21 18:00 05/09/21 17:41 DC 05/09/21 05:38 Tamsulosin HCl (Flomax) 0.4 mg DAILY PO 05/08/21 09:00 05/11/21 09:57 Vancomycin HCl 500 mg/Dextrose 110 ml @ 110 mls/hr Q12H IV 05/09/21 01:00 05/10/21 08:55 DC 05/10/21 01:16 Vancomycin HCl 750 mg/IV Miscellaneous Supplies 1 each/ Sodium Chloride 275 ml @ 275 mls/hr Q12H IV 05/09/21 00:00 05/10/21 08:55 DC 05/09/21 23:57 Vancomycin HCl 2000 mg/IV Miscellaneous Supplies 1 each/ Sodium Chloride 290 ml @ 270 mls/hr Q12H IV 05/08/21 09:20 05/08/21 09:59 DC Vitamin D (Vitamin D) 2,000 units DAILY PO 05/08/21 09:00 05/11/21 09:57 Warfarin Sodium (Coumadin) 3 mg DAILY@17 PO 05/09/21 17:00 05/10/21 08:55 DC 05/09/21 17:10 Warfarin Sodium (Coumadin) 3 mg DAILY@17 PO 05/11/21 17:00 UNV Warfarin Sodium (Coumadin) 4 mg DAILY@17 PO 05/10/21 17:00 05/11/21 12:35 DC 05/10/21 16:22 Warfarin Sodium (Coumadin) 6 mg DAILY@17 PO 05/07/21 17:00 05/09/21 09:21 DC 05/08/21 17:29 ANTIONETTE HONG MD May 11, 2021 12:47
[2021-05-11 14:00] VITALS: BP 103/58
[2021-05-11] MEDS: WARFARIN SOD 3MG TAB PO SCH (16:36)
[2021-05-11] MEDS: cefTRIAXone SOD 1 GM in D5W MINI-BAG PLUS 50 ML IV SCH (16:36)
[2021-05-11 20:00] VITALS: BP 135/71
[2021-05-11] MEDS: SENNA 8.6 MG TAB (SENOKOT) PO SCH (21:48)
[2021-05-12] MEDS: REMEDY PHYTOPLEX Z-GUARD PASTE 113GM TUBE (FROM STOREROOM PRODUCT) TOP SCH ×3 (05:52→18:00)
[2021-05-12 06:00] VITALS: BP 136/77
[2021-05-12 07:26] LABS: INR 2.87; PROTHROMBIN TIME 30.4 SECONDS (12.7-14.5)
[2021-05-12] MEDS: SYMBICORT 160/4.5MCG INHALER 6GM INH SCH ×2 (07:27→18:21)
[2021-05-12] MEDS: COMBIVENT RESPIMAT 100-20MCG INHALER 4GM INH SCH ×3 (07:27→18:21)
[2021-05-12] MEDS: MODAFINIL 100 MG TABLET PO SCH (10:09)
[2021-05-12] MEDS: ATORVASTATIN 20 MG TAB PO SCH (10:10)
[2021-05-12] MEDS: LACOSAMIDE 50 MG TAB (VIMPAT) PO SCH ×2 (10:10→20:08)
[2021-05-12] MEDS: levETIRAcetam 250MG TABLET (KEPPRA) PO SCH ×2 (10:10→20:08)
[2021-05-12] MEDS: guaiFENesin 200 MG TAB PO SCH ×3 (10:10→20:08)
[2021-05-12] MEDS: DOCUSATE SODIUM 100MG CAPSULE PO SCH ×2 (10:11→20:08)
[2021-05-12] MEDS: FUROSEMIDE 20 MG TAB PO SCH (10:11)
[2021-05-12] MEDS: allopurinoL 300 MG TAB PO SCH (10:11)
[2021-05-12] MEDS: VITAMIN D 1,000 INTERNATIONAL UNITS TABLET PO SCH (10:11)
[2021-05-12] MEDS: SINEMET 25-100 MG TAB PO SCH ×3 (10:11→20:09)
[2021-05-12] MEDS: POTASSIUM CHLORIDE 10MEQ SR TABLET PO SCH (10:11)
[2021-05-12] MEDS: OMEPRAZOLE 20 MG CAP PO SCH ×2 (10:12→20:08)
[2021-05-12] MEDS: MAGIC MOUTHWASH SUSPENSION BTL SS SCH ×3 (10:12→17:59)
[2021-05-12] MEDS: FLUoxetine 20 MG CAP PO SCH (10:12)
[2021-05-12] MEDS: ENALAPRIL MALEATE 10 MG TAB PO SCH (10:12)
[2021-05-12] MEDS: TAMSULOSIN 0.4 MG CAP PO SCH (10:12)
--- NOTE | 2021-05-12 12:14 | REP ---
INDICATION: encephlopathy. COMPARISON: 05/08/2021 TECHNIQUE: .5 mm contiguous transaxial helical sections were obtained from the skull base to the cerebral convexities. FINDINGS: There has been no significant change compared to the prior exam. There is old left frontal lobe encephalomalacia status quo. The ventricles and sulci are unchanged. There is no shift of midline structures. There are no acute extra-axial fluid collections. There is no change in the deep cerebral white matter. There is no change in the posterior fossa. The imaged paranasal sinuses and mastoid air cells are again seen to be clear. IMPRESSION: No significant change compared to the prior exam. Findings as described above. No evidence of acute intracranial pathology. <Electronically signed by Florian Osorio > 05/12/21 [id number]
[2021-05-12 14:00] VITALS: BP 154/79
[2021-05-12] MEDS: cefTRIAXone SOD 1 GM in D5W MINI-BAG PLUS 50 ML IV SCH (14:31)
[2021-05-12 17:07] LABS: LACOSAMIDE LEVEL 7.4 ug/mL (5.0-10.0); LEVETIRACETAM (KEPPRA) 21.7 ug/mL (10.0-40.0)
[2021-05-12] MEDS: WARFARIN SOD 3MG TAB PO SCH (17:59)
[2021-05-12 20:00] VITALS: BP 113/65
[2021-05-12] MEDS: RAMELTEON 8 MG TAB (ROZEREM) PO PRN (20:09)
[2021-05-12] MEDS: SENNA 8.6 MG TAB (SENOKOT) PO SCH (20:09)
[2021-05-13] MEDS ORDERED: HALOPERIDOL 5MG/ML VIAL (J1630 PER 1) IM ONE (03:20)
[2021-05-13] MEDS ORDERED: LORazepam 2 MG/ML VIAL IM STA (03:20)
[2021-05-13 03:31] VITALS: BP 143/90
--- NOTE | 2021-05-13 03:32 | IPNPDOC ---
Text Note Date of Service The patient was seen on 05/13/21. NOTE Code 25 called at approximately 0315. Patient awoke from sleep acutely agitated and delirious, did not believe he was in the hospital, was attempting to get out of bed and walk out despite being full body aimee lift status. Patient was undirectable using verbal technique and quickly became violent with staff trying to assist him stay in bed, punching and kicking. Will give IM haldol and ativan one time and order one to one patient sitter. Vital signs stable at this time, thus suspect hospital delirium i/s/o recent ich and underlying parkinsonism. VS,Fishbone, I+O VS, Fishbone, I+O Vital Signs Date Time Temp Pulse Resp B/P (MAP) Pulse Ox O2 Delivery O2 Flow Rate FiO2 05/12/21 20:00 98.3 69 20 113/65 (81) 95 Room Air I&O- Last 24 Hours up to 6 AM 05/13/21 06:00 Intake Total 480 ml Output Total 500 ml Balance -20 ml IGOR SAXENA May 13, 2021 03:32
[2021-05-13] MEDS: REMEDY PHYTOPLEX Z-GUARD PASTE 113GM TUBE (FROM STOREROOM PRODUCT) TOP SCH ×4 (05:13→18:17)
[2021-05-13] MEDS: MAGIC MOUTHWASH SUSPENSION BTL SS SCH ×3 (07:30→18:17)
[2021-05-13 07:48] LABS: HEMATOCRIT 33.3 % (42.0-52.0); MEAN CORPUSCULAR HEMOGLOBIN 31.7 pg (27.0-33.0); PLATELET COUNT, AUTOMATED 263 10^3/uL (150-450); RED BLOOD COUNT 3.47 10^6/uL (4.30-6.10); WHITE BLOOD COUNT 5.3 10^3/uL (4.0-10.0)
[2021-05-13] MEDS: COMBIVENT RESPIMAT 100-20MCG INHALER 4GM INH SCH ×3 (08:00→19:49)
[2021-05-13 08:03] LABS: INR 2.74; PROTHROMBIN TIME 29.4 SECONDS (12.7-14.5)
[2021-05-13 08:11] LABS: BLOOD UREA NITROGEN 7 MG/DL (7-18); CALCIUM LEVEL 8.3 MG/DL (8.8-10.2); CARBON DIOXIDE LEVEL 28 MEQ/L (21-32); CHLORIDE LEVEL 108 MEQ/L (98-107); CREATININE FOR GFR 0.68 MG/DL (0.70-1.30); GLOMERULAR FILTRATION RATE > 60.0 (>42); GLUCOSE, FASTING 95 MG/DL (70-100); MAGNESIUM LEVEL 1.8 MG/DL (1.8-2.4); POTASSIUM SERUM 4.3 MEQ/L (3.5-5.1); SODIUM LEVEL 143 MEQ/L (136-145)
[2021-05-13] MEDS: SINEMET 25-100 MG TAB PO SCH ×3 (08:53→20:11)
[2021-05-13] MEDS: MODAFINIL 100 MG TABLET PO SCH (08:53)
[2021-05-13] MEDS: guaiFENesin 200 MG TAB PO SCH ×3 (08:53→20:12)
[2021-05-13] MEDS: OMEPRAZOLE 20 MG CAP PO SCH ×2 (08:53→20:11)
[2021-05-13] MEDS: FUROSEMIDE 20 MG TAB PO SCH (08:53)
[2021-05-13] MEDS: POTASSIUM CHLORIDE 10MEQ SR TABLET PO SCH (08:53)
[2021-05-13] MEDS: FLUoxetine 20 MG CAP PO SCH (08:53)
[2021-05-13] MEDS: DOCUSATE SODIUM 100MG CAPSULE PO SCH ×2 (08:53→20:11)
[2021-05-13] MEDS: ENALAPRIL MALEATE 10 MG TAB PO SCH (08:53)
[2021-05-13] MEDS: VITAMIN D 1,000 INTERNATIONAL UNITS TABLET PO SCH (08:53)
[2021-05-13] MEDS: LACOSAMIDE 50 MG TAB (VIMPAT) PO SCH ×2 (08:54→20:11)
[2021-05-13] MEDS: TAMSULOSIN 0.4 MG CAP PO SCH (08:54)
[2021-05-13] MEDS: levETIRAcetam 250MG TABLET (KEPPRA) PO SCH ×2 (08:54→20:12)
[2021-05-13] MEDS: allopurinoL 300 MG TAB PO SCH (08:54)
[2021-05-13] MEDS: ATORVASTATIN 20 MG TAB PO SCH (08:54)
[2021-05-13] MEDS: SYMBICORT 160/4.5MCG INHALER 6GM INH SCH ×2 (11:36→19:49)
[2021-05-13 14:00] VITALS: BP 104/62
--- NOTE | 2021-05-13 14:12 | IPNPDOC ---
Subjective Date Seen The patient was seen on 05/13/21. Subjective Chief Complaint/HPI Patient seen and examined at bedside this morning. He is awake, alert, oriented x3 at this moment. However, as per nursing staff he has become disoriented and required Haldol early this morning. Presently, he denies chest pain, shortness of breath, abdominal pain, nausea, vomiting, problems with urination or bowel movements. Objective Physical Examination Other physical findings General: Lying in bed, no acute distress Head/Neck/Throat: Trachea midline, mucous membranes moist Eyes: Sclera anicteric, no erythema or discharge appreciated bilaterally Thorax: Normal respiratory effort on room air, lungs clear to auscultation bilaterally, no wheezes/rales/rhonchi Cardiovascular: Normal rate, regular rhythm, normal S1, S2; no S3, S4, rubs/gallops/murmurs Abdomen: Bowel sounds present, soft/nontender/nondistended Genitourinary: No CVA tenderness, no Huynh in place Musculoskeletal: Moving all extremities, no edema Skin: Warm, dry Neurologic: He is awake, alert, and was able to provide his name, the year, endorse that the president is Cesar, and follow commands. Assessment /Plan Assessment #Delirium -In the setting of institutionalization and urinary tract infection. At this time he is oriented and compliant. -Try to reorient, utilize sitters, prior to pharmacological treatment. If patient is harm to self or others will utilize lowest dose of seroquel. -Repeat ct-scan negative for acute pathology #Sepsis -Urinary tract infection. Antibiotics narrowed to ceftriaxone through 05/15. #UTI -management as above #Intracranial hemorrhage -Repeat CT scan of the head showed no acute pathology -Continue with PT/OT -Obtain speech evaluation #Mechanical aortic valve -Daily PT/INR. Goal INR of 3. -Continue warfarin #Epilepsy -Continue with Vimpat and Keppra #Pressure ulcer -Appreciated on the back, continue surgical wound care #HTN -continue enalapril. #COPD/KATHARINE -continue with cpap -Continue ambulatory inhalers #Parkinson's disease -Continue with carbidopa/levodopa #DVT ppx -Warfarin Plan/VTE VTE Prophylaxis Ordered?: Yes VS, I&O, 24H, Fishbone Vital Signs/I&O Vital Signs Date Time Temp Pulse Resp B/P (MAP) Pulse Ox O2 Delivery O2 Flow Rate FiO2 9/19/21 08:53 143/90 05/13/21 03:31 98.1 58 20 95 Room Air I&O- Last 24 Hours up to 6 AM 05/13/21 05:59 Intake Total 540 ml Output Total 500 ml Balance 40 ml Laboratory Data 24H LABS Laboratory Tests 2 05/13/21 03:38: Bedside Glucose (Misc Panel) 90 05/13/21 06:38: Nucleated Red Blood Cells % (auto) 0.0, Prothrombin Time 29.4H, Prothromb Time International Ratio 2.74, Anion Gap 7L, Glomerular Filtration Rate > 60.0, Calcium Level 8.3L, Magnesium Level 1.8 CBC/BMP Laboratory Tests 05/13/21 06:38 Microbiology Microbiology 05/09/21 Blood Culture - Preliminary, Resulted No Growth after 72 hours. All specime... 05/09/21 Gram Stain - Final, Complete 05/09/21 Sputum Culture - Final, Complete 05/08/21 Blood Culture - Preliminary, Resulted No Growth after 72 hours. All specime... 05/08/21 Respiratory Virus Panel (PCR) ([facility]IRE) - Final, Complete 05/08/21 Blood Culture - Final, Complete NO GROWTH AFTER 5 DAYS 05/08/21 Blood Culture - Final, Complete NO GROWTH AFTER 5 DAYS 05/08/21 Urine Culture - Final, Complete Enterobacter Cloacae Complex Klebsiella Pneumoniae LIBERTAD BRISCOE M.D. May 13, 2021 14:10
[2021-05-13] MEDS: cefTRIAXone SOD 1 GM in D5W MINI-BAG PLUS 50 ML IV SCH (15:25)
[2021-05-13] MEDS: WARFARIN SOD 3MG TAB PO SCH (18:17)
[2021-05-13 20:00] VITALS: BP 121/69
[2021-05-13] MEDS: ACETAMINOPHEN TAB 650MG DOSE (2X325MG) PO PRN (20:11)
[2021-05-13] MEDS: SENNA 8.6 MG TAB (SENOKOT) PO SCH (20:11)
[2021-05-13] MEDS: RAMELTEON 8 MG TAB (ROZEREM) PO PRN (20:11)
[2021-05-14] MEDS: REMEDY PHYTOPLEX Z-GUARD PASTE 113GM TUBE (FROM STOREROOM PRODUCT) TOP SCH ×4 (00:25→17:47)
[2021-05-14 06:06] LABS: BASO % 0.8 % (0.0-1.0); EOS # 0.2 10^3/uL (0.0-0.5); EOS % 3.3 % (0.0-3.0); HEMATOCRIT 34.2 % (42.0-52.0); HEMOGLOBIN 11.2 g/dl (13.5-17.5); LYMPH # 1.3 10^3/uL (1.5-5.0); LYMPH % 26.1 % (24.0-44.0); MEAN CORPUSCULAR HEMOGLOBIN 31.5 pg (27.0-33.0); MEAN CORPUSCULAR HGB CONC 32.7 g/dl (32.0-36.5); MEAN CORPUSCULAR VOLUME 96.1 fl (80.0-96.0); MONO # 0.4 10^3/uL (0.0-0.8); MONO % 8.6 % (2.0-8.0); NEUTROPHILS # 3.1 10^3/uL (1.5-8.5); NEUTROPHILS % 59.4 % (36.0-66.0); PLATELET COUNT, AUTOMATED 254 10^3/uL (150-450); RED BLOOD COUNT 3.56 10^6/uL (4.30-6.10); WHITE BLOOD COUNT 5.1 10^3/uL (4.0-10.0)
[2021-05-14 06:44] LABS: INR 2.43; PROTHROMBIN TIME 26.8 SECONDS (12.7-14.5)
[2021-05-14 06:51] LABS: BLOOD UREA NITROGEN 11 MG/DL (7-18); CALCIUM LEVEL 8.3 MG/DL (8.8-10.2); CARBON DIOXIDE LEVEL 26 MEQ/L (21-32); CHLORIDE LEVEL 109 MEQ/L (98-107); CREATININE FOR GFR 0.71 MG/DL (0.70-1.30); GLOMERULAR FILTRATION RATE > 60.0 (>42); GLUCOSE, FASTING 101 MG/DL (70-100); POTASSIUM SERUM 4.1 MEQ/L (3.5-5.1); SODIUM LEVEL 142 MEQ/L (136-145)
[2021-05-14] MEDS: COMBIVENT RESPIMAT 100-20MCG INHALER 4GM INH SCH ×3 (07:59→17:27)
[2021-05-14] MEDS: SYMBICORT 160/4.5MCG INHALER 6GM INH SCH ×2 (07:59→17:26)
[2021-05-14] MEDS: LACTOBACILLUS ACIDOPHILUS CAP (BACID) PO SCH ×3 (09:00→20:34)
[2021-05-14] MEDS: MAGIC MOUTHWASH SUSPENSION BTL SS SCH ×3 (09:44→17:46)
[2021-05-14] MEDS: TAMSULOSIN 0.4 MG CAP PO SCH (09:45)
[2021-05-14] MEDS: POTASSIUM CHLORIDE 10MEQ SR TABLET PO SCH (09:45)
[2021-05-14] MEDS: guaiFENesin 200 MG TAB PO SCH ×3 (09:45→20:34)
[2021-05-14] MEDS: FLUoxetine 20 MG CAP PO SCH (09:45)
[2021-05-14] MEDS: FUROSEMIDE 20 MG TAB PO SCH (09:45)
[2021-05-14] MEDS: SINEMET 25-100 MG TAB PO SCH ×3 (09:45→20:34)
[2021-05-14] MEDS: DOCUSATE SODIUM 100MG CAPSULE PO SCH ×2 (09:45→20:34)
[2021-05-14] MEDS: VITAMIN D 1,000 INTERNATIONAL UNITS TABLET PO SCH (09:46)
[2021-05-14] MEDS: ATORVASTATIN 20 MG TAB PO SCH (09:46)
[2021-05-14] MEDS: ENALAPRIL MALEATE 10 MG TAB PO SCH (09:46)
[2021-05-14] MEDS: allopurinoL 300 MG TAB PO SCH (09:46)
[2021-05-14] MEDS: OMEPRAZOLE 20 MG CAP PO SCH ×2 (09:46→20:34)
[2021-05-14] MEDS: MODAFINIL 100 MG TABLET PO SCH (09:46)
[2021-05-14] MEDS: levETIRAcetam 250MG TABLET (KEPPRA) PO SCH ×2 (09:47→20:34)
--- NOTE | 2021-05-14 10:16 | IPNPDOC ---
PM&R Progress Note DATE OF SERVICE: May 14, 2021 Assignment Desk Assistant Progress Note Subjective: Patient seen in his wheelchair moving around the room with therapy appearing cheerful and cooperative. He denies any fevers, chills, or pain. REVIEW OF SYSTEMS: The following is a completed review of systems and has been reviewed. Review of systems otherwise unremarkable. PAIN: Patient self reports no pain EYES: No recent vision changes EARS, NOSE, & THROAT: +dysphagia CARDIOVASCULAR: Denies chest pain or palpitations PULMONARY: no cough or shortness of breath GASTROINTESTINAL: Denies constipation/diarrhea GENITOURINARY: no dysuria MUSCULOSKELETAL: generalized weakness NEUROLOGICAL:+ encephalopathic (improving) PSYCHIATRIC: lethargic, but able to rouse PHYSICAL EXAMINATION: VITAL SIGNS: Please see below. GENERAL: Pleasant and cooperative. No acute distress. lethargic, but able to rouse HEENT: PERRL. Extraocular movements intact. Clear conjunctiva CARDIOVASCULAR: Regular rate and rhythm. No murmurs, rubs, or gallops LUNGS: Clear to auscultation bilaterally. No wheezes. No rhonchi ABDOMEN: Soft, nontender, nondistended. Positive bowel sounds. Normal active bowel sounds NEUROLOGICAL: Alert and oriented to self Cranial nerves II through XII grossly intact. Sensation grossly intact able to follow commands EXTREMITIES: 4\5 RUE, 5/5 LUE 4\5 strength right lower extremity. 5/5 strength in left lower extremity. 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 neuro- s/p recent left frontoparietal ICH With CTH showing small acute bleed in area of old ICH with break through seizures and encephalopathy with significant mobility and ADL impairments -cont seizure meds, Keppra and Vimpat- levels WNL -provigil for arousal -patient with fever and leukocytosis on admission with probable new PNA and UTI contributing to ongoing encephalopathy- cont antibiotics, patient less encephalopathic today -parkinson's cont Sinemet -repeat CTH negative for -f/u neurosurgery and neurology on d/c 3. Cardiac-hx of mechanical aortic valve, discharged on Lovenox-Coumadin bridge, cont Coumadin goal 2.5-3.5 -HTN cont BP meds -HLD cont statin -degree of CHF given edematous legs cont lasix, daily weights, will fluid restrict once he is able to tolerate more po 4. ID- leukocytosis resolved from aspiration PNA and UTI with Ucx + for klebsie lla and enterococcae, stopped IV antibiotics and cont with levaquin x 3 days cont to keep HOB >30, oral care, blood cx negative, patient afebrile -lactic acid WNL 5. GI ppx- prilosec 6. DVT ppx- on coumadin 7. Pain- tylenol 9. Psych- on prozac 10. - amato d/c'd over the weekend, voiding well 10. Dispo- TBD Allergies Coded Allergies: No Known Allergies (Verified Allergy, Unknown, 10/28/19) Vital Signs Vital Signs Date Time Temp Pulse Resp B/P (MAP) Pulse Ox O2 Delivery O2 Flow Rate FiO2 05/13/21 20:00 98.9 72 17 121/69 (86) 92 Room Air Laboratory Data CBC/BMP Laboratory Tests 05/14/21 05:52 Labs 24H Laboratory Tests 2 05/14/21 05:52: Immature Granulocyte % (Auto) 1.8, Neutrophils (%) (Auto) 59.4, Lymphocytes (%) (Auto) 26.1, Monocytes (%) (Auto) 8.6H, Eosinophils (%) (Auto) 3.3H, Basophils (%) (Auto) 0.8, Neutrophils # (Auto) 3.1, Lymphocytes # (Auto) 1.3L, Monocytes # (Auto) 0.4, Eosinophils # (Auto) 0.2, Basophils # (Auto) 0.0, Nucleated Red Blood Cells % (auto) 0.0, Prothrombin Time 26.8H, Prothromb Time International Ratio 2.43, Anion Gap 7L, Glomerular Filtration Rate > 60.0, Calcium Level 8.3L Microbiology Microbiology 05/09/21 Blood Culture - Final, Complete NO GROWTH AFTER 5 DAYS 05/09/21 Gram Stain - Final, Complete 05/09/21 Sputum Culture - Final, Complete 05/08/21 Blood Culture - Final, Complete NO GROWTH AFTER 5 DAYS 05/08/21 Respiratory Virus Panel (PCR) (ANNE-MARIE) - Final, Complete 05/08/21 Blood Culture - Final, Complete NO GROWTH AFTER 5 DAYS 05/08/21 Blood Culture - Final, Complete NO GROWTH AFTER 5 DAYS 05/08/21 Urine Culture - Final, Complete Enterobacter Cloacae Complex Klebsiella Pneumoniae Current Medications Current Medications Current Medications Medications (Trade) Dose Ordered Sig/Eugenio Route PRN Reason Start Time Stop Time Status Last Admin Dose Admin Acetaminophen (Tylenol Tab) 650 mg Q6HP PRN PO MILD PAIN or TEMP > 101 05/07/21 20:30 05/13/21 20:11 Albuterol/ Ipratropium (Combivent Respimat 100-20mcg) 1 puff RTID INH 05/07/21 20:00 05/13/21 19:49 Allopurinol (Zyloprim) 300 mg DAILY PO 05/08/21 09:00 05/13/21 08:54 Atorvastatin Calcium (Lipitor) 80 mg DAILY PO 05/08/21 09:00 05/13/21 08:54 Budesonide/ Formoterol Fumarate (Symbicort 160/ 4.5mcg) 2 puff RBID INH 05/07/21 20:00 05/12/21 18:21 Carbidopa/Levodopa (Sinemet 25/100) 1 tab TID PO 05/07/21 21:00 05/13/21 20:11 Ceftriaxone Sodium 1 gm/ Dextrose 50 ml @ 100 mls/hr Q24H IV 05/10/21 14:00 05/14/21 09:41 DC 05/13/21 15:25 Docusate Sodium (Colace) 100 mg BID PO 05/07/21 21:00 05/13/21 20:11 Enalapril Maleate (Vasotec) 10 mg DAILY PO 05/08/21 09:00 05/13/21 08:53 Enoxaparin Sodium (Lovenox) 100 mg BID SC 05/07/21 21:00 05/08/21 14:07 DC 05/08/21 07:55 Fluoxetine HCl (PROzac) 20 mg DAILY PO 05/08/21 09:00 05/13/21 08:53 Furosemide (Lasix) 20 mg DAILY PO 05/08/21 09:00 05/13/21 08:53 Guaifenesin (Robitussin Tab) 400 mg TID PO 05/07/21 21:00 05/13/21 20:12 Heparin Sodium (Heparin (Flush)) 200 units ASDIRECTED PRN IV SEE LABEL COMMENTS 05/07/21 16:20 Cancel Heparin Sodium (Heparin (Flush)) 200 units PICC IV 05/07/21 18:00 05/09/21 17:41 DC 05/09/21 05:39 Home Med (Home Med List Complete!) ASDIRECTED XX 05/07/21 19:55 05/07/21 20:07 DC Lacosamide (Vimpat) 200 mg BID PO 05/07/21 21:00 05/13/21 20:11 Lactobacillus Acidophilus (Bacid) 1 ea TID PO 05/14/21 16:00 UNV Levetiracetam (Keppra) 1,000 mg BID PO 05/07/21 21:00 05/13/21 20:12 Levofloxacin (Levaquin) 500 mg DAILY@06 PO 05/14/21 09:40 UNV Lidocaine/ Diphenhydr/Alum/ Mg/Simeth (Magic Mouthwash) 5ML if patient unable... AC SS 05/08/21 07:30 05/13/21 18:17 Lorazepam (Ativan) 2 mg STAT STAT IM 05/13/21 03:20 05/13/21 03:21 DC 05/13/21 03:31 Modafinil (Provigil) 50 mg QAM PO 05/08/21 09:00 05/13/21 08:53 Omeprazole (PriLOSEC) 20 mg BID PO 05/07/21 21:00 05/13/21 20:11 Piperacillin Sod/ Tazobactam Sod 4.5 gm/Dextrose 50 ml @ 50 mls/hr Q6H IV 05/08/21 11:00 05/10/21 13:18 DC 05/10/21 10:31 Polyethylene Glycol (Miralax) 1 pkt DAILY PRN PO CONSTIPATION 05/07/21 15:40 05/10/21 13:46 Potassium Chloride (Micro-K Extencaps) 10 meq DAILY PO 05/08/21 09:00 05/13/21 08:53 Ramelteon (Rozerem) 8 mg QHS PRN PO INSOMNIA 05/07/21 15:40 05/13/21 20:11 Senna (Senokot) 1 tab QHS PO 05/07/21 21:00 05/13/21 20:11 Sodium Chloride 1,000 ml @ 75 mls/hr [id number] IV 05/08/21 09:25 05/08/21 22:44 DC 05/08/21 10:15 Sodium Chloride (Saline Lock Flush) 10 ml ASDIRECTED PRN IV SEE LABEL COMMENTS 05/07/21 16:20 Cancel Sodium Chloride (Saline Lock Flush) 10 ml PICC IV 05/07/21 18:00 05/09/21 17:41 DC 05/09/21 05:38 Tamsulosin HCl (Flomax) 0.4 mg DAILY PO 05/08/21 09:00 05/13/21 08:54 Vancomycin HCl 500 mg/Dextrose 110 ml @ 110 mls/hr Q12H IV 05/09/21 01:00 05/10/21 08:55 DC 05/10/21 01:16 Vancomycin HCl 750 mg/IV Miscellaneous Supplies 1 each/ Sodium Chloride 275 ml @ 275 mls/hr Q12H IV 05/09/21 00:00 05/10/21 08:55 DC 05/09/21 23:57 Vancomycin HCl 2000 mg/IV Miscellaneous Supplies 1 each/ Sodium Chloride 290 ml @ 270 mls/hr Q12H IV 05/08/21 09:20 05/08/21 09:59 DC Vitamin D (Vitamin D) 2,000 units DAILY PO 05/08/21 09:00 05/13/21 08:53 Warfarin Sodium (Coumadin) 3 mg DAILY@17 PO 05/09/21 17:00 05/10/21 08:55 DC 05/09/21 17:10 Warfarin Sodium (Coumadin) 3 mg DAILY@17 PO 05/11/21 17:00 05/13/21 18:17 Warfarin Sodium (Coumadin) 4 mg DAILY@17 PO 05/10/21 17:00 05/11/21 12:35 DC 05/10/21 16:22 Warfarin Sodium (Coumadin) 6 mg DAILY@17 PO 05/07/21 17:00 05/09/21 09:21 DC 05/08/21 17:29 ANTIONETTE HONG MD May 14, 2021 10:16
[2021-05-14] MEDS: LACOSAMIDE 50 MG TAB (VIMPAT) PO SCH ×2 (10:43→20:34)
[2021-05-14] MEDS: LevoFLOXacin 500 MG TABLET PO SCH (10:44)
[2021-05-14 14:00] VITALS: BP 117/76
[2021-05-14] MEDS ORDERED: WARFARIN SOD 1MG TAB PO SCH (17:00)
[2021-05-14 20:00] VITALS: BP 98/65
[2021-05-14] MEDS: RAMELTEON 8 MG TAB (ROZEREM) PO PRN (20:34)
[2021-05-14] MEDS: SENNA 8.6 MG TAB (SENOKOT) PO SCH (20:34)
[2021-05-15] MEDS: LevoFLOXacin 500 MG TABLET PO SCH (05:29)
[2021-05-15] MEDS: REMEDY PHYTOPLEX Z-GUARD PASTE 113GM TUBE (FROM STOREROOM PRODUCT) TOP SCH ×5 (05:29→23:33)
[2021-05-15 06:00] VITALS: BP 131/77
[2021-05-15 07:45] LABS: INR 2.06; PROTHROMBIN TIME 23.6 SECONDS (12.7-14.5)
[2021-05-15] MEDS: SYMBICORT 160/4.5MCG INHALER 6GM INH SCH ×2 (08:00→20:00)
[2021-05-15] MEDS: COMBIVENT RESPIMAT 100-20MCG INHALER 4GM INH SCH ×3 (08:00→20:00)
[2021-05-15] MEDS: OMEPRAZOLE 20 MG CAP PO SCH ×2 (09:16→19:37)
[2021-05-15] MEDS: guaiFENesin 200 MG TAB PO SCH ×4 (09:16→19:45)
[2021-05-15] MEDS: MAGIC MOUTHWASH SUSPENSION BTL SS SCH ×3 (09:16→17:16)
[2021-05-15] MEDS: DOCUSATE SODIUM 100MG CAPSULE PO SCH ×3 (09:16→19:45)
[2021-05-15] MEDS: allopurinoL 300 MG TAB PO SCH (09:16)
[2021-05-15] MEDS: ATORVASTATIN 20 MG TAB PO SCH (09:16)
[2021-05-15] MEDS: FLUoxetine 20 MG CAP PO SCH (09:16)
[2021-05-15] MEDS: levETIRAcetam 250MG TABLET (KEPPRA) PO SCH ×2 (09:16→19:37)
[2021-05-15] MEDS: VITAMIN D 1,000 INTERNATIONAL UNITS TABLET PO SCH (09:17)
[2021-05-15] MEDS: ENALAPRIL MALEATE 10 MG TAB PO SCH (09:17)
[2021-05-15] MEDS: MODAFINIL 100 MG TABLET PO SCH (09:17)
[2021-05-15] MEDS: POTASSIUM CHLORIDE 10MEQ SR TABLET PO SCH (09:17)
[2021-05-15] MEDS: TAMSULOSIN 0.4 MG CAP PO SCH (09:17)
[2021-05-15] MEDS: SINEMET 25-100 MG TAB PO SCH ×3 (09:17→19:38)
[2021-05-15] MEDS: FUROSEMIDE 20 MG TAB PO SCH (09:17)
[2021-05-15] MEDS: LACOSAMIDE 50 MG TAB (VIMPAT) PO SCH ×2 (09:17→19:37)
[2021-05-15] MEDS: LACTOBACILLUS ACIDOPHILUS CAP (BACID) PO SCH ×3 (09:17→19:38)
--- NOTE | 2021-05-15 10:33 | IPNPDOC ---
PM&R Progress Note DATE OF SERVICE: May 15, 2021 Clinical Registered Nurse Progress Note Subjective: Patient seen in his room stating he is feeling good and thinks he is getting stronger. He admits he gets confused from time to time. REVIEW OF SYSTEMS: The following is a completed review of systems and has been reviewed. Review of systems otherwise unremarkable. PAIN: Patient self reports no pain EYES: No recent vision changes EARS, NOSE, & THROAT: +dysphagia CARDIOVASCULAR: Denies chest pain or palpitations PULMONARY: no cough or shortness of breath GASTROINTESTINAL: Denies constipation/diarrhea GENITOURINARY: no dysuria MUSCULOSKELETAL: generalized weakness NEUROLOGICAL:+ encephalopathic (improving) PSYCHIATRIC: unremarkable PHYSICAL EXAMINATION: VITAL SIGNS: Please see below. GENERAL: Pleasant and cooperative. No acute distress. lethargic, but able to rouse HEENT: PERRL. Extraocular movements intact. Clear conjunctiva CARDIOVASCULAR: Regular rate and rhythm. No murmurs, rubs, or gallops LUNGS: Clear to auscultation bilaterally. No wheezes. No rhonchi ABDOMEN: Soft, nontender, nondistended. Positive bowel sounds. Normal active bowel sounds NEUROLOGICAL: Alert and oriented to self Cranial nerves II through XII grossly intact. Sensation grossly intact able to follow commands EXTREMITIES: 4\5 RUE, 5/5 LUE 4\5 strength right lower extremity. 5/5 strength in left lower extremity. 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 Rehab- PT/OT advance mobility and ADLs, strengthen/stretch/maintain ROM all 4 limbs, working on bed mobility and sitting balance, patient more alert and participation improving -ACCOUNT ENGINEER for cog and dysphagia- ACCOUNT ENGINEER recommending FEES 2. neuro- s/p recent left frontoparietal ICH With CTH showing small acute bleed in area of old ICH with break through seizures and encephalopathy with significant mobility and ADL impairments -cont seizure meds, Keppra and Vimpat- levels WNL -provigil for arousal -patient with fever and leukocytosis on admission with probable new PNA and UTI contributing to ongoing encephalopathy- cont antibiotics, patient less encephalopathic today -parkinson's cont Sinemet -repeat CTH negative for -f/u neurosurgery and neurology on d/c 3. Cardiac-hx of mechanical aortic valve, discharged on Lovenox-Coumadin bridge, cont Coumadin goal 2.5-3.5 -HTN cont BP meds -HLD cont statin -degree of CHF given edematous legs cont lasix, daily weights, will fluid restrict once he is able to tolerate more po 4. ID- leukocytosis resolved from aspiration PNA and UTI with Ucx + for klebsiella and enterococcae, stopped IV antibiotics and cont with levaquin x 3 days cont to keep HOB >30, oral care, blood cx negative, patient afebrile -lactic acid WNL 5. GI ppx- prilosec 6. DVT ppx- on coumadin 7. Pain- tylenol 9. Psych- on prozac 10. - voiding well 10. [id number] to home Allergies Coded Allergies: No Known Allergies (Verified Allergy, Unknown, 10/28/19) Vital Signs Vital Signs Date Time Temp Pulse Resp B/P (MAP) Pulse Ox O2 Delivery O2 Flow Rate FiO2 05/15/21 09:17 131/77 05/15/21 06:00 98.0 57 19 96 Room Air Laboratory Data Labs 24H Laboratory Tests 2 05/15/21 06:53: Prothrombin Time 23.6H, Prothromb Time International Ratio 2.06 Microbiology Microbiology 05/09/21 Blood Culture - Final, Complete NO GROWTH AFTER 5 DAYS 05/09/21 Gram Stain - Final, Complete 05/09/21 Sputum Culture - Final, Complete 05/08/21 Blood Culture - Final, Complete NO GROWTH AFTER 5 DAYS 05/08/21 Respiratory Virus Panel (PCR) (ANNE-MARIE) - Final, Complete 05/08/21 Blood Culture - Final, Complete NO GROWTH AFTER 5 DAYS 05/08/21 Blood Culture - Final, Complete NO GROWTH AFTER 5 DAYS 05/08/21 Urine Culture - Final, Complete Enterobacter Cloacae Complex Klebsiella Pneumoniae Current Medications Current Medications Current Medications Medications (Trade) Dose Ordered Sig/Eugenio Route PRN Reason Start Time Stop Time Status Last Admin Dose Admin Acetaminophen (Tylenol Tab) 650 mg Q6HP PRN PO MILD PAIN or TEMP > 101 05/07/21 20:30 05/13/21 20:11 Albuterol/ Ipratropium (Combivent Respimat 100-20mcg) 1 puff RTID INH 05/07/21 20:00 05/13/21 19:49 Allopurinol (Zyloprim) 300 mg DAILY PO 05/08/21 09:00 05/15/21 09:16 Atorvastatin Calcium (Lipitor) 80 mg DAILY PO 05/08/21 09:00 05/15/21 09:16 Budesonide/ Formoterol Fumarate (Symbicort 160/ 4.5mcg) 2 puff RBID INH 05/07/21 20:00 05/12/21 18:21 Carbidopa/Levodopa (Sinemet 25/100) 1 tab TID PO 05/07/21 21:00 05/15/21 09:17 Ceftriaxone Sodium 1 gm/ Dextrose 50 ml @ 100 mls/hr Q24H IV 05/10/21 14:00 05/14/21 09:41 DC 05/13/21 15:25 Docusate Sodium (Colace) 100 mg BID PO 05/07/21 21:00 05/15/21 09:16 Enalapril Maleate (Vasotec) 10 mg DAILY PO 05/08/21 09:00 05/15/21 09:17 Enoxaparin Sodium (Lovenox) 100 mg BID SC 05/07/21 21:00 05/08/21 14:07 DC 05/08/21 07:55 Fluoxetine HCl (PROzac) 20 mg DAILY PO 05/08/21 09:00 05/15/21 09:16 Furosemide (Lasix) 20 mg DAILY PO 05/08/21 09:00 05/15/21 09:17 Guaifenesin (Robitussin Tab) 400 mg TID PO 05/07/21 21:00 05/15/21 09:16 Heparin Sodium (Heparin (Flush)) 200 units ASDIRECTED PRN IV SEE LABEL COMMENTS 05/07/21 16:20 Cancel Heparin Sodium (Heparin (Flush)) 200 units PICC IV 05/07/21 18:00 05/09/21 17:41 DC 05/09/21 05:39 Home Med (Home Med List Complete!) ASDIRECTED XX 05/07/21 19:55 05/07/21 20:07 DC Lacosamide (Vimpat) 200 mg BID PO 05/07/21 21:00 05/15/21 09:17 Lactobacillus Acidophilus (Bacid) 1 ea TID PO 05/14/21 09:00 05/15/21 09:17 Levetiracetam (Keppra) 1,000 mg BID PO 05/07/21 21:00 05/15/21 09:16 Levofloxacin (Levaquin) 500 mg DAILY@06 PO 05/14/21 06:00 05/15/21 05:29 Lidocaine/ Diphenhydr/Alum/ Mg/Simeth (Magic Mouthwash) 5ML if patient unable... AC SS 05/08/21 07:30 05/15/21 09:16 Lorazepam (Ativan) 2 mg STAT STAT IM 05/13/21 03:20 05/13/21 03:21 DC 05/13/21 03:31 Modafinil (Provigil) 50 mg QAM PO 05/08/21 09:00 05/15/21 09:17 Omeprazole (PriLOSEC) 20 mg BID PO 05/07/21 21:00 05/15/21 09:16 Piperacillin Sod/ Tazobactam Sod 4.5 gm/Dextrose 50 ml @ 50 mls/hr Q6H IV 05/08/21 11:00 05/10/21 13:18 DC 05/10/21 10:31 Polyethylene Glycol (Miralax) 1 pkt DAILY PRN PO CONSTIPATION 05/07/21 15:40 05/10/21 13:46 Potassium Chloride (Micro-K Extencaps) 10 meq DAILY PO 05/08/21 09:00 05/15/21 09:17 Ramelteon (Rozerem) 8 mg QHS PRN PO INSOMNIA 05/07/21 15:40 05/14/21 20:34 Senna (Senokot) 1 tab QHS PO 05/07/21 21:00 05/14/21 20:34 Sodium Chloride 1,000 ml @ 75 mls/hr [id number] IV 05/08/21 09:25 05/08/21 22:44 DC 05/08/21 10:15 Sodium Chloride (Saline Lock Flush) 10 ml ASDIRECTED PRN IV SEE LABEL COMMENTS 05/07/21 16:20 Cancel Sodium Chloride (Saline Lock Flush) 10 ml PICC IV 05/07/21 18:00 05/09/21 17:41 DC 05/09/21 05:38 Tamsulosin HCl (Flomax) 0.4 mg DAILY PO 05/08/21 09:00 05/15/21 09:17 Vancomycin HCl 500 mg/Dextrose 110 ml @ 110 mls/hr Q12H IV 05/09/21 01:00 05/10/21 08:55 DC 05/10/21 01:16 Vancomycin HCl 750 mg/IV Miscellaneous Supplies 1 each/ Sodium Chloride 275 ml @ 275 mls/hr Q12H IV 05/09/21 00:00 05/10/21 08:55 DC 05/09/21 23:57 Vancomycin HCl 2000 mg/IV Miscellaneous Supplies 1 each/ Sodium Chloride 290 ml @ 270 mls/hr Q12H IV 05/08/21 09:20 05/08/21 09:59 DC Vitamin D (Vitamin D) 2,000 units DAILY PO 05/08/21 09:00 05/15/21 09:17 Warfarin Sodium (Coumadin) 3 mg DAILY@17 PO 05/09/21 17:00 05/10/21 08:55 DC 05/09/21 17:10 Warfarin Sodium (Coumadin) 3 mg DAILY@17 PO 05/11/21 17:00 05/14/21 09:42 DC 05/13/21 18:17 Warfarin Sodium (Coumadin) 3.5 mg DAILY@17 PO 05/14/21 17:00 05/14/21 17:46 Warfarin Sodium (Coumadin) 4 mg DAILY@17 PO 05/10/21 17:00 05/11/21 12:35 DC 05/10/21 16:22 Warfarin Sodium (Coumadin) 6 mg DAILY@17 PO 05/07/21 17:00 05/09/21 09:21 DC 05/08/21 17:29 ANTIONETTE HONG MD May 15, 2021 10:33
[2021-05-15 14:00] VITALS: BP 103/60
[2021-05-15] MEDS ORDERED: WARFARIN SOD 4MG TAB PO SCH (17:00)
[2021-05-15] MEDS: RAMELTEON 8 MG TAB (ROZEREM) PO PRN (19:38)
[2021-05-15] MEDS: SENNA 8.6 MG TAB (SENOKOT) PO SCH (19:39)
[2021-05-15] MEDS: ACETAMINOPHEN TAB 650MG DOSE (2X325MG) PO PRN (19:39)
[2021-05-15 20:00] VITALS: BP 119/72
[2021-05-15 21:40] VITALS: BP 129/91
[2021-05-15] MEDS ORDERED: LORazepam 0.5 MG TAB PO PRN (21:50)
--- NOTE | 2021-05-15 22:11 | IPNPDOC ---
Text Note Date of Service The patient was seen on 05/15/21. NOTE Significant event. 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 Witnessed fall with abrasion to left eye/eyelid from wall/ floor. Patient reports mild pain "soreness" to left face- denies WHATLEY presently. He is able to report where he is and some situation, but has reported confusion episodes where he has been insulting staff and confusing them with his sister. Neuro exam without focal sensory changes or weakness, notable swelling left eyelid. EOMs intact. Pt does endorse left anterior chest soreness from where he fell, but tolerating RA and equal chest expansion appreciated. CTA, regular rhythm. ROM intact bilateral upper and lower extremities. He does have right knee superficial abrasion, pink; no swelling. Given he is on Coumadin with significant encephalomalacia hx will opt for CT head and neurochecks overnight. Ice to affected side of face prn. Patient to have sitter at bedside and methods to De-escalate as able. prn PO ativan (he tolerated this previously) with parameters for agitation/aggression tonight, although by time of exam pt is agreeable to head imaging and reports he will "stay in bed". Will also obtain cxr given the anterior chest soreness and CHANDLER. Will continue to monitor and adjust care plan accordingly pending imaging. VS,Fishbone, I+O VS, Fishbone, I+O Vital Signs Date Time Temp Pulse Resp B/P (MAP) Pulse Ox O2 Delivery O2 Flow Rate FiO2 05/15/21 20:00 97.9 66 19 119/72 (88) 95 Room Air I&O- Last 24 Hours up to 6 AM 05/15/21 06:00 Intake Total 270 ml Output Total 1025 ml Balance -755 ml CHRISTOPHE WEIR NP May 15, 2021 21:49
--- NOTE | 2021-05-15 23:28 | REPVR ---
PROCEDURE INFORMATION: Exam: CT Head Without Contrast Exam date and time: 05/15/2021 9:47 PM Age: 76 years old Clinical indication: Injury or trauma; Fall; Concussion/head injury; Additional info: Fall, head trauma, on coumadin TECHNIQUE: Imaging protocol: Computed tomography of the head without contrast. Radiation optimization: All CT scans at this facility use at least one of these dose optimization techniques: automated exposure control; mA and/or kV adjustment per patient size (includes targeted exams where dose is matched to clinical indication); or iterative reconstruction. COMPARISON: CT Head without contrast 05/12/2021 11:36 AM FINDINGS: Brain: There is no evidence of intracranial bleed. There is focal atrophy the left frontal lobe near the vertex and consistent with an area of old stroke. There is no evidence of mass effect. Cerebral ventricles: Normal ventricles. Paranasal sinuses: Clear paranasal sinuses. Mastoid air cells: Clear mastoid air cells. Orbital cavity: Symmetric orbits. Bones/joints: There is no evidence of fracture. Soft tissues: There is no evidence of significant soft tissue swelling. 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 Electronically signed by: Maxi Root On 05/15/2021 23:28:45 PM
--- NOTE | 2021-05-15 23:33 | REPVR ---
PROCEDURE INFORMATION: Exam: XR Chest Exam date and time: 05/15/2021 10:34 PM Age: 76 years old Clinical indication: Chest wall pain; Additional info: Fall, anterior rib pain TECHNIQUE: Imaging protocol: XR of the chest. Views: 1 view. COMPARISON: CT Chest without contrast 05/08/2021 3:51 PM FINDINGS: Tubes, catheters and devices: Sternal wires are present. Lungs: Clear appearing lungs. Pleural spaces: There is no evidence of pleural effusion. Heart/Mediastinum: The heart is normal in size. Bones/joints: There is osteophyte formation right and left humerus. There is no evidence of fracture. IMPRESSION: Clear appearing lungs Electronically signed by: Maxi Root On 05/15/2021 23:33:51 PM
[2021-05-16 06:00] VITALS: BP 144/85
[2021-05-16] MEDS: LevoFLOXacin 500 MG TABLET PO SCH (06:31)
[2021-05-16] MEDS: REMEDY PHYTOPLEX Z-GUARD PASTE 113GM TUBE (FROM STOREROOM PRODUCT) TOP SCH ×3 (06:32→16:27)
[2021-05-16 06:47] LABS: BASO % 0.6 % (0.0-1.0); EOS # 0.2 10^3/uL (0.0-0.5); EOS % 3.5 % (0.0-3.0); HEMATOCRIT 36.6 % (42.0-52.0); HEMOGLOBIN 12.1 g/dl (13.5-17.5); LYMPH # 1.5 10^3/uL (1.5-5.0); LYMPH % 28.3 % (24.0-44.0); MEAN CORPUSCULAR HEMOGLOBIN 31.9 pg (27.0-33.0); MEAN CORPUSCULAR HGB CONC 33.1 g/dl (32.0-36.5); MEAN CORPUSCULAR VOLUME 96.6 fl (80.0-96.0); MONO # 0.5 10^3/uL (0.0-0.8); MONO % 9.4 % (2.0-8.0); NEUTROPHILS % 56.9 % (36.0-66.0); PLATELET COUNT, AUTOMATED 241 10^3/uL (150-450); RED BLOOD COUNT 3.79 10^6/uL (4.30-6.10); WHITE BLOOD COUNT 5.2 10^3/uL (4.0-10.0)
[2021-05-16 06:55] LABS: INR 1.96; PROTHROMBIN TIME 22.7 SECONDS (12.7-14.5)
[2021-05-16 07:10] LABS: BLOOD UREA NITROGEN 16 MG/DL (7-18); CARBON DIOXIDE LEVEL 28 MEQ/L (21-32); CHLORIDE LEVEL 107 MEQ/L (98-107); CREATININE FOR GFR 1.02 MG/DL (0.70-1.30); GLOMERULAR FILTRATION RATE > 60.0 (>42); GLUCOSE, FASTING 95 MG/DL (70-100); POTASSIUM SERUM 4.6 MEQ/L (3.5-5.1); SODIUM LEVEL 141 MEQ/L (136-145)
[2021-05-16] MEDS: COMBIVENT RESPIMAT 100-20MCG INHALER 4GM INH SCH ×3 (07:23→20:00)
[2021-05-16] MEDS: SYMBICORT 160/4.5MCG INHALER 6GM INH SCH ×2 (07:23→20:19)
[2021-05-16] MEDS: VITAMIN D 1,000 INTERNATIONAL UNITS TABLET PO SCH (08:58)
[2021-05-16] MEDS: POTASSIUM CHLORIDE 10MEQ SR TABLET PO SCH (08:58)
[2021-05-16 08:59] VITALS: BP 144/85
[2021-05-16] MEDS: levETIRAcetam 250MG TABLET (KEPPRA) PO SCH ×2 (08:59→21:05)
[2021-05-16] MEDS: ENALAPRIL MALEATE 10 MG TAB PO SCH (08:59)
[2021-05-16] MEDS: FUROSEMIDE 20 MG TAB PO SCH (08:59)
[2021-05-16] MEDS: DOCUSATE SODIUM 100MG CAPSULE PO SCH ×2 (09:00→21:06)
[2021-05-16] MEDS: LACOSAMIDE 50 MG TAB (VIMPAT) PO SCH ×2 (09:00→21:07)
[2021-05-16] MEDS: guaiFENesin 200 MG TAB PO SCH ×3 (09:00→21:07)
[2021-05-16] MEDS: OMEPRAZOLE 20 MG CAP PO SCH ×2 (09:00→21:06)
[2021-05-16] MEDS: SINEMET 25-100 MG TAB PO SCH ×3 (09:00→16:27)
[2021-05-16] MEDS: TAMSULOSIN 0.4 MG CAP PO SCH (09:00)
[2021-05-16] MEDS: ATORVASTATIN 20 MG TAB PO SCH (09:00)
[2021-05-16] MEDS: LACTOBACILLUS ACIDOPHILUS CAP (BACID) PO SCH ×3 (09:00→21:06)
[2021-05-16] MEDS: allopurinoL 300 MG TAB PO SCH (09:00)
[2021-05-16] MEDS: FLUoxetine 20 MG CAP PO SCH (09:00)
[2021-05-16] MEDS: MAGIC MOUTHWASH SUSPENSION BTL SS SCH ×3 (09:01→16:27)
[2021-05-16] MEDS: MODAFINIL 100 MG TABLET PO SCH (09:01)
--- NOTE | 2021-05-16 11:38 | IPNPDOC ---
PM&R Progress Note DATE OF SERVICE: May 16, 2021 Log Chain Worker Progress Note Subjective: Patient seen in his room trying to feed himself, but having difficulty due to tremor. REVIEW OF SYSTEMS: The following is a completed review of systems and has been reviewed. Review of systems otherwise unremarkable. PAIN: Patient self reports no pain EYES: No recent vision changes EARS, NOSE, & THROAT: +dysphagia CARDIOVASCULAR: Denies chest pain or palpitations PULMONARY: no cough or shortness of breath GASTROINTESTINAL: Denies constipation/diarrhea GENITOURINARY: no dysuria MUSCULOSKELETAL: generalized weakness NEUROLOGICAL:+ encephalopathic (improving) PSYCHIATRIC: unremarkable PHYSICAL EXAMINATION: VITAL SIGNS: Please see below. GENERAL: Pleasant and cooperative. No acute distress. lethargic, but able to rouse HEENT: PERRL. Extraocular movements intact. Clear conjunctiva CARDIOVASCULAR: Regular rate and rhythm. No murmurs, rubs, or gallops LUNGS: Clear to auscultation bilaterally. No wheezes. No rhonchi ABDOMEN: Soft, nontender, nondistended. Positive bowel sounds. Normal active bowel sounds NEUROLOGICAL: Alert and oriented to self Cranial nerves II through XII grossly intact. Sensation grossly intact able to follow commands EXTREMITIES: 4\5 RUE, 5/5 LUE 4\5 strength right lower extremity. 5/5 strength in left lower extremity. 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 Rehab- PT/OT advance mobility and ADLs, strengthen/stretch/maintain ROM all 4 limbs, working on bed mobility and sitting balance, patient more alert and participation improving -RADIO INSTALLER for cog and dysphagia- RADIO INSTALLER recommending FEES, will order for tomorrow 2. neuro- s/p recent left frontoparietal ICH With CTH showing small acute bleed in area of old ICH with break through seizures and encephalopathy with significant mobility and ADL impairments -cont seizure meds, Keppra and Vimpat- levels WNL -provigil for arousal -patient with fever and leukocytosis on admission with probable new PNA and UTI contributing to ongoing encephalopathy-s/p course of abx, patient less encephalopathic, however having episodes of delirium in the evenings that cont ributed to his fall last night, CTH negative for new bleed -parkinson's cont Sinemet (will adjust timing so he does not receive evening dose at 9pm which may be contributing to agitation) and add seroquel for agitation -repeat CTH negative for -f/u neurosurgery and neurology on d/c 3. Cardiac-hx of mechanical aortic valve, discharged on Lovenox-Coumadin bridge, cont Coumadin goal 2.5-3.5 -HTN cont BP meds -HLD cont statin -degree of CHF given edematous legs cont lasix, daily weights, cont fluid restrict once he is able to tolerate more po 4. ID- leukocytosis resolved from aspiration PNA and UTI with Ucx + for klebsiella and enterococcae, stopped IV antibiotics and completed levaquin x 3 days cont to keep HOB >30, oral care, blood cx negative, patient afebrile -lactic acid WNL 5. GI ppx- prilosec 6. DVT ppx- on coumadin 7. Pain- tylenol 9. Psych- on prozac 10. - voiding well 10. [id number] to home Allergies Coded Allergies: No Known Allergies (Verified Allergy, Unknown, 10/28/19) Vital Signs Vital Signs Date Time Temp Pulse Resp B/P (MAP) Pulse Ox O2 Delivery O2 Flow Rate FiO2 05/16/21 08:59 144/85 05/16/21 06:00 97.5 59 18 98 Room Air Laboratory Data CBC/BMP Laboratory Tests 05/16/21 06:25 Labs 24H Laboratory Tests 2 05/16/21 06:25: Immature Granulocyte % (Auto) 1.3, Neutrophils (%) (Auto) 56.9, Lymphocytes (%) (Auto) 28.3, Monocytes (%) (Auto) 9.4H, Eosinophils (%) (Auto) 3.5H, Basophils (%) (Auto) 0.6, Neutrophils # (Auto) 3.0, Lymphocytes # (Auto) 1.5, Monocytes # (Auto) 0.5, Eosinophils # (Auto) 0.2, Basophils # (Auto) 0.0, Nucleated Red Blood Cells % (auto) 0.0, Prothrombin Time 22.7H, Prothromb Time International Ratio 1.96, Anion Gap 6L, Glomerular Filtration Rate > 60.0, Calcium Level 9.0 Microbiology Microbiology 05/09/21 Blood Culture - Final, Complete NO GROWTH AFTER 5 DAYS 05/09/21 Gram Stain - Final, Complete 05/09/21 Sputum Culture - Final, Complete 05/08/21 Blood Culture - Final, Complete NO GROWTH AFTER 5 DAYS 05/08/21 Respiratory Virus Panel (PCR) (ANNE-MARIE) - Final, Complete 05/08/21 Blood Culture - Final, Complete NO GROWTH AFTER 5 DAYS 05/08/21 Blood Culture - Final, Complete NO GROWTH AFTER 5 DAYS 05/08/21 Urine Culture - Final, Complete Enterobacter Cloacae Complex Klebsiella Pneumoniae Current Medications Current Medications Current Medications Medications (Trade) Dose Ordered Sig/Eugenio Route PRN Reason Start Time Stop Time Status Last Admin Dose Admin Acetaminophen (Tylenol Tab) 650 mg Q6HP PRN PO MILD PAIN or TEMP > 101 05/07/21 20:30 05/15/21 19:39 Albuterol/ Ipratropium (Combivent Respimat 100-20mcg) 1 puff RTID INH 05/07/21 20:00 05/16/21 07:23 Allopurinol (Zyloprim) 300 mg DAILY PO 05/08/21 09:00 05/16/21 09:00 Atorvastatin Calcium (Lipitor) 80 mg DAILY PO 05/08/21 09:00 05/16/21 09:00 Budesonide/ Formoterol Fumarate (Symbicort 160/ 4.5mcg) 2 puff RBID INH 05/07/21 20:00 05/16/21 07:23 Carbidopa/Levodopa (Sinemet 25/100) 1 tab TID PO 05/07/21 21:00 05/16/21 09:00 Ceftriaxone Sodium 1 gm/ Dextrose 50 ml @ 100 mls/hr Q24H IV 05/10/21 14:00 05/14/21 09:41 DC 05/13/21 15:25 Docusate Sodium (Colace) 100 mg BID PO 05/07/21 21:00 05/15/21 09:16 Enalapril Maleate (Vasotec) 10 mg DAILY PO 05/08/21 09:00 05/16/21 08:59 Enoxaparin Sodium (Lovenox) 100 mg BID SC 05/07/21 21:00 05/08/21 14:07 DC 05/08/21 07:55 Fluoxetine HCl (PROzac) 20 mg DAILY PO 05/08/21 09:00 05/16/21 09:00 Furosemide (Lasix) 20 mg DAILY PO 05/08/21 09:00 05/16/21 08:59 Guaifenesin (Robitussin Tab) 400 mg TID PO 05/07/21 21:00 05/16/21 09:00 Heparin Sodium (Heparin (Flush)) 200 units ASDIRECTED PRN IV SEE LABEL COMMENTS 05/07/21 16:20 Cancel Heparin Sodium (Heparin (Flush)) 200 units PICC IV 05/07/21 18:00 05/09/21 17:41 DC 05/09/21 05:39 Home Med (Home Med List Complete!) ASDIRECTED XX 05/07/21 19:55 05/07/21 20:07 DC Lacosamide (Vimpat) 200 mg BID PO 05/07/21 21:00 05/16/21 09:00 Lactobacillus Acidophilus (Bacid) 1 ea TID PO 05/14/21 09:00 05/16/21 09:00 Levetiracetam (Keppra) 1,000 mg BID PO 05/07/21 21:00 05/16/21 08:59 Levofloxacin (Levaquin) 500 mg DAILY@06 PO 05/14/21 06:00 05/16/21 06:31 Lidocaine/ Diphenhydr/Alum/ Mg/Simeth (Magic Mouthwash) 5ML if patient unable... AC SS 05/08/21 07:30 05/16/21 09:01 Lorazepam (Ativan) 0.5 mg Q4HP PRN PO ANXIETY/agitation 05/15/21 21:50 Lorazepam (Ativan) 2 mg STAT STAT IM 05/13/21 03:20 05/13/21 03:21 DC 05/13/21 03:31 Modafinil (Provigil) 50 mg QAM PO 05/08/21 09:00 05/16/21 09:01 Omeprazole (PriLOSEC) 20 mg BID PO 05/07/21 21:00 05/16/21 09:00 Piperacillin Sod/ Tazobactam Sod 4.5 gm/Dextrose 50 ml @ 50 mls/hr Q6H IV 05/08/21 11:00 05/10/21 13:18 DC 05/10/21 10:31 Polyethylene Glycol (Miralax) 1 pkt DAILY PRN PO CONSTIPATION 05/07/21 15:40 05/10/21 13:46 Potassium Chloride (Micro-K Extencaps) 10 meq DAILY PO 05/08/21 09:00 05/16/21 08:58 Ramelteon (Rozerem) 8 mg QHS PO 05/16/21 21:00 UNV Ramelteon (Rozerem) 8 mg QHS PRN PO INSOMNIA 05/07/21 15:40 05/16/21 11:23 DC 05/15/21 19:38 Senna (Senokot) 1 tab QHS PO 05/07/21 21:00 05/14/21 20:34 Sodium Chloride 1,000 ml @ 75 mls/hr [id number] IV 05/08/21 09:25 05/08/21 22:44 DC 05/08/21 10:15 Sodium Chloride (Saline Lock Flush) 10 ml ASDIRECTED PRN IV SEE LABEL COMMENTS 05/07/21 16:20 Cancel Sodium Chloride (Saline Lock Flush) 10 ml PICC IV 05/07/21 18:00 05/09/21 17:41 DC 05/09/21 05:38 Tamsulosin HCl (Flomax) 0.4 mg DAILY PO 05/08/21 09:00 05/16/21 09:00 Vancomycin HCl 500 mg/Dextrose 110 ml @ 110 mls/hr Q12H IV 05/09/21 01:00 05/10/21 08:55 DC 05/10/21 01:16 Vancomycin HCl 750 mg/IV Miscellaneous Supplies 1 each/ Sodium Chloride 275 ml @ 275 mls/hr Q12H IV 05/09/21 00:00 05/10/21 08:55 DC 05/09/21 23:57 Vancomycin HCl 2000 mg/IV Miscellaneous Supplies 1 each/ Sodium Chloride 290 ml @ 270 mls/hr Q12H IV 05/08/21 09:20 05/08/21 09:59 DC Vitamin D (Vitamin D) 2,000 units DAILY PO 05/08/21 09:00 05/16/21 08:58 Warfarin Sodium (Coumadin) 3 mg DAILY@17 PO 05/09/21 17:00 05/10/21 08:55 DC 05/09/21 17:10 Warfarin Sodium (Coumadin) 3 mg DAILY@17 PO 05/11/21 17:00 05/14/21 09:42 DC 05/13/21 18:17 Warfarin Sodium (Coumadin) 3.5 mg DAILY@17 PO 05/14/21 17:00 05/15/21 10:29 DC 05/14/21 17:46 Warfarin Sodium (Coumadin) 4 mg DAILY@17 PO 05/10/21 17:00 05/11/21 12:35 DC 05/10/21 16:22 Warfarin Sodium (Coumadin) 4 mg DAILY@17 PO 05/15/21 17:00 05/16/21 11:23 DC 05/15/21 16:27 Warfarin Sodium (Coumadin) 6 mg DAILY@17 PO 05/07/21 17:00 05/09/21 09:21 DC 05/08/21 17:29 Warfarin Sodium (Coumadin) 7.5 mg DAILY@17 PO 05/16/21 17:00 ANTIONETTE DUDLEY MD May 16, 2021 11:38
--- NOTE | 2021-05-16 13:47 | ECGEPIP ---
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
[2021-05-16 14:00] VITALS: BP 132/58
[2021-05-16] MEDS ORDERED: WARFARIN SOD 7.5MG TAB PO SCH (17:00)
[2021-05-16] MEDS: QUEtiapine FUMARATE 12.5 MG HALF-TAB PO SCH (18:19)
[2021-05-16 20:00] VITALS: BP 83/51
[2021-05-16] MEDS ORDERED: RAMELTEON 8 MG TAB (ROZEREM) PO SCH (21:00)
[2021-05-16] MEDS: ACETAMINOPHEN TAB 650MG DOSE (2X325MG) PO PRN (21:06)
[2021-05-16] MEDS: SENNA 8.6 MG TAB (SENOKOT) PO SCH (21:07)
[2021-05-16 22:40] VITALS: BP 84/58
[2021-05-17] MEDS: REMEDY PHYTOPLEX Z-GUARD PASTE 113GM TUBE (FROM STOREROOM PRODUCT) TOP SCH ×5 (05:11→20:43)
[2021-05-17] MEDS: ACETAMINOPHEN TAB 650MG DOSE (2X325MG) PO PRN ×2 (05:11→20:41)
[2021-05-17] MEDS: LevoFLOXacin 500 MG TABLET PO SCH (05:11)
[2021-05-17 05:41] LABS: INR 1.99
[2021-05-17 06:00] VITALS: BP 110/60
[2021-05-17] MEDS: MAGIC MOUTHWASH SUSPENSION BTL SS SCH ×3 (07:30→17:30)
[2021-05-17] MEDS: SYMBICORT 160/4.5MCG INHALER 6GM INH SCH ×2 (08:00→20:28)
[2021-05-17] MEDS: COMBIVENT RESPIMAT 100-20MCG INHALER 4GM INH SCH ×3 (08:00→20:00)
[2021-05-17] MEDS: FUROSEMIDE 20 MG TAB PO SCH (09:00)
[2021-05-17] MEDS: VITAMIN D 1,000 INTERNATIONAL UNITS TABLET PO SCH (09:00)
[2021-05-17] MEDS: LACTOBACILLUS ACIDOPHILUS CAP (BACID) PO SCH ×4 (09:00→20:42)
[2021-05-17] MEDS: ENALAPRIL MALEATE 10 MG TAB PO SCH (09:00)
--- NOTE | 2021-05-17 09:28 | IPNPDOC ---
PM&R Progress Note DATE OF SERVICE: May 17, 2021 Chemical Dependency Attendant Progress Note Subjective: Patient seen in therapy stating he feels a little shaky today, but otherwise is able to participate in therapy. REVIEW OF SYSTEMS: The following is a completed review of systems and has been reviewed. Review of systems otherwise unremarkable. PAIN: Patient self reports no pain EYES: No recent vision changes EARS, NOSE, & THROAT: +dysphagia CARDIOVASCULAR: Denies chest pain or palpitations PULMONARY: no cough or shortness of breath GASTROINTESTINAL: Denies constipation/diarrhea GENITOURINARY: no dysuria MUSCULOSKELETAL: generalized weakness NEUROLOGICAL:+ encephalopathic (improving) PSYCHIATRIC: unremarkable PHYSICAL EXAMINATION: VITAL SIGNS: Please see below. GENERAL: Pleasant and cooperative. No acute distress. lethargic, but able to rouse HEENT: PERRL. Extraocular movements intact. Clear conjunctiva CARDIOVASCULAR: Regular rate and rhythm. No murmurs, rubs, or gallops LUNGS: Clear to auscultation bilaterally. No wheezes. No rhonchi ABDOMEN: Soft, nontender, nondistended. Positive bowel sounds. Normal active bowel sounds NEUROLOGICAL: Alert and oriented x3 Cranial nerves II through XII grossly intact. Sensation grossly intact EXTREMITIES: 4\5 RUE, 5/5 LUE 4\5 strength right lower extremity. 5/5 strength in left lower extremity. 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 Rehab- PT/OT advance mobility and ADLs, strengthen/stretch/maintain ROM all 4 limbs, working on bed mobility and sitting balance, patient more alert and participation improving -CONFORMAL PAD FORMER for cog and dysphagia- CONFORMAL PAD FORMER recommending FEES, will order for tomorrow 2. neuro- s/p recent left frontoparietal ICH With CTH showing small acute bleed in area of old ICH with break through seizures and encephalopathy with significant mobility and ADL impairments -cont seizure meds, Keppra and Vimpat- levels WNL -provigil for arousal -patient with fever and leukocytosis on admission with probable new PNA and UTI contributing to ongoing encephalopathy-s/p course of abx, patient less encephalopathic, however having episodes of delirium in the evenings that contributed to his fall last night, CTH negative for new bleed -parkinson's cont Sinemet (will adjust timing so he does not receive evening dose at 9pm which may be contributing to agitation) and add seroquel for agitation -repeat CTH negative for -f/u neurosurgery and neurology on d/c 3. Cardiac-hx of mechanical aortic valve, discharged on Lovenox-Coumadin bridge, cont Coumadin goal 2.5-3.5 -HTN cont BP meds -HLD cont statin -degree of CHF given edematous legs cont lasix, daily weights, cont fluid restrict once he is able to tolerate more po 4. ID- leukocytosis resolved from aspiration PNA and UTI with Ucx + for klebsiella and enterococcae, stopped IV antibiotics and completed levaquin x 3 days cont to keep HOB >30, oral care, blood cx negative, patient afebrile -lactic acid WNL 5. GI ppx- prilosec 6. DVT ppx- on coumadin 7. Pain- tylenol 9. Psych- on prozac 10. - voiding well 10. [id number] to home Allergies Coded Allergies: No Known Allergies (Verified Allergy, Unknown, 10/28/19) Vital Signs Vital Signs Date Time Temp Pulse Resp B/P (MAP) Pulse Ox O2 Delivery O2 Flow Rate FiO2 05/17/21 06:00 98.8 58 15 110/60 (77) 94 Room Air Laboratory Data Labs 24H Laboratory Tests 2 05/17/21 05:09: Prothrombin Time 23.0H, Prothromb Time International Ratio 1.99 Microbiology Microbiology 05/09/21 Blood Culture - Final, Complete NO GROWTH AFTER 5 DAYS 05/09/21 Gram Stain - Final, Complete 05/09/21 Sputum Culture - Final, Complete 05/08/21 Blood Culture - Final, Complete NO GROWTH AFTER 5 DAYS 05/08/21 Respiratory Virus Panel (PCR) (ANNE-MARIE) - Final, Complete 05/08/21 Blood Culture - Final, Complete NO GROWTH AFTER 5 DAYS 05/08/21 Blood Culture - Final, Complete NO GROWTH AFTER 5 DAYS 05/08/21 Urine Culture - Final, Complete Enterobacter Cloacae Complex Klebsiella Pneumoniae Current Medications Current Medications Current Medications Medications (Trade) Dose Ordered Sig/Eugenio Route PRN Reason Start Time Stop Time Status Last Admin Dose Admin Acetaminophen (Tylenol Tab) 650 mg Q6HP PRN PO MILD PAIN or TEMP > 101 05/07/21 20:30 05/17/21 05:11 Albuterol/ Ipratropium (Combivent Respimat 100-20mcg) 1 puff RTID INH 05/07/21 20:00 05/16/21 14:12 Allopurinol (Zyloprim) 300 mg DAILY PO 05/08/21 09:00 05/16/21 09:00 Atorvastatin Calcium (Lipitor) 80 mg DAILY PO 05/08/21 09:00 05/16/21 09:00 Budesonide/ Formoterol Fumarate (Symbicort 160/ 4.5mcg) 2 puff RBID INH 05/07/21 20:00 05/16/21 20:19 Carbidopa/Levodopa (Sinemet 25/100) 1 tab TID PO 05/07/21 21:00 05/16/21 11:29 DC 05/16/21 09:00 Carbidopa/Levodopa (Sinemet 25/100) 1 tab TID@0800,1200,1600 PO 05/16/21 12:00 05/16/21 16:27 Ceftriaxone Sodium 1 gm/ Dextrose 50 ml @ 100 mls/hr Q24H IV 05/10/21 14:00 05/14/21 09:41 DC 05/13/21 15:25 Docusate Sodium (Colace) 100 mg BID PO 05/07/21 21:00 05/16/21 21:06 Enalapril Maleate (Vasotec) 10 mg DAILY PO 05/08/21 09:00 05/16/21 08:59 Enoxaparin Sodium (Lovenox) 100 mg BID SC 05/07/21 21:00 05/08/21 14:07 DC 05/08/21 07:55 Fluoxetine HCl (PROzac) 20 mg DAILY PO 05/08/21 09:00 05/16/21 09:00 Furosemide (Lasix) 20 mg DAILY PO 05/08/21 09:00 05/16/21 08:59 Guaifenesin (Robitussin Tab) 400 mg TID PO 05/07/21 21:00 05/16/21 21:07 Heparin Sodium (Heparin (Flush)) 200 units ASDIRECTED PRN IV SEE LABEL COMMENTS 05/07/21 16:20 Cancel Heparin Sodium (Heparin (Flush)) 200 units PICC IV 05/07/21 18:00 05/09/21 17:41 DC 05/09/21 05:39 Home Med (Home Med List Complete!) ASDIRECTED XX 05/07/21 19:55 05/07/21 20:07 DC Lacosamide (Vimpat) 200 mg BID PO 05/07/21 21:00 05/16/21 21:07 Lactobacillus Acidophilus (Bacid) 1 ea TID PO 05/14/21 09:00 05/16/21 21:06 Levetiracetam (Keppra) 1,000 mg BID PO 05/07/21 21:00 05/16/21 21:05 Levofloxacin (Levaquin) 500 mg DAILY@06 PO 05/14/21 06:00 05/17/21 05:11 Lidocaine/ Diphenhydr/Alum/ Mg/Simeth (Magic Mouthwash) 5ML if patient unable... AC SS 05/08/21 07:30 05/16/21 16:27 Lorazepam (Ativan) 0.5 mg Q4HP PRN PO ANXIETY/agitation 05/15/21 21:50 Lorazepam (Ativan) 2 mg STAT STAT IM 05/13/21 03:20 05/13/21 03:21 DC 05/13/21 03:31 Modafinil (Provigil) 50 mg QAM PO 05/08/21 09:00 05/16/21 09:01 Omeprazole (PriLOSEC) 20 mg BID PO 05/07/21 21:00 05/16/21 21:06 Oxymetazoline HCl (Afrin) 2 spray ASDIRECTED PRN NA SEE LABEL COMMENTS 05/17/21 10:00 Piperacillin Sod/ Tazobactam Sod 4.5 gm/Dextrose 50 ml @ 50 mls/hr Q6H IV 05/08/21 11:00 05/10/21 13:18 DC 05/10/21 10:31 Polyethylene Glycol (Miralax) 1 pkt DAILY PRN PO CONSTIPATION 05/07/21 15:40 05/10/21 13:46 Potassium Chloride (Micro-K Extencaps) 10 meq DAILY PO 05/08/21 09:00 05/16/21 08:58 Quetiapine Fumarate (SEROquel) 12.5 mg DAILY@1900 PO 05/16/21 19:00 05/16/21 18:19 Ramelteon (Rozerem) 8 mg QHS PO 05/16/21 21:00 05/16/21 21:06 Ramelteon (Rozerem) 8 mg QHS PRN PO INSOMNIA 05/07/21 15:40 05/16/21 11:23 DC 05/15/21 19:38 Senna (Senokot) 1 tab QHS PO 05/07/21 21:00 05/16/21 21:07 Sodium Chloride 1,000 ml @ 75 mls/hr [id number] IV 05/08/21 09:25 05/08/21 22:44 DC 05/08/21 10:15 Sodium Chloride (Saline Lock Flush) 10 ml ASDIRECTED PRN IV SEE LABEL COMMENTS 05/07/21 16:20 Cancel Sodium Chloride (Saline Lock Flush) 10 ml PICC IV 05/07/21 18:00 05/09/21 17:41 DC 05/09/21 05:38 Tamsulosin HCl (Flomax) 0.4 mg DAILY PO 05/08/21 09:00 05/16/21 09:00 Vancomycin HCl 500 mg/Dextrose 110 ml @ 110 mls/hr Q12H IV 05/09/21 01:00 05/10/21 08:55 DC 05/10/21 01:16 Vancomycin HCl 750 mg/IV Miscellaneous Supplies 1 each/ Sodium Chloride 275 ml @ 275 mls/hr Q12H IV 05/09/21 00:00 05/10/21 08:55 DC 05/09/21 23:57 Vancomycin HCl 2000 mg/IV Miscellaneous Supplies 1 each/ Sodium Chloride 290 ml @ 270 mls/hr Q12H IV 05/08/21 09:20 05/08/21 09:59 DC Vitamin D (Vitamin D) 2,000 units DAILY PO 05/08/21 09:00 05/16/21 08:58 Warfarin Sodium (Coumadin) 3 mg DAILY@17 PO 05/09/21 17:00 05/10/21 08:55 DC 05/09/21 17:10 Warfarin Sodium (Coumadin) 3 mg DAILY@17 PO 05/11/21 17:00 05/14/21 09:42 DC 05/13/21 18:17 Warfarin Sodium (Coumadin) 3.5 mg DAILY@17 PO 05/14/21 17:00 05/15/21 10:29 DC 05/14/21 17:46 Warfarin Sodium (Coumadin) 4 mg DAILY@17 PO 05/10/21 17:00 05/11/21 12:35 DC 05/10/21 16:22 Warfarin Sodium (Coumadin) 4 mg DAILY@17 PO 05/15/21 17:00 05/16/21 11:23 DC 05/15/21 16:27 Warfarin Sodium (Coumadin) 6 mg DAILY@17 PO 05/07/21 17:00 05/09/21 09:21 DC 05/08/21 17:29 Warfarin Sodium (Coumadin) 7.5 mg DAILY@17 PO 05/16/21 17:00 05/16/21 16:27 ANTIONETTE HONG MD May 17, 2021 09:28
[2021-05-17] MEDS ORDERED: OXYMETAZOLINE 0.05% NASAL SPRAY (AFRIN) PRN (10:00)
[2021-05-17] MEDS: allopurinoL 300 MG TAB PO SCH (10:01)
[2021-05-17] MEDS: LACOSAMIDE 50 MG TAB (VIMPAT) PO SCH ×2 (10:01→20:42)
[2021-05-17] MEDS: DOCUSATE SODIUM 100MG CAPSULE PO SCH ×2 (10:01→20:42)
[2021-05-17] MEDS: MODAFINIL 100 MG TABLET PO SCH (10:02)
[2021-05-17] MEDS: TAMSULOSIN 0.4 MG CAP PO SCH (10:03)
[2021-05-17] MEDS: OMEPRAZOLE 20 MG CAP PO SCH ×2 (10:03→20:40)
[2021-05-17] MEDS: SINEMET 25-100 MG TAB PO SCH ×3 (10:04→18:55)
[2021-05-17] MEDS: FLUoxetine 20 MG CAP PO SCH (10:04)
[2021-05-17] MEDS: levETIRAcetam 250MG TABLET (KEPPRA) PO SCH ×2 (10:04→20:41)
[2021-05-17] MEDS: guaiFENesin 200 MG TAB PO SCH ×3 (10:04→20:40)
[2021-05-17] MEDS: POTASSIUM CHLORIDE 10MEQ SR TABLET PO SCH (10:05)
[2021-05-17] MEDS: ATORVASTATIN 20 MG TAB PO SCH (10:05)
[2021-05-17 14:00] VITALS: BP 106/63
[2021-05-17 18:08] LABS: LACOSAMIDE LEVEL 9.6 ug/mL (5.0-10.0); LEVETIRACETAM (KEPPRA) 15.2 ug/mL (10.0-40.0)
[2021-05-17] MEDS: WARFARIN SOD 5MG TAB PO SCH (18:55)
[2021-05-17 20:00] VITALS: BP 112/67
[2021-05-17] MEDS: SENNA 8.6 MG TAB (SENOKOT) PO SCH (20:42)
[2021-05-17] MEDS: QUEtiapine FUMARATE 12.5 MG HALF-TAB PO SCH (20:42)
[2021-05-17] MEDS ORDERED: RAMELTEON 8 MG TAB (ROZEREM) PO PRN (21:00)
[2021-05-18] MEDS ORDERED: HALOPERIDOL 5MG/ML VIAL (J1630 PER 1) IM PRN (03:50)
[2021-05-18] MEDS ORDERED: LORazepam 2 MG/ML VIAL IM PRN (04:30)
[2021-05-18] MEDS: REMEDY PHYTOPLEX Z-GUARD PASTE 113GM TUBE (FROM STOREROOM PRODUCT) TOP SCH ×4 (05:17→23:47)
--- NOTE | 2021-05-18 05:55 | IPNPDOC ---
Text Note Date of Service The patient was seen on 05/18/21. NOTE Pt seen after reported agitation. Pt has been experiencing some nightly agitation/ behavioral concerns, please see note from 2 evenings ago. Pt tonight reportedly highly upset and wants to talk to his sister Piper; when staff redirected and detailed it is 4a, pt reportedly began yelling and threatening staff. By time reached bedside- pt is quiet in bed. He does become verbally hyperactive and quick to show frustration/ agitation with conversation. He describes hostility towards his sister and points of stress related to learning he is adopted recently. Pt does insult his sister and describes some paranoia towards staff. He does respond to de-escalation techniques and sitter is at bedside. He does have quick shifts in his responses- calm in one sentence then hostile tone the next. He does know who he is, where he is, the time, reading clock directly, but questionable with situation and his judgment. He has known frontal lobe injury hx. Will continue sundowning/ hospital delirium prevention strategies and nonpharm de-escalation techniques. If pt again becomes aggressive, pt has prn haldol and ativan. He has been started on seroquel. Consideration for psych or counseling may be beneficial- pt reports he is agreeable to talk to someone as he does describe increase stress from his family dynamics. VS,Fishbone, I+O VS, Fishbone, I+O Vital Signs Date Time Temp Pulse Resp B/P (MAP) Pulse Ox O2 Delivery O2 Flow Rate FiO2 05/17/21 20:00 99.0 72 19 112/67 (82) 96 Room Air I&O- Last 24 Hours up to 6 AM 05/18/21 06:00 Intake Total 220 ml Balance 220 ml CHRISTOPHE WEIR NP May 18, 2021 04:27
[2021-05-18] MEDS: MAGIC MOUTHWASH SUSPENSION BTL SS SCH ×3 (07:30→18:29)
[2021-05-18] MEDS: SYMBICORT 160/4.5MCG INHALER 6GM INH SCH ×2 (08:00→21:00)
[2021-05-18] MEDS: SINEMET 25-100 MG TAB PO SCH ×3 (08:00→18:29)
[2021-05-18] MEDS: COMBIVENT RESPIMAT 100-20MCG INHALER 4GM INH SCH ×3 (08:00→20:00)
[2021-05-18] MEDS ORDERED: E-Z-PAQUE 96% w/w SUSP 176GM BTL As Ordered ONE (08:17)
[2021-05-18] MEDS ORDERED: VARIBAR NECTAR 40% w/v 240ML SUSP BTL As Ordered ONE (08:17)
[2021-05-18] MEDS ORDERED: VARIBAR PUDDING 40% w/v 230ML TUBE As Ordered ONE (08:17)
[2021-05-18] MEDS ORDERED: BARIUM SULFATE 700 MG TABLET (E-Z-DISK) As Ordered ONE (08:17)
[2021-05-18 09:32] LABS: BASO % 0.6 % (0.0-1.0); EOS # 0.2 10^3/uL (0.0-0.5); EOS % 2.8 % (0.0-3.0); HEMATOCRIT 39.2 % (42.0-52.0); HEMOGLOBIN 13.1 g/dl (13.5-17.5); LYMPH # 1.5 10^3/uL (1.5-5.0); LYMPH % 27.1 % (24.0-44.0); MEAN CORPUSCULAR HEMOGLOBIN 32.1 pg (27.0-33.0); MEAN CORPUSCULAR HGB CONC 33.4 g/dl (32.0-36.5); MEAN CORPUSCULAR VOLUME 96.1 fl (80.0-96.0); MONO # 0.4 10^3/uL (0.0-0.8); MONO % 6.6 % (2.0-8.0); NEUTROPHILS # 3.4 10^3/uL (1.5-8.5); NEUTROPHILS % 62.3 % (36.0-66.0); PLATELET COUNT, AUTOMATED 260 10^3/uL (150-450); RED BLOOD COUNT 4.08 10^6/uL (4.30-6.10); WHITE BLOOD COUNT 5.4 10^3/uL (4.0-10.0)
[2021-05-18 10:10] LABS: CALCIUM LEVEL 9.2 MG/DL (8.8-10.2); CREATININE FOR GFR 1.34 MG/DL (0.70-1.30); GLOMERULAR FILTRATION RATE 55.3 (>42); POTASSIUM SERUM 4.7 MEQ/L (3.5-5.1)
[2021-05-18] MEDS: DOCUSATE SODIUM 100MG CAPSULE PO SCH ×2 (10:36→19:49)
[2021-05-18] MEDS: levETIRAcetam 250MG TABLET (KEPPRA) PO SCH ×2 (10:36→19:49)
[2021-05-18] MEDS: allopurinoL 300 MG TAB PO SCH (10:36)
[2021-05-18] MEDS: guaiFENesin 200 MG TAB PO SCH ×3 (10:36→19:48)
[2021-05-18] MEDS: TAMSULOSIN 0.4 MG CAP PO SCH (10:37)
[2021-05-18] MEDS: FUROSEMIDE 20 MG TAB PO SCH (10:37)
[2021-05-18] MEDS: MODAFINIL 100 MG TABLET PO SCH (10:37)
[2021-05-18] MEDS: OMEPRAZOLE 20 MG CAP PO SCH ×2 (10:37→19:48)
[2021-05-18] MEDS: POTASSIUM CHLORIDE 10MEQ SR TABLET PO SCH (10:37)
[2021-05-18] MEDS: FLUoxetine 20 MG CAP PO SCH (10:37)
[2021-05-18] MEDS: VITAMIN D 1,000 INTERNATIONAL UNITS TABLET PO SCH (10:38)
[2021-05-18] MEDS: ATORVASTATIN 20 MG TAB PO SCH (10:38)
[2021-05-18] MEDS: LACTOBACILLUS ACIDOPHILUS CAP (BACID) PO SCH ×2 (10:38→18:27)
[2021-05-18] MEDS: LACOSAMIDE 50 MG TAB (VIMPAT) PO SCH ×2 (10:39→19:50)
--- NOTE | 2021-05-18 10:49 | IPNPDOC ---
PM&R Progress Note DATE OF SERVICE: May 18, 2021 Geology Scientist Progress Note Subjective: Patient seen in his room eating calmly, became tearful when asked about the incident overnight, stating he recently found out he was adopted and is upset h is family kept it from him. REVIEW OF SYSTEMS: The following is a completed review of systems and has been reviewed. Review of systems otherwise unremarkable. PAIN: Patient self reports no pain EYES: No recent vision changes EARS, NOSE, & THROAT: +dysphagia CARDIOVASCULAR: Denies chest pain or palpitations PULMONARY: no cough or shortness of breath GASTROINTESTINAL: Denies constipation/diarrhea GENITOURINARY: no dysuria MUSCULOSKELETAL: generalized weakness NEUROLOGICAL:+ encephalopathic (improving) PSYCHIATRIC: unremarkable PHYSICAL EXAMINATION: VITAL SIGNS: Please see below. GENERAL: Pleasant and cooperative. No acute distress. lethargic, but able to rouse HEENT: PERRL. Extraocular movements intact. Clear conjunctiva CARDIOVASCULAR: Regular rate and rhythm. No murmurs, rubs, or gallops LUNGS: Clear to auscultation bilaterally. No wheezes. No rhonchi ABDOMEN: Soft, nontender, nondistended. Positive bowel sounds. Normal active bowel sounds NEUROLOGICAL: Alert and oriented x3 Cranial nerves II through XII grossly intact. Sensation grossly intact EXTREMITIES: 4\5 RUE, 5/5 LUE 4\5 strength right lower extremity. 5/5 strength in left lower extremity. 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 Rehab- PT/OT advance mobility and ADLs, strengthen/stretch/maintain ROM all 4 limbs, working on bed mobility and sitting balance, patient more alert and participation improving -ASSOCIATE PRODUCER for cog and dysphagia- ASSOCIATE PRODUCER recommending FEES, will order for tomorrow 2. neuro- s/p recent left frontoparietal ICH With CTH showing small acute bleed in area of old ICH with break through seizures and encephalopathy with significant mobility and ADL impairments -cont seizure meds, Keppra and Vimpat- levels WNL -provigil for arousal -patient with fever and leukocytosis on admission with probable new PNA and UTI contributing to ongoing encephalopathy-s/p course of abx, patient less encephalo pathic, however having episodes of delirium in the evenings that contributed to his fall last night, CTH negative for new bleed -parkinson's cont Sinemet (will adjust timing so he does not receive evening dose at 9pm which may be contributing to agitation) -will increase evening seroquel for agitation -repeat CTH negative for -f/u neurosurgery and neurology on d/c 3. Cardiac-hx of mechanical aortic valve, discharged on Lovenox-Coumadin bridge, cont Coumadin goal 2.5-3.5 -HTN cont BP meds -HLD cont statin -degree of CHF given edematous legs cont lasix, daily weights, cont fluid restrict once he is able to tolerate more po 4. ID- leukocytosis resolved from aspiration PNA and UTI with Ucx + for klebsiella and enterococcae, stopped IV antibiotics and completed levaquin x 3 days cont to keep HOB >30, oral care, blood cx negative, patient afebrile -lactic acid WNL 5. GI ppx- prilosec 6. DVT ppx- on coumadin 7. Pain- tylenol 9. Psych- on prozac 10. - voiding well 10. [id number] to home Allergies Coded Allergies: No Known Allergies (Verified Allergy, Unknown, 10/28/19) Vital Signs Vital Signs Date Time Temp Pulse Resp B/P (MAP) Pulse Ox O2 Delivery O2 Flow Rate FiO2 05/17/21 20:00 99.0 72 19 112/67 (82) 96 Room Air Laboratory Data CBC/BMP Laboratory Tests 05/18/21 09:12 Labs 24H Laboratory Tests 2 05/18/21 09:12: Immature Granulocyte % (Auto) 0.6, Neutrophils (%) (Auto) 62.3, Lymphocytes (%) (Auto) 27.1, Monocytes (%) (Auto) 6.6, Eosinophils (%) (Auto) 2.8, Basophils (%) (Auto) 0.6, Neutrophils # (Auto) 3.4, Lymphocytes # (Auto) 1.5, Monocytes # (Auto) 0.4, Eosinophils # (Auto) 0.2, Basophils # (Auto) 0.0, Nucleated Red Bl ood Cells % (auto) 0.0, Anion Gap 9, Glomerular Filtration Rate 55.3, Calcium Level 9.2 Microbiology Microbiology 05/09/21 Blood Culture - Final, Complete NO GROWTH AFTER 5 DAYS 05/09/21 Gram Stain - Final, Complete 05/09/21 Sputum Culture - Final, Complete 05/08/21 Blood Culture - Final, Complete NO GROWTH AFTER 5 DAYS 05/08/21 Respiratory Virus Panel (PCR) (ANNE-MARIE) - Final, Complete 05/08/21 Blood Culture - Final, Complete NO GROWTH AFTER 5 DAYS 05/08/21 Blood Culture - Final, Complete NO GROWTH AFTER 5 DAYS 05/08/21 Urine Culture - Final, Complete Enterobacter Cloacae Complex Klebsiella Pneumoniae Current Medications Current Medications Current Medications Medications (Trade) Dose Ordered Sig/Eugenio Route PRN Reason Start Time Stop Time Status Last Admin Dose Admin Acetaminophen (Tylenol Tab) 650 mg Q6HP PRN PO MILD PAIN or TEMP > 101 05/07/21 20:30 05/17/21 20:41 Albuterol/ Ipratropium (Combivent Respimat 100-20mcg) 1 puff RTID INH 05/07/21 20:00 05/17/21 13:34 Allopurinol (Zyloprim) 300 mg DAILY PO 05/08/21 09:00 05/18/21 10:36 Atorvastatin Calcium (Lipitor) 80 mg DAILY PO 05/08/21 09:00 05/18/21 10:38 Budesonide/ Formoterol Fumarate (Symbicort 160/ 4.5mcg) 2 puff RBID INH 05/07/21 20:00 05/17/21 20:28 Carbidopa/Levodopa (Sinemet 25/100) 1 tab TID PO 05/07/21 21:00 05/16/21 11:29 DC 05/16/21 09:00 Carbidopa/Levodopa (Sinemet 25/100) 1 tab TID@0800,1200,1600 PO 05/16/21 12:00 05/18/21 08:00 Ceftriaxone Sodium 1 gm/ Dextrose 50 ml @ 100 mls/hr Q24H IV 05/10/21 14:00 05/14/21 09:41 DC 05/13/21 15:25 Docusate Sodium (Colace) 100 mg BID PO 05/07/21 21:00 05/18/21 10:36 Enalapril Maleate (Vasotec) 10 mg DAILY PO 05/08/21 09:00 05/17/21 12:18 DC 05/16/21 08:59 Enoxaparin Sodium (Lovenox) 100 mg BID SC 05/07/21 21:00 05/08/21 14:07 DC 05/08/21 07:55 Fluoxetine HCl (PROzac) 20 mg DAILY PO 05/08/21 09:00 05/18/21 10:37 Furosemide (Lasix) 20 mg DAILY PO 05/08/21 09:00 05/18/21 10:37 Guaifenesin (Robitussin Tab) 400 mg TID PO 05/07/21 21:00 05/18/21 10:36 Haloperidol (Haldol) 2 mg Q6HP PRN IM AGITATION 05/18/21 03:50 Heparin Sodium (Heparin (Flush)) 200 units ASDIRECTED PRN IV SEE LABEL COMMENTS 05/07/21 16:20 Cancel Heparin Sodium (Heparin (Flush)) 200 units PICC IV 05/07/21 18:00 05/09/21 17:41 DC 05/09/21 05:39 Home Med (Home Med List Complete!) ASDIRECTED XX 05/07/21 19:55 05/07/21 20:07 DC Lacosamide (Vimpat) 200 mg BID PO 05/07/21 21:00 05/18/21 10:39 Lactobacillus Acidophilus (Bacid) 1 ea TID PO 05/14/21 09:00 05/18/21 10:38 Levetiracetam (Keppra) 1,000 mg BID PO 05/07/21 21:00 05/18/21 10:36 Levofloxacin (Levaquin) 500 mg DAILY@06 PO 05/14/21 06:00 05/17/21 09:28 DC 05/17/21 05:11 Lidocaine/ Diphenhydr/Alum/ Mg/Simeth (Magic Mouthwash) 5ML if patient unable... AC SS 05/08/21 07:30 05/17/21 13:05 Lorazepam (Ativan) 0.5 mg Q4HP PRN PO ANXIETY/agitation 05/15/21 21:50 05/18/21 04:30 DC Lorazepam (Ativan) 1 mg Q8HP PRN IM anxiety/agitation 05/18/21 04:30 Lorazepam (Ativan) 2 mg STAT STAT IM 05/13/21 03:20 05/13/21 03:21 DC 05/13/21 03:31 Modafinil (Provigil) 50 mg QAM PO 05/08/21 09:00 05/18/21 10:37 Omeprazole (PriLOSEC) 20 mg BID PO 05/07/21 21:00 05/18/21 10:37 Oxymetazoline HCl (Afrin) 2 spray ASDIRECTED PRN NA SEE LABEL COMMENTS 05/17/21 10:00 Piperacillin Sod/ Tazobactam Sod 4.5 gm/Dextrose 50 ml @ 50 mls/hr Q6H IV 05/08/21 11:00 05/10/21 13:18 DC 05/10/21 10:31 Polyethylene Glycol (Miralax) 1 pkt DAILY PRN PO CONSTIPATION 05/07/21 15:40 05/10/21 13:46 Potassium Chloride (Micro-K Extencaps) 10 meq DAILY PO 05/08/21 09:00 05/18/21 10:37 Quetiapine Fumarate (SEROquel) 12.5 mg DAILY@1900 PO 05/16/21 19:00 05/17/21 20:42 Ramelteon (Rozerem) 8 mg QHS PO 05/16/21 21:00 05/17/21 12:18 DC 05/16/21 21:06 Ramelteon (Rozerem) 8 mg QHS PRN PO INSOMNIA 05/07/21 15:40 05/16/21 11:23 DC 05/15/21 19:38 Ramelteon (Rozerem) 8 mg QHS PRN PO insomnia 05/17/21 21:00 05/17/21 20:42 Senna (Senokot) 1 tab QHS PO 05/07/21 21:00 05/17/21 20:42 Sodium Chloride 1,000 ml @ 75 mls/hr [id number] IV 05/08/21 09:25 05/08/21 22:44 DC 05/08/21 10:15 Sodium Chloride (Saline Lock Flush) 10 ml ASDIRECTED PRN IV SEE LABEL COMMENTS 05/07/21 16:20 Cancel Sodium Chloride (Saline Lock Flush) 10 ml PICC IV 05/07/21 18:00 05/09/21 17:41 DC 05/09/21 05:38 Tamsulosin HCl (Flomax) 0.4 mg DAILY PO 05/08/21 09:00 05/18/21 10:37 Vancomycin HCl 500 mg/Dextrose 110 ml @ 110 mls/hr Q12H IV 05/09/21 01:00 05/10/21 08:55 DC 05/10/21 01:16 Vancomycin HCl 750 mg/IV Miscellaneous Supplies 1 each/ Sodium Chloride 275 ml @ 275 mls/hr Q12H IV 05/09/21 00:00 05/10/21 08:55 DC 05/09/21 23:57 Vancomycin HCl 2000 mg/IV Miscellaneous Supplies 1 each/ Sodium Chloride 290 ml @ 270 mls/hr Q12H IV 05/08/21 09:20 05/08/21 09:59 DC Vitamin D (Vitamin D) 2,000 units DAILY PO 05/08/21 09:00 05/18/21 10:38 Warfarin Sodium (Coumadin) 3 mg DAILY@17 PO 05/09/21 17:00 05/10/21 08:55 DC 05/09/21 17:10 Warfarin Sodium (Coumadin) 3 mg DAILY@17 PO 05/11/21 17:00 05/14/21 09:42 DC 05/13/21 18:17 Warfarin Sodium (Coumadin) 3.5 mg DAILY@17 PO 05/14/21 17:00 05/15/21 10:29 DC 05/14/21 17:46 Warfarin Sodium (Coumadin) 4 mg DAILY@17 PO 05/10/21 17:00 05/11/21 12:35 DC 05/10/21 16:22 Warfarin Sodium (Coumadin) 4 mg DAILY@17 PO 05/15/21 17:00 05/16/21 11:23 DC 05/15/21 16:27 Warfarin Sodium (Coumadin) 6 mg DAILY@17 PO 05/07/21 17:00 05/09/21 09:21 DC 05/08/21 17:29 Warfarin Sodium (Coumadin) 7.5 mg DAILY@17 PO 05/16/21 17:00 05/17/21 09:28 DC 05/16/21 16:27 Warfarin Sodium (Coumadin) 10 mg DAILY@17 PO 05/17/21 17:00 05/17/21 18:55 ANTIONETTE HONG MD May 18, 2021 10:49
[2021-05-18 11:01] LABS: INR 2.19; PROTHROMBIN TIME 24.8 SECONDS (12.7-14.5)
[2021-05-18 14:00] VITALS: BP 126/74
--- NOTE | 2021-05-18 17:03 | REP ---
INDICATION: monitor dysphagia. COMPARISON: NONE TECHNIQUE: The procedure was performed under the direct supervision of . The procedure was performed with Harriet Will from speech pathology present. 2.5 minutes of fluoroscopy time was utilized for this procedure. FINDINGS: 5 cc aliquots of nectar, thin, pudding, mixed fruit, soft and solid consistency barium as well as a barium pill were administered. With thin consistency barium there is laryngeal penetration. A detailed report of this examination will be provided by speech pathology. IMPRESSION: With thin consistency barium there is laryngeal penetration. A detailed report of this examination will be provided by speech pathology. <Electronically signed by Todd Carr > 05/18/21 [id number] <Electronically signed by Tristan Stock > 05/18/21 [id number]
[2021-05-18] MEDS: WARFARIN SOD 5MG TAB PO SCH (18:27)
[2021-05-18] MEDS: QUEtiapine FUMARATE 25 MG TAB PO SCH (18:28)
[2021-05-18] MEDS: RAMELTEON 8 MG TAB (ROZEREM) PO SCH (19:47)
[2021-05-18] MEDS: SENNA 8.6 MG TAB (SENOKOT) PO SCH (19:49)
[2021-05-18 20:00] VITALS: BP 131/81
[2021-05-19] MEDS: REMEDY PHYTOPLEX Z-GUARD PASTE 113GM TUBE (FROM STOREROOM PRODUCT) TOP SCH ×4 (05:50→23:42)
[2021-05-19 06:00] VITALS: BP 133/73
[2021-05-19 06:59] LABS: INR 2.78; PROTHROMBIN TIME 29.7 SECONDS (12.7-14.5)
[2021-05-19] MEDS: COMBIVENT RESPIMAT 100-20MCG INHALER 4GM INH SCH ×3 (08:00→19:59)
[2021-05-19] MEDS: FLUoxetine 20 MG CAP PO SCH (08:41)
[2021-05-19] MEDS: MODAFINIL 100 MG TABLET PO SCH (08:41)
[2021-05-19] MEDS: VITAMIN D 1,000 INTERNATIONAL UNITS TABLET PO SCH (08:41)
[2021-05-19] MEDS: POTASSIUM CHLORIDE 10MEQ SR TABLET PO SCH (08:41)
[2021-05-19] MEDS: DOCUSATE SODIUM 100MG CAPSULE PO SCH ×2 (08:41→20:13)
[2021-05-19] MEDS: levETIRAcetam 250MG TABLET (KEPPRA) PO SCH ×2 (08:41→20:13)
[2021-05-19] MEDS: OMEPRAZOLE 20 MG CAP PO SCH ×2 (08:41→20:13)
[2021-05-19] MEDS: LACOSAMIDE 50 MG TAB (VIMPAT) PO SCH ×2 (08:41→20:13)
[2021-05-19] MEDS: TAMSULOSIN 0.4 MG CAP PO SCH (08:41)
[2021-05-19] MEDS: ATORVASTATIN 20 MG TAB PO SCH (08:41)
[2021-05-19] MEDS: LACTOBACILLUS ACIDOPHILUS CAP (BACID) PO SCH ×3 (08:42→20:13)
[2021-05-19] MEDS: SINEMET 25-100 MG TAB PO SCH ×3 (08:42→16:05)
[2021-05-19] MEDS: guaiFENesin 200 MG TAB PO SCH ×3 (08:42→20:13)
[2021-05-19] MEDS: MAGIC MOUTHWASH SUSPENSION BTL SS SCH ×3 (08:43→16:32)
[2021-05-19] MEDS: allopurinoL 300 MG TAB PO SCH (08:46)
[2021-05-19] MEDS: SYMBICORT 160/4.5MCG INHALER 6GM INH SCH ×2 (09:44→20:00)
[2021-05-19] MEDS ORDERED: FUROSEMIDE 10MG PER 1/2 TABLET PO SCH (11:00)
--- NOTE | 2021-05-19 11:59 | IPNPDOC ---
Text Note Date of Service The patient was seen on 05/19/21. NOTE Hospitalist Progress Note Subjective: I was asked to come see and evaluate the patient given upward trending BUN/creatinine. After review of the medical record it appears that the patient has been on Lasix 20 mg daily for the past few years. Upon speaking with the patient though he reports that he used to drink quite a bit of water, upwards of 8 glasses/bottles a day. Recently though he reports that he is not drinking nearly as much, he simply is not motivated to do so. I expect that because of his decreased oral intake of fluids, he no longer needs to be on as high-dose. We will switch him over to 10 mg Lasix daily at this time, and continue to monitor daily labs. Depending on his oral fluid intake, if he continues to be dehydrated, may recommend discontinuing Lasix altogether, although I will not do that at this time as he does have some trace lower extremity edema, therefore a low dose may be beneficial for him.. Previously he was on enalapril at home (which she is not currently on), if blood pressures begin to rise, then may recommend reinitiating this instead of going up on Lasix dose. Objective: General: Awake, alert. Not in any acute distress. HEENT: Head normocephalic, atraumatic, sclera are nonicteric. Hearing is grossly intact to conversation. Respiratory: Clear to auscultation bilaterally with no wheezes, rales, or rhonchi. Cardiovascular: Regular rate and rhythm, with no rubs, gallops, or murmur. Abdomen: Soft, nontender, nondistended, no hepatosplenomegaly appreciated. Bowel sounds present. Extremities: 2+ pulses in the radial and dorsalis pedis bilaterally. Perhaps some trace bilateral lower extremity edema/puffiness in the feet. No evidence of clubbing or cyanosis. Assessment/Plan: Hypertension Trace bilateral lower extremity edema Mild VIKTORIA -I do not see anywhere in his medical record a history of congestive heart failure. -Recommend plan for antihypertensives as outlined above History of mechanical heart valve -Target INR is 2.5-3.5 -Today his INR is 2.78, continue with same dosing of warfarin Recent episode of aspiration pneumonia UTI -Now resolved, continue to keep head of bed greater than 30 degrees -No additional treatment indicated for these at this time. GERD -Continue Prilosec Left frontoparietal ICH Seizures Encephalopathy Significant mobility and ADL impairments -Continue with recommendations per PM&R team VS,Aayush, I+O VS, Aayush, I+O Vital Signs Date Time Temp Pulse Resp B/P (MAP) Pulse Ox O2 Delivery O2 Flow Rate FiO2 05/19/21 06:00 97.6 63 18 133/73 (93) 96 Room Air I&O- Last 24 Hours up to 6 AM 05/19/21 06:00 Intake Total 500 ml Output Total 450 ml Balance 50 ml DAY OCONNELL DO May 19, 2021 11:59
[2021-05-19 14:00] VITALS: BP 132/81
[2021-05-19] MEDS: WARFARIN SOD 5MG TAB PO SCH (16:06)
[2021-05-19] MEDS: QUEtiapine FUMARATE 25 MG TAB PO SCH (18:32)
[2021-05-19 20:00] VITALS: BP 131/85
[2021-05-19] MEDS: SENNA 8.6 MG TAB (SENOKOT) PO SCH (20:13)
[2021-05-19] MEDS: RAMELTEON 8 MG TAB (ROZEREM) PO SCH (20:13)
[2021-05-20] MEDS: REMEDY PHYTOPLEX Z-GUARD PASTE 113GM TUBE (FROM STOREROOM PRODUCT) TOP SCH ×4 (06:00→23:55)
[2021-05-20 07:01] LABS: INR 3.62; PROTHROMBIN TIME 36.3 SECONDS (12.7-14.5)
[2021-05-20] MEDS: MAGIC MOUTHWASH SUSPENSION BTL SS SCH ×3 (07:19→17:12)
[2021-05-20] MEDS: FLUoxetine 20 MG CAP PO SCH (07:19)
[2021-05-20] MEDS: LACOSAMIDE 50 MG TAB (VIMPAT) PO SCH ×2 (07:19→20:05)
[2021-05-20] MEDS: FUROSEMIDE 10MG PER 1/2 TABLET PO SCH (07:19)
[2021-05-20] MEDS: TAMSULOSIN 0.4 MG CAP PO SCH (07:20)
[2021-05-20] MEDS: POTASSIUM CHLORIDE 10MEQ SR TABLET PO SCH (07:20)
[2021-05-20] MEDS: DOCUSATE SODIUM 100MG CAPSULE PO SCH ×2 (07:20→20:05)
[2021-05-20] MEDS: VITAMIN D 1,000 INTERNATIONAL UNITS TABLET PO SCH (07:20)
[2021-05-20] MEDS: levETIRAcetam 250MG TABLET (KEPPRA) PO SCH ×2 (07:20→20:05)
[2021-05-20] MEDS: allopurinoL 300 MG TAB PO SCH (07:20)
[2021-05-20] MEDS: SINEMET 25-100 MG TAB PO SCH ×3 (07:20→16:21)
[2021-05-20] MEDS: ATORVASTATIN 20 MG TAB PO SCH (07:21)
[2021-05-20] MEDS: LACTOBACILLUS ACIDOPHILUS CAP (BACID) PO SCH ×3 (07:21→20:05)
[2021-05-20] MEDS: OMEPRAZOLE 20 MG CAP PO SCH ×2 (07:22→20:05)
[2021-05-20] MEDS: MODAFINIL 100 MG TABLET PO SCH (07:23)
[2021-05-20] MEDS: guaiFENesin 200 MG TAB PO SCH ×3 (09:00→20:03)
--- NOTE | 2021-05-20 09:05 | IPNPDOC ---
Text Note Date of Service The patient was seen on 05/20/21. NOTE Pt's INR noted to be 3.62, up from 2.78 yesterday after being on Warfarin 10mg daily for a few days Target INR 2.5 - 3.5 Warfarin Dose reduced to 7.5mg daily for today (pt receives dose at 1700) Will continue to follow INR on a daily basis VS,Fishbone, I+O VS, Fishbone, I+O Vital Signs Date Time Temp Pulse Resp B/P (MAP) Pulse Ox O2 Delivery O2 Flow Rate FiO2 05/19/21 20:00 97.6 65 20 131/85 (100) 97 Room Air I&O- Last 24 Hours up to 6 AM 05/20/21 06:00 Intake Total 840 ml Output Total 1225 ml Balance -385 ml DAY OCONNELL DO May 20, 2021 09:05
[2021-05-20] MEDS: COMBIVENT RESPIMAT 100-20MCG INHALER 4GM INH SCH ×3 (11:29→20:21)
[2021-05-20] MEDS: SYMBICORT 160/4.5MCG INHALER 6GM INH SCH ×2 (11:29→20:21)
[2021-05-20 14:00] VITALS: BP 122/70
[2021-05-20] MEDS ORDERED: WARFARIN SOD 7.5MG TAB PO SCH (17:00)
[2021-05-20] MEDS: QUEtiapine FUMARATE 25 MG TAB PO SCH (18:32)
[2021-05-20 20:00] VITALS: BP 120/73
[2021-05-20] MEDS: SENNA 8.6 MG TAB (SENOKOT) PO SCH (20:05)
[2021-05-20] MEDS: RAMELTEON 8 MG TAB (ROZEREM) PO SCH (20:05)
[2021-05-21] MEDS: REMEDY PHYTOPLEX Z-GUARD PASTE 113GM TUBE (FROM STOREROOM PRODUCT) TOP SCH ×4 (05:08→20:53)
[2021-05-21 06:00] VITALS: BP 126/76
[2021-05-21 06:48] LABS: INR 4.39; PROTHROMBIN TIME 42.1 SECONDS (12.7-14.5)
--- NOTE | 2021-05-21 07:37 | IPNPDOC ---
Text Note Date of Service The patient was seen on 05/21/21. NOTE Pt's INR noted to be 4.39, up from 3.62 yesterday after being on Warfarin 10mg daily for a few days then switched to 7.5 mg yesterday Target INR 2.5 - 3.5 Warfarin Dose will be held for 1 day, then restarted on 05/22 at 6mg daily Will continue to follow INR on a daily basis VS,[place], I+O VS, Fishbone, I+O Vital Signs Date Time Temp Pulse Resp B/P (MAP) Pulse Ox O2 Delivery O2 Flow Rate FiO2 05/21/21 06:00 97.2 51 16 126/76 (93) 95 Room Air I&O- Last 24 Hours up to 6 AM 05/21/21 06:00 Intake Total 410 ml Balance 410 ml DAY OCONNELL DO May 21, 2021 07:37
[2021-05-21] MEDS: guaiFENesin 200 MG TAB PO SCH ×3 (09:00→20:50)
--- NOTE | 2021-05-21 09:15 | IPNPDOC ---
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 REVIEW OF SYSTEMS: The following is a completed review of systems and has been reviewed. Review of systems otherwise unremarkable. PAIN: Patient self reports no pain EYES: No recent vision changes EARS, NOSE, & THROAT: +dysphagia (improving) CARDIOVASCULAR: Denies chest pain or palpitations PULMONARY: no cough or shortness of breath GASTROINTESTINAL: Denies constipation/diarrhea GENITOURINARY: no dysuria MUSCULOSKELETAL: generalized weakness NEUROLOGICAL:+ encephalopathic (improving) PSYCHIATRIC: unremarkable PHYSICAL EXAMINATION: VITAL SIGNS: Please see below. GENERAL: Pleasant and cooperative. No acute distress. lethargic, but able to rouse HEENT: PERRL. Extraocular movements intact. Clear conjunctiva CARDIOVASCULAR: Regular rate and rhythm. No murmurs, rubs, or gallops LUNGS: Clear to auscultation bilaterally. No wheezes. No rhonchi ABDOMEN: Soft, nontender, nondistended. Positive bowel sounds. Normal active bowel sounds NEUROLOGICAL: Alert and oriented x3 Cranial nerves II through XII grossly intact. Sensation grossly intact EXTREMITIES: 4\5 RUE, 5/5 LUE 4\5 strength right lower extremity. 5/5 strength in left lower extremity. 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 neuro- s/p recent left frontoparietal ICH With CTH showing small acute bleed in area of old ICH with break through seizures and encephalopathy with significant mobility and ADL impairments -cont seizure meds, Keppra and Vimpat- levels WNL -provigil for arousal -patient with fever and leukocytosis on admission with probable new PNA and UTI contributing to ongoing encephalopathy-s/p course of abx, patient less encephalopathic, however having episodes of delirium in the evenings that contributed to his fall last night, CTH negative for new bleed -parkinson's cont Sinemet (adjusted timing so he does not receive evening dose at 9pm which may be contributing to agitation) -will increase evening seroquel for agitation -repeat CTH negative for nee bleed -f/u neurosurgery and neurology on d/c 3. Cardiac-hx of mechanical aortic valve, cont Coumadin goal 2.5-3.5 -HTN cont BP meds -HLD cont statin -degree of CHF given edematous legs cont lasix, daily weights, cont fluid restrict once he is able to tolerate more po 4. ID- leukocytosis resolved from aspiration PNA and UTI with Ucx + for klebsiella and enterococcae, stopped IV antibiotics and completed levaquin x 3 days cont to keep HOB >30, oral care, blood cx negative, patient afebrile -lactic acid WNL 5. GI ppx- prilosec 6. DVT ppx- on coumadin 7. Pain- tylenol 9. Psych- on prozac 10. - voiding well 10. Teekj-05-4-21 to home Allergies Coded Allergies: No Known Allergies (Verified Allergy, Unknown, 10/28/19) Vital Signs Vital Signs Date Time Temp Pulse Resp B/P (MAP) Pulse Ox O2 Delivery O2 Flow Rate FiO2 05/21/21 06:00 97.2 51 16 126/76 (93) 95 Room Air Laboratory Data Labs 24H Laboratory Tests 2 05/21/21 05:59: Prothrombin Time 42.1H, Prothromb Time International Ratio 4.39 Current Medications Current Medications Current Medications Medications (Trade) Dose Ordered Sig/Eugenio Route PRN Reason Start Time Stop Time Status Last Admin Dose Admin Acetaminophen (Tylenol Tab) 650 mg Q6HP PRN PO MILD PAIN or TEMP > 101 05/07/21 20:30 05/17/21 20:41 Albuterol/ Ipratropium (Combivent Respimat 100-20mcg) 1 puff RTID INH 05/07/21 20:00 05/20/21 20:21 Allopurinol (Zyloprim) 300 mg DAILY PO 05/08/21 09:00 05/20/21 07:20 Atorvastatin Calcium (Lipitor) 80 mg DAILY PO 05/08/21 09:00 05/20/21 07:21 Budesonide/ Formoterol Fumarate (Symbicort 160/ 4.5mcg) 2 puff RBID INH 05/07/21 20:00 05/20/21 20:21 Carbidopa/Levodopa (Sinemet 25/100) 1 tab TID PO 05/07/21 21:00 05/16/21 11:29 DC 05/16/21 09:00 Carbidopa/Levodopa (Sinemet 25/100) 1 tab TID@0800,1200,1600 PO 05/16/21 12:00 05/20/21 16:21 Ceftriaxone Sodium 1 gm/ Dextrose 50 ml @ 100 mls/hr Q24H IV 05/10/21 14:00 05/14/21 09:41 DC 05/13/21 15:25 Docusate Sodium (Colace) 100 mg BID PO 05/07/21 21:00 05/20/21 20:05 Enalapril Maleate (Vasotec) 10 mg DAILY PO 05/08/21 09:00 05/17/21 12:18 DC 05/16/21 08:59 Enoxaparin Sodium (Lovenox) 100 mg BID SC 05/07/21 21:00 05/08/21 14:07 DC 05/08/21 07:55 Fluoxetine HCl (PROzac) 20 mg DAILY PO 05/08/21 09:00 05/20/21 07:19 Furosemide (Lasix) 10 mg BID@09,17 PO 05/19/21 11:00 05/19/21 11:48 DC 05/19/21 11:38 Furosemide (Lasix) 10 mg DAILY PO 05/20/21 09:00 05/20/21 07:19 Furosemide (Lasix) 20 mg DAILY PO 05/08/21 09:00 05/19/21 09:28 DC 05/18/21 10:37 Guaifenesin (Robitussin Tab) 400 mg TID PO 05/07/21 21:00 05/18/21 18:26 Haloperidol (Haldol) 2 mg Q6HP PRN IM AGITATION 05/18/21 03:50 Heparin Sodium (Heparin (Flush)) 200 units ASDIRECTED PRN IV SEE LABEL COMMENTS 05/07/21 16:20 Cancel Heparin Sodium (Heparin (Flush)) 200 units PICC IV 05/07/21 18:00 05/09/21 17:41 DC 05/09/21 05:39 Home Med (Home Med List Complete!) ASDIRECTED XX 05/07/21 19:55 05/07/21 20:07 DC Lacosamide (Vimpat) 200 mg BID PO 05/07/21 21:00 05/20/21 20:05 Lactobacillus Acidophilus (Bacid) 1 ea TID PO 05/14/21 09:00 05/20/21 20:05 Levetiracetam (Keppra) 1,000 mg BID PO 05/07/21 21:00 05/20/21 20:05 Levofloxacin (Levaquin) 500 mg DAILY@06 PO 05/14/21 06:00 05/17/21 09:28 DC 05/17/21 05:11 Lidocaine/ Diphenhydr/Alum/ Mg/Simeth (Magic Mouthwash) 5ML if patient unable... AC SS 05/08/21 07:30 05/20/21 12:04 Lorazepam (Ativan) 0.5 mg Q4HP PRN PO ANXIETY/agitation 05/15/21 21:50 05/18/21 04:30 DC Lorazepam (Ativan) 1 mg Q8HP PRN IM anxiety/agitation 05/18/21 04:30 Lorazepam (Ativan) 2 mg STAT STAT IM 05/13/21 03:20 05/13/21 03:21 DC 05/13/21 03:31 Modafinil (Provigil) 50 mg QAM PO 05/08/21 09:00 05/20/21 07:23 Omeprazole (PriLOSEC) 20 mg BID PO 05/07/21 21:00 05/20/21 20:05 Oxymetazoline HCl (Afrin) 2 spray ASDIRECTED PRN NA SEE LABEL COMMENTS 05/17/21 10:00 Piperacillin Sod/ Tazobactam Sod 4.5 gm/Dextrose 50 ml @ 50 mls/hr Q6H IV 05/08/21 11:00 05/10/21 13:18 DC 05/10/21 10:31 Polyethylene Glycol (Miralax) 1 pkt DAILY PRN PO CONSTIPATION 05/07/21 15:40 05/10/21 13:46 Potassium Chloride (Micro-K Extencaps) 10 meq DAILY PO 05/08/21 09:00 05/20/21 07:20 Quetiapine Fumarate (SEROquel) 12.5 mg DAILY@1900 PO 05/16/21 19:00 05/18/21 10:53 DC 05/17/21 20:42 Quetiapine Fumarate (SEROquel) 25 mg QHS@1900 PO 05/18/21 19:00 05/20/21 18:32 Ramelteon (Rozerem) 8 mg QHS PO 05/16/21 21:00 05/17/21 12:18 DC 05/16/21 21:06 Ramelteon (Rozerem) 8 mg QHS PO 05/18/21 21:00 05/20/21 20:05 Ramelteon (Rozerem) 8 mg QHS PRN PO INSOMNIA 05/07/21 15:40 05/16/21 11:23 DC 05/15/21 19:38 Ramelteon (Rozerem) 8 mg QHS PRN PO insomnia 05/17/21 21:00 05/18/21 10:53 DC 05/17/21 20:42 Senna (Senokot) 1 tab QHS PO 05/07/21 21:00 05/20/21 20:05 Sodium Chloride 1,000 ml @ 75 mls/hr [id number] IV 05/08/21 09:25 05/08/21 22:44 DC 05/08/21 10:15 Sodium Chloride (Saline Lock Flush) 10 ml ASDIRECTED PRN IV SEE LABEL COMMENTS 05/07/21 16:20 Cancel Sodium Chloride (Saline Lock Flush) 10 ml PICC IV 05/07/21 18:00 05/09/21 17:41 DC 05/09/21 05:38 Tamsulosin HCl (Flomax) 0.4 mg DAILY PO 05/08/21 09:00 05/20/21 07:20 Vancomycin HCl 500 mg/Dextrose 110 ml @ 110 mls/hr Q12H IV 05/09/21 01:00 05/10/21 08:55 DC 05/10/21 01:16 Vancomycin HCl 750 mg/IV Miscellaneous Supplies 1 each/ Sodium Chloride 275 ml @ 275 mls/hr Q12H IV 05/09/21 00:00 05/10/21 08:55 DC 05/09/21 23:57 Vancomycin HCl 2000 mg/IV Miscellaneous Supplies 1 each/ Sodium Chloride 290 ml @ 270 mls/hr Q12H IV 05/08/21 09:20 05/08/21 09:59 DC Vitamin D (Vitamin D) 2,000 units DAILY PO 05/08/21 09:00 05/20/21 07:20 Warfarin Sodium (Coumadin) 3 mg DAILY@17 PO 05/09/21 17:00 05/10/21 08:55 DC 05/09/21 17:10 Warfarin Sodium (Coumadin) 3 mg DAILY@17 PO 05/11/21 17:00 05/14/21 09:42 DC 05/13/21 18:17 Warfarin Sodium (Coumadin) 3.5 mg DAILY@17 PO 05/14/21 17:00 05/15/21 10:29 DC 05/14/21 17:46 Warfarin Sodium (Coumadin) 4 mg DAILY@17 PO 05/10/21 17:00 05/11/21 12:35 DC 05/10/21 16:22 Warfarin Sodium (Coumadin) 4 mg DAILY@17 PO 05/15/21 17:00 05/16/21 11:23 DC 05/15/21 16:27 Warfarin Sodium (Coumadin) 6 mg DAILY@17 PO 05/07/21 17:00 05/09/21 09:21 DC 05/08/21 17:29 Warfarin Sodium (Coumadin) 6 mg DAILY@17 PO 05/21/21 17:00 05/21/21 07:35 DC Warfarin Sodium (Coumadin) 6 mg DAILY@17 PO 05/22/21 17:00 Warfarin Sodium (Coumadin) 7.5 mg DAILY@17 PO 05/16/21 17:00 05/17/21 09:28 DC 05/16/21 16:27 Warfarin Sodium (Coumadin) 7.5 mg DAILY@17 PO 05/20/21 17:00 05/21/21 07:13 DC 05/20/21 16:21 Warfarin Sodium (Coumadin) 10 mg DAILY@17 PO 05/17/21 17:00 05/20/21 09:02 DC 05/19/21 16:06 ANTIONETTE HONG MD May 21, 2021 09:15
[2021-05-21] MEDS: DOCUSATE SODIUM 100MG CAPSULE PO SCH ×2 (09:16→20:52)
[2021-05-21] MEDS: TAMSULOSIN 0.4 MG CAP PO SCH (09:16)
[2021-05-21] MEDS: FLUoxetine 20 MG CAP PO SCH (09:16)
[2021-05-21] MEDS: levETIRAcetam 250MG TABLET (KEPPRA) PO SCH ×2 (09:16→20:51)
[2021-05-21] MEDS: allopurinoL 300 MG TAB PO SCH (09:16)
[2021-05-21] MEDS: LACOSAMIDE 50 MG TAB (VIMPAT) PO SCH ×2 (09:16→20:52)
[2021-05-21] MEDS: SINEMET 25-100 MG TAB PO SCH ×3 (09:16→17:28)
[2021-05-21] MEDS: VITAMIN D 1,000 INTERNATIONAL UNITS TABLET PO SCH (09:17)
[2021-05-21] MEDS: FUROSEMIDE 10MG PER 1/2 TABLET PO SCH (09:17)
[2021-05-21] MEDS: LACTOBACILLUS ACIDOPHILUS CAP (BACID) PO SCH ×3 (09:17→20:52)
[2021-05-21] MEDS: OMEPRAZOLE 20 MG CAP PO SCH ×2 (09:17→20:52)
[2021-05-21] MEDS: POTASSIUM CHLORIDE 10MEQ SR TABLET PO SCH (09:17)
[2021-05-21] MEDS: ATORVASTATIN 20 MG TAB PO SCH (09:18)
[2021-05-21] MEDS: MAGIC MOUTHWASH SUSPENSION BTL SS SCH ×3 (09:18→17:29)
[2021-05-21] MEDS: MODAFINIL 100 MG TABLET PO SCH (09:22)
[2021-05-21] MEDS: COMBIVENT RESPIMAT 100-20MCG INHALER 4GM INH SCH ×3 (09:30→20:00)
[2021-05-21] MEDS: SYMBICORT 160/4.5MCG INHALER 6GM INH SCH ×2 (12:56→19:59)
[2021-05-21 14:00] VITALS: BP 121/73
[2021-05-21] MEDS ORDERED: WARFARIN SOD 3MG TAB PO SCH (17:00)
[2021-05-21 20:00] VITALS: BP 120/74
[2021-05-21] MEDS: QUEtiapine FUMARATE 25 MG TAB PO SCH (20:50)
[2021-05-21] MEDS: RAMELTEON 8 MG TAB (ROZEREM) PO SCH (20:50)
[2021-05-21] MEDS: SENNA 8.6 MG TAB (SENOKOT) PO SCH (20:51)
[2021-05-22] MEDS: ACETAMINOPHEN TAB 650MG DOSE (2X325MG) PO PRN (02:00)
[2021-05-22] MEDS: REMEDY PHYTOPLEX Z-GUARD PASTE 113GM TUBE (FROM STOREROOM PRODUCT) TOP SCH ×4 (05:10→21:22)
[2021-05-22 06:00] VITALS: BP 127/85
[2021-05-22 06:57] LABS: INR 3.59; PROTHROMBIN TIME 36.1 SECONDS (12.7-14.5)
[2021-05-22] MEDS: COMBIVENT RESPIMAT 100-20MCG INHALER 4GM INH SCH ×4 (08:00→20:00)
[2021-05-22] MEDS: SYMBICORT 160/4.5MCG INHALER 6GM INH SCH ×2 (08:00→20:00)
[2021-05-22] MEDS: LACOSAMIDE 50 MG TAB (VIMPAT) PO SCH ×2 (08:16→21:22)
[2021-05-22] MEDS: levETIRAcetam 250MG TABLET (KEPPRA) PO SCH ×2 (08:17→21:22)
[2021-05-22] MEDS: DOCUSATE SODIUM 100MG CAPSULE PO SCH ×2 (08:17→21:21)
[2021-05-22] MEDS: allopurinoL 300 MG TAB PO SCH (08:17)
[2021-05-22] MEDS: ATORVASTATIN 20 MG TAB PO SCH (08:17)
[2021-05-22] MEDS: TAMSULOSIN 0.4 MG CAP PO SCH (08:18)
[2021-05-22] MEDS: SINEMET 25-100 MG TAB PO SCH ×3 (08:18→16:39)
[2021-05-22] MEDS: FLUoxetine 20 MG CAP PO SCH (08:18)
[2021-05-22] MEDS: guaiFENesin 200 MG TAB PO SCH ×3 (08:18→21:22)
[2021-05-22] MEDS: OMEPRAZOLE 20 MG CAP PO SCH ×2 (08:18→21:21)
[2021-05-22] MEDS: FUROSEMIDE 10MG PER 1/2 TABLET PO SCH (08:18)
[2021-05-22] MEDS: VITAMIN D 1,000 INTERNATIONAL UNITS TABLET PO SCH (08:18)
[2021-05-22] MEDS: POTASSIUM CHLORIDE 10MEQ SR TABLET PO SCH (08:18)
[2021-05-22] MEDS: LACTOBACILLUS ACIDOPHILUS CAP (BACID) PO SCH ×3 (08:18→21:21)
[2021-05-22] MEDS: MODAFINIL 100 MG TABLET PO SCH (08:18)
[2021-05-22] MEDS: MAGIC MOUTHWASH SUSPENSION BTL SS SCH ×3 (08:25→16:41)
--- NOTE | 2021-05-22 12:46 | IPNPDOC ---
PM&R Progress Note DATE OF SERVICE: May 22, 2021 Staff Physical Therapist Progress Note Subjective: Patient seen in his room with no complaints. He denies wanting to hurt himself or his He is looking forward to going home Friday. REVIEW OF SYSTEMS: The following is a completed review of systems and has been reviewed. Review of systems otherwise unremarkable. PAIN: Patient self reports no pain EYES: No recent vision changes EARS, NOSE, & THROAT: +dysphagia (improving) CARDIOVASCULAR: Denies chest pain or palpitations PULMONARY: no cough or shortness of breath GASTROINTESTINAL: Denies constipation/diarrhea GENITOURINARY: no dysuria MUSCULOSKELETAL: generalized weakness NEUROLOGICAL:+ encephalopathic (improving) PSYCHIATRIC: unremarkable PHYSICAL EXAMINATION: VITAL SIGNS: Please see below. GENERAL: Pleasant and cooperative. No acute distress. lethargic, but able to rouse HEENT: PERRL. Extraocular movements intact. Clear conjunctiva CARDIOVASCULAR: Regular rate and rhythm. No murmurs, rubs, or gallops LUNGS: Clear to auscultation bilaterally. No wheezes. No rhonchi ABDOMEN: Soft, nontender, nondistended. Positive bowel sounds. Normal active bowel sounds NEUROLOGICAL: Alert and oriented x3 Cranial nerves II through XII grossly intact. Sensation grossly intact EXTREMITIES: 4\5 RUE, 5/5 LUE 4\5 strength right lower extremity. 5/5 strength in left lower extremity. 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 neuro- s/p recent left frontoparietal ICH With CTH showing small acute bleed in area of old ICH with break through seizures and encephalopathy with significant mobility and ADL impairments -cont seizure meds, Keppra and Vimpat- levels WNL -provigil for arousal -patient with fever and leukocytosis on admission with probable new PNA and UTI contributing to ongoing encephalopathy-s/p course of abx, patient less encephalopathic, however having episodes of delirium in the evenings that contributed to his fall last night, CTH negative for new bleed -parkinson's cont Sinemet (adjusted timing so he does not receive evening dose at 9pm which may be contributing to agitation) -will increase evening seroquel for agitation -repeat CTH negative for nee bleed -f/u neurosurgery and neurology on d/c 3. Cardiac-hx of mechanical aortic valve, cont Coumadin goal 2.5-3.5 -HTN cont BP meds -HLD cont statin -degree of CHF given edematous legs cont lasix, daily weights, cont fluid restrict once he is able to tolerate more po 4. ID- leukocytosis resolved from aspiration PNA and UTI with Ucx + for klebsiella and enterococcae, stopped IV antibiotics and completed levaquin x 3 days cont to keep HOB >30, oral care, blood cx negative, patient afebrile -lactic acid WNL 5. GI ppx- prilosec 6. DVT ppx- on coumadin 7. Pain- tylenol 9. Psych- on prozac 10. - voiding well 10. Deqdl-21-6-21 to home, is planning to come in for training with therapy on , I spoke with her in length about patient's ongoing intermittent delusions and she said this is not new, that he is generally very sweet and kind, but can get upset and be delusional/agitated and that she avoids correcting him and allows him time to cool down at home. She states she has locked up all firearms and he does not have access to the keys, she has hidden all sharp objects that may harm him or her in the event he gets so agitated he were ever to try to harm himself or her. She states she feels safe with him at home and feel comfortable managing his periods of agitation. Patient currently denies being suicidal or homicidal Allergies Coded Allergies: No Known Allergies (Verified Allergy, Unknown, 10/28/19) Vital Signs Vital Signs Date Time Temp Pulse Resp B/P (MAP) Pulse Ox O2 Delivery O2 Flow Rate FiO2 05/22/21 06:00 97.7 64 17 127/85 (99) 94 Room Air Laboratory Data Labs 24H Laboratory Tests 2 05/22/21 06:27: Prothrombin Time 36.1H, Prothromb Time International Ratio 3.59 Current Medications Current Medications Current Medications Medications (Trade) Dose Ordered Sig/Eugenio Route PRN Reason Start Time Stop Time Status Last Admin Dose Admin Acetaminophen (Tylenol Tab) 650 mg Q6HP PRN PO MILD PAIN or TEMP > 101 05/07/21 20:30 05/22/21 02:00 Albuterol/ Ipratropium (Combivent Respimat 100-20mcg) 1 puff RTID INH 05/07/21 20:00 05/21/21 13:13 Allopurinol (Zyloprim) 300 mg DAILY PO 05/08/21 09:00 05/22/21 08:17 Atorvastatin Calcium (Lipitor) 80 mg DAILY PO 05/08/21 09:00 05/22/21 08:17 Budesonide/ Formoterol Fumarate (Symbicort 160/ 4.5mcg) 2 puff RBID INH 05/07/21 20:00 05/21/21 19:59 Carbidopa/Levodopa (Sinemet 25/100) 1 tab TID PO 05/07/21 21:00 05/16/21 11:29 DC 05/16/21 09:00 Carbidopa/Levodopa (Sinemet 25/100) 1 tab TID@0800,1200,1600 PO 05/16/21 12:00 05/22/21 11:50 Ceftriaxone Sodium 1 gm/ Dextrose 50 ml @ 100 mls/hr Q24H IV 05/10/21 14:00 05/14/21 09:41 DC 05/13/21 15:25 Docusate Sodium (Colace) 100 mg BID PO 05/07/21 21:00 05/22/21 08:17 Enalapril Maleate (Vasotec) 10 mg DAILY PO 05/08/21 09:00 05/17/21 12:18 DC 05/16/21 08:59 Enoxaparin Sodium (Lovenox) 100 mg BID SC 05/07/21 21:00 05/08/21 14:07 DC 05/08/21 07:55 Fluoxetine HCl (PROzac) 20 mg DAILY PO 05/08/21 09:00 05/22/21 08:18 Furosemide (Lasix) 10 mg BID@09,17 PO 05/19/21 11:00 05/19/21 11:48 DC 05/19/21 11:38 Furosemide (Lasix) 10 mg DAILY PO 05/20/21 09:00 05/22/21 08:18 Furosemide (Lasix) 20 mg DAILY PO 05/08/21 09:00 05/19/21 09:28 DC 05/18/21 10:37 Guaifenesin (Robitussin Tab) 400 mg TID PO 05/07/21 21:00 05/22/21 08:18 Haloperidol (Haldol) 2 mg Q6HP PRN IM AGITATION 05/18/21 03:50 Heparin Sodium (Heparin (Flush)) 200 units ASDIRECTED PRN IV SEE LABEL COMMENTS 05/07/21 16:20 Cancel Heparin Sodium (Heparin (Flush)) 200 units PICC IV 05/07/21 18:00 05/09/21 17:41 DC 05/09/21 05:39 Home Med (Home Med List Complete!) ASDIRECTED XX 05/07/21 19:55 05/07/21 20:07 DC Lacosamide (Vimpat) 200 mg BID PO 05/07/21 21:00 05/22/21 08:16 Lactobacillus Acidophilus (Bacid) 1 ea TID PO 05/14/21 09:00 05/22/21 08:18 Levetiracetam (Keppra) 1,000 mg BID PO 05/07/21 21:00 05/22/21 08:17 Levofloxacin (Levaquin) 500 mg DAILY@06 PO 05/14/21 06:00 05/17/21 09:28 DC 05/17/21 05:11 Lidocaine/ Diphenhydr/Alum/ Mg/Simeth (Magic Mouthwash) 5ML if patient unable... AC SS 05/08/21 07:30 05/22/21 11:50 Lorazepam (Ativan) 0.5 mg Q4HP PRN PO ANXIETY/agitation 05/15/21 21:50 05/18/21 04:30 DC Lorazepam (Ativan) 1 mg Q8HP PRN IM anxiety/agitation 05/18/21 04:30 Lorazepam (Ativan) 2 mg STAT STAT IM 05/13/21 03:20 05/13/21 03:21 DC 05/13/21 03:31 Modafinil (Provigil) 50 mg QAM PO 05/08/21 09:00 05/22/21 08:18 Omeprazole (PriLOSEC) 20 mg BID PO 05/07/21 21:00 05/22/21 08:18 Oxymetazoline HCl (Afrin) 2 spray ASDIRECTED PRN NA SEE LABEL COMMENTS 05/17/21 10:00 Piperacillin Sod/ Tazobactam Sod 4.5 gm/Dextrose 50 ml @ 50 mls/hr Q6H IV 05/08/21 11:00 05/10/21 13:18 DC 05/10/21 10:31 Polyethylene Glycol (Miralax) 1 pkt DAILY PRN PO CONSTIPATION 05/07/21 15:40 05/10/21 13:46 Potassium Chloride (Micro-K Extencaps) 10 meq DAILY PO 05/08/21 09:00 05/22/21 08:18 Quetiapine Fumarate (SEROquel) 12.5 mg DAILY@1900 PO 05/16/21 19:00 05/18/21 10:53 DC 05/17/21 20:42 Quetiapine Fumarate (SEROquel) 25 mg QHS@1900 PO 05/18/21 19:00 05/21/21 20:50 Ramelteon (Rozerem) 8 mg QHS PO 05/16/21 21:00 05/17/21 12:18 DC 05/16/21 21:06 Ramelteon (Rozerem) 8 mg QHS PO 05/18/21 21:00 05/21/21 20:50 Ramelteon (Rozerem) 8 mg QHS PRN PO INSOMNIA 05/07/21 15:40 05/16/21 11:23 DC 05/15/21 19:38 Ramelteon (Rozerem) 8 mg QHS PRN PO insomnia 05/17/21 21:00 05/18/21 10:53 DC 05/17/21 20:42 Senna (Senokot) 1 tab QHS PO 05/07/21 21:00 05/21/21 20:51 Sodium Chloride 1,000 ml @ 75 mls/hr [id number] IV 05/08/21 09:25 05/08/21 22:44 DC 05/08/21 10:15 Sodium Chloride (Saline Lock Flush) 10 ml ASDIRECTED PRN IV SEE LABEL COMMENTS 05/07/21 16:20 Cancel Sodium Chloride (Saline Lock Flush) 10 ml PICC IV 05/07/21 18:00 05/09/21 17:41 DC 05/09/21 05:38 Tamsulosin HCl (Flomax) 0.4 mg DAILY PO 05/08/21 09:00 05/22/21 08:18 Vancomycin HCl 500 mg/Dextrose 110 ml @ 110 mls/hr Q12H IV 05/09/21 01:00 05/10/21 08:55 DC 05/10/21 01:16 Vancomycin HCl 750 mg/IV Miscellaneous Supplies 1 each/ Sodium Chloride 275 ml @ 275 mls/hr Q12H IV 05/09/21 00:00 05/10/21 08:55 DC 05/09/21 23:57 Vancomycin HCl 2000 mg/IV Miscellaneous Supplies 1 each/ Sodium Chloride 290 ml @ 270 mls/hr Q12H IV 05/08/21 09:20 05/08/21 09:59 DC Vitamin D (Vitamin D) 2,000 units DAILY PO 05/08/21 09:00 05/22/21 08:18 Warfarin Sodium (Coumadin) 3 mg DAILY@17 PO 05/09/21 17:00 05/10/21 08:55 DC 05/09/21 17:10 Warfarin Sodium (Coumadin) 3 mg DAILY@17 PO 05/11/21 17:00 05/14/21 09:42 DC 05/13/21 18:17 Warfarin Sodium (Coumadin) 3.5 mg DAILY@17 PO 05/14/21 17:00 05/15/21 10:29 DC 05/14/21 17:46 Warfarin Sodium (Coumadin) 4 mg DAILY@17 PO 05/10/21 17:00 05/11/21 12:35 DC 05/10/21 16:22 Warfarin Sodium (Coumadin) 4 mg DAILY@17 PO 05/15/21 17:00 05/16/21 11:23 DC 05/15/21 16:27 Warfarin Sodium (Coumadin) 6 mg DAILY@17 PO 05/07/21 17:00 05/09/21 09:21 DC 05/08/21 17:29 Warfarin Sodium (Coumadin) 6 mg DAILY@17 PO 05/21/21 17:00 05/21/21 07:35 DC Warfarin Sodium (Coumadin) 6 mg DAILY@17 PO 05/22/21 17:00 05/21/21 09:16 DC Warfarin Sodium (Coumadin) 7.5 mg DAILY@17 PO 05/16/21 17:00 05/17/21 09:28 DC 05/16/21 16:27 Warfarin Sodium (Coumadin) 7.5 mg DAILY@17 PO 05/20/21 17:00 05/21/21 07:13 DC 05/20/21 16:21 Warfarin Sodium (Coumadin) 10 mg DAILY@17 PO 05/17/21 17:00 05/20/21 09:02 DC 05/19/21 16:06 ANTIONETTE HONG MD May 22, 2021 12:46
[2021-05-22 13:27] LABS: BASO % 0.2 % (0.0-1.0); EOS # 0.2 10^3/uL (0.0-0.5); EOS % 3.2 % (0.0-3.0); HEMOGLOBIN 12.7 g/dl (13.5-17.5); LYMPH # 1.1 10^3/uL (1.5-5.0); LYMPH % 18.7 % (24.0-44.0); MEAN CORPUSCULAR HEMOGLOBIN 31.7 pg (27.0-33.0); MEAN CORPUSCULAR HGB CONC 33.4 g/dl (32.0-36.5); MEAN CORPUSCULAR VOLUME 94.8 fl (80.0-96.0); MONO # 0.3 10^3/uL (0.0-0.8); MONO % 5.7 % (2.0-8.0); NEUTROPHILS # 4.3 10^3/uL (1.5-8.5); PLATELET COUNT, AUTOMATED 167 10^3/uL (150-450); RED BLOOD COUNT 4.01 10^6/uL (4.30-6.10)
[2021-05-22 13:52] LABS: BLOOD UREA NITROGEN 13 MG/DL (7-18); CALCIUM LEVEL 9.1 MG/DL (8.8-10.2); CARBON DIOXIDE LEVEL 28 MEQ/L (21-32); CHLORIDE LEVEL 104 MEQ/L (98-107); CREATININE FOR GFR 0.94 MG/DL (0.70-1.30); GLOMERULAR FILTRATION RATE > 60.0 (>42); GLUCOSE, FASTING 117 MG/DL (70-100); POTASSIUM SERUM 4.2 MEQ/L (3.5-5.1); SODIUM LEVEL 141 MEQ/L (136-145)
[2021-05-22 14:25] VITALS: BP 116/72
[2021-05-22] MEDS ORDERED: WARFARIN SOD 2MG TAB PO SCH (17:00)
[2021-05-22] MEDS ORDERED: WARFARIN SOD 3MG TAB PO SCH (17:00)
[2021-05-22] MEDS: QUEtiapine FUMARATE 25 MG TAB PO SCH (18:52)
[2021-05-22 20:00] VITALS: BP 118/66
[2021-05-22] MEDS: RAMELTEON 8 MG TAB (ROZEREM) PO SCH (21:21)
[2021-05-22] MEDS: SENNA 8.6 MG TAB (SENOKOT) PO SCH (21:21)
[2021-05-23] MEDS: REMEDY PHYTOPLEX Z-GUARD PASTE 113GM TUBE (FROM STOREROOM PRODUCT) TOP SCH ×3 (05:18→17:27)
[2021-05-23 06:49] LABS: BASO % 0.6 % (0.0-1.0); EOS # 0.3 10^3/uL (0.0-0.5); EOS % 6.1 % (0.0-3.0); LYMPH # 1.2 10^3/uL (1.5-5.0); LYMPH % 23.7 % (24.0-44.0); MEAN CORPUSCULAR HEMOGLOBIN 31.9 pg (27.0-33.0); MEAN CORPUSCULAR HGB CONC 33.3 g/dl (32.0-36.5); MEAN CORPUSCULAR VOLUME 95.7 fl (80.0-96.0); MONO # 0.4 10^3/uL (0.0-0.8); MONO % 7.5 % (2.0-8.0); NEUTROPHILS # 3.2 10^3/uL (1.5-8.5); NEUTROPHILS % 61.7 % (36.0-66.0); PLATELET COUNT, AUTOMATED 145 10^3/uL (150-450); RED BLOOD COUNT 3.76 10^6/uL (4.30-6.10); WHITE BLOOD COUNT 5.2 10^3/uL (4.0-10.0)
[2021-05-23 07:08] LABS: INR 2.9; PROTHROMBIN TIME 30.7 SECONDS (12.7-14.5)
[2021-05-23 07:14] LABS: BLOOD UREA NITROGEN 13 MG/DL (7-18); CALCIUM LEVEL 8.7 MG/DL (8.8-10.2); CARBON DIOXIDE LEVEL 28 MEQ/L (21-32); CHLORIDE LEVEL 106 MEQ/L (98-107); CREATININE FOR GFR 0.91 MG/DL (0.70-1.30); GLOMERULAR FILTRATION RATE > 60.0 (>42); GLUCOSE, FASTING 86 MG/DL (70-100); SODIUM LEVEL 140 MEQ/L (136-145)
[2021-05-23] MEDS: COMBIVENT RESPIMAT 100-20MCG INHALER 4GM INH SCH ×3 (07:31→20:00)
[2021-05-23] MEDS: SYMBICORT 160/4.5MCG INHALER 6GM INH SCH ×2 (08:00→20:19)
[2021-05-23] MEDS: levETIRAcetam 250MG TABLET (KEPPRA) PO SCH ×2 (08:16→20:23)
[2021-05-23] MEDS: ATORVASTATIN 20 MG TAB PO SCH (08:16)
[2021-05-23] MEDS: OMEPRAZOLE 20 MG CAP PO SCH ×2 (08:16→20:24)
[2021-05-23] MEDS: MAGIC MOUTHWASH SUSPENSION BTL SS SCH ×3 (08:16→17:27)
[2021-05-23] MEDS: MODAFINIL 100 MG TABLET PO SCH (08:17)
[2021-05-23] MEDS: TAMSULOSIN 0.4 MG CAP PO SCH (08:17)
[2021-05-23] MEDS: guaiFENesin 200 MG TAB PO SCH ×4 (08:17→20:28)
[2021-05-23] MEDS: VITAMIN D 1,000 INTERNATIONAL UNITS TABLET PO SCH (08:17)
[2021-05-23] MEDS: SINEMET 25-100 MG TAB PO SCH ×3 (08:17→15:35)
[2021-05-23] MEDS: LACTOBACILLUS ACIDOPHILUS CAP (BACID) PO SCH ×3 (08:17→20:24)
[2021-05-23] MEDS: FUROSEMIDE 10MG PER 1/2 TABLET PO SCH (08:17)
[2021-05-23] MEDS: FLUoxetine 20 MG CAP PO SCH (08:17)
[2021-05-23] MEDS: DOCUSATE SODIUM 100MG CAPSULE PO SCH ×2 (08:18→20:24)
[2021-05-23] MEDS: allopurinoL 300 MG TAB PO SCH (08:18)
[2021-05-23] MEDS: POTASSIUM CHLORIDE 10MEQ SR TABLET PO SCH (08:18)
[2021-05-23] MEDS: LACOSAMIDE 50 MG TAB (VIMPAT) PO SCH ×2 (09:41→20:24)
[2021-05-23] MEDS ORDERED: QUEtiapine FUMARATE 12.5 MG HALF-TAB PO ONE (15:30)
[2021-05-23] MEDS ORDERED: WARFARIN SOD 3MG TAB PO SCH (17:00)
[2021-05-23] MEDS: QUEtiapine FUMARATE 25 MG TAB PO SCH (18:46)
[2021-05-23 20:00] VITALS: BP 108/65
[2021-05-23] MEDS: ACETAMINOPHEN TAB 650MG DOSE (2X325MG) PO PRN ×2 (20:24→20:27)
[2021-05-23] MEDS: RAMELTEON 8 MG TAB (ROZEREM) PO SCH (20:24)
[2021-05-23] MEDS: SENNA 8.6 MG TAB (SENOKOT) PO SCH (20:25)
[2021-05-24] MEDS: REMEDY PHYTOPLEX Z-GUARD PASTE 113GM TUBE (FROM STOREROOM PRODUCT) TOP SCH ×5 (05:17→23:54)
[2021-05-24 06:00] VITALS: BP 131/79
[2021-05-24 06:51] LABS: INR 2.41; PROTHROMBIN TIME 26.6 SECONDS (12.7-14.5)
[2021-05-24] MEDS: MAGIC MOUTHWASH SUSPENSION BTL SS SCH ×3 (07:30→16:56)
[2021-05-24] MEDS: allopurinoL 300 MG TAB PO SCH (09:45)
[2021-05-24] MEDS: SINEMET 25-100 MG TAB PO SCH ×3 (09:45→16:55)
[2021-05-24] MEDS: TAMSULOSIN 0.4 MG CAP PO SCH (09:45)
[2021-05-24] MEDS: POTASSIUM CHLORIDE 10MEQ SR TABLET PO SCH (09:46)
[2021-05-24] MEDS: ATORVASTATIN 20 MG TAB PO SCH (09:46)
[2021-05-24] MEDS: levETIRAcetam 250MG TABLET (KEPPRA) PO SCH ×2 (09:46→20:35)
[2021-05-24] MEDS: LACTOBACILLUS ACIDOPHILUS CAP (BACID) PO SCH ×3 (09:46→20:35)
[2021-05-24] MEDS: FUROSEMIDE 10MG PER 1/2 TABLET PO SCH (09:46)
[2021-05-24] MEDS: FLUoxetine 20 MG CAP PO SCH (09:47)
[2021-05-24] MEDS: MODAFINIL 100 MG TABLET PO SCH (09:47)
[2021-05-24] MEDS: guaiFENesin 200 MG TAB PO SCH ×3 (09:47→20:35)
[2021-05-24] MEDS: OMEPRAZOLE 20 MG CAP PO SCH ×2 (09:47→20:35)
[2021-05-24] MEDS: VITAMIN D 1,000 INTERNATIONAL UNITS TABLET PO SCH (09:47)
[2021-05-24] MEDS: ACETAMINOPHEN TAB 650MG DOSE (2X325MG) PO PRN (09:48)
[2021-05-24] MEDS: DOCUSATE SODIUM 100MG CAPSULE PO SCH ×2 (09:48→20:35)
[2021-05-24] MEDS: LACOSAMIDE 50 MG TAB (VIMPAT) PO SCH ×2 (09:48→20:35)
--- NOTE | 2021-05-24 10:21 | IPNPDOC ---
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 REVIEW OF SYSTEMS: The following is a completed review of systems and has been reviewed. Review of systems otherwise unremarkable. PAIN: Patient self reports no pain EYES: No recent vision changes EARS, NOSE, & THROAT: +dysphagia (improving) CARDIOVASCULAR: Denies chest pain or palpitations PULMONARY: no cough or shortness of breath GASTROINTESTINAL: Denies constipation/diarrhea GENITOURINARY: no dysuria MUSCULOSKELETAL: generalized weakness NEUROLOGICAL:+ encephalopathic (improving) PSYCHIATRIC: unremarkable PHYSICAL EXAMINATION: VITAL SIGNS: Please see below. GENERAL: Pleasant and cooperative. No acute distress. lethargic, but able to rouse HEENT: PERRL. Extraocular movements intact. Clear conjunctiva CARDIOVASCULAR: Regular rate and rhythm. No murmurs, rubs, or gallops LUNGS: Clear to auscultation bilaterally. No wheezes. No rhonchi ABDOMEN: Soft, nontender, nondistended. Positive bowel sounds. Normal active bowel sounds NEUROLOGICAL: Alert and oriented x3 Cranial nerves II through XII grossly intact. Sensation grossly intact EXTREMITIES: 4\5 RUE, 5/5 LUE 4\5 strength right lower extremity. 5/5 strength in left lower extremity. +bilat LE edema (improving) ASSESSMENT: 76-year-old M with past medical history of left frontoparietal ICH (January 2021), parkinsons who presents status post status epilepticus due to rec ent left frontoparietal ICH with encephalopathy PLAN: 1. 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 neuro- s/p recent left frontoparietal ICH With CTH showing small acute bleed in area of old ICH with break through seizures and encephalopathy with significant mobility and ADL impairments -cont seizure meds, Keppra and Vimpat- levels WNL -provigil for arousal -patient with fever and leukocytosis on admission with probable new PNA and UTI contributing to ongoing encephalopathy-s/p course of abx, patient less encephalopathic, however having episodes of delirium in the evenings that contributed to his fall last night, CTH negative for new bleed -parkinson's cont Sinemet (adjusted timing so he does not receive evening dose at 9pm which may be contributing to agitation) -increased evening seroquel for agitation which has improved, additional dose ordered for this afternoon as patient appearing agitated -repeat CTH negative for nee bleed -f/u neurosurgery and neurology on d/c 3. Cardiac-hx of mechanical aortic valve, cont Coumadin goal 2.5-3.5 -HTN cont BP meds -HLD cont statin -degree of CHF given edematous legs cont lasix, daily weights, cont fluid restrict once he is able to tolerate more po 4. ID- leukocytosis resolved from aspiration PNA and UTI with Ucx + for klebsiella and enterococcae, stopped IV antibiotics and completed levaquin x 3 days cont to keep HOB >30, oral care, blood cx negative, patient afebrile -lactic acid WNL 5. GI ppx- prilosec 6. DVT ppx- on coumadin 7. Pain- tylenol 9. Psych- on prozac 10. - voiding well 10. [id number] to home, is planning to come in for training with therapy on Allergies Coded Allergies: No Known Allergies (Verified Allergy, Unknown, 10/28/19) Vital Signs Vital Signs Date Time Temp Pulse Resp B/P (MAP) Pulse Ox O2 Delivery O2 Flow Rate FiO2 05/24/21 06:00 98.5 50 16 131/79 (96) 96 Room Air Laboratory Data Labs 24H Laboratory Tests 2 05/24/21 06:13: Prothrombin Time 26.6H, Prothromb Time International Ratio 2.41 Current Medications Current Medications Current Medications Medications (Trade) Dose Ordered Sig/Eugenio Route PRN Reason Start Time Stop Time Status Last Admin Dose Admin Acetaminophen (Tylenol Tab) 650 mg Q6HP PRN PO MILD PAIN or TEMP > 101 05/07/21 20:30 05/24/21 09:48 Albuterol/ Ipratropium (Combivent Respimat 100-20mcg) 1 puff RTID INH 05/07/21 20:00 05/22/21 13:15 Allopurinol (Zyloprim) 300 mg DAILY PO 05/08/21 09:00 9/30/21 09:45 Atorvastatin Calcium (Lipitor) 80 mg DAILY PO 05/08/21 09:00 05/24/21 09:46 Budesonide/ Formoterol Fumarate (Symbicort 160/ 4.5mcg) 2 puff RBID INH 05/07/21 20:00 05/23/21 20:19 Carbidopa/Levodopa (Sinemet 25/100) 1 tab TID PO 05/07/21 21:00 05/16/21 11:29 DC 05/16/21 09:00 Carbidopa/Levodopa (Sinemet 25/100) 1 tab TID@0800,1200,1600 PO 05/16/21 12:00 05/24/21 09:45 Ceftriaxone Sodium 1 gm/ Dextrose 50 ml @ 100 mls/hr Q24H IV 05/10/21 14:00 05/14/21 09:41 DC 05/13/21 15:25 Docusate Sodium (Colace) 100 mg BID PO 05/07/21 21:00 05/24/21 09:48 Enalapril Maleate (Vasotec) 10 mg DAILY PO 05/08/21 09:00 05/17/21 12:18 DC 05/16/21 08:59 Enoxaparin Sodium (Lovenox) 100 mg BID SC 05/07/21 21:00 05/08/21 14:07 DC 05/08/21 07:55 Fluoxetine HCl (PROzac) 20 mg DAILY PO 05/08/21 09:00 05/24/21 09:47 Furosemide (Lasix) 10 mg BID@09,17 PO 05/19/21 11:00 05/19/21 11:48 DC 05/19/21 11:38 Furosemide (Lasix) 10 mg DAILY PO 05/20/21 09:00 05/24/21 09:46 Furosemide (Lasix) 20 mg DAILY PO 05/08/21 09:00 05/19/21 09:28 DC 05/18/21 10:37 Guaifenesin (Robitussin Tab) 400 mg TID PO 05/07/21 21:00 05/24/21 09:47 Haloperidol (Haldol) 2 mg Q6HP PRN IM AGITATION 05/18/21 03:50 Heparin Sodium (Heparin (Flush)) 200 units ASDIRECTED PRN IV SEE LABEL COMMENTS 05/07/21 16:20 Cancel Heparin Sodium (Heparin (Flush)) 200 units PICC IV 05/07/21 18:00 05/09/21 17:41 DC 05/09/21 05:39 Home Med (Home Med List Complete!) ASDIRECTED XX 05/07/21 19:55 05/07/21 20:07 DC Lacosamide (Vimpat) 200 mg BID PO 05/07/21 21:00 05/24/21 09:48 Lactobacillus Acidophilus (Bacid) 1 ea TID PO 05/14/21 09:00 05/24/21 09:46 Levetiracetam (Keppra) 1,000 mg BID PO 05/07/21 21:00 05/24/21 09:46 Levofloxacin (Levaquin) 500 mg DAILY@06 PO 05/14/21 06:00 05/17/21 09:28 DC 05/17/21 05:11 Lidocaine/ Diphenhydr/Alum/ Mg/Simeth (Magic Mouthwash) 5ML if patient unable... AC SS 05/08/21 07:30 05/23/21 08:16 Lorazepam (Ativan) 0.5 mg Q4HP PRN PO ANXIETY/agitation 05/15/21 21:50 05/18/21 04:30 DC Lorazepam (Ativan) 1 mg Q8HP PRN IM anxiety/agitation 05/18/21 04:30 Lorazepam (Ativan) 2 mg STAT STAT IM 05/13/21 03:20 05/13/21 03:21 DC 05/13/21 03:31 Modafinil (Provigil) 50 mg QAM PO 05/08/21 09:00 05/24/21 09:47 Omeprazole (PriLOSEC) 20 mg BID PO 05/07/21 21:00 05/24/21 09:47 Oxymetazoline HCl (Afrin) 2 spray ASDIRECTED PRN NA SEE LABEL COMMENTS 05/17/21 10:00 Piperacillin Sod/ Tazobactam Sod 4.5 gm/Dextrose 50 ml @ 50 mls/hr Q6H IV 05/08/21 11:00 05/10/21 13:18 DC 05/10/21 10:31 Polyethylene Glycol (Miralax) 1 pkt DAILY PRN PO CONSTIPATION 05/07/21 15:40 05/10/21 13:46 Potassium Chloride (Micro-K Extencaps) 10 meq DAILY PO 05/08/21 09:00 05/24/21 09:46 Quetiapine Fumarate (SEROquel) 12.5 mg DAILY@1900 PO 05/16/21 19:00 05/18/21 10:53 DC 05/17/21 20:42 Quetiapine Fumarate (SEROquel) 25 mg QHS@1900 PO 05/18/21 19:00 05/23/21 18:46 Ramelteon (Rozerem) 8 mg QHS PO 05/16/21 21:00 05/17/21 12:18 DC 05/16/21 21:06 Ramelteon (Rozerem) 8 mg QHS PO 05/18/21 21:00 05/23/21 20:24 Ramelteon (Rozerem) 8 mg QHS PRN PO INSOMNIA 05/07/21 15:40 05/16/21 11:23 DC 05/15/21 19:38 Ramelteon (Rozerem) 8 mg QHS PRN PO insomnia 05/17/21 21:00 05/18/21 10:53 DC 05/17/21 20:42 Senna (Senokot) 1 tab QHS PO 05/07/21 21:00 05/23/21 20:25 Sodium Chloride 1,000 ml @ 75 mls/hr [id number] IV 05/08/21 09:25 05/08/21 22:44 DC 05/08/21 10:15 Sodium Chloride (Saline Lock Flush) 10 ml ASDIRECTED PRN IV SEE LABEL COMMENTS 05/07/21 16:20 Cancel Sodium Chloride (Saline Lock Flush) 10 ml PICC IV 05/07/21 18:00 05/09/21 17:41 DC 05/09/21 05:38 Tamsulosin HCl (Flomax) 0.4 mg DAILY PO 05/08/21 09:00 05/24/21 09:45 Vancomycin HCl 500 mg/Dextrose 110 ml @ 110 mls/hr Q12H IV 05/09/21 01:00 05/10/21 08:55 DC 05/10/21 01:16 Vancomycin HCl 750 mg/IV Miscellaneous Supplies 1 each/ Sodium Chloride 275 ml @ 275 mls/hr Q12H IV 05/09/21 00:00 05/10/21 08:55 DC 05/09/21 23:57 Vancomycin HCl 2000 mg/IV Miscellaneous Supplies 1 each/ Sodium Chloride 290 ml @ 270 mls/hr Q12H IV 05/08/21 09:20 05/08/21 09:59 DC Vitamin D (Vitamin D) 2,000 units DAILY PO 05/08/21 09:00 05/24/21 09:47 Warfarin Sodium (Coumadin) 2 mg DAILY@17 PO 05/22/21 17:00 05/23/21 15:27 DC 05/22/21 16:40 Warfarin Sodium (Coumadin) 3 mg DAILY@17 PO 05/09/21 17:00 05/10/21 08:55 DC 05/09/21 17:10 Warfarin Sodium (Coumadin) 3 mg DAILY@17 PO 05/11/21 17:00 05/14/21 09:42 DC 05/13/21 18:17 Warfarin Sodium (Coumadin) 3 mg DAILY@17 PO 05/23/21 17:00 05/23/21 17:25 Warfarin Sodium (Coumadin) 3.5 mg DAILY@17 PO 05/14/21 17:00 05/15/21 10:29 DC 05/14/21 17:46 Warfarin Sodium (Coumadin) 4 mg DAILY@17 PO 05/10/21 17:00 05/11/21 12:35 DC 05/10/21 16:22 Warfarin Sodium (Coumadin) 4 mg DAILY@17 PO 05/15/21 17:00 05/16/21 11:23 DC 05/15/21 16:27 Warfarin Sodium (Coumadin) 6 mg DAILY@17 PO 05/07/21 17:00 05/09/21 09:21 DC 05/08/21 17:29 Warfarin Sodium (Coumadin) 6 mg DAILY@17 PO 05/21/21 17:00 05/21/21 07:35 DC Warfarin Sodium (Coumadin) 6 mg DAILY@17 PO 05/22/21 17:00 05/21/21 09:16 DC Warfarin Sodium (Coumadin) 7.5 mg DAILY@17 PO 05/16/21 17:00 05/17/21 09:28 DC 05/16/21 16:27 Warfarin Sodium (Coumadin) 7.5 mg DAILY@17 PO 05/20/21 17:00 05/21/21 07:13 DC 05/20/21 16:21 Warfarin Sodium (Coumadin) 10 mg DAILY@17 PO 05/17/21 17:00 05/20/21 09:02 DC 05/19/21 16:06 ANTIONETTE HONG MD May 24, 2021 10:21
--- NOTE | 2021-05-24 10:23 | IPNPDOC ---
PM&R Progress Note DATE OF SERVICE: May 24, 2021 Clinical Quality Assurance Associate Progress Note Subjective: PAtient reporting he feels good today and is ready to go home tomorrow. REVIEW OF SYSTEMS: The following is a completed review of systems and has been reviewed. Review of systems otherwise unremarkable. PAIN: Patient self reports no pain EYES: No recent vision changes EARS, NOSE, & THROAT: +dysphagia (improving) CARDIOVASCULAR: Denies chest pain or palpitations PULMONARY: no cough or shortness of breath GASTROINTESTINAL: Denies constipation/diarrhea GENITOURINARY: no dysuria MUSCULOSKELETAL: generalized weakness NEUROLOGICAL:+ encephalopathic (improving) PSYCHIATRIC: unremarkable PHYSICAL EXAMINATION: VITAL SIGNS: Please see below. GENERAL: Pleasant and cooperative. No acute distress. lethargic, but able to rouse HEENT: PERRL. Extraocular movements intact. Clear conjunctiva CARDIOVASCULAR: Regular rate and rhythm. No murmurs, rubs, or gallops LUNGS: Clear to auscultation bilaterally. No wheezes. No rhonchi ABDOMEN: Soft, nontender, nondistended. Positive bowel sounds. Normal active b owel sounds NEUROLOGICAL: Alert and oriented x3 Cranial nerves II through XII grossly intact. Sensation grossly intact EXTREMITIES: 4\5 RUE, 5/5 LUE 4\5 strength right lower extremity. 5/5 strength in left lower extremity. 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 neuro- s/p recent left frontoparietal ICH With CTH showing small acute bleed in area of old ICH with break through seizures and encephalopathy with significant mobility and ADL impairments -cont seizure meds, Keppra and Vimpat- levels WNL -provigil for arousal -patient with fever and leukocytosis on admission with probable new PNA and UTI contributing to ongoing encephalopathy-s/p course of abx, patient less encephalo pathic, however having episodes of delirium in the evenings that contributed to his fall last night, CTH negative for new bleed -parkinson's cont Sinemet (adjusted timing so he does not receive evening dose at 9pm which may be contributing to agitation) -increased evening seroquel for agitation which has improved, additional dose ordered for this afternoon as patient appearing agitated -repeat CTH negative for nee bleed -f/u neurosurgery and neurology on d/c 3. Cardiac-hx of mechanical aortic valve, cont Coumadin goal 2.5-3.5 -HTN cont BP meds -HLD cont statin -degree of CHF given edematous legs cont lasix, daily weights, cont fluid restrict once he is able to tolerate more po 4. ID- leukocytosis resolved from aspiration PNA and UTI with Ucx + for klebsie lla and enterococcae, stopped IV antibiotics and completed levaquin x 3 days cont to keep HOB >30, oral care, blood cx negative, patient afebrile -lactic acid WNL 5. GI ppx- prilosec 6. DVT ppx- on coumadin 7. Pain- tylenol 9. Psych- on prozac 10. - voiding well 10. [id number]-17-8-21 to home, is planning to come in for training with therapy on Allergies Coded Allergies: No Known Allergies (Verified Allergy, Unknown, 10/28/19) Vital Signs Vital Signs Date Time Temp Pulse Resp B/P (MAP) Pulse Ox O2 Delivery O2 Flow Rate FiO2 05/24/21 06:00 98.5 50 16 131/79 (96) 96 Room Air Laboratory Data Labs 24H Laboratory Tests 2 05/24/21 06:13: Prothrombin Time 26.6H, Prothromb Time International Ratio 2.41 Current Medications Current Medications Current Medications Medications (Trade) Dose Ordered Sig/Eugenio Route PRN Reason Start Time Stop Time Status Last Admin Dose Admin Acetaminophen (Tylenol Tab) 650 mg Q6HP PRN PO MILD PAIN or TEMP > 101 05/07/21 20:30 05/24/21 09:48 Albuterol/ Ipratropium (Combivent Respimat 100-20mcg) 1 puff RTID INH 05/07/21 20:00 05/22/21 13:15 Allopurinol (Zyloprim) 300 mg DAILY PO 05/08/21 09:00 05/24/21 09:45 Atorvastatin Calcium (Lipitor) 80 mg DAILY PO 05/08/21 09:00 05/24/21 09:46 Budesonide/ Formoterol Fumarate (Symbicort 160/ 4.5mcg) 2 puff RBID INH 05/07/21 20:00 05/23/21 20:19 Carbidopa/Levodopa (Sinemet 25/100) 1 tab TID PO 05/07/21 21:00 05/16/21 11:29 DC 05/16/21 09:00 Carbidopa/Levodopa (Sinemet 25/100) 1 tab TID@0800,1200,1600 PO 05/16/21 12:00 05/24/21 09:45 Ceftriaxone Sodium 1 gm/ Dextrose 50 ml @ 100 mls/hr Q24H IV 05/10/21 14:00 05/14/21 09:41 DC 05/13/21 15:25 Docusate Sodium (Colace) 100 mg BID PO 05/07/21 21:00 05/24/21 09:48 Enalapril Maleate (Vasotec) 10 mg DAILY PO 05/08/21 09:00 05/17/21 12:18 DC 05/16/21 08:59 Enoxaparin Sodium (Lovenox) 100 mg BID SC 05/07/21 21:00 05/08/21 14:07 DC 05/08/21 07:55 Fluoxetine HCl (PROzac) 20 mg DAILY PO 05/08/21 09:00 05/24/21 09:47 Furosemide (Lasix) 10 mg BID@09,17 PO 05/19/21 11:00 05/19/21 11:48 DC 05/19/21 11:38 Furosemide (Lasix) 10 mg DAILY PO 05/20/21 09:00 05/24/21 09:46 Furosemide (Lasix) 20 mg DAILY PO 05/08/21 09:00 05/19/21 09:28 DC 05/18/21 10:37 Guaifenesin (Robitussin Tab) 400 mg TID PO 05/07/21 21:00 05/24/21 09:47 Haloperidol (Haldol) 2 mg Q6HP PRN IM AGITATION 05/18/21 03:50 Heparin Sodium (Heparin (Flush)) 200 units ASDIRECTED PRN IV SEE LABEL COMMENTS 05/07/21 16:20 Cancel Heparin Sodium (Heparin (Flush)) 200 units PICC IV 05/07/21 18:00 05/09/21 17:41 DC 05/09/21 05:39 Home Med (Home Med List Complete!) ASDIRECTED XX 05/07/21 19:55 05/07/21 20:07 DC Lacosamide (Vimpat) 200 mg BID PO 05/07/21 21:00 05/24/21 09:48 Lactobacillus Acidophilus (Bacid) 1 ea TID PO 05/14/21 09:00 05/24/21 09:46 Levetiracetam (Keppra) 1,000 mg BID PO 05/07/21 21:00 05/24/21 09:46 Levofloxacin (Levaquin) 500 mg DAILY@06 PO 05/14/21 06:00 05/17/21 09:28 DC 05/17/21 05:11 Lidocaine/ Diphenhydr/Alum/ Mg/Simeth (Magic Mouthwash) 5ML if patient unable... AC SS 05/08/21 07:30 05/23/21 08:16 Lorazepam (Ativan) 0.5 mg Q4HP PRN PO ANXIETY/agitation 05/15/21 21:50 05/18/21 04:30 DC Lorazepam (Ativan) 1 mg Q8HP PRN IM anxiety/agitation 05/18/21 04:30 Lorazepam (Ativan) 2 mg STAT STAT IM 05/13/21 03:20 05/13/21 03:21 DC 05/13/21 03:31 Modafinil (Provigil) 50 mg QAM PO 05/08/21 09:00 05/24/21 09:47 Omeprazole (PriLOSEC) 20 mg BID PO 05/07/21 21:00 05/24/21 09:47 Oxymetazoline HCl (Afrin) 2 spray ASDIRECTED PRN NA SEE LABEL COMMENTS 05/17/21 10:00 Piperacillin Sod/ Tazobactam Sod 4.5 gm/Dextrose 50 ml @ 50 mls/hr Q6H IV 05/08/21 11:00 05/10/21 13:18 DC 05/10/21 10:31 Polyethylene Glycol (Miralax) 1 pkt DAILY PRN PO CONSTIPATION 05/07/21 15:40 05/10/21 13:46 Potassium Chloride (Micro-K Extencaps) 10 meq DAILY PO 05/08/21 09:00 05/24/21 09:46 Quetiapine Fumarate (SEROquel) 12.5 mg DAILY@1900 PO 05/16/21 19:00 05/18/21 10:53 DC 05/17/21 20:42 Quetiapine Fumarate (SEROquel) 25 mg QHS@1900 PO 05/18/21 19:00 05/23/21 18:46 Ramelteon (Rozerem) 8 mg QHS PO 05/16/21 21:00 05/17/21 12:18 DC 05/16/21 21:06 Ramelteon (Rozerem) 8 mg QHS PO 05/18/21 21:00 05/23/21 20:24 Ramelteon (Rozerem) 8 mg QHS PRN PO INSOMNIA 05/07/21 15:40 05/16/21 11:23 DC 05/15/21 19:38 Ramelteon (Rozerem) 8 mg QHS PRN PO insomnia 05/17/21 21:00 05/18/21 10:53 DC 05/17/21 20:42 Senna (Senokot) 1 tab QHS PO 05/07/21 21:00 05/23/21 20:25 Sodium Chloride 1,000 ml @ 75 mls/hr [id number] IV 05/08/21 09:25 05/08/21 22:44 DC 05/08/21 10:15 Sodium Chloride (Saline Lock Flush) 10 ml ASDIRECTED PRN IV SEE LABEL COMMENTS 05/07/21 16:20 Cancel Sodium Chloride (Saline Lock Flush) 10 ml PICC IV 05/07/21 18:00 05/09/21 17:41 DC 05/09/21 05:38 Tamsulosin HCl (Flomax) 0.4 mg DAILY PO 05/08/21 09:00 05/24/21 09:45 Vancomycin HCl 500 mg/Dextrose 110 ml @ 110 mls/hr Q12H IV 05/09/21 01:00 05/10/21 08:55 DC 05/10/21 01:16 Vancomycin HCl 750 mg/IV Miscellaneous Supplies 1 each/ Sodium Chloride 275 ml @ 275 mls/hr Q12H IV 05/09/21 00:00 05/10/21 08:55 DC 05/09/21 23:57 Vancomycin HCl 2000 mg/IV Miscellaneous Supplies 1 each/ Sodium Chloride 290 ml @ 270 mls/hr Q12H IV 05/08/21 09:20 05/08/21 09:59 DC Vitamin D (Vitamin D) 2,000 units DAILY PO 05/08/21 09:00 05/24/21 09:47 Warfarin Sodium (Coumadin) 2 mg DAILY@17 PO 05/22/21 17:00 05/23/21 15:27 DC 05/22/21 16:40 Warfarin Sodium (Coumadin) 3 mg DAILY@17 PO 05/09/21 17:00 05/10/21 08:55 DC 05/09/21 17:10 Warfarin Sodium (Coumadin) 3 mg DAILY@17 PO 05/11/21 17:00 05/14/21 09:42 DC 05/13/21 18:17 Warfarin Sodium (Coumadin) 3 mg DAILY@17 PO 05/23/21 17:00 05/23/21 17:25 Warfarin Sodium (Coumadin) 3.5 mg DAILY@17 PO 05/14/21 17:00 05/15/21 10:29 DC 05/14/21 17:46 Warfarin Sodium (Coumadin) 4 mg DAILY@17 PO 05/10/21 17:00 05/11/21 12:35 DC 05/10/21 16:22 Warfarin Sodium (Coumadin) 4 mg DAILY@17 PO 05/15/21 17:00 05/16/21 11:23 DC 05/15/21 16:27 Warfarin Sodium (Coumadin) 6 mg DAILY@17 PO 05/07/21 17:00 05/09/21 09:21 DC 05/08/21 17:29 Warfarin Sodium (Coumadin) 6 mg DAILY@17 PO 05/21/21 17:00 05/21/21 07:35 DC Warfarin Sodium (Coumadin) 6 mg DAILY@17 PO 05/22/21 17:00 05/21/21 09:16 DC Warfarin Sodium (Coumadin) 7.5 mg DAILY@17 PO 05/16/21 17:00 05/17/21 09:28 DC 05/16/21 16:27 Warfarin Sodium (Coumadin) 7.5 mg DAILY@17 PO 05/20/21 17:00 05/21/21 07:13 DC 05/20/21 16:21 Warfarin Sodium (Coumadin) 10 mg DAILY@17 PO 05/17/21 17:00 05/20/21 09:02 DC 05/19/21 16:06 ANTIONETTE HONG MD May 24, 2021 10:23
[2021-05-24] MEDS: COMBIVENT RESPIMAT 100-20MCG INHALER 4GM INH SCH ×3 (11:29→20:00)
[2021-05-24] MEDS: SYMBICORT 160/4.5MCG INHALER 6GM INH SCH ×2 (13:39→20:00)
[2021-05-24 14:00] VITALS: BP 120/71
[2021-05-24] MEDS ORDERED: WARFARIN SOD 1MG TAB PO SCH (17:00)
[2021-05-24] MEDS ORDERED: WARFARIN SOD 3MG TAB PO SCH (17:00)
[2021-05-24] MEDS ORDERED: WARFARIN SOD 2.5MG TAB PO SCH (17:00)
[2021-05-24 20:00] VITALS: BP 117/67
[2021-05-24] MEDS: SENNA 8.6 MG TAB (SENOKOT) PO SCH (20:35)
[2021-05-24] MEDS: QUEtiapine FUMARATE 25 MG TAB PO SCH (20:35)
[2021-05-24] MEDS: RAMELTEON 8 MG TAB (ROZEREM) PO SCH (20:35)
[2021-05-25] MEDS: REMEDY PHYTOPLEX Z-GUARD PASTE 113GM TUBE (FROM STOREROOM PRODUCT) TOP SCH ×2 (05:12→08:34)
[2021-05-25 06:00] VITALS: BP 131/73
[2021-05-25] MEDS: SYMBICORT 160/4.5MCG INHALER 6GM INH SCH (07:21)
[2021-05-25] MEDS: COMBIVENT RESPIMAT 100-20MCG INHALER 4GM INH SCH (07:22)
[2021-05-25] MEDS: MAGIC MOUTHWASH SUSPENSION BTL SS SCH ×2 (07:30→12:00)
[2021-05-25] MEDS: VITAMIN D 1,000 INTERNATIONAL UNITS TABLET PO SCH (08:31)
[2021-05-25] MEDS: FUROSEMIDE 10MG PER 1/2 TABLET PO SCH (08:31)
[2021-05-25] MEDS: OMEPRAZOLE 20 MG CAP PO SCH (08:31)
[2021-05-25] MEDS: MODAFINIL 100 MG TABLET PO SCH (08:32)
[2021-05-25] MEDS: POTASSIUM CHLORIDE 10MEQ SR TABLET PO SCH (08:32)
[2021-05-25] MEDS: LACOSAMIDE 50 MG TAB (VIMPAT) PO SCH (08:32)
[2021-05-25] MEDS: allopurinoL 300 MG TAB PO SCH (08:32)
[2021-05-25] MEDS: TAMSULOSIN 0.4 MG CAP PO SCH (08:32)
[2021-05-25] MEDS: SINEMET 25-100 MG TAB PO SCH ×2 (08:33→12:14)
[2021-05-25] MEDS: FLUoxetine 20 MG CAP PO SCH (08:33)
[2021-05-25] MEDS: DOCUSATE SODIUM 100MG CAPSULE PO SCH (08:33)
[2021-05-25] MEDS: guaiFENesin 200 MG TAB PO SCH (08:33)
[2021-05-25] MEDS: levETIRAcetam 250MG TABLET (KEPPRA) PO SCH (08:33)
[2021-05-25] MEDS: ATORVASTATIN 20 MG TAB PO SCH (08:33)
[2021-05-25] MEDS: LACTOBACILLUS ACIDOPHILUS CAP (BACID) PO SCH (08:34)
[2021-05-25 10:23] LABS: INR 2.12; PROTHROMBIN TIME 24.1 SECONDS (12.7-14.5)
[2021-05-25] MEDS ORDERED: D31000TA2 PO (12:08)
[2021-05-25] MEDS ORDERED: ATOR80TA59 PO (12:08)
[2021-05-25] MEDS ORDERED: CARB25TA9 PO (12:08)
[2021-05-25] MEDS ORDERED: FLOM0.4C39 PO (12:08)
[2021-05-25] MEDS ORDERED: ALLO300T2 PO (12:08)
[2021-05-25] MEDS ORDERED: SYMB16INH INH (12:08)
[2021-05-25] MEDS ORDERED: FLUO20CA22 PO (12:08)
[2021-05-25] MEDS ORDERED: VIMP50TA3 PO (12:09)
[2021-05-25] MEDS ORDERED: POTA10TA17 PO (12:09)
[2021-05-25] MEDS ORDERED: KEPP250T5 PO (12:09)
[2021-05-25] MEDS ORDERED: FURO20TA2 PO (12:09)
[2021-05-25] MEDS ORDERED: OMEP-218 PO (12:09)
[2021-05-25] MEDS ORDERED: WARF-20 PO (12:10)
== END 2021-05-25 14:36 | disposition home health service (06) | DRG 57 ==
LOC: M PM&R 18:10
PROVIDERS: ADMIT Physical Medicine & Rehabilitation; ATTEND Physical Medicine & Rehabilitation
DX: I69.198 Other sequelae of nontraumatic intracerebral hemorrhage (principal); G40.911 Epilepsy, unspecified, intractable, with status epilepticus; I13.0 Hypertensive heart and chronic kidney disease with heart failure and stage 1 through stage 4 chronic kidney disease, or unspecified chronic kidney disease; G93.40 Encephalopathy, unspecified; E78.5 Hyperlipidemia, unspecified; G20 Parkinson's disease; G47.33 Obstructive sleep apnea (adult) (pediatric); N18.9 Chronic kidney disease, unspecified; Z95.2 Presence of prosthetic heart valve; R13.12 Dysphagia, oropharyngeal phase; Z74.09 Other reduced mobility; Z74.1 Need for assistance with personal care; R53.1 Weakness; R05.9 Cough, unspecified; R53.81 Other malaise; I69.291 Dysphagia following other nontraumatic intracranial hemorrhage; I50.9 Heart failure, unspecified; Z79.01 Long term (current) use of anticoagulants; Z79.899 Other long term (current) drug therapy

== ENCOUNTER → 2021-11-16 | Outpatient (CLI) | payer MEDICARE, BC ==
[~2021-11-16] MED LIST changes: +ALLO300T2 PO; -D31000TA2 PO; +ENOX100I3 SC; +KEPP10002 PO; +KEPP250T5 PO; +LACO10SO PO; +OMEP-173 PO; +POTA10TA17 PO; +VIMP50TA3 PO; +VITA100093 PO; +WARF-20 PO; +WARF-60 PO
== END ==
LOC: M PLAIMG 15:44
PROVIDERS: ATTEND Neurological Surgery
DX: S06.35 Traumatic hemorrhage of left cerebrum (principal); G93.89 Other specified disorders of brain